=== PATIENT | male | born 1960 | race African-American/Black ===

== ENCOUNTER 2019-06-22 14:21 | Emergency (ER) | payer MEDICAID ==
[2019-06-22] MEDS ORDERED: NORMAL SALINE 1000 ML 1,000 ML IV ONE (15:27)
--- NOTE | 2019-06-22 15:35 | ER Document Report ---
ED Medical Screen (RME) <ASHLY KOCH - Last Filed: 06/22/19 15:33> <MOODY HALL - Last Filed: 06/22/19 16:50> - General Chief Complaint: Other Stated Complaint: CHILLS Time Seen by Provider: 06/22/19 14:33 Primary Care Provider: JENNIFER TEMPLE PA-C [Primary Care Provider] - Follow up as needed Notes: Patient is a 58-year-old male with a history of hepatitis C, type 2 diabetes who presents to the emergency department today with a chief complaint of chills. Patient reports he developed chills and a shaking type feeling after eating Irish food 30 minutes prior to arrival. Patient states that this is never happened before. Patient reports his blood sugars have been running in the high 200s. Patient also concerned as he states he has been passing out multiple times over the past 6 months. Patient states that last week he was walking in his home when he just fell out. Patient denies head injury but reports he did have a loss of consciousness for 1 to 2 minutes. Patient is concerned because he is not sure why he is passing out. Patient denies chest pain. Patient reports some shortness of breath. (ASHLY KOCH) - Related Data Allergies/Adverse Reactions: No Known Allergies Allergy (Unverified 06/22/19 14:23) Past Medical History - Social History Chew tobacco use (# tins/day): No Frequency of alcohol use: Occasional Drug Abuse: Marijuana - Past Medical History Cardiac Medical History: Reports: Hx Hypertension Endocrine Medical History: Reports: Hx Diabetes Mellitus Type 2 Renal/ Medical History: Denies: Hx Peritoneal Dialysis <AUGUST,ASHLY - Last Filed: 06/22/19 15:33> Physical Exam - Respiratory Respiratory status: No respiratory distress Chest status: Nontender Breath sounds: Normal Chest palpation: Normal - Cardiovascular Rhythm: Regular Heart sounds: Normal auscultation, S1 appreciated, S2 appreciated <LUIS F KOCHECCA - Last Filed: 06/22/19 15:33> - Vital signs Vitals: Temp Pulse Resp BP Pulse Ox 97.3 F 99 16 142/91 H 97 06/22/19 14:35 06/22/19 14:35 06/22/19 14:35 06/22/19 14:35 06/22/19 14:35 Course <ASHLY KOCH - Last Filed: 06/22/19 15:33> - Laboratory Result Diagrams: 06/22/19 16:11 06/22/19 16:11 <MOODY HALL - Last Filed: 06/22/19 16:50> - Re-evaluation Re-evalutation: 06/22/19 15:34 Patient was originally seen in super track at a level 4. Due to his complaint of syncope with loss of consciousness he was upgraded to the MEMO level 3, basic labs, EKG and troponin ordered. I have greeted and performed a rapid initial assessment of this patient. A comprehensive ED assessment and evaluation of the patient, analysis of test results and completion of the medical decision making process will be conducted by additional ED providers. (ASHLY KOCH) - Vital Signs Vital signs: Temp Pulse Resp BP Pulse Ox 97.3 F 99 16 142/91 H 97 06/22/19 14:35 06/22/19 14:35 06/22/19 14:35 06/22/19 14:35 06/22/19 14:35 Doctor's Discharge <ASHLY KOCH - Last Filed: 06/22/19 15:33> <MOODY HALL - Last Filed: 06/22/19 16:50> - Discharge Referrals: JENNIFER TEMPLE PA-C [Primary Care Provider] - Follow up as needed
--- NOTE | 2019-06-22 15:46 | RADIOLOGY REPORT (SQ) ---
EXAM DESCRIPTION: CHEST SINGLE VIEW COMPLETED DATE/TIME: 06/22/2019 3:36 pm REASON FOR STUDY: chest pain COMPARISON: None. NUMBER OF VIEWS: One view. TECHNIQUE: Single frontal radiographic view of the chest acquired. LIMITATIONS: None. FINDINGS: LUNGS AND PLEURA: No opacities, masses or pneumothorax. No pleural effusion. MEDIASTINUM AND HILAR STRUCTURES: No masses. Contour normal. HEART AND VASCULAR STRUCTURES: Heart normal in size. Normal vasculature. BONES: No acute findings. HARDWARE: None in the chest. OTHER: No other significant finding. IMPRESSION: NO SIGNIFICANT RADIOGRAPHIC FINDING IN THE CHEST. TECHNICAL DOCUMENTATION: JOB ID: [id number] [employer]- All Rights Reserved Reading location - IP/workstation name: [email or web address]
[2019-06-22 16:34] LABS: ABSOLUTE BASOPHILS # (AUTO) 0.1 10^3/uL (0.0-0.2); ABSOLUTE EOSINOPHILS # (AUTO) 0.1 10^3/uL (0.0-0.6); ABSOLUTE LYMPHOCYTES (AUTO) 2.3 10^3/uL (0.5-4.7); ABSOLUTE MONOCYTES (AUTO) 0.6 10^3/uL (0.1-1.4); ABSOLUTE NEUT (AUTO) 6.5 10^3/uL (1.7-8.2); BASOPHILS % (AUTO) 0.9 % (0-2); EOSINOPHILS % (AUTO) 1.4 % (0-6); HEMATOCRIT 43.5 % (37.9-51.0); HEMOGLOBIN 15.1 g/dL (13.5-17.0); LYMPHOCYTES % (AUTO) 23.9 % (13-45); MEAN CORPUSCULAR HEMOGLOBIN 31.2 pg (27.0-33.4); MEAN CORPUSCULAR HGB CONC 34.7 g/dL (32.0-36.0); MEAN CORPUSCULAR VOLUME 90 fl (80-97); MONOCYTES % (AUTO) 6.1 % (3-13); PLATELET COUNT 234 10^3/uL (150-450); RED BLOOD COUNT 4.84 10^6/uL (4.35-5.55); RED CELL DISTRIBUTION WIDTH 12.7 % (11.5-14.0); SEGMENTED NEUTROPHILS % (AUTO) 67.7 % (42-78); TOTAL CELLS COUNTED % (AUTO) 100 %; WHITE BLOOD COUNT 9.5 10^3/uL (4.0-10.5)
[2019-06-22 16:56] LABS: ALBUMIN 4.5 g/dL (3.5-5.0); ALKALINE PHOSPHATASE 60 U/L (38-126); ANION GAP 14 (5-19); ASPARTATE AMINO TRANSFERASE 35 U/L (17-59); BILIRUBIN,DIRECT 0.3 mg/dL (0.0-0.4); BILIRUBIN,TOTAL 0.8 mg/dL (0.2-1.3); BLOOD UREA NITROGEN 23 mg/dL (7-20); CALCIUM 9.6 mg/dL (8.4-10.2); CARBON DIOXIDE 24 mmol/L (22-30); CHLORIDE 98 mmol/L (98-107); CREATINE KINASE 421 U/L (55-170); GLUCOSE 89 mg/dL (75-110); POTASSIUM 3.7 mmol/L (3.6-5.0); TOTAL PROTEIN 7.8 g/dL (6.3-8.2)
--- NOTE | 2019-06-22 17:00 | ER Document Report ---
ED General - General Chief Complaint: Other Stated Complaint: CHILLS Time Seen by Provider: 06/22/19 14:33 Primary Care Provider: JENNIFER TEMPLE PA-C [Primary Care Provider] - Follow up as needed Information source: Patient - HPI Patient complains to provider of: chills and low blood sugar to 70. Onset: This morning Onset/Duration: Sudden Quality of pain: No pain Severity: Mild Pain Level: 1 Associated symptoms: Chills Exacerbated by: Denies Relieved by: Food Similar symptoms previously: Yes - Related Data Allergies/Adverse Reactions: No Known Allergies Allergy (Unverified 06/22/19 14:23) Past Medical History - Social History Smoking Status: Current Every Day Smoker Chew tobacco use (# tins/day): No Frequency of alcohol use: Occasional Drug Abuse: Marijuana Family History: None Patient has suicidal ideation: No Patient has homicidal ideation: No - Past Medical History Cardiac Medical History: Reports: Hx Hypertension Endocrine Medical History: Reports: Hx Diabetes Mellitus Type 2 Renal/ Medical History: Denies: Hx Peritoneal Dialysis Review of Systems - Review of Systems Constitutional: Chills, Malaise Cardiovascular: denies: Chest pain Respiratory: denies: Cough Gastrointestinal: denies: Abdominal pain Genitourinary: denies: Burning, Dysuria Physical Exam - Vital signs Vitals: Temp Pulse Resp BP Pulse Ox 97.3 F 99 16 142/91 H 97 06/22/19 14:35 06/22/19 14:35 06/22/19 14:35 06/22/19 14:35 06/22/19 14:35 - General General appearance: Appears well - HEENT Head: Normocephalic, Atraumatic Eyes: Normal Conjunctiva: Normal Cornea: Normal Extraocular movements intact: Yes Pupils: PERRL Mouth/Lips: Normal Pharynx: Normal Neck: Normal - Respiratory Respiratory status: No: No respiratory distress, Respiratory distress, Depressed respirations Chest status: Tender Breath sounds: Normal Chest palpation: Normal - Cardiovascular Rhythm: Regular - Abdominal Inspection: Normal Distension: No distension Bowel sounds: Normal Tenderness: Nontender - Genitourinary Inspection: Normal Tenderness: Nontender - Back Back: No: CVA tenderness - Extremities General upper extremity: Normal inspection General lower extremity: Normal inspection Shoulder: Normal Arm: Normal Elbow: Normal Forearm: Normal Wrist: Normal Hand: Normal Hip: Normal - Neurological Orientation: AAOx4 Da Coma Scale Eye Opening: Spontaneous [place] Coma Scale Verbal: Oriented Da Coma Scale Motor: Obeys Commands [place] Coma Scale Total: 15 Speech: Normal Cranial nerves: Normal Cerebellar coordination: Normal Motor strength normal: LUE, RUE, LLE, RLE - Skin Skin Temperature: Warm Skin Moisture: Dry Course - Vital Signs Vital signs: Temp Pulse Resp BP Pulse Ox 97.3 F 99 16 142/91 H 97 06/22/19 14:35 06/22/19 14:35 06/22/19 14:35 06/22/19 14:35 06/22/19 14:35 - Laboratory Result Diagrams: 06/22/19 16:11 06/22/19 16:11 Laboratory results interpreted by me: 06/22/19 06/22/19 06/22/19 16:11 16:11 16:11 Sodium 135.9 L BUN 23 H Creatinine 1.37 H Est GFR (MDRD) Non-Af 53 L Lactic Acid Creatine Kinase 421 H CK-MB (CK-2) 5.37 H Urine Protein 100 H Urine Glucose (UA) 50 H Urine Blood SMALL H Urine Urobilinogen 2.0 H 06/22/19 17:10 Sodium BUN Creatinine Est GFR (MDRD) Non-Af Lactic Acid 2.2 H Creatine Kinase CK-MB (CK-2) Urine Protein Urine Glucose (UA) Urine Blood Urine Urobilinogen - Transfer of Care Notes: 06/22/19 20:24 Note chest x-ray was read as negative. Patient received IV fluid x2 L. Blood sugar was stable lactic acid was below 2. Patient shows no signs of sepsis therefore will be discharged with diagnosis of hypoglycemia as there is no signs of infection. Discharge - Discharge Clinical Impression: Hypoglycemia, Chills (without fever) Condition: Good Disposition: HOME, SELF-CARE Instructions: Hypoglycemia ([facility]), Hypoglycemia Diet ([facility]) Additional Instructions: return if worse. Referrals: JENNIFER TEMPLE PA-C [Primary Care Provider] - Follow up as needed
[2019-06-22 17:20] LABS: APPEARANCE,URINE CLEAR; BILIRUBIN,URINE NEGATIVE (NEGATIVE); COLOR,URINE YELLOW; CREATINE KINASE MB 5.37 ng/mL (<4.55); GLUCOSE, URINE 50 mg/dL (NEGATIVE); KETONES,URINE NEGATIVE (NEGATIVE); LEUKOCYTE ESTERASE,URINE NEGATIVE (NEGATIVE); NITRITE,URINE NEGATIVE (NEGATIVE); PROTEIN,URINE 100 mg/dL (NEGATIVE); URINE SPECIFIC GRAVITY 1.012
[2019-06-22 17:29] LABS: TROPONIN I < 0.012 ng/mL
[2019-06-22] MEDS ORDERED: DEXTROSE 50%-WATER 25 GM/50 ML DISP.SYRIN IV ONE ×2 (17:49→17:57)
[2019-06-22] MEDS ORDERED: NORMAL SALINE 1000 ML 1,000 ML IV PRN (18:03)
[2019-06-22 20:54] VITALS: BP 137/91
--- NOTE | 2019-06-23 14:22 | EKG REPORT ---
SEVERITY:- ABNORMAL ECG - SINUS RHYTHM NONSPECIFIC INTRAVENTRICULAR CONDUCTION DELAY INFERIOR INFARCT, AGE INDETERMINATE LATERAL INFARCT, AGE INDETERMINATE : Confirmed by: Faviola Franco 23-Jun-2019 14:21:31
== END 2019-06-22 20:56 | disposition home or self-care (01) ==
LOC: ER 14:21
DX: E11.649 Type 2 diabetes mellitus with hypoglycemia without coma (principal); R68.83 Chills (without fever); R53.81 Other malaise; F17.200 Nicotine dependence, unspecified, uncomplicated; F12.10 Cannabis abuse, uncomplicated; I10 Essential (primary) hypertension
CPT/HCPCS: 99284; 96361; 96374; 36415; 87040; 82553; 82962; 82550; 83605 ×2; 85025; 80053; 81001; 84484; 71045; 93005; 93010; J3490; J7030

== ENCOUNTER → 2019-12-01 | Outpatient (CLI) | payer MEDICAID ==
--- NOTE | 2019-12-01 13:10 | RADIOLOGY REPORT (SQ) ---
EXAM DESCRIPTION: VENOUS UNILATERAL LOWER COMPLETED DATE/TIME: 12/01/2019 12:38 pm REASON FOR STUDY: SWELLING R22.41 LOCALIZED SWELLING, MASS AND LUMP, RIGHT LOWER LIMB COMPARISON: None. TECHNIQUE: Dynamic and static mitchell scale and color images acquired of the right leg venous system. S elected spectral images acquired with additional compression and augmentation maneuvers. The contrala teral common femoral vein and saphenofemoral junction were also imaged. Images stored on PACS. LIMITATIONS: None. FINDINGS: COMMON FEMORAL: Normal phasicity, compression and augmentation. No visualized echogenic ma terial on mitchell scale. No defects on color images. FEMORAL: Normal compression and augmentation. No visualized echogenic material on mitchell scale. No defe cts on color images. POPLITEAL: Normal compression, augmentation. No visualized echogenic material on mitchell scale. No defec ts on color images. CALF VESSELS: Normal compression, augmentation. No visualized echogenic material on mitchell scale. No de fects on color images. GSV and SSV: Normal compression, augmentation. No visualized echogenic material on mitchell scale. No def ects on color images. ANY DEEP VENOUS INSUFFICIENCY: No. ANY EVIDENCE OF POPLITEAL CYST: No. OTHER: No other significant finding. CONTRALATERAL COMMON FEMORAL VEIN AND SAPHENOFEMORAL JUNCTION: Normal phasicity, compression and augmentation. No visualized echogenic material on mitchell scale. No de fects on color images. IMPRESSION: NO EVIDENCE DVT OR SVT IN THE RIGHT LEG. TECHNICAL DOCUMENTATION: JOB ID: [id number] 2010 [employer]- All Rights Reserved Reading location - IP/workstation name: [email or web address]
== END ==
LOC: SP 11:07
PROVIDERS: ATTEND Internal Medicine
DX: R22.41 Localized swelling, mass and lump, right lower limb (principal)
CPT/HCPCS: 93971

== ENCOUNTER 2020-03-06 13:01 | Inpatient (IN) | payer MEDICAID ==
[2020-03-06] MEDS ORDERED: NORMAL SALINE 250 ML with FUROSEMIDE 250 MG IV PRN ×2 (13:18)
--- NOTE | 2020-03-06 13:19 | ER Document Report ---
HPI - HPI Time Seen by Provider: 03/06/20 13:12 Pain Level: 4 Notes: 59-year-old male patient presenting with direct admission orders. There apparently are no beds available at this time so he is being seen in the emergency department. I have entered all orders as indicated on his order sheet by Dr. Warner. Patient's complaint today is bilateral lower extremity edema. He states this has been going on for a few months with worsening over the last few days. He denies any chest pain or shortness of breath. - REPRODUCTIVE Reproductive: DENIES: : Past Medical History - General Information source: Patient - Social History Smoking Status: Unknown if Ever Smoked Frequency of alcohol use: None Drug Abuse: None Family History: None Patient has homicidal ideation: No - Past Medical History Cardiac Medical History: Reports: Hx Hypertension Endocrine Medical History: Reports: Hx Diabetes Mellitus Type 2 Renal/ Medical History: Denies: Hx Peritoneal Dialysis Vertical Provider Document - CONSTITUTIONAL Notes: PHYSICAL EXAMINATION: GENERAL: Well-appearing, well-nourished and in no acute distress. HEAD: Atraumatic, normocephalic. EYES: Pupils equal round and reactive to light, extraocular movements intact, sclera anicteric, conjunctiva are normal. ENT: Nares patent, oropharynx clear without exudates. Moist mucous membranes. NECK: Normal range of motion, supple without lymphadenopathy LUNGS: Breath sounds clear to auscultation bilaterally and equal. No wheezes rales or rhonchi. HEART: Regular rate and rhythm without murmurs ABDOMEN: Soft, nontender, nondistended abdomen. No guarding, no rebound. No masses appreciated. Musculoskeletal: Normal range of motion, 3+ pitting edema to bilateral lower extremities. No cyanosis. NEUROLOGICAL: Cranial nerves grossly intact. Normal speech, normal gait. Normal sensory, motor exams PSYCH: Normal mood, normal affect. SKIN: Warm, Dry, normal turgor, no rashes or lesions noted. - INFECTION CONTROL TRAVEL OUTSIDE OF THE [place] IN LAST 30 DAYS: No Course - Re-evaluation Re-evalutation: 03/06/20 13:21 Patient arrives with direct admit orders. All orders placed. Patient admitted to the [facility] under the service of Dr. Warner. - Vital Signs Vital signs: Temp Pulse Resp BP Pulse Ox 98.0 F 97 18 148/100 H 96 03/06/20 13:12 03/06/20 13:07 03/06/20 13:07 03/06/20 13:07 03/06/20 13:07 Discharge - Discharge Clinical Impression: History of type 2 diabetes mellitus CHF (congestive heart failure) Qualifiers: Heart failure type: unspecified Heart failure chronicity: unspecified Qualified Code(s): I50.9 - Heart failure, unspecified Condition: Stable Disposition: ADMITTED INPATIENT Admitting Provider: Marcella Unit Admitted: [facility] Referrals: BRIANDA WARNER MD [Primary Care Provider] - Follow up as needed
[2020-03-06 13:53] LABS: ABSOLUTE EOSINOPHILS # (AUTO) 0.2 10^3/uL (0.0-0.6); ABSOLUTE LYMPHOCYTES (AUTO) 1.2 10^3/uL (0.5-4.7); ABSOLUTE MONOCYTES (AUTO) 0.6 10^3/uL (0.1-1.4); ABSOLUTE NEUT (AUTO) 3.4 10^3/uL (1.7-8.2); BASOPHILS % (AUTO) 0.6 % (0-2); EOSINOPHILS % (AUTO) 4.2 % (0-6); HEMATOCRIT 40.3 % (37.9-51.0); HEMOGLOBIN 13.4 g/dL (13.5-17.0); LYMPHOCYTES % (AUTO) 21.6 % (13-45); MEAN CORPUSCULAR HEMOGLOBIN 29.2 pg (27.0-33.4); MEAN CORPUSCULAR HGB CONC 33.2 g/dL (32.0-36.0); MEAN CORPUSCULAR VOLUME 88 fl (80-97); MONOCYTES % (AUTO) 11.4 % (3-13); PLATELET COUNT 215 10^3/uL (150-450); RED BLOOD COUNT 4.57 10^6/uL (4.35-5.55); RED CELL DISTRIBUTION WIDTH 15.2 % (11.5-14.0); SEGMENTED NEUTROPHILS % (AUTO) 62.2 % (42-78); TOTAL CELLS COUNTED % (AUTO) 100 %; WHITE BLOOD COUNT 5.4 10^3/uL (4.0-10.5)
[2020-03-06 14:16] LABS: ALBUMIN 3.8 g/dL (3.5-5.0); ALKALINE PHOSPHATASE 64 U/L (38-126); ANION GAP 6 (5-19); ASPARTATE AMINO TRANSFERASE 26 U/L (17-59); BILIRUBIN,TOTAL 1.5 mg/dL (0.2-1.3); BLOOD UREA NITROGEN 23 mg/dL (7-20); CALCIUM 8.9 mg/dL (8.4-10.2); CARBON DIOXIDE 31 mmol/L (22-30); CHLORIDE 103 mmol/L (98-107); CREATINE KINASE 303 U/L (55-170); GLUCOSE 87 mg/dL (75-110); POTASSIUM 3.9 mmol/L (3.6-5.0)
[2020-03-06 14:22] LABS: URINE CREATININE 89.8 mg/dL (22-328)
[2020-03-06 14:28] LABS: CREATINE KINASE MB 7.59 ng/mL (<4.55)
[2020-03-06 14:33] LABS: FREE T4 (FREE THYROXINE) 1.34 ng/dL (0.78-2.19)
[2020-03-06 14:41] LABS: TROPONIN I 0.065 ng/mL
[2020-03-06 14:42] LABS: URINE PROTEIN 300.7 mg/dL (<12)
[2020-03-06 14:47] LABS: THYROID STIMULATING HORMONE 2.86 uIU/mL (0.47-4.68)
--- NOTE | 2020-03-06 16:26 | RADIOLOGY REPORT (SQ) ---
EXAM DESCRIPTION: CHEST 2 VIEWS IMAGES COMPLETED DATE/TIME: 03/06/2020 1:47 pm REASON FOR STUDY: eval for chf COMPARISON: None. EXAM PARAMETERS: NUMBER OF VIEWS: two views TECHNIQUE: Digital Frontal and Lateral radiographic views of the chest acquired. RADIATION DOSE: NA LIMITATIONS: none FINDINGS: 06/22/2019 LUNGS AND PLEURA: Patchy right middle lobe and basilar opacities. Elevation of the right hemidiaphra gm with small right effusion. Unremarkable left hemithorax. No pneumothorax. MEDIASTINUM AND HILAR STRUCTURES: No masses or contour abnormalities. HEART AND VASCULAR STRUCTURES: Enlarged. No overt edema. BONES: No acute findings. HARDWARE: None in the chest. OTHER: No other significant finding. IMPRESSION: Patchy right middle lobe and basilar opacities suspicious for pneumonia. Small associat ed right sided pleural effusion. Enlarged cardiac silhouette without overt edema. TECHNICAL DOCUMENTATION: JOB ID: [id number] 2010 [employer]- All Rights Reserved Reading location - IP/workstation name: [email or web address]
[2020-03-06] MEDS ORDERED: INSULIN NPH HUM SQ SCH (19:45)
[2020-03-06] MEDS ORDERED: REG INSULIN SQ SCH (19:45)
--- NOTE | 2020-03-06 19:55 | PDOC H&P ---
History of Present Illness Admission Date/PCP: 03/06/20 13:35 BRIANDA WARNER MD History of Present Illness: JUICE GRAHAM is a 59 year old male, He came to the office today for eval uation of progressive swelling of both lower extremities, in the office he was evaluated, on physical examination, there was distention of the jugular veins with positive hepatojugular reflux he also extremely distended lower extremities, he was diagnosed with acute new onset CHF, He was admitted directly from the office to the hospital but he was directed by the nursing claims adjuster supervisor to the emergency room. The chest x-ray, the B type natruretic peptide was consistent with CHF., The 2D echo demonstrated dilated left atrium, left ventricle, the ejection fraction of the left ventricle is in the low 20s. Past Medical History Cardiac Medical History: Reports: Hypertension Endocrine Medical History: Reports: Diabetes Mellitus Type 2 Social History Smoking Status: Current Some Day Smoker Family History Family History: None Parental Family History Reviewed: Yes Children Family History Reviewed: Yes Sibling(s) Family History Reviewed.: Yes Medication/Allergy Home Medications: Furosemide [Lasix 40 mg Tablet] 40 mg PO DAILY 03/06/20 Hydralazine HCl [Apresoline 50 mg Tablet] 50 mg PO Q8 03/06/20 Insulin NPH Hum/Reg Insulin Hm [Humulin 70/30 Kwikpen] 30 unit SQ DAILY 03/06/20 Lisinopril [Zestril] 40 mg PO DAILY 03/06/20 Allergies/Adverse Reactions: No Known Allergies Allergy (Verified 03/06/20 13:11) Review of Systems Constitutional: ABSENT: chills, fever(s), headache(s), weight gain, weight loss Eyes: ABSENT: visual disturbances Ears: ABSENT: hearing changes Cardiovascular: PRESENT: dyspnea on exertion, edema Respiratory: PRESENT: cough, dyspnea Gastrointestinal: ABSENT: abdominal pain, constipation, diarrhea, hematemesis, hematochezia, nausea, vomiting Genitourinary: ABSENT: dysuria, hematuria Musculoskeletal: ABSENT: joint swelling Integumentary: ABSENT: rash, wounds Neurological: ABSENT: abnormal gait, abnormal speech, confusion, dizziness, focal weakness, syncope Psychiatric: ABSENT: anxiety, depression, homidical ideation, suicidal ideation Endocrine: ABSENT: cold intolerance, heat intolerance, menstrual abnormalities, polydipsia, polyuria Hematologic/Lymphatic: ABSENT: easy bleeding, easy bruising, lymphadenopathy Physical Exam Vital Signs: Temp Pulse Resp BP Pulse Ox 97.6 F 98 20 144/99 H 97 03/06/20 19:18 03/06/20 19:18 03/06/20 19:18 03/06/20 19:18 03/06/20 19:18 Intake & Output 03/05/20 03/06/20 03/07/20 06:59 06:59 06:59 Output Total 175 Balance -175 Weight 88.4 kg General appearance: PRESENT: other - Patient is alert and oriented not in obvious distress Head exam: PRESENT: atraumatic, normocephalic Eye exam: PRESENT: PERRLA Ear exam: PRESENT: normal external ear exam Mouth exam: PRESENT: moist, tongue midline Neck exam: PRESENT: JVD Respiratory exam: PRESENT: clear to auscultation anu Cardiovascular exam: PRESENT: RRR, +S1, +S2 Vascular exam: PRESENT: normal capillary refill GI/Abdominal exam: PRESENT: normal bowel sounds, soft Rectal exam: PRESENT: deferred Neurological exam: PRESENT: alert, CN II-XII grossly intact Psychiatric exam: PRESENT: appropriate affect, normal mood Skin exam: PRESENT: dry, intact, warm. ABSENT: cyanosis, rash Results Laboratory Results: 03/06/20 13:42 03/06/20 13:42 03/06/20 03/06/20 03/06/20 13:42 13:42 13:42 WBC 5.4 RBC 4.57 Hgb 13.4 L Hct 40.3 MCV 88 MCH 29.2 MCHC 33.2 RDW 15.2 H Plt Count 215 Seg Neutrophils % 62.2 Sodium 140.2 Potassium 3.9 Chloride 103 Carbon Dioxide 31 H Anion Gap 6 BUN 23 H Creatinine 1.51 H Est GFR ( Amer) 58 L Glucose 87 Calcium 8.9 Total Bilirubin 1.5 H AST 26 Alkaline Phosphatase 64 Total Protein 7.0 Albumin 3.8 TSH 2.86 Free T4 1.34 03/06/20 03/06/20 13:42 13:42 Creatine Kinase 303 H CK-MB (CK-2) 7.59 H Troponin I 0.065 NT-Pro-B Natriuret Pep 7480 H Impressions: Chest X-Ray 03/06/20 13:17 IMPRESSION: Patchy right middle lobe and basilar opacities suspicious for pneumonia. Small associated right sided pleural effusion. Enlarged cardiac silhouette without overt edema. Assessment & Plan - Diagnosis (1) Acute systolic heart failure Is this a current diagnosis for this admission?: Yes Plan: He has new onset CHF, patient admitted to the hospital for management, start Entresto, beta-rito, consult cardiology (2) T2DM (type 2 diabetes mellitus) Qualifiers: Diabetes mellitus salvage determiner insulin use: with senior living use Diabetes mellitus complication status: with neurologic complications Diabetes mellitus complication detail: with polyneuropathy Qualified Code(s): E11.42 - Type 2 diabetes mellitus with diabetic polyneuropathy; Z79.4 - watermaster (current) use of insulin Is this a current diagnosis for this admission?: Yes
[2020-03-06 20:28] LABS: UR PRO/CREAT RATIO RESULT 2.2 mg/mg (0.0-0.2); URINE CREATININE 22.4 mg/dL (22-328)
[2020-03-06] MEDS ORDERED: CARVEDILOL 3.125 MG TABLET PO SCH (20:30)
[2020-03-06 20:45] LABS: INTERNATIONAL RATION (INR) 1.36; PARTIAL THROMBOPLASTIN TIME 33.1 SEC (23.5-35.8); PROTHROMBIN TIME 16.9 SEC (11.4-15.4)
[2020-03-06 21:06] LABS: CREATINE KINASE MB 6.09 ng/mL (<4.55); TROPONIN I 0.071 ng/mL
[2020-03-06 21:53] LABS: APPEARANCE,URINE CLEAR; BILIRUBIN,URINE NEGATIVE (NEGATIVE); COLOR,URINE STRAW; GLUCOSE, URINE NEGATIVE (NEGATIVE); KETONES,URINE NEGATIVE (NEGATIVE); LEUKOCYTE ESTERASE,URINE NEGATIVE (NEGATIVE); NITRITE,URINE NEGATIVE (NEGATIVE); PROTEIN,URINE 30 mg/dL (NEGATIVE); URINE SPECIFIC GRAVITY 1.006; UROBILINOGEN,URINE NEGATIVE mg/dL (<2.0)
--- NOTE | 2020-03-06 22:42 | RADIOLOGY REPORT (SQ) ---
EXAM DESCRIPTION: US RETROPERITONEUM LIMITED COMPLETED DATE/TME: 03/06/2020 00:00 CLINICAL HISTORY: 59 years, Male, CKD STAGE 3 COMPARISON: None. TECHNIQUE: Axial 2-D grayscale images of the retroperitoneum were acquired. Doppler was utilized. LIMITATIONS: None. FINDINGS: Right kidney measures 11.2 x 3.7 x 9.8 cm in size. There is mild dilatation of the right renal collecting system/pelvis. In addition, there is at least a small amount of fluid located within the right pleural space. Left kidney measures 10.6 x 4.7 x 6.2 cm in size. No hydronephrosis. Visualized portions of the abdominal aorta and IVC appear normal. Limited imaging of the urinary bladder reveals no suspicious finding. However, neither ureteral jet was visualized. IMPRESSION: Mild right hydronephrosis. Partially imaged right pleural effusion. copyright 2010 [email or web address]- All Rights Reserved
--- NOTE | 2020-03-06 22:56 | PDOC CONSULTATION ---
Consultation-Blank Consultation: CARDIOLOGY CONSULTATION by Dr. Norma Pena on 03/06/2020. Patient seen at 7 PM. 60-minute spent with patient more than 50% time spent direct patient care. REASON FOR CONSULTATION: Patient with shortness of breath PND orthopnea and leg edema consistent with symptoms of acute biventricular systolic heart failure CONSULT REQUESTING PHYSICIAN: Dr. Naranjo. HISTORY OF PRESENT ILLNESS: Patient is a 59-year-old -[place]i male with known history of hypertension, and diabetes mellitus and COPD who continues to smoke states that since a few weeks he has been having progressively increasing dyspnea on exertion to rest shortness of breath. This is associated with episodes of PND orthopnea and leg edema. He went to Dr. Naranjo's office for complaints of above and was found to be in heart failure and admitted for further work-up. The patient was seen by me in my office in December 2019 as a s eparate self-referral by the patiient. His echocardiogram showed dilated LV with severely reduced LV ejection fraction with pulmonary hypertension. He also had a stress test which showed inferior wall scar with minimal reversible ischemia with reduced LV ejection fraction. The patient did not follow-up and hence does not know the results. Hence the patient's admission is for acute on chronic left ventricular and right ventricular systolic heart failure.. He denies any palpitations or syncope. There is no cough or wheezing. There is no symptoms suggestive COVID19. He has no syncope. He denies any chest pain or discomfort. There is no symptoms of dizziness or syncope presyncope or syncope or sudden . There is no TIA or CVA symptoms. Past Medical History Cardiac Medical History: Reports: Hypertension Endocrine Medical History: Reports: Diabetes Mellitus Type 2 RESPIRATORY: History of COPD. Patient smokes. There is no history of sleep apnea. Social History Smoking Status: Current Some Day Smoker Family History Family History: No history of heart failure, diabetes, hypertension, coronary artery disease, or sudden . Parental Family History Reviewed: Yes Children Family History Reviewed: Yes Sibling(s) Family History Reviewed.: Yes Medication/Allergy Home Medications: Furosemide [Lasix 40 mg Tablet] 40 mg PO DAILY 03/06/20 Hydralazine HCl [Apresoline 50 mg Tablet] 50 mg PO Q8 03/06/20 Insulin NPH Hum/Reg Insulin Hm [Humulin 70/30 Kwikpen] 30 unit SQ DAILY 03/06/20 Lisinopril [Zestril] 40 mg PO DAILY 03/06/20 Allergies/Adverse Reactions: No Known Allergies Allergy (Verified 03/06/20 13:11) Current Medications Generic Name Dose Route Start Last Admin Trade Name Freq PRN Reason Stop Dose Admin Acetaminophen 650 mg 03/06/20 23:26 03/06/20 23:33 Tylenol 325 Mg Tablet PO 04/05/20 23:25 650 mg Q4HP PRN Administration PAIN Carvedilol 3.125 mg 03/06/20 20:30 03/06/20 23:32 Coreg 3.125 Mg Tablet PO 04/05/20 20:29 3.125 mg Q12 ALAN Administration Heparin Sodium (Porcine) 5,000 unit 03/06/20 20:30 03/06/20 23:36 Heparin Inj 5,000 Units/Ml 1 Ml Vial SUBCUT 04/05/20 20:29 5,000 unit Q8 ALAN Administration Hydralazine HCl 50 mg 03/06/20 20:30 03/06/20 23:32 Apresoline 50 Mg Tablet PO 04/05/20 20:29 50 mg Q8 ALAN Administration Furosemide 250 mg/ Sodium 250 mls @ 20 mls/hr 03/06/20 20:56 Chloride IV 04/05/20 20:55 CONTINUOUS PRN THIS MED IS NOT "PRN" Insulin Human Isoph/Insulin Regular 30 unit 03/07/20 10:00 Insulin Inj 70-30 (100 Unit/1 Ml) 3 Ml Vial SUBCUT 04/06/20 09:59 DAILY ALAN Sacubitril/Valsartan 1 tab 03/06/20 22:00 03/06/20 23:33 Entresto 24 Mg/26 Mg Tablet PO 04/05/20 21:59 1 tab Q12 ALAN Administration Sodium Chloride 2.5 ml 03/06/20 20:30 03/06/20 23:37 Saline Flush 2.5 Ml Monoject Prefil Syrin IV 04/05/20 20:29 Not Given Q8 ALAN Discontinued Medications Generic Name Dose Route Start Last Admin Trade Name Freq PRN Reason Stop Dose Admin Furosemide 250 mg/ Sodium 250 mls @ 20 mls/hr 03/06/20 13:18 03/06/20 16:23 Chloride IV 04/05/20 13:17 20 mg/hr CONTINUOUS PRN 20 mls/hr THIS MED IS NOT "PRN" Administration 20 MG/HR RESUSCITATION STATUS: The patient is a full code. Ms. Alessia Diaz is his surrogate healthcare decision maker. Review of Systems Constitutional: ABSENT: chills, fever(s), headache(s), weight gain, weight loss Eyes: ABSENT: visual disturbances Ears: ABSENT: hearing changes Cardiovascular: PRESENT: dyspnea on exertion, edema Respiratory: PRESENT: cough, dyspnea Gastrointestinal: ABSENT: abdominal pain, constipation, diarrhea, hematemesis, hematochezia, nausea, vomiting Genitourinary: ABSENT: dysuria, hematuria Musculoskeletal: ABSENT: joint swelling Integumentary: ABSENT: rash, wounds Neurological: ABSENT: abnormal gait, abnormal speech, confusion, dizziness, focal weakness, syncope Psychiatric: ABSENT: anxiety, depression, homidical ideation, suicidal ideation Endocrine: ABSENT: cold intolerance, heat intolerance, menstrual abnormalities, polydipsia, polyuria Hematologic/Lymphatic: ABSENT: easy bleeding, easy bruising, lymphadenopathy PHYSICAL EXAMINATION: The patient is mildly obese. At present in no acute distress but does have some degree of orthopnea. Selected Entries 03/06/20 19:18 Temperature 97.6 F Temperature Oral Source Pulse Rate [ 98 Left Finger] Respiratory 20 Rate Blood Pressure 144/99 H [Right Upper Arm] Blood Pressure 114 Mean [Right Upper Arm] Blood Pressure Supine Position [Right Upper Arm] O2 Sat by Pulse 97 Oximetry Oxygen Delivery Room Air Method ( includes room air) Head: Is atraumatic and normocephalic. EYES: Pupils are equal round regular reactive to light and accommodation. Extraocular movements are normal. There is no conjunctival pallor. There is no scleral icterus. EARS: Tympanic membranes are intact. External auditory canals are clear. NOSE: There is no deviated nasal septum. There is no inflammation of the nasal mucous membrane. MOUTH: Mucous membranes of mouth are moist. Tongue is moist. There is no ulcers. There is no bleeding from the gums. THROAT: There is no redness of the oropharynx. There is no exudates. SKIN: There is no skin rashes. There is no petechia or ecchymosis. There is no skin lesions. NECK: Supple. There is JVD present. Hepatojugular reflux is positive. There is no lymphadenopathy. Carotids are equal there is no bruits. There is no goiter. There is no accessory muscles of respiration use. Trachea is central. LUNGS: There is diminished air entry prolonged expiration. There is no rhonchi or wheezing. There is bibasilar rales of CHF. HEART S1-S2 is heard. There is no S3 gallop. There is no S4 gallop. There is systolic murmur of mitral regurgitation and tricuspid regurgitation present. There is no rub. ABDOMEN: Is obese. There is hepatomegaly. There is no splenomegaly. Bowel sounds are well heard. There is hepatojugular reflux present. There is no tender areas of masses. There is no rebound guarding or rigidity. EXTREMITIES: Femorals are diminished. Leg pulses difficult to palpate. There is 2- edema bilaterally. There is no DVT cellulitis. There is no calf tenderness. 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 PSYCHIATRIC: The patient judgment insight intact his affect is normal Labs- Entire Visit 03/06/20 03/06/20 03/06/20 13:42 13:42 13:42 WBC 5.4 RBC 4.57 Hgb 13.4 L Hct 40.3 MCV 88 MCH 29.2 MCHC 33.2 RDW 15.2 H Plt Count 215 Lymph % (Auto) 21.6 Mchenry % (Auto) 11.4 Eos % (Auto) 4.2 Baso % (Auto) 0.6 Absolute Neuts (auto) 3.4 Absolute Lymphs (auto) 1.2 Absolute Monos (auto) 0.6 Absolute Eos (auto) 0.2 Absolute Basos (auto) 0.0 Seg Neutrophils % 62.2 PT INR APTT Sodium 140.2 Potassium 3.9 Chloride 103 Carbon Dioxide 31 H Anion Gap 6 BUN 23 H Creatinine 1.51 H Est GFR ( Amer) 58 L Est GFR (MDRD) Non-Af 48 L Glucose 87 Hemoglobin A1c % Calcium 8.9 Magnesium Total Bilirubin 1.5 H Direct Bilirubin 0.0 Neonat Total Bilirubin Not Reportable Neonat Direct Bilirubin Not Reportable Neonat Indirect Bili Not Reportable AST 26 ALT 18 Alkaline Phosphatase 64 Creatine Kinase 303 H CK-MB (CK-2) 7.59 H Troponin I 0.065 NT-Pro-B Natriuret Pep 7480 H Total Protein 7.0 Albumin 3.8 TSH Free T4 Urine Color Urine Appearance Urine pH Ur Specific [place] Urine Protein Urine Glucose (UA) Urine Ketones Urine Blood Urine Nitrite Urine Bilirubin Urine Urobilinogen Ur Leukocyte Esterase Urine WBC (Auto) Urine RBC (Auto) Urine Mucus (Auto) Urine Creatinine Protein/Creatinin Ratio Urine Total Protein Urine Ascorbic Acid 03/06/20 03/06/20 03/06/20 13:42 13:42 13:42 WBC RBC Hgb Hct MCV MCH MCHC RDW Plt Count Lymph % (Auto) Mchenry % (Auto) Eos % (Auto) Baso % (Auto) Absolute Neuts (auto) Absolute Lymphs (auto) Absolute Monos (auto) Absolute Eos (auto) Absolute Basos (auto) Seg Neutrophils % PT INR APTT Sodium Potassium Chloride Carbon Dioxide Anion Gap BUN Creatinine Est GFR ( Amer) Est GFR (MDRD) Non-Af Glucose Hemoglobin A1c % 7.3 H Calcium Magnesium Total Bilirubin Direct Bilirubin Neonat Total Bilirubin Neonat Direct Bilirubin Neonat Indirect Bili AST ALT Alkaline Phosphatase Creatine Kinase CK-MB (CK-2) Troponin I NT-Pro-B Natriuret Pep Total Protein Albumin TSH 2.86 Free T4 1.34 Urine Color Urine Appearance Urine pH Ur Specific [place] Urine Protein Urine Glucose (UA) Urine Ketones Urine Blood Urine Nitrite Urine Bilirubin Urine Urobilinogen Ur Leukocyte Esterase Urine WBC (Auto) Urine RBC (Auto) Urine Mucus (Auto) Urine Creatinine 89.8 Protein/Creatinin Ratio Urine Total Protein 300.7 H Urine Ascorbic Acid 03/06/20 03/06/20 03/06/20 19:45 19:45 20:25 WBC RBC Hgb Hct MCV MCH MCHC RDW Plt Count Lymph % (Auto) Mchenry % (Auto) Eos % (Auto) Baso % (Auto) Absolute Neuts (auto) Absolute Lymphs (auto) Absolute Monos (auto) Absolute Eos (auto) Absolute Basos (auto) Seg Neutrophils % PT INR APTT Sodium Potassium Chloride Carbon Dioxide Anion Gap BUN Creatinine Est GFR ( Amer) Est GFR (MDRD) Non-Af Glucose Hemoglobin A1c % Calcium Magnesium 1.7 Total Bilirubin Direct Bilirubin Neonat Total Bilirubin Neonat Direct Bilirubin Neonat Indirect Bili AST ALT Alkaline Phosphatase Creatine Kinase 265 H CK-MB (CK-2) Troponin I NT-Pro-B Natriuret Pep Total Protein Albumin TSH Free T4 Urine Color STRAW Urine Appearance CLEAR Urine pH 6.0 Ur Specific [place] 1.006 Urine Protein 30 H Urine Glucose (UA) NEGATIVE Urine Ketones NEGATIVE Urine Blood SMALL H Urine Nitrite NEGATIVE Urine Bilirubin NEGATIVE Urine Urobilinogen NEGATIVE Ur Leukocyte Esterase NEGATIVE Urine WBC (Auto) 0 Urine RBC (Auto) 3 Urine Mucus (Auto) RARE Urine Creatinine 22.4 Protein/Creatinin Ratio 2.2 H Urine Total Protein 50.0 H Urine Ascorbic Acid NEGATIVE 03/06/20 03/06/20 20:25 20:25 WBC RBC Hgb Hct MCV MCH MCHC RDW Plt Count Lymph % (Auto) Mchenry % (Auto) Eos % (Auto) Baso % (Auto) Absolute Neuts (auto) Absolute Lymphs (auto) Absolute Monos (auto) Absolute Eos (auto) Absolute Basos (auto) Seg Neutrophils % PT 16.9 H INR 1.36 APTT 33.1 Sodium Potassium Chloride Carbon Dioxide Anion Gap BUN Creatinine Est GFR ( Amer) Est GFR (MDRD) Non-Af Glucose Hemoglobin A1c % Calcium Magnesium Total Bilirubin Direct Bilirubin Neonat Total Bilirubin Neonat Direct Bilirubin Neonat Indirect Bili AST ALT Alkaline Phosphatase Creatine Kinase CK-MB (CK-2) 6.09 H Troponin I 0.071 NT-Pro-B Natriuret Pep Total Protein Albumin TSH Free T4 Urine Color Urine Appearance Urine pH Ur Specific [place] Urine Protein Urine Glucose (UA) Urine Ketones Urine Blood Urine Nitrite Urine Bilirubin Urine Urobilinogen Ur Leukocyte Esterase Urine WBC (Auto) Urine RBC (Auto) Urine Mucus (Auto) Urine Creatinine Protein/Creatinin Ratio Urine Total Protein Urine Ascorbic Acid EKG: [SR] . SINUS RHYTHM [PLAA] . PROBABLE LEFT ATRIAL ABNORMALITY [RAD] . RIGHT AXIS DEVIATION [T0NS] . BORDERLINE T WAVE ABNORMALITIES [LQTB] . BORDERLINE PROLONGED QT INTERVAL [EKG has been personally reviewed and interpreted by me] Renal Ultrasound 03/06/20 00:00 IMPRESSION: Mild right hydronephrosis. Partially imaged right pleural effusion. copyright 2011 [employer]- All Rights Reserved Chest X-Ray 03/06/20 13:17 IMPRESSION: Patchy right middle lobe and basilar opacities suspicious for pneumonia. Small associated right sided pleural effusion. Enlarged cardiac silhouette without overt edema. ECHOCARDIOGRAM done today shows dilated ventricle with severely reduced LV ejection fraction. There is inferior wall akinesis with global severe hypokinesis. LV ejection fraction is under 20%. There is severe tricuspid regurgitation. The right ventricle systolic pressure is moderately elevated. I suspect there is under sampling of the TR velocity. There is also ascites seen. There is mild mitral regurgitation. There is no aortic stenosis or aortic regurgitation. IMPRESSION/RECOMMENDATION: 1. 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 Noted that the patient states that he is not taking lisinopril. Hence appropriate to start the patient on Entresto. Continue patient's Lasix drip continue Coreg. Would recommend substituting the Toprol-XL for Coreg in view of the patient's history of COPD and ongoing smoking. The patient may need inotropic support in the form of dobutamine. Would recommend 24-hour fluid restriction to 1500 mL per each 24-hour.. 2. Acute on chronic right ventricular systolic heart failure secondary to left heart failure and pulmonary hypertension. 3. Cardiomyopathy with severely reduced LV ejection fraction: This is a mixture of dilated and ischemic cardiomyopathy. The patient would recommend having an echo repeated in in 3 months on good anti-cardiomyopathy/anti-CHF gold standard treatments at maximal doses. If still LV ejection fraction is 35% or below then the patient will be recommended recommended to have a AICD placement refer with EP cardiology. 4. Severe tricuspid regurgitation. 5. At least moderate pulmonary hypertension. I suspect apparent pulmonary hypertension is much higher than what is recorded by calculation. This is due to my suspicions at this underestimation of the tricuspid regurgitation jet velocity. We will try to reinterrogate the tricuspid valve for this. Would add amlodipine and nitrates. 6. Hypertension: Blood pressure not optimally controlled. The patient cannot withstand the addition of beta-rito Entresto, amlodipine and nitrates. 7. 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 We will continue the patient on aspirin and add nitrates. Continue beta-rito. 8. Diabetes mellitus type 2: Continue antidiabetic treatment and Accu-Cheks as per protocol. 9. Acute renal failure: Possibly the patient has underlying chronic kidney disease. This is exacerbation patient's acute heart failure. Watch the patient's renal function on Entresto. Avoid nephrotoxic medication. 10. COPD: This seems to be stable with no acute exacerbation. 1. Ongoing tobacco abuse: Patient counseled to stop smoking and tobacco cessation counseling given. 3 minutes spent on this. 12.? Lipid status: Will cassi check lipids in the a.m. Medications reviewed. Medications added and adjusted. Medical decision making is high complexity. 60 minutes spentmore than 50% of time spent direct patient care. Discussed the case with attending physician. Will follow
[2020-03-06] MEDS: HYDRALAZINE HCL 50 MG TABLET PO SCH (23:32)
[2020-03-06] MEDS: ACETAMINOPHEN 325 MG TABLET PO PRN (23:33)
[2020-03-06] MEDS: SACUBITRIL/VALSARTAN 24 MG/26 MG TABLET PO SCH (23:33)
[2020-03-06] MEDS: HEPARIN SOD (PORCINE) 5,000 UNIT/ML 1 ML VIAL SUBCUT SCH (23:36)
[2020-03-07 02:36] LABS: CREATINE KINASE MB 5.75 ng/mL (<4.55); TROPONIN I 0.071 ng/mL
[2020-03-07] MEDS: ACETAMINOPHEN 325 MG TABLET PO PRN ×2 (05:45→23:44)
[2020-03-07] MEDS: NORMAL SALINE 250 ML with FUROSEMIDE 250 MG IV PRN ×4 (05:47→18:21)
[2020-03-07] MEDS: HYDRALAZINE HCL 50 MG TABLET PO SCH ×3 (06:57→22:12)
[2020-03-07] MEDS: HEPARIN SOD (PORCINE) 5,000 UNIT/ML 1 ML VIAL SUBCUT SCH ×3 (06:57→22:11)
[2020-03-07 07:04] LABS: ABSOLUTE BASOPHILS # (AUTO) 0.1 10^3/uL (0.0-0.2); ABSOLUTE EOSINOPHILS # (AUTO) 0.2 10^3/uL (0.0-0.6); ABSOLUTE LYMPHOCYTES (AUTO) 1.2 10^3/uL (0.5-4.7); ABSOLUTE MONOCYTES (AUTO) 0.7 10^3/uL (0.1-1.4); ABSOLUTE NEUT (AUTO) 2.7 10^3/uL (1.7-8.2); BASOPHILS % (AUTO) 1.1 % (0-2); EOSINOPHILS % (AUTO) 4.5 % (0-6); HEMATOCRIT 39.8 % (37.9-51.0); HEMOGLOBIN 13.3 g/dL (13.5-17.0); LYMPHOCYTES % (AUTO) 24.4 % (13-45); MEAN CORPUSCULAR HEMOGLOBIN 29.1 pg (27.0-33.4); MEAN CORPUSCULAR HGB CONC 33.3 g/dL (32.0-36.0); MEAN CORPUSCULAR VOLUME 87 fl (80-97); PLATELET COUNT 218 10^3/uL (150-450); RED BLOOD COUNT 4.55 10^6/uL (4.35-5.55); RED CELL DISTRIBUTION WIDTH 15.2 % (11.5-14.0); TOTAL CELLS COUNTED % (AUTO) 100 %; WHITE BLOOD COUNT 4.9 10^3/uL (4.0-10.5)
[2020-03-07 07:24] LABS: ALBUMIN 3.5 g/dL (3.5-5.0); ALKALINE PHOSPHATASE 67 U/L (38-126); ASPARTATE AMINO TRANSFERASE 22 U/L (17-59); BILIRUBIN,TOTAL 2.2 mg/dL (0.2-1.3); CHOLESTEROL 118.12 mg/dL (0-200); CREATINE KINASE 237 U/L (55-170); TOTAL PROTEIN 6.6 g/dL (6.3-8.2); TRIGLYCERIDES 79 mg/dL (<150)
[2020-03-07 07:35] LABS: DIRECT LDL 87 mg/dL (<100)
[2020-03-07 07:36] LABS: CREATINE KINASE MB 4.48 ng/mL (<4.55); TROPONIN I 0.063 ng/mL
[2020-03-07 07:42] LABS: FREE T4 (FREE THYROXINE) 1.53 ng/dL (0.78-2.19)
--- NOTE | 2020-03-07 07:49 | EKG REPORT ---
SEVERITY:- ABNORMAL ECG - SINUS RHYTHM PROBABLE LEFT ATRIAL ABNORMALITY RIGHT AXIS DEVIATION BORDERLINE T WAVE ABNORMALITIES BORDERLINE PROLONGED QT INTERVAL : Confirmed by: Norma Pena MD 07-Mar-2020 07:48:10
[2020-03-07 07:55] LABS: THYROID STIMULATING HORMONE 2.45 uIU/mL (0.47-4.68)
--- NOTE | 2020-03-07 08:17 | XCELERA REPORT ---
[address] [address] Transthoracic Echocardiogram Report Name: JUICE GRAHAM Age: 59 yrs Gender: Male : 1960 Patient Status: Inpatient Patient Location: [place] [address]^A Study Date: 03/06/2020 02:59 PM Height: 64 in Weight: 195 lb BSA: 1.9 m2 Procedure: A two-dimensional transthoracic echocardiogram with color flow and Doppler was performed. Study Quality: Good. Reason For Study: CHF History: CHF. Ordering Physician: ZULAY CHOI Performed By: Darlene Justin Interpretation Summary The left ventricle is mildly dilated. LV EF is Less than 20% There is normal left ventricular wall thickness. Left ventricular systolic function is severely reduced. Doppler measurements suggest impaired left ventricular relaxation, which is associated with grade I/IV or mild diastolic dysfunction There is akinesis of the inferior wall.Rest of the LV walker are severely hypokinetic. There is no thrombus. No ASD ,VSD , or PFO seen. The right ventricular systolic function is moderate to severely reduced. The right atrium is moderately dilated. The left atrium is moderately dilated. There is no evidence of mitral valve prolapse. There is no vegetation seen on the mitral valve. There is no mitral valve stenosis. There is a mild amount of mitral regurgitation There is no aortic valvular vegetation. There is no LVOT obstruction. No aortic regurgitation is present. There is no tricuspid stenosis. There is a severe amount of tricuspid regurgitation There is moderate pulmonary hypertension by echo RVSP is calculated at 50 mm of Hg ,with RA mean of 15.Suspect under estimation of RVSP due to undersampling of TR jet velocity. There is no pulmonic valvular stenosis. There is a mild amount of pulmonic regurgitation The aortic root is normal size. The inferior vena cava appeared normal and decreased < 50% with respiration (RAP 10-15 mmHg) There is no pericardial effusion. There is ascites. MMode/2D Measurements & Calculations RVDd: 5.1 cm LVIDd: 5.5 cm FS: 11.8 % EPSS: 1.7 cm IVSd: 1.1 cm LVIDs: 4.9 cm EDV(Teich): 149.0 ml LVPWd: 1.1 cm ESV(Teich): 111.4 ml EF(Teich): 25.3 % Ao root diam: 2.9 cm LVLd ap4: 9.2 cm SV(MOD-sp4): 34.0 ml EDV(MOD-sp4): 128.0 ml Ao root area: 6.7 cm2 LVLs ap4: 8.6 cm LA dimension: 4.5 cm ESV(MOD-sp4): 94.0 ml EF(MOD-sp4): 26.6 % Doppler Measurements & Calculations MV E max niko: MV P1/2t max niko: Ao V2 max: LV V1 max P.6 cm/sec 84.0 cm/sec 80.2 cm/sec 1.4 mmHg MV A max niko: MV P1/2t: 72.0 msec Ao max PG: LV V1 max: 32.6 cm/sec MVA(P1/2t): 3.1 cm2 2.6 mmHg 59.3 cm/sec MV E/A: 2.6 MV dec slope: LV dP/dt: 341.5 cm/sec2 826.0 mmHg/s MV dec time: 0.23 sec PA V2 max: PI end-d niko: TR max niko: MV P1/2t-pr_phl: 38.6 cm/sec 162.5 cm/sec 294.1 cm/sec 72.0 msec PA max PG: TR max P.59 mmHg 34.6 mmHg Left Ventricle The left ventricle is mildly dilated. There is normal left ventricular wall thickness. LV EF is Less than 20%. Left ventricular systolic function is severely reduced. Doppler measurements suggest impaired left ventricular relaxation, which is associated with grade I/IV or mild diastolic dysfunction. There is akinesis of the inferior wall.Rest of the LV walker are severely hypokinetic. There is no thrombus. No ASD ,VSD , or PFO seen. Right Ventricle The right ventricle is moderately dilated. The right ventricular systolic function is moderate to severely reduced. Atria The right atrium is moderately dilated. The left atrium is moderately dilated. Mitral Valve There is no evidence of mitral valve prolapse. There is no vegetation seen on the mitral valve. There is no mitral valve stenosis. There is a mild amount of mitral regurgitation. Aortic Valve There is no aortic valvular vegetation. There is no aortic valve stenosis. There is no LVOT obstruction. No aortic regurgitation is present. Tricuspid Valve There is no tricuspid stenosis. There is a severe amount of tricuspid regurgitation. There is moderate pulmonary hypertension by echo. RVSP is calculated at 50 mm of Hg ,with RA mean of 15.Suspect under estimation of RVSP due to undersampling of TR jet velocity. Pulmonic Valve There is no pulmonic valvular stenosis. There is a mild amount of pulmonic regurgitation. Great Vessels The aortic root is normal size. The inferior vena cava appeared normal and decreased < 50% with respiration (RAP 10-15 mmHg). Effusions There is no pericardial effusion. There is ascites. : ZULAY CHOI, Norma
[2020-03-07 08:34] LABS: ANION GAP 8 (5-19); BLOOD UREA NITROGEN 22 mg/dL (7-20); CALCIUM 8.7 mg/dL (8.4-10.2); CARBON DIOXIDE 29 mmol/L (22-30); CHLORIDE 101 mmol/L (98-107); GLUCOSE 175 mg/dL (75-110); POTASSIUM 3.9 mmol/L (3.6-5.0)
[2020-03-07] MEDS: ASPIRIN 81 MG TABLET, CHEWABLE PO SCH (10:01)
[2020-03-07] MEDS: AMLODIPINE BESYLATE 2.5 MG TABLET PO SCH ×2 (10:01→22:21)
[2020-03-07] MEDS: METOPROLOL SUCCINATE 25 MG TAB.SR.24H PO SCH ×2 (10:01→22:21)
[2020-03-07] MEDS: ISOSORBIDE MONONITRATE 60 MG TAB.ER.24H PO SCH (10:02)
[2020-03-07] MEDS: SACUBITRIL/VALSARTAN 24 MG/26 MG TABLET PO SCH ×2 (10:02→22:11)
[2020-03-07] MEDS: HUM INSULIN NPH/REG INSULIN HM 100 UNIT/1 ML 3 ML SUBCUT SCH (10:28)
--- NOTE | 2020-03-07 10:59 | CDI QUERY ---
CDI Query CDI Review: Dear Provider: To better reflect your patients severity of illness, morbidity, and resource utilization Please specify and document in the Progress Notes and Discharge Summary if you are monitoring / treating / evaluating any of the following conditions: Query Clinical indicators If you agree with the consultants diagnoses, please include in your Progress Notes and Discharge Summary: Dilated and Ischemic Cardiomyopathy Acute renal failure Acute on chronic renal failure Acute renal failure on CKD (please stage the CKD) Unable to determine Other CKD Staging CKD Stage I GFR > 90 CKD Stage II GFR 60-89 CKD Stage III GFR 30-59 CKD Stage IV GFR 15-29 CKD Stage V GFR < 15 Per Cardiology Consult: Cardiomyopathy with severely reduced LV ejection fraction: This is a mixture of dilated and ischemic cardiomyopathy. Acute renal failure: Possibly the patient has underlying chronic kidney disease BUN / Cr .51 Est GFR ( Amer) 58 L Est GFR (MDRD) Non-Af 48 L The terms probable, suspected, likely, possible or still to be ruled out may be used if you are unable to determine the exact nature of a condition. Thank you for your consideration, Clinical Documentation Physician Advisors BENNY Tomas RN, BSN RN [email or web address] Office [phone] Office [phone]
--- NOTE | 2020-03-07 14:48 | PDOC PROGRESS REPORT ---
Subjective Progress Note for:: 03/07/20 Subjective:: Patient seen by the bedside, he was admitted yesterday when he presented with acute on chronic combined systolic and diastolic heart failure. He has a history of underlining diabetes nephropathy with associated chronic kidney disease stage III. The 2D echo demonstrated dilated left ventricle estimated ejection fraction less than 20% with global akinesis of the left ventricle also associated with pulmonary hypertension. Ultrasound of the kidney demonstrated mild dilatation of the right renal collecting system does suggest mild hydronephrosis left kidney measured 10.6 x 4.7 x 6.2 cm there was no renal process. Reason For Visit: ACUTE SYSTOLIC AND DIASTOLIC HEART FAILURE,CHF Physical Exam Vital Signs: Temp Pulse Resp BP Pulse Ox 98.2 F 80 18 118/81 94 03/07/20 11:35 03/07/20 14:00 03/07/20 11:35 03/07/20 11:35 03/07/20 11:35 Intake & Output 03/06/20 03/07/20 03/08/20 06:59 06:59 06:59 Intake Total 750 404 Output Total 4825 1100 Balance -4075 -696 Weight 87.8 kg General appearance: PRESENT: no acute distress Eye exam: PRESENT: PERRLA Respiratory exam: PRESENT: clear to auscultation anu Cardiovascular exam: PRESENT: +S1, +S2 GI/Abdominal exam: PRESENT: soft Neurological exam: PRESENT: alert Results Laboratory Results: 03/07/20 06:46 03/07/20 06:46 03/06/20 03/06/20 03/06/20 13:42 19:45 20:25 WBC RBC Hgb Hct MCV MCH MCHC RDW Plt Count Seg Neutrophils % Sodium Potassium Chloride Carbon Dioxide Anion Gap BUN Creatinine Est GFR ( Amer) Glucose Calcium Magnesium 1.7 Total Bilirubin AST Alkaline Phosphatase Total Protein Albumin Triglycerides Cholesterol LDL Cholesterol Direct VLDL Cholesterol HDL Cholesterol TSH 2.86 Free T4 1.34 Urine Color STRAW Urine Appearance CLEAR Urine pH 6.0 Ur Specific [place] 1.006 Urine Protein 30 H Urine Glucose (UA) NEGATIVE Urine Ketones NEGATIVE Urine Blood SMALL H Urine Nitrite NEGATIVE Ur Leukocyte Esterase NEGATIVE Urine WBC (Auto) 0 Urine RBC (Auto) 3 03/07/20 03/07/20 03/07/20 06:46 06:46 06:46 WBC 4.9 RBC 4.55 Hgb 13.3 L Hct 39.8 MCV 87 MCH 29.1 MCHC 33.3 RDW 15.2 H Plt Count 218 Seg Neutrophils % 56.0 Sodium Potassium Chloride Carbon Dioxide Anion Gap BUN Creatinine Est GFR ( Amer) Glucose Calcium Magnesium Total Bilirubin 2.2 H AST 22 Alkaline Phosphatase 67 Total Protein 6.6 Albumin 3.5 Triglycerides 79 Cholesterol 118.12 LDL Cholesterol Direct 87 VLDL Cholesterol 16.0 HDL Cholesterol 26 L TSH 2.45 Free T4 1.53 Urine Color Urine Appearance Urine pH Ur Specific [place] Urine Protein Urine Glucose (UA) Urine Ketones Urine Blood Urine Nitrite Ur Leukocyte Esterase Urine WBC (Auto) Urine RBC (Auto) 03/07/20 06:46 WBC RBC Hgb Hct MCV MCH MCHC RDW Plt Count Seg Neutrophils % Sodium 137.9 Potassium 3.9 Chloride 101 Carbon Dioxide 29 Anion Gap 8 BUN 22 H Creatinine 1.44 H Est GFR ( Amer) > 60 Glucose 175 H Calcium 8.7 Magnesium Total Bilirubin AST Alkaline Phosphatase Total Protein Albumin Triglycerides Cholesterol LDL Cholesterol Direct VLDL Cholesterol HDL Cholesterol TSH Free T4 Urine Color Urine Appearance Urine pH Ur Specific [place] Urine Protein Urine Glucose (UA) Urine Ketones Urine Blood Urine Nitrite Ur Leukocyte Esterase Urine WBC (Auto) Urine RBC (Auto) 03/06/20 03/06/20 03/06/20 13:42 13:42 20:25 Creatine Kinase 303 H 265 H CK-MB (CK-2) 7.59 H Troponin I 0.065 NT-Pro-B Natriuret Pep 7480 H 03/06/20 03/07/20 03/07/20 20:25 01:51 01:51 Creatine Kinase 290 H CK-MB (CK-2) 6.09 H 5.75 H Troponin I 0.071 0.071 NT-Pro-B Natriuret Pep 03/07/20 03/07/20 06:46 06:46 Creatine Kinase 237 H CK-MB (CK-2) 4.48 Troponin I 0.063 NT-Pro-B Natriuret Pep 8060 H Impressions: Renal Ultrasound 03/06/20 00:00 IMPRESSION: Mild right hydronephrosis. Partially imaged right pleural effusion. copyright 2010 [employer]- All Rights Reserved Chest X-Ray 03/06/20 13:17 IMPRESSION: Patchy right middle lobe and basilar opacities suspicious for pneumonia. Small associated right sided pleural effusion. Enlarged cardiac silhouette without overt edema. Assessment & Plan - Diagnosis (1) Acute combined systolic (congestive) and diastolic (congestive) heart failure Is this a current diagnosis for this admission?: Yes Plan: He was admitted yesterday, treated with furosemide infusion, he diuresed since admission, over 4000 cc of urine was collected, reduce furosemide infusion rate to 5 mg/h, continue beta-rito, Entresto, he was seen by Dr. Nice, cardiology, beta-rito was changed from Coreg to metoprolol in light of his tobacco abuse with underlying COPD. 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
[2020-03-07] MEDS: DOBUTAMINE HCL/D5W 500 MG/250 ML RTUINJ IV PRN (18:13)
--- NOTE | 2020-03-07 22:02 | Progress Note ---
Provider Note Provider Note: CARDIOLOGY PROGRESS NOTE by Dr. Norma Pena on 03/07/2020. OBJECTIVE: The patient denies any chest pain or discomfort. He still complains of shortness of breath and orthopnea. His leg edema is still there in spite of good urine output. There is no arrhythmias seen on the monitor. There is no TIA or CVA symptoms. The patient denies any palpitations. There is no TIA or CVA symptoms. PHYSICAL EXAMINATION: The patient is mildly obese. In no acute distress. Selected Entries 03/07/20 03/07/20 08:05 11:35 Temperature 98.5 F 98.2 F Temperature Oral Oral Source Pulse Rate 98 83 Respiratory 20 18 Rate Blood Pressure 147/102 H 118/81 Blood Pressure 117 93 Mean BP Location Right Arm Right Arm BP Position Supine Supine O2 Sat by Pulse 94 94 Oximetry Oxygen Delivery Room Air Room Air Method Head: Is atraumatic and normocephalic. EYES: Pupils are equal round regular reactive to light and accommodation. Extraocular movements are normal. There is no conjunctival pallor. There is no scleral icterus. EARS: Tympanic membranes are intact. External auditory canals are clear. NOSE: There is no deviated nasal septum. There is no inflammation of the nasal mucous membrane. MOUTH: Mucous membranes of mouth are moist. Tongue is moist. There is no ulcers. There is no bleeding from the gums. THROAT: There is no redness of the oropharynx. There is no exudates. SKIN: There is no skin rashes. There is no petechia or ecchymosis. There is no skin lesions. NECK: Supple. There is JVD present. Hepatojugular reflux is positive. There is no lymphadenopathy. Carotids are equal there is no bruits. There is no goiter. There is no acces shefali muscles of respiration use. Trachea is central. LUNGS: There is diminished air entry prolonged expiration. There is no rhonchi or wheezing. There is bibasilar rales of CHF. HEART S1-S2 is heard. There is no S3 gallop. There is no S4 gallop. There is systolic murmur of mitral regurgitation and tricuspid regurgitation present. There is no rub. ABDOMEN: Is obese. There is hepatomegaly. There is no splenomegaly. Bowel sounds are well heard. There is hepatojugular reflux present. There is no tender areas of masses. There is no rebound guarding or rigidity. EXTREMITIES: Femorals are diminished. Leg pulses difficult to palpate. There is 2- edema bilaterally. There is no DVT cellulitis. There is no calf tenderness. 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 PSYCHIATRIC: The patient judgment insight intact his affect is normal. His 24-hour intake is 750 mL. The 24-hour output is 4825 mL Labs- All tests 24 hr 03/07/20 03/07/20 03/07/20 01:51 01:51 06:46 WBC 4.9 RBC 4.55 Hgb 13.3 L Hct 39.8 MCV 87 MCH 29.1 MCHC 33.3 RDW 15.2 H Plt Count 218 Lymph % (Auto) 24.4 [place] % (Auto) 14.0 H Eos % (Auto) 4.5 Baso % (Auto) 1.1 Absolute Neuts (auto) 2.7 Absolute Lymphs (auto) 1.2 Absolute Monos (auto) 0.7 Absolute Eos (auto) 0.2 Absolute Basos (auto) 0.1 Seg Neutrophils % 56.0 Sodium Potassium Chloride Carbon Dioxide Anion Gap BUN Creatinine Est GFR ( Amer) Est GFR (MDRD) Non-Af Glucose POC Glucose Hemoglobin A1c % Calcium Total Bilirubin Direct Bilirubin Neonat Total Bilirubin Neonat Direct Bilirubin Neonat Indirect Bili AST ALT Alkaline Phosphatase Creatine Kinase 290 H CK-MB (CK-2) 5.75 H Troponin I 0.071 NT-Pro-B Natriuret Pep Total Protein Albumin Triglycerides Cholesterol LDL Cholesterol Direct VLDL Cholesterol HDL Cholesterol TSH Free T4 03/07/20 03/07/20 03/07/20 06:46 06:46 06:46 WBC RBC Hgb Hct MCV MCH MCHC RDW Plt Count Lymph % (Auto) [place] % (Auto) Eos % (Auto) Baso % (Auto) Absolute Neuts (auto) Absolute Lymphs (auto) Absolute Monos (auto) Absolute Eos (auto) Absolute Basos (auto) Seg Neutrophils % Sodium Potassium Chloride Carbon Dioxide Anion Gap BUN Creatinine Est GFR ( Amer) Est GFR (MDRD) Non-Af Glucose POC Glucose Hemoglobin A1c % 7.1 H Calcium Total Bilirubin 2.2 H Direct Bilirubin 0.0 Neonat Total Bilirubin Not Reportable Neonat Direct Bilirubin Not Reportable Neonat Indirect Bili Not Reportable AST 22 ALT 16 Alkaline Phosphatase 67 Creatine Kinase 237 H CK-MB (CK-2) 4.48 Troponin I 0.063 NT-Pro-B Natriuret Pep 8060 H Total Protein 6.6 Albumin 3.5 Triglycerides 79 Cholesterol 118.12 LDL Cholesterol Direct 87 VLDL Cholesterol 16.0 HDL Cholesterol 26 L TSH Free T4 03/07/20 03/07/20 03/07/20 06:46 06:46 10:04 WBC RBC Hgb Hct MCV MCH MCHC RDW Plt Count Lymph % (Auto) [place] % (Auto) Eos % (Auto) Baso % (Auto) Absolute Neuts (auto) Absolute Lymphs (auto) Absolute Monos (auto) Absolute Eos (auto) Absolute Basos (auto) Seg Neutrophils % Sodium 137.9 Potassium 3.9 Chloride 101 Carbon Dioxide 29 Anion Gap 8 BUN 22 H Creatinine 1.44 H Est GFR ( Amer) > 60 Est GFR (MDRD) Non-Af 50 L Glucose 175 H POC Glucose 170 H Hemoglobin A1c % Calcium 8.7 Total Bilirubin Direct Bilirubin Neonat Total Bilirubin Neonat Direct Bilirubin Neonat Indirect Bili AST ALT Alkaline Phosphatase Creatine Kinase CK-MB (CK-2) Troponin I NT-Pro-B Natriuret Pep Total Protein Albumin Triglycerides Cholesterol LDL Cholesterol Direct VLDL Cholesterol HDL Cholesterol TSH 2.45 Free T4 1.53 03/07/20 22:07 WBC RBC Hgb Hct MCV MCH MCHC RDW Plt Count Lymph % (Auto) [place] % (Auto) Eos % (Auto) Baso % (Auto) Absolute Neuts (auto) Absolute Lymphs (auto) Absolute Monos (auto) Absolute Eos (auto) Absolute Basos (auto) Seg Neutrophils % Sodium Potassium Chloride Carbon Dioxide Anion Gap BUN Creatinine Est GFR ( Amer) Est GFR (MDRD) Non-Af Glucose POC Glucose 110 Hemoglobin A1c % Calcium Total Bilirubin Direct Bilirubin Neonat Total Bilirubin Neonat Direct Bilirubin Neonat Indirect Bili AST ALT Alkaline Phosphatase Creatine Kinase CK-MB (CK-2) Troponin I NT-Pro-B Natriuret Pep Total Protein Albumin Triglycerides Cholesterol LDL Cholesterol Direct VLDL Cholesterol HDL Cholesterol TSH Free T4 Renal Ultrasound 03/06/20 00:00 IMPRESSION: Mild right hydronephrosis. Partially imaged right pleural effusion. copyright 2010 [employer]- All Rights Reserved Chest X-Ray 03/06/20 13:17 IMPRESSION: Patchy right middle lobe and basilar opacities suspicious for pneumonia. Small associated right sided pleural effusion. Enlarged cardiac silhouette without overt edema. IMPRESSION/RECOMMENDATION: 1. 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 Noted that the patient states that he is not taking lisinopril. Hence appropriate to start the patient on Entresto. Continue patient's Lasix drip continue Coreg. Would recommend substituting the Toprol-XL for Coreg in view of the patient's history of COPD and ongoing smoking. The patient may need inotropic support in the form of dobutamine. Would recommend 24-hour fluid restriction to 1500 mL per each 24-hour.. Good urine output. The patient continues to complain of shortness of breath and orthopnea. He still has leg edema. Hence we will start the patient on dobutamine drip at 2.5 mcg/kg/min. 2. Acute on chronic right ventricular systolic heart failure secondary to left heart failure and pulmonary hypertension. 3. Cardiomyopathy with severely reduced LV ejection fraction: This is a mixture of dilated and ischemic cardiomyopathy. The patient would recommend having an echo repeated in in 3 months on good anti-cardiomyopathy/anti-CHF gold standard treatments at maximal doses. If still LV ejection fraction is 35% or below then the patient will be recommended recommended to have a AICD placement refer with EP cardiology. This plan has been discussed with the attending physician Dr. Naranjo and with the patient. The patient voices understanding. 4. Severe tricuspid regurgitation. 5. At least moderate pulmonary hypertension. I suspect apparent pulmonary hypertension is much higher than what is recorded by calculation. This is due to my suspicions at this is an underestimation of the tricuspid regurgitation jet velocity. We will try to reinterrogate the tricuspid valve for this. Would add amlodipine and nitrates. 6. Hypertension: Blood pressure not optimally controlled. The patient can withstand the addition of beta-rito Entresto, amlodipine and nitrates. 7. 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 We will continue the patient on aspirin and add nitrates. Continue beta-rito. 8. Diabetes mellitus type 2: Continue antidiabetic treatment and Accu-Cheks as per protocol. 9. Acute renal failure: Possibly the patient has underlying chronic kidney disease. This is exacerbation patient's acute heart failure. Watch the patient's renal function on Entresto. Avoid nephrotoxic medication. 10. COPD: This seems to be stable with no acute exacerbation. 1. Ongoing tobacco abuse: Patient counseled to stop smoking and tobacco cessation counseling given. 3 minutes spent on this. 12. Dyslipidemia. The patient has good LDL and triglyceride levels, but still with severely low HDL level at 26. Medications reviewed. Medications added and adjusted. Medical decision making is high complexity. 60 minutes spentmore than 50% of time spent direct patient care. Discussed the case with attending physician. Will follow
[2020-03-08] MEDS: HYDRALAZINE HCL 50 MG TABLET PO SCH ×3 (05:08→22:12)
[2020-03-08] MEDS: HEPARIN SOD (PORCINE) 5,000 UNIT/ML 1 ML VIAL SUBCUT SCH ×3 (05:08→22:12)
[2020-03-08 06:49] LABS: ABSOLUTE BASOPHILS # (AUTO) 0.1 10^3/uL (0.0-0.2); ABSOLUTE EOSINOPHILS # (AUTO) 0.2 10^3/uL (0.0-0.6); ABSOLUTE LYMPHOCYTES (AUTO) 1.4 10^3/uL (0.5-4.7); ABSOLUTE MONOCYTES (AUTO) 0.8 10^3/uL (0.1-1.4); ABSOLUTE NEUT (AUTO) 3.1 10^3/uL (1.7-8.2); EOSINOPHILS % (AUTO) 4.1 % (0-6); HEMATOCRIT 40.7 % (37.9-51.0); HEMOGLOBIN 13.5 g/dL (13.5-17.0); LYMPHOCYTES % (AUTO) 25.2 % (13-45); MEAN CORPUSCULAR HEMOGLOBIN 28.8 pg (27.0-33.4); MEAN CORPUSCULAR HGB CONC 33.3 g/dL (32.0-36.0); MEAN CORPUSCULAR VOLUME 87 fl (80-97); MONOCYTES % (AUTO) 14.3 % (3-13); PLATELET COUNT 220 10^3/uL (150-450); RED BLOOD COUNT 4.69 10^6/uL (4.35-5.55); RED CELL DISTRIBUTION WIDTH 14.9 % (11.5-14.0); SEGMENTED NEUTROPHILS % (AUTO) 55.4 % (42-78); TOTAL CELLS COUNTED % (AUTO) 100 %; WHITE BLOOD COUNT 5.7 10^3/uL (4.0-10.5)
[2020-03-08 07:24] LABS: ANION GAP 8 (5-19); BLOOD UREA NITROGEN 24 mg/dL (7-20); CALCIUM 8.7 mg/dL (8.4-10.2); CARBON DIOXIDE 33 mmol/L (22-30); CHLORIDE 97 mmol/L (98-107); GLUCOSE 115 mg/dL (75-110); POTASSIUM 3.3 mmol/L (3.6-5.0)
[2020-03-08] MEDS: SACUBITRIL/VALSARTAN 24 MG/26 MG TABLET PO SCH ×2 (09:41→22:12)
[2020-03-08] MEDS: ASPIRIN 81 MG TABLET, CHEWABLE PO SCH (09:41)
[2020-03-08] MEDS: AMLODIPINE BESYLATE 2.5 MG TABLET PO SCH ×3 (09:41→22:59)
[2020-03-08] MEDS: ACETAMINOPHEN 325 MG TABLET PO PRN ×2 (09:41→18:50)
[2020-03-08] MEDS: METOPROLOL SUCCINATE 25 MG TAB.SR.24H PO SCH ×2 (09:41→22:12)
[2020-03-08] MEDS: ISOSORBIDE MONONITRATE 60 MG TAB.ER.24H PO SCH (09:41)
[2020-03-08] MEDS: HUM INSULIN NPH/REG INSULIN HM 100 UNIT/1 ML 3 ML SUBCUT SCH (09:51)
--- NOTE | 2020-03-08 14:38 | Progress Note ---
Provider Note Provider Note: Cardiology PROGRESS NOTE by Dr. Thaddeus Jiang on 03/08/2020. OBJECTIVE: The patient feels much improved and his shortness of breath is only very minimal. He still says some degree of orthopnea but this is improved. There is no PND. His leg edema is almost resolved and there is only trace leg edema. There is no arrhythmias seen on the monitor. The patient denies any chest pain or discomfort. There is no palpitations, near-syncope or syncope. There is no TIA or CVA symptoms. I will letter I think will correct the course of PHYSICAL EXAMINATION: The patient is mildly obese. In no acute distress. He is well-groomed. Selected Entries 03/08/20 03/08/20 03/08/20 07:45 08:00 08:59 Temperature 98.1 F Pulse Rate 99 Respiratory Normal Depth Respiratory Normal Pattern Blood Pressure 152/98 H O2 Sat by Pulse 94 Oximetry Oxygen Delivery Room Air Method ( includes room air) Fraction of Inspired Oxygen (FIO2) 03/08/20 09:29 Temperature Pulse Rate Respiratory Depth Respiratory Pattern Blood Pressure Respiratory rate: Is 16/min O2 Sat by Pulse Oximetry Oxygen Delivery Method ( includes room air) Fraction of 21 Inspired Oxygen (FIO2) Head: Is atraumatic and normocephalic. EYES: Pupils are equal round regular reactive to light and accommodation. Extraocular movements are normal. There is no conjunctival pallor. There is no scleral icterus. EARS: Tympanic m embranes are intact. External auditory canals are clear. NOSE: There is no deviated nasal septum. There is no inflammation of the nasal mucous membrane. MOUTH: Mucous membranes of mouth are moist. Tongue is moist. There is no ulcers. There is no bleeding from the gums. THROAT: There is no redness of the oropharynx. There is no exudates. SKIN: There is no skin rashes. There is no petechia or ecchymosis. There is no skin lesions. NECK: Supple. There is JVD present. Hepatojugular reflux is positive. There is no lymphadenopathy. Carotids are equal there is no bruits. There is no goiter. There is no accessory muscles of respiration use. Trachea is central. LUNGS: There is diminished air entry prolonged expiration. There is no rhonchi or wheezing. There is bibasilar rales of CHF. HEART S1-S2 is heard. There is no S3 gallop. There is no S4 gallop. There is systolic murmur of mitral regurgitation and tricuspid regurgitation present. There is no rub. ABDOMEN: Is obese. There is hepatomegaly. There is no splenomegaly. Bowel sounds are well heard. There is hepatojugular reflux present. There is no tender areas of masses. There is no rebound guarding or rigidity. EXTREMITIES: Femorals are diminished. Leg pulses difficult to palpate. There is 2- edema bilaterally. There is no DVT cellulitis. There is no calf tenderness. 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 PSYCHIATRIC: The patient judgment insight intact his affect is normal. His 24-hour intake is 1196 mL. The 24-hour output is 3600 mL. Labs- All tests 24 hr 03/07/20 03/08/20 03/08/20 22:07 06:20 06:20 WBC 5.7 RBC 4.69 Hgb 13.5 Hct 40.7 MCV 87 MCH 28.8 MCHC 33.3 RDW 14.9 H Plt Count 220 Lymph % (Auto) 25.2 [place] % (Auto) 14.3 H Eos % (Auto) 4.1 Baso % (Auto) 1.0 Absolute Neuts (auto) 3.1 Absolute Lymphs (auto) 1.4 Absolute Monos (auto) 0.8 Absolute Eos (auto) 0.2 Absolute Basos (auto) 0.1 Seg Neutrophils % 55.4 Sodium 137.7 Potassium 3.3 L Chloride 97 L Carbon Dioxide 33 H Anion Gap 8 BUN 24 H Creatinine 1.45 H Est GFR ( Amer) > 60 Est GFR (MDRD) Non-Af 50 L Glucose 115 H POC Glucose 110 Calcium 8.7 Free T3 pg/mL 03/08/20 03/08/20 03/08/20 06:20 09:50 21:46 WBC RBC Hgb Hct MCV MCH MCHC RDW Plt Count Lymph % (Auto) [place] % (Auto) Eos % (Auto) Baso % (Auto) Absolute Neuts (auto) Absolute Lymphs (auto) Absolute Monos (auto) Absolute Eos (auto) Absolute Basos (auto) Seg Neutrophils % Sodium Potassium Chloride Carbon Dioxide Anion Gap BUN Creatinine Est GFR ( Amer) Est GFR (MDRD) Non-Af Glucose POC Glucose 162 H 143 H Calcium Free T3 pg/mL 3.87 Renal Ultrasound 03/06/20 00:00 IMPRESSION: Mild right hydronephrosis. Partially imaged right pleural effusion. copyright 2010 [employer]- All Rights Reserved Chest X-Ray 03/06/20 13:17 IMPRESSION: Patchy right middle lobe and basilar opacities suspicious for pneumonia. Small associated right sided pleural effusion. Enlarged cardiac silhouette without overt edema. IMPRESSION/RECOMMENDATION: 1. 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 Noted that the patient states that he is not taking lisinopril. Hence appropriate to start the patient on Entresto. Continue patient's Lasix drip continue Toprol XL. The patient's 24-hour fluid is optimal and less than 1500 mL per each 24-hour.. The patient has good urine output. The patient continues to complain of shortness of breath and orthopnea. Hence we will the patient on dobutamine drip at 2.5 mcg/kg/min.. The patient's leg edema is almost resolved and is only trace leg edema. And his symptomology is also showed improvement. And hence would tomorrow discontinue the patient's IV Lasix drip infusion and change it to p.o. Lasix. 2. Acute on chronic right ventricular systolic heart failure secondary to left heart failure and pulmonary hypertension. 3. Cardiomyopathy with severely reduced LV ejection fraction: This is a mixture of dilated and ischemic cardiomyopathy. The patient would recommend having an echo repeated in in 3 months on good anti-cardiomyopathy/anti-CHF gold standard treatments at maximal doses. If still LV ejection fraction is 35% or below then the patient will be recommended recommended to have a AICD placement refer with EP cardiology. This plan has been discussed with the attending physician Dr. Naranjo and with the patient. The patient voices understanding. 4. Severe tricuspid regurgitation. 5. At least moderate pulmonary hypertension. I suspect apparent pulmonary hypertension is much higher than what is recorded by calculation. This is due to my suspicions at this is an underestimation of the tricuspid regurgitation jet velocity. We will try to reinterrogate the tricuspid valve for this. Would increase his amlodipine and nitrate dosages.. 6. Hypertension: Blood pressure not optimally controlled. The patient can withstand the increase in dosages of amlodipine and nitrates. 7. 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 We will continue the patient on aspirin and add nitrates. Continue beta-rito. 8. Diabetes mellitus type 2: Continue antidiabetic treatment and Accu-Cheks as per protocol. 9. Acute renal failure: Possibly the patient has underlying chronic kidney disease. This is exacerbation patient's acute heart failure. Watch the patient's renal function on Entresto. Avoid nephrotoxic medication. Renal function has improved. 10. COPD: This seems to be stable with no acute exacerbation. 1. Ongoing tobacco abuse: Patient counseled to stop smoking and tobacco cessation counseling given. 3 minutes spent on this. 12. Dyslipidemia. The patient has good LDL and triglyceride levels, but still with severely low HDL level at 26. Medications reviewed. Medications added and adjusted. Medical decision making is high complexity. 4 minutes spentmore than 50% of time spent direct patient care. Discussed the case with attending physician. Will follow
--- NOTE | 2020-03-08 18:44 | PDOC PROGRESS REPORT ---
Subjective Progress Note for:: 03/08/20 Subjective:: Patient seen at the bedside, he will benefit from Farxiga unfortunately it is nonformulary in this hospital, I spoke to the pharmacist about getting the medication on board, it is FDA approved for CHF. Patient seems to be comfortable he has less leg swelling Reason For Visit: ACUTE SYSTOLIC AND DIASTOLIC HEART FAILURE,CHF Physical Exam Vital Signs: Temp Pulse Resp BP Pulse Ox 98.1 F 100 19 158/96 H 90 L 03/07/20 23:58 03/08/20 18:00 03/07/20 23:58 03/08/20 18:00 03/07/20 23:58 Intake & Output 03/07/20 03/08/20 03/09/20 06:59 06:59 06:59 Intake Total 750 1196 Output Total 4854 3220 Balance -4075 -2408 Weight 87.8 kg 83.4 kg General appearance: PRESENT: no acute distress Eye exam: PRESENT: PERRLA Respiratory exam: PRESENT: clear to auscultation anu Cardiovascular exam: PRESENT: +S1, +S2 GI/Abdominal exam: PRESENT: soft Neurological exam: PRESENT: alert, CN II-XII grossly intact Results Laboratory Results: 03/08/20 06:20 03/08/20 06:20 03/08/20 03/08/20 03/08/20 06:20 06:20 06:20 WBC 5.7 RBC 4.69 Hgb 13.5 Hct 40.7 MCV 87 MCH 28.8 MCHC 33.3 RDW 14.9 H Plt Count 220 Seg Neutrophils % 55.4 Sodium 137.7 Potassium 3.3 L Chloride 97 L Carbon Dioxide 33 H Anion Gap 8 BUN 24 H Creatinine 1.45 H Est GFR ( Amer) > 60 Glucose 115 H Calcium 8.7 Free T3 pg/mL 3.87 03/06/20 03/06/20 03/06/20 13:42 13:42 20:25 Creatine Kinase 303 H 265 H CK-MB (CK-2) 7.59 H Troponin I 0.065 NT-Pro-B Natriuret Pep 7480 H 03/06/20 03/07/20 03/07/20 20:25 01:51 01:51 Creatine Kinase 290 H CK-MB (CK-2) 6.09 H 5.75 H Troponin I 0.071 0.071 NT-Pro-B Natriuret Pep 03/07/20 03/07/20 06:46 06:46 Creatine Kinase 237 H CK-MB (CK-2) 4.48 Troponin I 0.063 NT-Pro-B Natriuret Pep 8060 H Impressions: Renal Ultrasound 03/06/20 00:00 IMPRESSION: Mild right hydronephrosis. Partially imaged right pleural effusion. copyright 2010 [employer]- All Rights Reserved Chest X-Ray 03/06/20 13:17 IMPRESSION: Patchy right middle lobe and basilar opacities suspicious for pneumonia. Small associated right sided pleural effusion. Enlarged cardiac silhouette without overt edema. 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
[2020-03-08] MEDS ORDERED: NORMAL SALINE 250 ML with FUROSEMIDE 250 MG IV PRN ×2 (22:12)
[2020-03-08] MEDS: NORMAL SALINE 250 ML with FUROSEMIDE 250 MG IV PRN ×2 (22:30)
[2020-03-08] MEDS ORDERED: AMLODIPINE BESYLATE 2.5 MG TABLET PO ONE (23:00)
[2020-03-09] MEDS: HEPARIN SOD (PORCINE) 5,000 UNIT/ML 1 ML VIAL SUBCUT SCH ×3 (05:03→22:01)
[2020-03-09] MEDS: HYDRALAZINE HCL 50 MG TABLET PO SCH ×3 (05:03→22:00)
[2020-03-09] MEDS: DOBUTAMINE HCL/D5W 500 MG/250 ML RTUINJ IV PRN (05:37)
[2020-03-09] MEDS ORDERED: ISOSORBIDE MONONITRATE 30 MG TAB.ER.24H PO SCH (10:00)
[2020-03-09] MEDS: SACUBITRIL/VALSARTAN 24 MG/26 MG TABLET PO SCH (11:10)
[2020-03-09] MEDS: HUM INSULIN NPH/REG INSULIN HM 100 UNIT/1 ML 3 ML SUBCUT SCH (11:12)
[2020-03-09] MEDS: METOPROLOL SUCCINATE 25 MG TAB.SR.24H PO SCH ×2 (11:12→22:01)
[2020-03-09] MEDS: ISOSORBIDE MONONITRATE 60 MG TAB.ER.24H PO SCH (11:12)
[2020-03-09] MEDS: AMLODIPINE BESYLATE 5 MG TABLET PO SCH ×2 (11:12→22:01)
[2020-03-09] MEDS: ASPIRIN 81 MG TABLET, CHEWABLE PO SCH (11:12)
--- NOTE | 2020-03-09 13:41 | Progress Note ---
Provider Note Provider Note: CARDIOLOGY PROGRESS NOTE by Dr. Norma Pena on 03/09/2020 Subjective: The patient denies any chest pain or discomfort. There is no shortness of breath. There is no PND orthopnea. There is no leg edema. There is no cough or sputum production. There is no arrhythmias seen on the monitor. There is no TIA CVA symptoms. PHYSICAL EXAMINATION: The patient is mildly obese in no acute distress. Selected Entries 03/09/20 12:12 Temperature 98.2 F Temperature Oral Source Pulse Rate 97 Respiratory 18 Rate Blood Pressure 131/88 H Blood Pressure 102 Mean BP Location Right Arm BP Position Supine O2 Sat by Pulse 93 Oximetry Oxygen Delivery Room Air Method Head: Is atraumatic and normocephalic. EYES: Pupils are equal round regular reactive to light and accommodation. Extraocular movements are normal. There is no conjunctival pallor. There is no scleral icterus. EARS: Tympanic membranes are intact. External auditory canals are clear. NOSE: There is no deviated nasal septum. There is no inflammation of the nasal mucous membrane. MOUTH: Mucous membranes of mouth are moist. Tongue is moist. There is no ulcers. There is no bleeding from the gums. THROAT: There is no redness of the oropharynx. There is no exudates. SKIN: There is no skin rashes. There is no petechia or ecchymosis. There is no skin lesions. NECK: Supple. There is JVD present. Hepatojugular reflux is positive. There is no lymphadenopathy. Carotids are equal there is no bruits. There is no goiter. There is no accessory muscles of respiration use. Trachea is central. LUNGS: There is diminished air entry prolonged expiration. There is no rhonchi or wheezing. There is bibasilar rales of CHF. HEART S1-S2 is heard. There is no S3 gallop. There is no S4 gallop. There is systolic murmur of mitral regurgitation and tricuspid regurgitation present. There is no rub. ABDOMEN: Is obese. There is hepatomegaly. There is no splenomegaly. Bowel sounds are well heard. There is hepatojugular reflux present. There is no tender areas of masses. There is no rebound guarding or rigidity. EXTREMITIES: Femorals are diminished. Leg pulses difficult to palpate. There is 2- edema bilaterally. There is no DVT cellulitis. There is no calf tenderness. 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 PSYCHIATRIC: The patient judgment insight intact his affect is normal. His 24-hour intake is 1808 mL. The 24-hour output is 5075 mL. Labs- All tests 24 hr 03/08/20 21:46 POC Glucose 143 H Renal Ultrasound 03/06/20 00:00 IMPRESSION: Mild right hydronephrosis. Partially imaged right pleural effusion. copyright 2010 [employer]- All Rights Reserved Chest X-Ray 03/06/20 13:17 IMPRESSION: Patchy right middle lobe and basilar opacities suspicious for pneumonia. Small associated right sided pleural effusion. Enlarged cardiac silhouette without overt edema. IMPRESSION/RECOMMENDATION: 1. 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 The patient has good urine output. The patient has no chest pain or discomfort. And there is no shortness of breath. His CHF both with respect to the right heart and left heart are well compensated. We will stop the patient's dobutamine and the patient's Lasix drip. We will switch to p.o. Lasix. Will increase the patient's nitrates and amlodipine. Continue Toprol-XL. Will check chest x-ray. 2. Acute on chronic right ventricular systolic heart failure secondary to left heart failure and pulmonary hypertension. 3. Cardiomyopathy with severely reduced LV ejection fraction: This is a mixture of dilated and ischemic cardiomyopathy. The patient would recommend having an echo repeated in in 3 months on good anti-cardiomyopathy/anti-CHF gold standard treatments at maximal doses. If still LV ejection fraction is 35% or below then the patient will be recommended recommended to have a AICD placement refer with EP cardiology. This plan has been discussed with the attending physician Dr. Naranjo and with the patient. The patient voices understanding. 4. Severe tricuspid regurgitation. 5. At least moderate pulmonary hypertension. I suspect apparent pulmonary hypertension is much higher than what is recorded by calculation. . Would increase his amlodipine and nitrate dosages.. 6. Hypertension: Blood pressure not optimally controlled. The patient can withstand the increase in dosages of amlodipine and nitrates. 7. 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 We will continue the patient on aspirin and add nitrates. Continue beta-rito. 8. Diabetes mellitus type 2: Continue antidiabetic treatment and Accu-Cheks as per protocol. 9. Acute renal failure: Possibly the patient has underlying chronic kidney disease. This is exacerbation patient's acute heart failure. Will increase the Entresto dosage watch the patient's renal function on Entresto. Avoid nephrotoxic medication. Renal function has improved. 10. COPD: This seems to be stable with no acute exacerbation. 1. Ongoing tobacco abuse: Patient counseled to stop smoking and tobacco cessation counseling given. 3 minutes spent on this. 12. Dyslipidemia. The patient has good LDL and triglyceride levels, but still with severely low HDL level at 26. Medications reviewed. Medical regimen management plan discussed with attending physician. 40-minute spent with patient more than 50% time spent direct patient care. Medical decision making is of high complexity. Discussed the case with Dr. Naranjo. Will follow.
--- NOTE | 2020-03-09 21:32 | PDOC PROGRESS REPORT ---
Subjective Progress Note for:: 03/09/20 Subjective:: Patient seen by the bedside, he continues to improve Reason For Visit: ACUTE SYSTOLIC AND DIASTOLIC HEART FAILURE,CHF Physical Exam Vital Signs: Temp Pulse Resp BP Pulse Ox 98.0 F 83 19 116/76 90 L 03/09/20 16:22 03/09/20 19:00 03/09/20 16:22 03/09/20 16:22 03/09/20 16:22 Intake & Output 03/08/20 03/09/20 03/10/20 06:59 06:59 06:59 Intake Total 1196 1808 1824 Output Total 3600 5086 525 Balance -6879 -1913 1299 Weight 83.4 kg 77.1 kg General appearance: PRESENT: no acute distress Eye exam: PRESENT: PERRLA Respiratory exam: PRESENT: clear to auscultation anu Cardiovascular exam: PRESENT: +S1, +S2 GI/Abdominal exam: PRESENT: soft Neurological exam: PRESENT: alert Results Laboratory Results: 03/08/20 06:20 03/08/20 06:20 03/06/20 19:45 Clean Catch Midstream Urine Culture - Final Mixed Urogenital Ann 03/06/20 03/06/20 03/06/20 13:42 13:42 20:25 Creatine Kinase 303 H 265 H CK-MB (CK-2) 7.59 H Troponin I 0.065 NT-Pro-B Natriuret Pep 7480 H 03/06/20 03/07/20 03/07/20 20:25 01:51 01:51 Creatine Kinase 290 H CK-MB (CK-2) 6.09 H 5.75 H Troponin I 0.071 0.071 NT-Pro-B Natriuret Pep 03/07/20 03/07/20 06:46 06:46 Creatine Kinase 237 H CK-MB (CK-2) 4.48 Troponin I 0.063 NT-Pro-B Natriuret Pep 8060 H Impressions: Renal Ultrasound 03/06/20 00:00 IMPRESSION: Mild right hydronephrosis. Partially imaged right pleural effusion. copyright 2010 [employer]- All Rights Reserved Chest X-Ray 03/06/20 13:17 IMPRESSION: Patchy right middle lobe and basilar opacities suspicious for pneumonia. Small associated right sided pleural effusion. Enlarged cardiac silhouette without overt edema. 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
[2020-03-09] MEDS: SACUBITRIL/VALSARTAN 49 MG/51 MG TABLET PO SCH (22:00)
[2020-03-09] MEDS: SPIRONOLACTONE 25 MG TABLET PO SCH (22:00)
[2020-03-09 23:50] LABS: POTASSIUM 3.9 mmol/L (3.6-5.0)
[2020-03-10] MEDS: HYDRALAZINE HCL 50 MG TABLET PO SCH ×3 (06:14→21:56)
[2020-03-10] MEDS: HEPARIN SOD (PORCINE) 5,000 UNIT/ML 1 ML VIAL SUBCUT SCH ×3 (06:15→22:00)
--- NOTE | 2020-03-10 08:46 | RADIOLOGY REPORT (SQ) ---
EXAM DESCRIPTION: CHEST SINGLE VIEW IMAGES COMPLETED DATE/TIME: 03/10/2020 7:50 am REASON FOR STUDY: CHF COMPARISON: Chest film 07/08/2020, 06/22/2019 EXAM PARAMETERS: NUMBER OF VIEWS: One view. TECHNIQUE: Single frontal radiographic view of the chest acquired. RADIATION DOSE: NA LIMITATIONS: None. FINDINGS: LUNGS AND PLEURA: Persistent right basilar airspace disease worrisome for pneumonia. Left lung clear. No gross pleural effusion or pneumothorax. MEDIASTINUM AND HILAR STRUCTURES: No masses. Contour normal. HEART AND VASCULAR STRUCTURES: Mild stable cardiomegaly BONES: No acute findings. HARDWARE: None in the chest. OTHER: No other significant finding. IMPRESSION: Persistent right basilar pneumonia TECHNICAL DOCUMENTATION: JOB ID: [id number] 2010 [email or web address]- All Rights Reserved Reading location - IP/workstation name: [email or web address]
[2020-03-10] MEDS: SPIRONOLACTONE 25 MG TABLET PO SCH ×2 (09:21→21:56)
[2020-03-10] MEDS: FUROSEMIDE 40 MG TABLET PO SCH (09:21)
[2020-03-10] MEDS: AMLODIPINE BESYLATE 5 MG TABLET PO SCH ×2 (09:21→21:56)
[2020-03-10] MEDS: ASPIRIN 81 MG TABLET, CHEWABLE PO SCH (09:21)
[2020-03-10] MEDS: HUM INSULIN NPH/REG INSULIN HM 100 UNIT/1 ML 3 ML SUBCUT SCH (09:21)
[2020-03-10] MEDS: SACUBITRIL/VALSARTAN 49 MG/51 MG TABLET PO SCH ×2 (09:21→21:56)
[2020-03-10] MEDS: METOPROLOL SUCCINATE 25 MG TAB.SR.24H PO SCH ×2 (09:21→21:56)
[2020-03-10] MEDS: ISOSORBIDE MONONITRATE 60 MG TAB.ER.24H PO SCH (09:22)
--- NOTE | 2020-03-10 15:19 | PDOC PROGRESS REPORT ---
Subjective Progress Note for:: 03/10/20 Subjective:: Patient seen by the bedside, he had episode of runs of V. tach last night he was seen by Dr. Pena, cardiology, a LifeVest is ordered for him. Chest x-ray done today suggest persistent right basilar airspace disease worrisome for pneumonia, though clinically there is no evidence of pneumonia, is probably from his CHF Reason For Visit: ACUTE SYSTOLIC AND DIASTOLIC HEART FAILURE,CHF Physical Exam Vital Signs: Temp Pulse Resp BP Pulse Ox 97.9 F 85 17 120/84 93 03/10/20 11:25 03/10/20 14:00 03/10/20 11:25 03/10/20 11:25 03/10/20 11:25 Intake & Output 03/09/20 03/10/20 03/11/20 06:59 06:59 06:59 Intake Total 1808 1824 Output Total 5004 525 Balance -3267 1299 Weight 77.1 kg 77.1 kg General appearance: PRESENT: no acute distress Eye exam: PRESENT: PERRLA Respiratory exam: PRESENT: clear to auscultation anu Cardiovascular exam: PRESENT: +S1, +S2 GI/Abdominal exam: PRESENT: soft Neurological exam: PRESENT: alert, CN II-XII grossly intact Results Laboratory Results: 03/08/20 06:20 03/09/20 23:16 03/09/20 23:16 Potassium 3.9 Magnesium 1.7 03/06/20 03/06/20 03/06/20 13:42 13:42 20:25 Creatine Kinase 303 H 265 H CK-MB (CK-2) 7.59 H Troponin I 0.065 NT-Pro-B Natriuret Pep 7480 H 03/06/20 03/07/20 03/07/20 20:25 01:51 01:51 Creatine Kinase 290 H CK-MB (CK-2) 6.09 H 5.75 H Troponin I 0.071 0.071 NT-Pro-B Natriuret Pep 03/07/20 03/07/20 06:46 06:46 Creatine Kinase 237 H CK-MB (CK-2) 4.48 Troponin I 0.063 NT-Pro-B Natriuret Pep 8060 H Impressions: Renal Ultrasound 03/06/20 00:00 IMPRESSION: Mild right hydronephrosis. Partially imaged right pleural effusion. copyright 2010 [employer]- All Rights Reserved Chest X-Ray 03/10/20 06:00 IMPRESSION: Persistent right basilar pneumonia Assessment & Plan - Diagnosis (1) Acute combined systolic (congestive) and diastolic (congestive) heart failure Is this a current diagnosis for this admission?: Yes (2) Chronic kidney disease, stage 3 (moderate) Is this a current diagnosis for this admission?: Yes (3) T2DM (type 2 diabetes mellitus) Qualifiers: Diabetes mellitus prison insulin use: with prison use Diabetes mellitus complication status: with neurologic complications Diabetes mellitus complication detail: with polyneuropathy Qualified Code(s): E11.42 - Type 2 diabetes mellitus with diabetic polyneuropathy; 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
[2020-03-10 15:52] LABS: ABSOLUTE BASOPHILS # (AUTO) 0.1 10^3/uL (0.0-0.2); ABSOLUTE EOSINOPHILS # (AUTO) 0.5 10^3/uL (0.0-0.6); ABSOLUTE LYMPHOCYTES (AUTO) 1.9 10^3/uL (0.5-4.7); ABSOLUTE MONOCYTES (AUTO) 0.8 10^3/uL (0.1-1.4); ABSOLUTE NEUT (AUTO) 3.3 10^3/uL (1.7-8.2); BASOPHILS % (AUTO) 1.2 % (0-2); EOSINOPHILS % (AUTO) 7.6 % (0-6); HEMOGLOBIN 15.1 g/dL (13.5-17.0); MEAN CORPUSCULAR HEMOGLOBIN 29.4 pg (27.0-33.4); MEAN CORPUSCULAR HGB CONC 34.4 g/dL (32.0-36.0); MEAN CORPUSCULAR VOLUME 86 fl (80-97); PLATELET COUNT 264 10^3/uL (150-450); RED BLOOD COUNT 5.14 10^6/uL (4.35-5.55); RED CELL DISTRIBUTION WIDTH 15.2 % (11.5-14.0); SEGMENTED NEUTROPHILS % (AUTO) 50.2 % (42-78); TOTAL CELLS COUNTED % (AUTO) 100 %; WHITE BLOOD COUNT 6.6 10^3/uL (4.0-10.5)
[2020-03-10 15:53] LABS: ALBUMIN 3.4 g/dL (3.5-5.0); ALKALINE PHOSPHATASE 58 U/L (38-126); ANION GAP 8 (5-19); ASPARTATE AMINO TRANSFERASE 22 U/L (17-59); BLOOD UREA NITROGEN 26 mg/dL (7-20); CALCIUM 8.6 mg/dL (8.4-10.2); CARBON DIOXIDE 31 mmol/L (22-30); CHLORIDE 97 mmol/L (98-107); GLUCOSE 115 mg/dL (75-110); TOTAL PROTEIN 6.6 g/dL (6.3-8.2)
--- NOTE | 2020-03-10 18:25 | Progress Note ---
Provider Note Provider Note: CARDIOLOGY PROGRESS NOTE by Dr. Norma Pena on 03/10/2020. SUBJECTIVE: The patient last EEG night had a 10 beat run of nonsustained ventricular tachycardia. The patient was asymptomatic. His potassium and magnesium were normal. The patient denies any chest pain or discomfort. There is no shortness of breath. There is no PND or orthopnea. The patient is not aware of any palpitations. And no further ventricular arrhythmias seen on the monitor. The patient states he has been able to walk in the room and ambulates in the hallway without any problems. There is no TIA CVA symptoms. There is no dizziness or syncope or near syncope. PHYSICAL EXAMINATION: The patient is mildly obese. In no acute distress. Selected Entries 03/10/20 11:25 Temperature 97.9 F Temperature Oral Source Pulse Rate 87 Respiratory 17 Rate Blood Pressure 120/84 Blood Pressure 96 Mean BP Location Right Arm BP Position Supine O2 Sat by Pulse 93 Oximetry Oxygen Delivery Room Air Method Head: Is atraumatic and normocephalic. EYES: Pupils are equal round regular reactive to light and accommodation. Extraocular movements are normal. There is no conjunctival pallor. There is no scleral icterus. EARS: Tympanic membranes are intact. External auditory canals are clear. NOSE: There is no deviated nasal septum. There is no inflammation of the nasal mucous membrane. MOUTH: Mucous membranes of mouth are moist. Tongue is moist. There is no ulcers. There is no bleeding from the gums. THROAT: There is no redness of the oropharynx. There is no exudates. SKIN: There is no skin rashes. There is no petechia or ecchymosis. There is no skin lesions. NECK: Supple. There is JVD present. Hepatojugular reflux is positive. There is no lymphadenopathy. Carotids are equal there is no bruits. There is no goiter. There is no accessory muscles of respiration use. Trachea is central. LUNGS: There is diminished air entry prolonged expiration. There is no rhonchi or wheezing. There is bibasilar rales of CHF. HEART S1-S2 is heard. There is no S3 gallop. There is no S4 gallop. There is systolic murmur of mitral regurgitation and tricuspid regurgitation present. There is no rub. ABDOMEN: Is obese. There is hepatomegaly. There is no splenomegaly. Bowel sounds are well heard. There is hepatojugular reflux present. There is no tender areas of masses. There is no rebound guarding or rigidity. EXTREMITIES: Femorals are diminished. Leg pulses difficult to palpate. There is 2- edema bilaterally. There is no DVT cellulitis. There is no calf tenderness. 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 PSYCHIATRIC: The patient judgment insight intact his affect is normal. His 24-hour intake is 1824 mL. The 24-hour output is 525 mL. This is probably not accurate. Labs- All tests 24 hr 03/09/20 03/09/20 03/10/20 22:16 23:16 09:20 WBC RBC Hgb Hct MCV MCH MCHC RDW Plt Count Lymph % (Auto) Nuckolls % (Auto) Eos % (Auto) Baso % (Auto) Absolute Neuts (auto) Absolute Lymphs (auto) Absolute Monos (auto) Absolute Eos (auto) Absolute Basos (auto) Seg Neutrophils % Sodium Potassium 3.9 Chloride Carbon Dioxide Anion Gap BUN Creatinine Est GFR ( Amer) Est GFR (MDRD) Non-Af Glucose POC Glucose 153 H 204 H Calcium Magnesium 1.7 Total Bilirubin Direct Bilirubin Neonat Total Bilirubin Neonat Direct Bilirubin Neonat Indirect Bili AST ALT Alkaline Phosphatase Total Protein Albumin 03/10/20 03/10/20 03/10/20 11:27 15:25 15:25 WBC 6.6 RBC 5.14 Hgb 15.1 Hct 44.0 MCV 86 MCH 29.4 MCHC 34.4 RDW 15.2 H Plt Count 264 Lymph % (Auto) 29.0 Nuckolls % (Auto) 12.0 Eos % (Auto) 7.6 H Baso % (Auto) 1.2 Absolute Neuts (auto) 3.3 Absolute Lymphs (auto) 1.9 Absolute Monos (auto) 0.8 Absolute Eos (auto) 0.5 Absolute Basos (auto) 0.1 Seg Neutrophils % 50.2 Sodium 136.1 L Potassium 4.0 Chloride 97 L Carbon Dioxide 31 H Anion Gap 8 BUN 26 H Creatinine 1.50 H Est GFR ( Amer) 58 L Est GFR (MDRD) Non-Af 48 L Glucose 115 H POC Glucose 179 H Calcium 8.6 Magnesium Total Bilirubin 1.0 Direct Bilirubin 0.0 Neonat Total Bilirubin Not Reportable Neonat Direct Bilirubin Not Reportable Neonat Indirect Bili Not Reportable AST 22 ALT 14 Alkaline Phosphatase 58 Total Protein 6.6 Albumin 3.4 L Renal Ultrasound 03/06/20 00:00 IMPRESSION: Mild right hydronephrosis. Partially imaged right pleural effusion. copyright 2010 [employer]- All Rights Reserved Chest X-Ray 03/06/20 13:17 IMPRESSION: Patchy right middle lobe and basilar opacities suspicious for pneumonia. Small associated right sided pleural effusion. Enlarged cardiac silhouette without overt edema. Chest X-Ray 03/10/20 06:00 IMPRESSION: Persistent right basilar pneumonia Although the chest x-ray is reported as right basilar pneumonia the patient clinically does not have pneumonia. IMPRESSION/RECOMMENDATION: 1. NONSUSTAINED VENTRICULAR TACHYCARDIA: 1 episode of nonsustained ventricular tachycardia. The patient was asymptomatic. His potassium and magnesium were normal. The patient in view of the patient's severely depressed LV ejection fraction is at high risk for sudden . Hence would recommend a LifeVest. The rationale and of wearing LifeVest discussed with the patient. He is agreeable. Will order for LifeVest. 2. 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 The patient has good urine output. The patient has no chest pain or discomfort. And there is no shortness of breath. His CHF both with respect to the right heart and left heaRT failure well compensated. Will increase the patient's Toprol Toprol-XL. We will continue the patient's amlodipine Lasix and nitrates. Continue aspirin. 3. Acute on chronic right ventricular systolic heart failure secondary to left heart failure and pulmonary hypertension. 4. Cardiomyopathy with severely reduced LV ejection fraction: This is a mixture of dilated and ischemic cardiomyopathy. The patient would recommend having an echo repeated in in 3 months on good anti-cardiomyopathy/anti-CHF gold standard treatments at maximal doses. If still LV ejection fraction is 35% or below then the patient will be recommended recommended to have a AICD placement refer with EP cardiology. This plan has been discussed with the attending physician Dr. Naranjo and with the patient. The patient voices understanding. 5. Severe tricuspid regurgitation. 6. At least moderate pulmonary hypertension. I suspect apparent pulmonary hypertension is much higher than what is recorded by calculation. . Would increase his amlodipine and nitrate dosages.. 7. Hypertension: Blood pressure well controlled. 8. 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 We will continue the patient on aspirin and add nitrates. Continue beta-rito. In view of the patient's young age if the patient's LV ejection fraction by echo done 3 months from now shows ejection fraction of 35% or below then would strongly recommend a cardiac catheterization to be absolutely sure that the patient has no revascularizable coronary artery disease. This has been discussed with the patient. 9. Diabetes mellitus type 2: Continue antidiabetic treatment and Accu-Cheks as per protocol. 10. Acute renal failure: Possibly the patient has underlying chronic kidney disease. This is exacerbation patient's acute heart failure. Will increase the Entresto dosage watch the patient's renal function on Entresto. Avoid nephrotoxic medication. Renal function has improved. 11. COPD: This seems to be stable with no acute exacerbation. Ongoing tobacco abuse. 12. Dyslipidemia. The patient has good LDL and triglyceride levels, but still with severely low HDL level at 26. Medications reviewed. Medical regimen management plan discussed with attending physician. 40-minute spent with patient more than 50% time spent direct patient care. Medical decision making is of high complexity. Discussed the case with Dr. Naranjo. Will follow. Form for LifeVest filled out.
[2020-03-10] MEDS: ACETAMINOPHEN 325 MG TABLET PO PRN (20:52)
[2020-03-11] MEDS: HYDRALAZINE HCL 50 MG TABLET PO SCH ×2 (05:24→14:15)
[2020-03-11] MEDS: HEPARIN SOD (PORCINE) 5,000 UNIT/ML 1 ML VIAL SUBCUT SCH ×2 (05:25→14:15)
[2020-03-11] MEDS: AMLODIPINE BESYLATE 5 MG TABLET PO SCH (09:17)
[2020-03-11] MEDS: FUROSEMIDE 40 MG TABLET PO SCH (09:17)
[2020-03-11] MEDS: ISOSORBIDE MONONITRATE 60 MG TAB.ER.24H PO SCH (09:17)
[2020-03-11] MEDS: SPIRONOLACTONE 25 MG TABLET PO SCH (09:18)
[2020-03-11] MEDS: METOPROLOL SUCCINATE 25 MG TAB.SR.24H PO SCH (09:18)
[2020-03-11] MEDS: SACUBITRIL/VALSARTAN 49 MG/51 MG TABLET PO SCH (09:18)
[2020-03-11] MEDS: ASPIRIN 81 MG TABLET, CHEWABLE PO SCH (09:18)
[2020-03-11] MEDS: HUM INSULIN NPH/REG INSULIN HM 100 UNIT/1 ML 3 ML SUBCUT SCH (09:24)
[2020-03-11] MEDS: ACETAMINOPHEN 325 MG TABLET PO PRN (10:42)
--- NOTE | 2020-03-11 12:39 | Progress Note ---
Provider Note Provider Note: Cardiology PROGRESS NOTE by Dr. Travis has been ON 03/11/2020. Subjective: The patient denies any chest pain or discomfort. There is no shortness of breath. There is no PND orthopnea. There is no recurrence of nonsustained ventricular tachycardia. There is no TIA CVA symptoms. The patient has no leg edema. The patient is awaiting placement and instructions of LifeVest. He will be discharged as soon as he gets a LifeVest. PHYSICAL EXAMINATION: The patient is mildly obese in no acute distress. Selected Entries 03/11/20 03/11/20 07:31 07:53 Temperature 98.3 F Temperature Oral Source Pulse Rate 90 Respiratory Normal Depth Respiratory Normal Effort Non-Labored Blood Pressure 131/77 H Blood Pressure 95 Mean BP Position Supine O2 Sat by Pulse 94 Oximetry Oxygen Delivery Room Air Method Head: Is atraumatic and normocephalic. EYES: Pupils are equal round regular reactive to light and accommodation. Extraocular movements are normal. There is no conjunctival pallor. There is no scleral icterus. EARS: Tympanic membranes are intact. External auditory canals are clear. NOSE: There is no deviated nasal septum. There is no inflammation of the nasal mucous membrane. MOUTH: Mucous membranes of mouth are moist. Tongue is moist. There is no ulcers. There is no bleeding from the gums. THROAT: There is no redness of the oropharynx. There is no exudates. SKIN: There is no skin rashes. There is no petechia or ecchymosis. There is no skin lesions. NECK: Supple. There is JVD present. Hepatojugular reflux is positive. There is no lymphadenopathy. Carotids are equal there is no bruits. There is no goiter. There is no accessory muscles of respiration use. Trachea is central. LUNGS: There is diminished air entry prolonged expiration. There is no rhonchi or wheezing. There is bibasilar rales of CHF. HEART S1-S2 is heard. There is no S3 gallop. There is no S4 gallop. There is systolic murmur of mitral regurgitation and tricuspid regurgitation present. There is no rub. ABDOMEN: Is obese. There is hepatomegaly. There is no splenomegaly. Bowel sounds are well heard. There is hepatojugular reflux present. There is no tender areas of masses. There is no rebound guarding or rigidity. EXTREMITIES: Femorals are diminished. Leg pulses difficult to palpate. There is 2- edema bilaterally. There is no DVT cellulitis. There is no calf tenderness. SPECIALTY TRIMMER: The patient is conscious awake alert oriented x3 with no focal deficits. PSYCHIATRIC: The patient judgment insight intact his affect is normal. His 24-hour intake is 702 mL. The 24-hour output is 625 mL. Labs- All tests 24 hr 03/10/20 03/11/20 21:28 09:21 POC Glucose 145 H 249 H Renal Ultrasound 03/06/20 00:00 IMPRESSION: Mild right hydronephrosis. Partially imaged right pleural effusion. copyright 2010 [employer]- All Rights Reserved Chest X-Ray 03/06/20 13:17 IMPRESSION: Patchy right middle lobe and basilar opacities suspicious for pneumonia. Small associated right sided pleural effusion. Enlarged cardiac silhouette without overt edema. Chest X-Ray 03/10/20 06:00 IMPRESSION: Persistent right basilar pneumonia. Clinically the patient does not have pneumonia. IMPRESSION/RECOMMENDATION: 1. NONSUSTAINED VENTRICULAR TACHYCARDIA: 1 episode of nonsustained ventricular tachycardia. No recurrence. Patient awaiting LifeVest. 2. 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 The patient has good urine output. The patient has no chest pain or discomfort. And there is no shortness of breath. His CHF both with respect to the right heart and left heaRT failure well compensated. Will increase the patient's Toprol Toprol-XL. We will continue the patient's amlodipine Lasix and nitrates. Continue aspirin. 3. Acute on chronic right ventricular systolic heart failure secondary to left heart failure and pulmonary hypertension. 4. Cardiomyopathy with severely reduced LV ejection fraction: This is a mixture of dilated and ischemic cardiomyopathy. The patient would recommend having an echo repeated in in 3 months on good anti-cardiomyopathy/anti-CHF gold standard treatments at maximal doses. If still LV ejection fraction is 35% or below then the patient will be recommended recommended to have a AICD placement refer with EP cardiology. This plan has been discussed with the attending physician Dr. Naranjo and with the patient. The patient voices understanding. 5. Severe tricuspid regurgitation. 6. At least moderate pulmonary hypertension. I suspect apparent pulmonary hypertension is much higher than what is recorded by calculation. . Would increase his amlodipine and nitrate dosages.. 7. Hypertension: Blood pressure well controlled. 8. 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 We will continue the patient on aspirin and add nitrates. Continue beta-rito. In view of the patient's young age if the patient's LV ejection fraction by echo done 3 months from now shows ejection fraction of 35% or below then would strongly recommend a cardiac catheterization to be absolutely sure that the patient has no revascularizable coronary artery disease. This has been discussed with the patient. 9. Diabetes mellitus type 2: Continue antidiabetic treatment and Accu-Cheks as per protocol. 10. Acute renal failure: Possibly the patient has underlying chronic kidney disease. This is exacerbation patient's acute heart failure. Will increase the Entresto dosage watch the patient's renal function on Entresto. Avoid nephrotoxic medication. Renal function has improved. 11. COPD: This seems to be stable with no acute exacerbation. Ongoing tobacco abuse. 12. Dyslipidemia. The patient has good LDL and triglyceride levels, but still with severely low HDL level at 26. Medications reviewed. Medical regimen management plan discussed with attending physician. 40-minute spent with patient more than 50% time spent direct patient care. Medical decision making is of moderate complexity. The patient will be discharged discharge as soon as the patient's LifeVest is available. We will sign off and follow the patient in the office. The patient has my cell phone number to call me if you should have any problems.
[2020-03-11 14:03] VITALS: BP 144/99
--- NOTE | 2020-03-11 15:49 | PDOC DISCHARGE SUMMARY ---
Impression - Admit/DC Date/PCP Admission Date/Primary Care Provider: 03/06/20 13:35 BRIANDA WARNER MD Discharge Date: 03/11/20 - Discharge Diagnosis (1) Acute combined systolic (congestive) and diastolic (congestive) heart failure Is this a current diagnosis for this admission?: Yes (2) Chronic kidney disease, stage 3 (moderate) Is this a current diagnosis for this admission?: Yes (3) T2DM (type 2 diabetes mellitus) Is this a current diagnosis for this admission?: Yes (4) Diabetes mellitus with nephropathy Is this a current diagnosis for this admission?: Yes (5) Pulmonary hypertension Is this a current diagnosis for this admission?: Yes (6) Nicotine dependence with current use Is this a current diagnosis for this admission?: Yes (7) Ventricular tachycardia, nonsustained Is this a current diagnosis for this admission?: Yes - Additional Information Discharge Diet: Cardiac, Diabetic Discharge Activity: Activity As Tolerated, Balance Activity w/Rest, Weigh Daily Referrals: BRIANDA WARNER MD [Primary Care Provider] - 03/20/20 10:30 am Prescriptions: Acetaminophen [Tylenol 325 mg Tablet] 650 mg PO Q4HP PRN #90 tablet PRN Reason: Spironolactone [Aldactone 25 mg Tablet] 25 mg PO Q12 #60 tablet Spironolactone [Aldactone 25 mg Tablet] 25 mg PO BID #60 tablet Hydralazine HCl [Apresoline 50 mg Tablet] 50 mg PO Q8 #90 Hydralazine HCl [Apresoline 50 mg Tablet] 50 mg PO Q8H #90 tablet Aspirin [Aspirin 81 mg Chewable Tablet] 81 mg PO DAILY #90 tab.chew Sacubitril/Valsartan [Entresto 49 mg/51 mg Tablet] 1 tab PO Q12 #60 tablet Sacubitril/Valsartan [Entresto 49 mg/51 mg Tablet] 1 tab PO BID #60 tablet Dapagliflozin Propanediol [Farxiga] 10 mg PO DAILY #90 tablet Dapagliflozin Propanediol [Farxiga] 10 mg PO DAILY #30 tablet Insulin NPH Hum/Reg Insulin Hm [Humulin 70/30 Kwikpen] 30 unit SQ DAILY #3 Isosorbide Mononitrate [Imdur 60 mg Tablet.er] 60 mg PO DAILY #30 tab.er.24h Isosorbide Mononitrate [Imdur 60 mg Tablet.er] 60 mg PO DAILY #30 tab.er.24h Furosemide [Lasix] 40 mg PO DAILY #30 tablet Furosemide [Lasix 40 mg Tablet] 40 mg PO DAILY #90 tablet Insulin NPH Hum/Reg Insulin Hm [Novolin 70-30 Flexpen] 100 unit SQ DAILY #1 insuln.pen Metoprolol Succinate [Toprol Xl 25 mg Tab.sr] 50 mg PO Q12 #60 tab.sr.24h Metoprolol Succinate [Toprol Xl 50 mg Tab.sr] 50 mg PO DAILY #30 tab.sr.24h Home Medications: Acetaminophen [Tylenol 325 mg Tablet] 650 mg PO Q4HP PRN #90 tablet 03/11/20 Aspirin [Aspirin 81 mg Chewable Tablet] 81 mg PO DAILY #90 tab.chew 03/11/20 Dapagliflozin Propanediol [Farxiga] 10 mg PO DAILY #30 tablet 03/11/20 Dapagliflozin Propanediol [Farxiga] 10 mg PO DAILY #90 tablet 03/11/20 Furosemide [Lasix 40 mg Tablet] 40 mg PO DAILY #90 tablet 03/11/20 Furosemide [Lasix] 40 mg PO DAILY #30 tablet 03/11/20 Hydralazine HCl [Apresoline 50 mg Tablet] 50 mg PO Q8 #90 20 Hydralazine HCl [Apresoline 50 mg Tablet] 50 mg PO Q8H #90 tablet 03/11/20 Insulin NPH Hum/Reg Insulin Hm [Humulin 70/30 Kwikpen] 30 unit SQ DAILY #3 03/11/20 Insulin NPH Hum/Reg Insulin Hm [Novolin 70-30 Flexpen] 100 unit SQ DAILY #1 insuln.pen 03/11/20 Isosorbide Mononitrate [Imdur 60 mg Tablet.er] 60 mg PO DAILY #30 tab.er.24h 20 Isosorbide Mononitrate [Imdur 60 mg Tablet.er] 60 mg PO DAILY #30 tab.er.24h 03/11/20 Metoprolol Succinate [Toprol Xl 25 mg Tab.sr] 50 mg PO Q12 #60 tab.sr.24h 2420 Metoprolol Succinate [Toprol Xl 50 mg Tab.sr] 50 mg PO DAILY #30 tab.sr.24h 03/11/20 Sacubitril/Valsartan [Entresto 49 mg/51 mg Tablet] 1 tab PO BID #60 tablet 03/11/20 Sacubitril/Valsartan [Entresto 49 mg/51 mg Tablet] 1 tab PO Q12 #60 tablet 03/11/20 Spironolactone [Aldactone 25 mg Tablet] 25 mg PO BID #60 tablet 03/11/20 Spironolactone [Aldactone 25 mg Tablet] 25 mg PO Q12 #60 tablet 03/11/20 History of Present Illiness History of Present Illness: JUICE GRAHAM is a 59 year old male, He came to the office today for evaluation of progressive swelling of both lower extremities, in the office he was evaluated, on physical examination, there was distention of the jugular veins with positive hepatojugular reflux he also extremely distended lower extremities, he was diagnosed with acute new onset CHF, He was admitted directly from the office to the hospital but he was directed by the nursing animal caretaker supervisor to the emergency room. The chest x-ray, the B type natruretic peptide was consistent with CHF., The 2D echo demonstrated dilated left atrium, left ventricle, the ejection fraction of the left ventricle is in the low 20s. Hospital Course Hospital Course: Patient was admitted for the management of acute systolic and diastolic heart failure, he was treated with furosemide infusion, beta-rito metoprolol, Entresto. On admission he had tremendous swelling of the lower extremities, bilateral crackles, he diuresed effectively. Hospital course was complicated with episode of nonsustained ventricular tachycardia. He was seen in consultation by Dr. Nice, cardiology.Transthoracic echocardiogram was done, it demonstrated ejection fraction of left, ventricle less than 20%, the left ventricle was dilated, the left atrium was dilated, the right ventricle was dila tanner , there was global hypokinesis with associated severe pulmonary hypertension. He has associated diabetic nephropathy with underlining CKD. Before this admission he was seen by the rail manager Dr. Nice couple of months ago at the time he had a Cardiolite nuclear stress test, it was negative for any reversibility that suggest ischemia Physical Exam Vital Signs: Temp Pulse Resp BP Pulse Ox 98.3 F 90 18 144/99 H 94 03/11/20 14:02 03/11/20 14:02 03/11/20 14:02 03/11/20 14:02 03/11/20 14:02 Intake & Output 03/10/20 03/11/20 03/12/20 06:59 06:59 06:59 Intake Total 1824 702 Output Total 699 641 Balance 1299 77 Weight 77.1 kg 76.7 kg General appearance: PRESENT: no acute distress Eye exam: PRESENT: PERRLA Respiratory exam: PRESENT: clear to auscultation anu Cardiovascular exam: PRESENT: +S1, +S2 GI/Abdominal exam: PRESENT: soft Extremities exam: PRESENT: other - no edema of the lower extremity Neurological exam: PRESENT: alert, CN II-XII grossly intact Results Laboratory Results: WBC 6.6 10^3/uL (4.0-10.5) 03/10/20 15:25 RBC 5.14 10^6/uL (4.35-5.55) 03/10/20 15:25 Hgb 15.1 g/dL (13.5-17.0) 03/10/20 15:25 Hct 44.0 % (37.9-51.0) 03/10/20 15:25 MCV 86 fl (80-97) 03/10/20 15:25 MCH 29.4 pg (27.0-33.4) 03/10/20 15:25 MCHC 34.4 g/dL (32.0-36.0) 03/10/20 15:25 RDW 15.2 % (11.5-14.0) H 03/10/20 15:25 Plt Count 264 10^3/uL (150-450) 03/10/20 15:25 Lymph % (Auto) 29.0 % (13-45) 03/10/20 15:25 [place] % (Auto) 12.0 % (3-13) 03/10/20 15:25 Eos % (Auto) 7.6 % (0-6) H 03/10/20 15:25 Baso % (Auto) 1.2 % (0-2) 03/10/20 15:25 Absolute Neuts (auto) 3.3 10^3/uL (1.7-8.2) 03/10/20 15:25 Absolute Lymphs (auto) 1.9 10^3/uL (0.5-4.7) 03/10/20 15:25 Absolute Monos (auto) 0.8 10^3/uL (0.1-1.4) 03/10/20 15:25 Absolute Eos (auto) 0.5 10^3/uL (0.0-0.6) 03/10/20 15:25 Absolute Basos (auto) 0.1 10^3/uL (0.0-0.2) 03/10/20 15:25 Seg Neutrophils % 50.2 % (42-78) 03/10/20 15:25 PT 16.9 SEC (11.4-15.4) H 03/06/20 20:25 INR 1.36 03/06/20 20:25 APTT 33.1 SEC (23.5-35.8) 03/06/20 20:25 Sodium 136.1 mmol/L (137-145) L 03/10/20 15:25 Potassium 4.0 mmol/L (3.6-5.0) 03/10/20 15:25 Chloride 97 mmol/L (98-107) L 03/10/20 15:25 Carbon Dioxide 31 mmol/L (22-30) H 03/10/20 15:25 Anion Gap 8 (5-19) 03/10/20 15:25 BUN 26 mg/dL (7-20) H 03/10/20 15:25 Creatinine 1.50 mg/dL (0.52-1.25) H 03/10/20 15:25 Est GFR ( Amer) 58 (>60) L 03/10/20 15:25 Est GFR (MDRD) Non-Af 48 (>60) L 03/10/20 15:25 Glucose 115 mg/dL (75-110) H 03/10/20 15:25 POC Glucose 249 mg/dL (70-110) H 03/11/20 09:21 Hemoglobin A1c % 7.1 % (4.7-6.0) H 03/07/20 06:46 Calcium 8.6 mg/dL (8.4-10.2) 03/10/20 15:25 Magnesium 1.7 mg/dL (1.6-2.3) 03/09/20 23:16 Total Bilirubin 1.0 mg/dL (0.2-1.3) 03/10/20 15:25 Direct Bilirubin 0.0 mg/dL (0.0-0.4) 03/10/20 15:25 Neonat Total Bilirubin Not Reportable 03/10/20 15:25 Neonat Direct Bilirubin Not Reportable 03/10/20 15:25 Neonat Indirect Bili Not Reportable 03/10/20 15:25 AST 22 U/L (17-59) 03/10/20 15:25 ALT 14 U/L (<50) 03/10/20 15:25 Alkaline Phosphatase 58 U/L (38-126) 03/10/20 15:25 Creatine Kinase 237 U/L (55-170) H 03/07/20 06:46 CK-MB (CK-2) 4.48 ng/mL (<4.55) 03/07/20 06:46 Troponin I 0.063 ng/mL 03/07/20 06:46 NT-Pro-B Natriuret Pep 8060 pg/mL (<125) H 03/07/20 06:46 Total Protein 6.6 g/dL (6.3-8.2) 03/10/20 15:25 Albumin 3.4 g/dL (3.5-5.0) L 03/10/20 15:25 Triglycerides 79 mg/dL (<150) 03/07/20 06:46 Cholesterol 118.12 mg/dL (0-200) 03/07/20 06:46 LDL Cholesterol Direct 87 mg/dL (<100) 03/07/20 06:46 VLDL Cholesterol 16.0 mg/dL (10-31) 03/07/20 06:46 HDL Cholesterol 26 mg/dL (>40) L 03/07/20 06:46 TSH 2.45 uIU/mL (0.47-4.68) 03/07/20 06:46 Free T4 1.53 ng/dL (0.78-2.19) 03/07/20 06:46 Free T3 pg/mL 3.87 pg/mL (2.77-5.27) 03/08/20 06:20 Urine Color STRAW 03/06/20 19:45 Urine Appearance CLEAR 03/06/20 19:45 Urine pH 6.0 (5.0-9.0) 03/06/20 19:45 Ur Specific Natalia 1.006 03/06/20 19:45 Urine Protein 30 mg/dL (NEGATIVE) H 03/06/20 19:45 Urine Glucose (UA) NEGATIVE mg/dL (NEGATIVE) 03/06/20 19:45 Urine Ketones NEGATIVE mg/dL (NEGATIVE) 03/06/20 19:45 Urine Blood SMALL (NEGATIVE) H 03/06/20 19:45 Urine Nitrite NEGATIVE (NEGATIVE) 03/06/20 19:45 Urine Bilirubin NEGATIVE (NEGATIVE) 03/06/20 19:45 Urine Urobilinogen NEGATIVE mg/dL (<2.0) 03/06/20 19:45 Ur Leukocyte Esterase NEGATIVE (NEGATIVE) 03/06/20 19:45 Urine WBC (Auto) 0 /HPF 03/06/20 19:45 Urine RBC (Auto) 3 /HPF 03/06/20 19:45 Urine Mucus (Auto) RARE /LPF 03/06/20 19:45 Urine Creatinine 22.4 mg/dL (22-328) 03/06/20 19:45 Protein/Creatinin Ratio 2.2 mg/mg (0.0-0.2) H 03/06/20 19:45 Urine Total Protein 50.0 mg/dL (<12) H 03/06/20 19:45 Urine Ascorbic Acid NEGATIVE (NEGATIVE) 03/06/20 19:45 03/06/20 03/06/20 03/07/20 13:42 20:25 01:51 CK-MB (CK-2) 7.59 H 6.09 H 5.75 H Troponin I 0.065 0.071 0.071 NT-Pro-B Natriuret Pep 7480 H 03/07/20 06:46 CK-MB (CK-2) 4.48 Troponin I 0.063 NT-Pro-B Natriuret Pep 8060 H Impressions: Renal Ultrasound 03/06/20 00:00 IMPRESSION: Mild right hydronephrosis. Partially imaged right pleural effusion. copyright 2011 [employer]- All Rights Reserved Chest X-Ray 03/06/20 13:17 IMPRESSION: Patchy right middle lobe and basilar opacities suspicious for pneumonia. Small associated right sided pleural effusion. Enlarged cardiac silhouette without overt edema. Chest X-Ray 03/10/20 06:00 IMPRESSION: Persistent right basilar pneumonia Stroke Is this a Stroke Patient?: No Acute Heart Failure - Is this a Heart Failure Patient?: No
== END 2020-03-11 14:43 | disposition home or self-care (01) | DRG 291 ==
LOC: ER 13:01 → EH 13:35 → 3S 19:00
PROVIDERS: ADMIT Internal Medicine; ATTEND Internal Medicine
DX: I13.0 Hypertensive heart and chronic kidney disease with heart failure and stage 1 through stage 4 chronic kidney disease, or unspecified chronic kidney disease (principal); I50.41 Acute combined systolic (congestive) and diastolic (congestive) heart failure; I47.2 Ventricular tachycardia; N17.9 Acute kidney failure, unspecified; N18.3 Chronic kidney disease, stage 3 (moderate); E11.22 Type 2 diabetes mellitus with diabetic chronic kidney disease; E11.21 Type 2 diabetes mellitus with diabetic nephropathy; I27.20 Pulmonary hypertension, unspecified; R06.01 Orthopnea; J44.9 Chronic obstructive pulmonary disease, unspecified; I42.0 Dilated cardiomyopathy; I25.5 Ischemic cardiomyopathy; I25.10 Atherosclerotic heart disease of native coronary artery without angina pectoris; I08.1 Rheumatic disorders of both mitral and tricuspid valves; E11.42 Type 2 diabetes mellitus with diabetic polyneuropathy; F17.210 Nicotine dependence, cigarettes, uncomplicated; E78.5 Hyperlipidemia, unspecified; B18.2 Chronic viral hepatitis C; I25.2 Old myocardial infarction; Z79.4 Long term (current) use of insulin; Z79.82 Long term (current) use of aspirin; Z79.899 Other long term (current) drug therapy; Z83.3 Family history of diabetes mellitus; Z82.49 Family history of ischemic heart disease and other diseases of the circulatory system
CPT/HCPCS: 36415; 71045; 71046; 76775; 80048; 80053; 80061; 80076; 81001; 82550; 82553; 82570; 82962; 83036; 83735; 83880; 84132; 84156; 84439; 84443; 84481; 84484; 85025; 85610; 85730; 87086; 93005; 93010; 93306; 99285; J1250; J1644; J1815; J1940; J3490; J7050

== ENCOUNTER 2020-06-02 17:16 | Inpatient (IN) | payer MEDICAID ==
--- NOTE | 2020-06-02 17:31 | ER Document Report ---
ED General - General Stated Complaint: WEAKNESS/R FOOT GOUT Time Seen by Provider: 06/02/20 17:28 TRAVEL OUTSIDE OF THE [place] IN LAST 30 DAYS: No - HPI Notes: 59-year-old male presents with leg swelling and syncope. Patient states that he has passed out 3 times today. He states that he was walking in the kitchen, suddenly blacked out and hit the floor. He states that he did not have any preceding symptoms. All 3 events were similar today, where he is standing and then dropped to the floor. He reports that his EF is 20%. He denies chest pain currently. He has some shortness of breath. He also notes that his legs are swelling, feet up to his knees, he states that he believes this is from his gout. He reports compliance with his medications. - Related Data Allergies/Adverse Reactions: No Known Allergies Allergy (Verified 06/02/20 17:25) Past Medical History - Social History Smoking Status: Unknown if Ever Smoked Family History: None - Past Medical History Cardiac Medical History: Reports: Hx Hypertension Endocrine Medical History: Reports: Hx Diabetes Mellitus Type 2 Renal/ Medical History: Denies: Hx Peritoneal Dialysis Psychiatric Medical History: Denies: Hx Depression Review of Systems - Review of Systems Constitutional: denies: Fever EENT: No symptoms reported Cardiovascular: denies: Chest pain Respiratory: Short of breath Gastrointestinal: denies: Abdominal pain Genitourinary: No symptoms reported Male Genitourinary: No symptoms reported Musculoskeletal: Leg swelling Skin: No symptoms reported Hematologic/Lymphatic: No symptoms reported Neurological/Psychological: No symptoms reported Physical Exam - Vital signs Vitals: Temp Pulse Resp BP Pulse Ox 97.3 F 67 18 124/89 H 97 06/02/20 17:24 06/02/20 17:24 06/02/20 17:24 06/02/20 17:24 06/02/20 17:24 Interpretation: Normal - General General appearance: Appears well In distress: None - HEENT Head: Normocephalic, Atraumatic Extraocular movements intact: Yes Pupils: PERRL - Respiratory Breath sounds: Rales - Cardiovascular Rhythm: Regular Murmur: Yes Normal capillary refill: Yes - Abdominal Tenderness: Nontender - Extremities General upper extremity: Normal ROM General lower extremity: Edema, Normal ROM - Neurological Neuro grossly intact: Yes Cognition: Normal Orientation: AAOx4 Speech: Normal Cranial nerves: Normal Cerebellar coordination: Normal Motor strength normal: LUE, RUE, LLE, RLE Sensory: Normal - Psychological Associated symptoms: Normal affect - Skin Skin Temperature: Warm Course - Re-evaluation Re-evalutation: 59-year-old male here with 3 syncopal events at home. Given that his EF is 20%. I am extremely concerned for cardiogenic syncope. He currently is neurologically intact, would not suspect neurological cause at this time. Additionally he is overtly fluid overloaded, he has pitting edema to his lower extremities and rails. Patient's vitals are stable. Laboratory evaluation and x-ray was congruent with volume overload. He was started on diuresis. He was admitted to his primary care for further management. - Vital Signs Vital signs: Temp Pulse Resp BP Pulse Ox 98.0 F 64 22 H 98/72 L 95 06/03/20 23:29 06/04/20 02:00 06/03/20 23:29 06/03/20 23:29 06/03/20 23:29 - Laboratory Result Diagrams: 06/03/20 04:15 06/03/20 04:15 Laboratory results interpreted by me: 06/02/20 06/02/20 06/02/20 17:47 17:47 17:47 RDW 17.8 H Sodium 136.0 L BUN 26 H Creatinine 2.12 H Est GFR ( Amer) 39 L Est GFR (MDRD) Non-Af 32 L Total Bilirubin 1.7 H NT-Pro-B Natriuret Pep 8940 H TSH 06/02/20 17:47 RDW Sodium BUN Creatinine Est GFR ( Amer) Est GFR (MDRD) Non-Af Total Bilirubin NT-Pro-B Natriuret Pep TSH 8.67 H - Diagnostic Test Radiology reviewed: Image reviewed, Reports reviewed - EKG Interpretation by Me Additional EKG results interpreted by me: 06/02/20 18:29 EKG is interpreted by me. Sinus rhythm with rate of 65. Prolonged QTC 508. No ST elevation. Discharge - Discharge Clinical Impression: Syncope and collapse, Long QT interval Acute exacerbation of CHF (congestive heart failure) Qualifiers: Heart failure type: systolic Qualified Code(s): I50.23 - Acute on chronic systolic (congestive) heart failure Disposition: ADMITTED INPATIENT Admitting Provider: [facility] Admitted: [facility]
[2020-06-02] MEDS ORDERED: FUROSEMIDE INJ/PF 20 MG/2 ML SDV IV ONE (17:53)
[2020-06-02 18:05] LABS: ABSOLUTE EOSINOPHILS # (AUTO) 0.1 10^3/uL (0.0-0.6); ABSOLUTE LYMPHOCYTES (AUTO) 1.1 10^3/uL (0.5-4.7); ABSOLUTE MONOCYTES (AUTO) 0.6 10^3/uL (0.1-1.4); ABSOLUTE NEUT (AUTO) 4.1 10^3/uL (1.7-8.2); BASOPHILS % (AUTO) 0.7 % (0-2); EOSINOPHILS % (AUTO) 1.5 % (0-6); HEMATOCRIT 42.3 % (37.9-51.0); HEMOGLOBIN 13.8 g/dL (13.5-17.0); MEAN CORPUSCULAR HEMOGLOBIN 28.5 pg (27.0-33.4); MEAN CORPUSCULAR HGB CONC 32.6 g/dL (32.0-36.0); MEAN CORPUSCULAR VOLUME 87 fl (80-97); MONOCYTES % (AUTO) 10.7 % (3-13); PLATELET COUNT 238 10^3/uL (150-450); RED BLOOD COUNT 4.85 10^6/uL (4.35-5.55); RED CELL DISTRIBUTION WIDTH 17.8 % (11.5-14.0); SEGMENTED NEUTROPHILS % (AUTO) 69.1 % (42-78); TOTAL CELLS COUNTED % (AUTO) 100 %
[2020-06-02 18:22] LABS: ALBUMIN 3.5 g/dL (3.5-5.0); ALKALINE PHOSPHATASE 77 U/L (38-126); ANION GAP 7 (5-19); ASPARTATE AMINO TRANSFERASE 28 U/L (17-59); BILIRUBIN,DIRECT 0.1 mg/dL (0.0-0.4); BILIRUBIN,TOTAL 1.7 mg/dL (0.2-1.3); BLOOD UREA NITROGEN 26 mg/dL (7-20); CALCIUM 8.9 mg/dL (8.4-10.2); CARBON DIOXIDE 29 mmol/L (22-30); CHLORIDE 100 mmol/L (98-107); GLUCOSE 97 mg/dL (75-110); POTASSIUM 4.7 mmol/L (3.6-5.0); TOTAL PROTEIN 6.9 g/dL (6.3-8.2)
--- NOTE | 2020-06-02 18:31 | RADIOLOGY REPORT (SQ) ---
EXAM DESCRIPTION: CHEST 2 VIEWS IMAGES COMPLETED DATE/TIME: 06/02/2020 6:12 pm REASON FOR STUDY: CHF COMPARISON: 03/10/2020 TECHNIQUE: Frontal and lateral radiographic views of the chest acquired. NUMBER OF VIEWS: Two view. LIMITATIONS: None. FINDINGS: LUNGS AND PLEURA: No pneumothorax. No consolidation or pleural effusion. MEDIASTINUM AND HILAR STRUCTURES: Stable. HEART AND VASCULAR STRUCTURES: Similar cardiomegaly. BONES: No acute findings. HARDWARE: None in the chest. OTHER: No other significant finding. IMPRESSION: NO ACUTE FINDINGS. TECHNICAL DOCUMENTATION: JOB ID: [id number] [id number] 2010 [employer]- All Rights Reserved Reading location - IP/workstation name: [email or web address]
[2020-06-02 18:36] LABS: TROPONIN I 0.051 ng/mL
--- NOTE | 2020-06-02 18:58 | RADIOLOGY REPORT (SQ) ---
EXAM DESCRIPTION: CT HEAD WITHOUT IMAGES COMPLETED DATE/TIME: 06/02/2020 6:46 pm REASON FOR STUDY: syncope, eval bleed COMPARISON: None. TECHNIQUE: Axial images acquired through the brain without intravenous contrast. Images reviewed wit h bone, brain and subdural windows. Images stored on PACS. All CT scanners at this facility use dose modulation, iterative reconstruction, and/or weight based d osing when appropriate to reduce radiation dose to as low as reasonably achievable (ALARA). [facility]: Dose Right [facility]: CareDose [facility]: Dose Right [facility]: Teradose 4D [facility]: Smart P2 Science RADIATION DOSE: CT Rad equipment meets quality standard of care and radiation dose reduction techniq ues were employed. CTDIvol: 53.2 mGy. DLP: 991 mGy-cm.. LIMITATIONS: None. FINDINGS: VENTRICLES: Normal size and contour. CEREBRUM: No masses. No hemorrhage. No midline shift. Age appropriate white matter. No evidence for a cute infarction. CEREBELLUM: No masses. No hemorrhage. No alteration of density. No evidence for acute infarction. EXTRA-AXIAL SPACES: No fluid collections. ORBITS AND GLOBE: No intra- or extraconal masses. Normal contour of globe without masses. CALVARIUM: No fracture. PARANASAL SINUSES: No fluid or mucosal thickening. SOFT TISSUES: No mass or hematoma. OTHER: No other significant finding. IMPRESSION: NO ACUTE INTRACRANIAL FINDINGS. EVIDENCE OF ACUTE STROKE: NO. TECHNICAL DOCUMENTATION: JOB ID: [id number] [id number] Quality ID # [id number]: Final reports with documentation of one or more dose reduction techniques (e.g., Au tomated exposure control, adjustment of the mA and/or kV according to patient size, use of iterative reconstruction technique) 2010 [employer]- All Rights Reserved Reading location - IP/workstation name: [employer]
[2020-06-02 22:01] LABS: FREE T4 (FREE THYROXINE) 1.85 ng/dL (0.78-2.19)
[2020-06-02 22:12] LABS: INTERNATIONAL RATION (INR) 1.45; PARTIAL THROMBOPLASTIN TIME 31.1 SEC (23.5-35.8); PROTHROMBIN TIME 17.8 SEC (11.4-15.4)
[2020-06-02 22:15] LABS: THYROID STIMULATING HORMONE 8.67 uIU/mL (0.47-4.68)
[2020-06-02 22:29] LABS: CREATINE KINASE MB 4.46 ng/mL (<4.55); TROPONIN I 0.056 ng/mL
--- NOTE | 2020-06-02 23:20 | EKG REPORT ---
SEVERITY:- ABNORMAL ECG - SINUS RHYTHM NONSPECIFIC T ABNORMALITIES, LATERAL LEADS PROLONGED QT INTERVAL : Confirmed by: Lokesh Glover MD 02-Jun-2020 23:19:41
[2020-06-02] MEDS: FUROSEMIDE INJ/PF 40 MG/4 ML SDV IV SCH (23:24)
[2020-06-02] MEDS: HEPARIN SOD (PORCINE) 5,000 UNIT/ML 1 ML VIAL SUBCUT SCH (23:31)
[2020-06-02] MEDS ORDERED: DEXTROSE 50%-WATER 25 GM/50 ML DISP.SYRIN IV ONE (23:59)
[2020-06-03] MEDS ORDERED: DEXTROSE 50%-WATER SYRINGE 12.5 GM/25 ML DOSE IV PRN (00:30)
[2020-06-03] MEDS ORDERED: DEXTROSE 40% GEL 15 GM TUBE PO PRN (00:30)
[2020-06-03] MEDS ORDERED: DEXTROSE 40% GEL 15 GM TUBE X 2 PO PRN (00:30)
[2020-06-03] MEDS ORDERED: DEXTROSE 50%-WATER SYRINGE 25 GM/50 ML DOSE IV PRN (00:30)
[2020-06-03] MEDS ORDERED: GLUCAGON,HUMAN RECOMB 1 MG INJ IM PRN (00:30)
[2020-06-03] MEDS ORDERED: MELATONIN 5 MG TABLET PO PRN (00:49)
[2020-06-03 03:41] LABS: APPEARANCE,URINE CLOUDY; BILIRUBIN,URINE NEGATIVE (NEGATIVE); GLUCOSE, URINE >=500 mg/dL (NEGATIVE); KETONES,URINE NEGATIVE (NEGATIVE); LEUKOCYTE ESTERASE,URINE NEGATIVE (NEGATIVE); NITRITE,URINE NEGATIVE (NEGATIVE); PROTEIN,URINE >=500 mg/dL (NEGATIVE); URINE SPECIFIC GRAVITY 1.023
[2020-06-03 03:43] LABS: COLOR,URINE DARK YELLOW
[2020-06-03] MEDS: ACETAMINOPHEN 325 MG TABLET PO PRN (04:18)
[2020-06-03] MEDS: HEPARIN SOD (PORCINE) 5,000 UNIT/ML 1 ML VIAL SUBCUT SCH ×3 (05:12→21:18)
[2020-06-03 05:20] LABS: ABSOLUTE BASOPHILS # (AUTO) 0.1 10^3/uL (0.0-0.2); ABSOLUTE LYMPHOCYTES (AUTO) 1.1 10^3/uL (0.5-4.7); ABSOLUTE MONOCYTES (AUTO) 0.7 10^3/uL (0.1-1.4); ABSOLUTE NEUT (AUTO) 5.4 10^3/uL (1.7-8.2); BASOPHILS % (AUTO) 0.9 % (0-2); EOSINOPHILS % (AUTO) 0.2 % (0-6); HEMATOCRIT 42.7 % (37.9-51.0); HEMOGLOBIN 14.1 g/dL (13.5-17.0); LYMPHOCYTES % (AUTO) 15.1 % (13-45); MEAN CORPUSCULAR HEMOGLOBIN 28.4 pg (27.0-33.4); MEAN CORPUSCULAR HGB CONC 32.9 g/dL (32.0-36.0); MEAN CORPUSCULAR VOLUME 86 fl (80-97); MONOCYTES % (AUTO) 9.9 % (3-13); PLATELET COUNT 234 10^3/uL (150-450); RED BLOOD COUNT 4.95 10^6/uL (4.35-5.55); RED CELL DISTRIBUTION WIDTH 17.2 % (11.5-14.0); SEGMENTED NEUTROPHILS % (AUTO) 73.9 % (42-78); TOTAL CELLS COUNTED % (AUTO) 100 %; WHITE BLOOD COUNT 7.3 10^3/uL (4.0-10.5)
[2020-06-03 05:36] LABS: ALBUMIN 3.5 g/dL (3.5-5.0); ALKALINE PHOSPHATASE 96 U/L (38-126); ANION GAP 9 (5-19); ASPARTATE AMINO TRANSFERASE 57 U/L (17-59); BILIRUBIN,DIRECT 0.4 mg/dL (0.0-0.4); BILIRUBIN,TOTAL 2.2 mg/dL (0.2-1.3); BLOOD UREA NITROGEN 32 mg/dL (7-20); CALCIUM 9.1 mg/dL (8.4-10.2); CARBON DIOXIDE 27 mmol/L (22-30); CHLORIDE 97 mmol/L (98-107); CHOLESTEROL 112.16 mg/dL (0-200); GLUCOSE 111 mg/dL (75-110); POTASSIUM 5.4 mmol/L (3.6-5.0); TOTAL PROTEIN 6.6 g/dL (6.3-8.2); TRIGLYCERIDES 52 mg/dL (<150)
[2020-06-03 05:46] LABS: DIRECT LDL 81 mg/dL (<100)
[2020-06-03 05:47] LABS: CREATINE KINASE MB 5.72 ng/mL (<4.55); TROPONIN I 0.089 ng/mL
--- NOTE | 2020-06-03 08:30 | EKG REPORT ---
SEVERITY:- ABNORMAL ECG - SINUS RHYTHM NONSPECIFIC T ABNORMALITIES, LATERAL LEADS PROLONGED QT INTERVAL : Confirmed by: Lokesh Glover MD 03-Jun-2020 08:30:11
[2020-06-03] MEDS: FUROSEMIDE INJ/PF 40 MG/4 ML SDV IV SCH ×2 (09:50→21:18)
[2020-06-03 10:49] LABS: CREATINE KINASE MB 6.2 ng/mL (<4.55)
[2020-06-03 10:52] LABS: TROPONIN I 0.269 ng/mL
--- NOTE | 2020-06-03 12:59 | PDOC H&P ---
History of Present Illness Admission Date/PCP: 06/02/20 19:41 BRIANDA WARNER MD History of Present Illness: JUICE GRAHAM is a 59 year old male, he has a history of chronic combined systolic and diastolic heart failure kidney disease stage III, systemic pulmonary hypertension, history of nonsustained ventricular tachycardia, he was transported to the emergency room by the ambulance because he had 3 episodes of loss of consciousness at home. The last time he was discharged from this hospital on March 06, 2020 he had episode of ventricular tachycardia, he was discharged home on LifeVest but patient is obviously poorly compliant with recommended medical regimen, he did not use the LifeVest because he said he does not like it. On discharge he was supposed to follow in the office a week post discharge but he came to the office last week for the first time since discharge on March 11, 2020 basically came to the office 3 months after discharge, he was not taking Entresto and other medication recommended post discharge, this medication was E -prescribed just few days ago, in short patient is extremely noncompliant, he probably sustained a syncope spell especially with his history of cardiomyopathy with a history of V. tach Past Medical History Cardiac Medical History: Reports: Hypertension, Other - Combined chronic systolic and diastolic heart failure Pulmonary Medical History: Reports: Other - Pulmonary hypertension Endocrine Medical History: Reports: Diabetes Mellitus Type 2 Renal/ Medical History: Reports: Other - Chronic kidney disease stage III Social History Smoking Status: Former Smoker Electronic Cigarette use?: No Number of Years Smokin Last Time Smoked: 03/03/20 Frequency of Alcohol Use: None Hx Recreational Drug Use: No Drugs: None Hx Prescription Drug Abuse: No Family History Family History: None Parental Family History Reviewed: Yes Children Family History Reviewed: Yes Sibling(s) Family History Reviewed.: Yes Medication/Allergy Home Medications: Aspirin [Aspirin 81 mg Chewable Tablet] 81 mg PO DAILY #90 tab.chew 03/11/20 Dapagliflozin Propanediol [Farxiga] 10 mg PO DAILY #30 tablet 03/11/20 Hydralazine HCl [Apresoline 50 mg Tablet] 50 mg PO Q8H #90 tablet 03/11/20 Insulin NPH Hum/Reg Insulin Hm [Humulin 70/30 Kwikpen] 30 unit SQ DAILY #3 0 03/11/20 Isosorbide Mononitrate [Imdur 60 mg Tablet.er] 60 mg PO DAILY #30 tab.er.24h 03/11/20 Metoprolol Succinate [Toprol Xl 50 mg Tab.sr] 50 mg PO DAILY #30 tab.sr.24h 03/11/20 Sacubitril/Valsartan [Entresto 49 mg/51 mg Tablet] 1 tab PO BID #60 tablet 03/11/20 Spironolactone [Aldactone 25 mg Tablet] 25 mg PO BID #60 tablet 03/11/20 Ergocalciferol (Vitamin D2) [Vitamin D2] 50,000 unit PO TH@1000 06/03/20 Furosemide [Lasix] 40 mg PO BID 06/03/20 Omeprazole 20 mg PO BID 06/03/20 Sitagliptin Phosphate [Januvia 50 mg Tablet] 100 mg PO DAILY 06/03/20 Allergies/Adverse Reactions: No Known Allergies Allergy (Verified 06/02/20 17:25) Review of Systems Constitutional: ABSENT: chills, fever(s), headache(s), weight gain, weight loss Eyes: ABSENT: visual disturbances Ears: ABSENT: hearing changes Cardiovascular: PRESENT: dyspnea on exertion, edema Respiratory: ABSENT: cough, hemoptysis Gastrointestinal: ABSENT: abdominal pain, constipation, diarrhea, hematemesis, hematochezia, nausea, vomiting Genitourinary: ABSENT: dysuria, hematuria Musculoskeletal: ABSENT: joint swelling Integumentary: ABSENT: rash, wounds Neurological: PRESENT: syncope. ABSENT: abnormal gait, abnormal speech, co nfusion, dizziness, focal weakness Psychiatric: ABSENT: anxiety, depression, homidical ideation, suicidal ideation Endocrine: ABSENT: cold intolerance, heat intolerance, menstrual abnormalities, polydipsia, polyuria Hematologic/Lymphatic: ABSENT: easy bleeding, easy bruising, lymphadenopathy Physical Exam Vital Signs: Temp Pulse Resp BP Pulse Ox 97.5 F 67 18 108/84 95 06/03/20 11:14 06/03/20 11:14 06/03/20 11:14 06/03/20 11:14 06/03/20 11:14 Intake & Output 06/02/20 06/03/20 06/04/20 06:59 06:59 06:59 Intake Total 2039 Output Total Balance 2038 Weight 83.7 kg General appearance: PRESENT: no acute distress Head exam: PRESENT: atraumatic, normocephalic Eye exam: PRESENT: PERRLA Ear exam: PRESENT: normal external ear exam Mouth exam: PRESENT: moist, tongue midline Neck exam: PRESENT: full ROM Respiratory exam: PRESENT: clear to auscultation anu Cardiovascular exam: PRESENT: RRR, +S1, +S2 Vascular exam: PRESENT: normal capillary refill GI/Abdominal exam: PRESENT: normal bowel sounds, soft Rectal exam: PRESENT: deferred Neurological exam: PRESENT: alert, CN II-XII grossly intact Psychiatric exam: PRESENT: appropriate affect, normal mood Skin exam: PRESENT: dry, intact, warm Results Laboratory Results: 06/03/20 04:15 06/03/20 04:15 06/02/20 06/02/20 06/02/20 17:47 17:47 17:47 WBC 6.0 RBC 4.85 Hgb 13.8 Hct 42.3 MCV 87 MCH 28.5 MCHC 32.6 RDW 17.8 H Plt Count 238 Seg Neutrophils % 69.1 Sodium 136.0 L Potassium 4.7 Chloride 100 Carbon Dioxide 29 Anion Gap 7 BUN 26 H Creatinine 2.12 H Est GFR ( Amer) 39 L Glucose 97 Calcium 8.9 Magnesium 2.3 Total Bilirubin 1.7 H AST 28 Alkaline Phosphatase 77 Total Protein 6.9 Albumin 3.5 Triglycerides Cholesterol LDL Cholesterol Direct VLDL Cholesterol HDL Cholesterol TSH Free T4 Urine Color Urine Appearance Urine pH Ur Specific [place] Urine Protein Urine Glucose (UA) Urine Ketones Urine Blood Urine Nitrite Ur Leukocyte Esterase Urine WBC (Auto) Urine RBC (Auto) 06/02/20 06/02/20 06/03/20 17:47 21:53 03:21 WBC RBC Hgb Hct MCV MCH MCHC RDW Plt Count Seg Neutrophils % Sodium Potassium Chloride Carbon Dioxide Anion Gap BUN Creatinine Est GFR ( Amer) Glucose Calcium Magnesium 2.4 H Total Bilirubin AST Alkaline Phosphatase Total Protein Albumin Triglycerides Cholesterol LDL Cholesterol Direct VLDL Cholesterol HDL Cholesterol TSH 8.67 H Free T4 1.85 Urine Color DARK YELLOW Urine Appearance CLOUDY Urine pH 5.0 Ur Specific [place] 1.023 Urine Protein >=500 H Urine Glucose (UA) >=500 H Urine Ketones NEGATIVE Urine Blood NEGATIVE Urine Nitrite NEGATIVE Ur Leukocyte Esterase NEGATIVE Urine WBC (Auto) 5 Urine RBC (Auto) 4 06/03/20 06/03/20 04:15 04:15 WBC 7.3 RBC 4.95 Hgb 14.1 Hct 42.7 MCV 86 MCH 28.4 MCHC 32.9 RDW 17.2 H Plt Count 234 Seg Neutrophils % 73.9 Sodium 133.2 L Potassium 5.4 H Chloride 97 L Carbon Dioxide 27 Anion Gap 9 BUN 32 H Creatinine 2.55 H Est GFR ( Amer) 31 L Glucose 111 H Calcium 9.1 Magnesium Total Bilirubin 2.2 H AST 57 Alkaline Phosphatase 96 Total Protein 6.6 Albumin 3.5 Triglycerides 52 Cholesterol 112.16 LDL Cholesterol Direct 81 VLDL Cholesterol 10.0 HDL Cholesterol 23 L TSH Free T4 Urine Color Urine Appearance Urine pH Ur Specific [place] Urine Protein Urine Glucose (UA) Urine Ketones Urine Blood Urine Nitrite Ur Leukocyte Esterase Urine WBC (Auto) Urine RBC (Auto) 06/02/20 06/02/20 06/02/20 17:47 21:53 21:53 Creatine Kinase 234 H CK-MB (CK-2) 4.46 Troponin I 0.051 0.056 NT-Pro-B Natriuret Pep 8940 H 06/03/20 06/03/20 06/03/20 04:15 04:15 09:59 Creatine Kinase 242 H 215 H CK-MB (CK-2) 5.72 H Troponin I 0.089 NT-Pro-B Natriuret Pep 06/03/20 09:59 Creatine Kinase CK-MB (CK-2) 6.20 H Troponin I 0.269 NT-Pro-B Natriuret Pep Impressions: Head CT 06/02/20 17:51 IMPRESSION: NO ACUTE INTRACRANIAL FINDINGS. EVIDENCE OF ACUTE STROKE: NO. Chest X-Ray 06/02/20 17:54 IMPRESSION: NO ACUTE FINDINGS. Assessment & Plan - Diagnosis (1) Syncope Qualifiers: Syncope type: unspecified Qualified Code(s): R55 - Syncope and collapse Is this a current diagnosis for this admission?: Yes Plan: This is most likely from cardiac etiology, history of nonsustained V. 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
--- NOTE | 2020-06-03 13:04 | PDOC PROGRESS REPORT ---
Subjective Progress Note for:: 06/03/20 Subjective:: Patient seen by the bedside, he was admitted yesterday, serum troponin elevated Reason For Visit: HEART FAILURE Physical Exam Vital Signs: Temp Pulse Resp BP Pulse Ox 97.5 F 67 18 108/84 95 06/03/20 11:14 06/03/20 11:14 06/03/20 11:14 06/03/20 11:14 06/03/20 11:14 Intake & Output 06/02/20 06/03/20 06/04/20 06:59 06:59 06:59 Intake Total 2039 Output Total Balance 2038 Weight 83.7 kg General appearance: PRESENT: no acute distress Eye exam: PRESENT: PERRLA Respiratory exam: PRESENT: clear to auscultation anu Cardiovascular exam: PRESENT: +S1, +S2 GI/Abdominal exam: PRESENT: soft Neurological exam: PRESENT: alert Results Laboratory Results: 06/03/20 04:15 06/03/20 04:15 06/02/20 06/02/20 06/02/20 17:47 17:47 17:47 WBC 6.0 RBC 4.85 Hgb 13.8 Hct 42.3 MCV 87 MCH 28.5 MCHC 32.6 RDW 17.8 H Plt Count 238 Seg Neutrophils % 69.1 Sodium 136.0 L Potassium 4.7 Chloride 100 Carbon Dioxide 29 Anion Gap 7 BUN 26 H Creatinine 2.12 H Est GFR ( Amer) 39 L Glucose 97 Calcium 8.9 Magnesium 2.3 Total Bilirubin 1.7 H AST 28 Alkaline Phosphatase 77 Total Protein 6.9 Albumin 3.5 Triglycerides Cholesterol LDL Cholesterol Direct VLDL Cholesterol HDL Cholesterol TSH Free T4 Urine Color Urine Appearance Urine pH Ur Specific [place] Urine Protein Urine Glucose (UA) Urine Ketones Urine Blood Urine Nitrite Ur Leukocyte Esterase Urine WBC (Auto) Urine RBC (Auto) 06/02/20 06/02/20 06/03/20 17:47 21:53 03:21 WBC RBC Hgb Hct MCV MCH MCHC RDW Plt Count Seg Neutrophils % Sodium Potassium Chloride Carbon Dioxide Anion Gap BUN Creatinine Est GFR ( Amer) Glucose Calcium Magnesium 2.4 H Total Bilirubin AST Alkaline Phosphatase Total Protein Albumin Triglycerides Cholesterol LDL Cholesterol Direct VLDL Cholesterol HDL Cholesterol TSH 8.67 H Free T4 1.85 Urine Color DARK YELLOW Urine Appearance CLOUDY Urine pH 5.0 Ur Specific [place] 1.023 Urine Protein >=500 H Urine Glucose (UA) >=500 H Urine Ketones NEGATIVE Urine Blood NEGATIVE Urine Nitrite NEGATIVE Ur Leukocyte Esterase NEGATIVE Urine WBC (Auto) 5 Urine RBC (Auto) 4 06/03/20 06/03/20 04:15 04:15 WBC 7.3 RBC 4.95 Hgb 14.1 Hct 42.7 MCV 86 MCH 28.4 MCHC 32.9 RDW 17.2 H Plt Count 234 Seg Neutrophils % 73.9 Sodium 133.2 L Potassium 5.4 H Chloride 97 L Carbon Dioxide 27 Anion Gap 9 BUN 32 H Creatinine 2.55 H Est GFR ( Amer) 31 L Glucose 111 H Calcium 9.1 Magnesium Total Bilirubin 2.2 H AST 57 Alkaline Phosphatase 96 Total Protein 6.6 Albumin 3.5 Triglycerides 52 Cholesterol 112.16 LDL Cholesterol Direct 81 VLDL Cholesterol 10.0 HDL Cholesterol 23 L TSH Free T4 Urine Color Urine Appearance Urine pH Ur Specific [place] Urine Protein Urine Glucose (UA) Urine Ketones Urine Blood Urine Nitrite Ur Leukocyte Esterase Urine WBC (Auto) Urine RBC (Auto) 06/02/20 06/02/20 06/02/20 17:47 21:53 21:53 Creatine Kinase 234 H CK-MB (CK-2) 4.46 Troponin I 0.051 0.056 NT-Pro-B Natriuret Pep 8940 H 06/03/20 06/03/20 06/03/20 04:15 04:15 09:59 Creatine Kinase 242 H 215 H CK-MB (CK-2) 5.72 H Troponin I 0.089 NT-Pro-B Natriuret Pep 06/03/20 09:59 Creatine Kinase CK-MB (CK-2) 6.20 H Troponin I 0.269 NT-Pro-B Natriuret Pep Impressions: Head CT 06/02/20 17:51 IMPRESSION: NO ACUTE INTRACRANIAL FINDINGS. EVIDENCE OF ACUTE STROKE: NO. Chest X-Ray 06/02/20 17:54 IMPRESSION: NO ACUTE FINDINGS. 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
[2020-06-03 13:19] LABS: IRON(TIBC) 40.6 ug/dL (49-181)
[2020-06-03 13:22] LABS: ABSOLUTE RETICS # 0.087 10^6/uL (0.028-0.122); RETICULOCYTE COUNT (AUTO) 1.75 % (0.66-2.85)
[2020-06-03] MEDS: SITAGLIPTIN PHOSPHATE 50 MG TABLET PO SCH (13:44)
[2020-06-03] MEDS: METOPROLOL SUCCINATE 50 MG TAB.SR.24H PO SCH (13:45)
[2020-06-03] MEDS: SPIRONOLACTONE 25 MG TABLET PO SCH ×2 (13:45→18:04)
[2020-06-03] MEDS: HUM INSULIN NPH/REG INSULIN HM 100 UNIT/1 ML 3 ML SUBCUT SCH (14:21)
[2020-06-03] MEDS: SACUBITRIL/VALSARTAN 49 MG/51 MG TABLET PO SCH ×2 (14:27→18:04)
[2020-06-03] MEDS ORDERED: (PENDING PHARMACY ID) (Dapagliflozin Propanediol [Farxiga] 10 MG) PO SCH (15:00)
--- NOTE | 2020-06-03 15:38 | PDOC CONSULTATION ---
Consultation-Blank Consultation: CARDIOLOGY CONSULTATION by Dr. Norma Pena on 06/03/2020. Patient seen at 3:30 PM. 60 minutes spent as patient more than 50% of time spent in direct patient care. CONSULT REQUESTING PHYSICIAN: Dr. Naranjo. REASON FOR CONSULTATION: Patient with cardiomyopathy and severely reduced LV ejection fraction admitted with syncope. HISTORY OF PRESENT ILLNESS: His echocardiogram in December 2019 showed dilated LV with severely reduced LV ejection fraction with pulmonary hypertension. He also had a stress test which showed inferior wall scar with minimal reversible ischemia with reduced LV ejection fraction. Past Medical History Cardiac Medical History: Reports: Hypertension Endocrine Medical History: Reports: Diabetes Mellitus Type 2 RESPIRATORY: History of COPD. Patient smokes. There is no history of sleep apnea. Social History Smoking Status: Current Some Day Smoker Family History Family History: No history of heart failure, diabetes, hypertension, coronary artery disease, or sudden . Parental Family History Reviewed: Yes Children Family History Reviewed: Yes Sibling(s) Family History Reviewed.: Yes Medication/Allergy Ergocalciferol (Vitamin D2) [Vitamin D2] 50,000 unit PO TH@1000 06/03/20 Furosemide [Lasix] 40 mg PO BID 06/03/20 Omeprazole 20 mg PO BID 06/03/20 Sitagliptin Phosphate [Januvia 50 mg Tablet] 100 mg PO DAILY 06/03/20 RESUSCITATION STATUS: The patient is a full code. Ms. Alessia Diaz is his surrogate healthcare decision maker. Current Medications Generic Name Dose Route Start Last Admin Trade Name Freq PRN Reason Stop Dose Admin Acetaminophen 650 mg 06/03/20 03:59 06/03/20 04:18 Tylenol 325 Mg Tablet PO 07/03/20 03:58 650 mg Q4HP PRN Administration PAIN Aspirin 81 mg 06/03/20 15:30 Aspirin 81 Mg Chewable Tablet PO 07/03/20 15:29 DAILY ALAN Dextrose 12.5 gm 06/03/20 00:30 06/03/20 00:15 Dextrose Inj 50% Syringe (25 Gm/50 Ml) IV 07/03/20 00:29 12.5 gm PRN PRN Administration FOR BG 50-69 IN ALERT PATIENT Protocol Dextrose 25 gm 06/03/20 00:30 Dextrose Inj 50% Syringe (25 Gm/50 Ml) IV 07/03/20 00:29 PRN PRN Protocol Ergocalciferol 50,000 unit 06/07/20 10:00 Drisdol 50,000 Unit (1.25mg) Capsule PO 07/07/20 09:59 TH@1000 ALAN Furosemide 40 mg 06/02/20 22:00 06/03/20 09:50 Lasix Inj/Pf 40 Mg/4 Ml Sdv IV 07/02/20 21:59 40 mg Q12 ALAN Administration Glucagon 1 mg 06/03/20 00:30 Glucagen Inj 1 Mg Vial IM 07/03/20 00:29 PRN PRN EVALUATE FOR BG < 70 Protocol Glucose 15 gm 06/03/20 00:30 Glutose 40% Gel 15 Gm Tube PO 07/03/20 00:29 PRN PRN FOR BG 50-69 IN ALERT PATIENT Protocol Glucose 30 gm 06/03/20 00:30 Glutose 40% Gel 15 Gm Tube PO 07/03/20 00:29 PRN PRN FOR BG < 50 IN ALERT PATIENT Protocol Heparin Sodium (Porcine) 5,000 unit 06/02/20 22:00 06/03/20 13:45 Heparin Inj 5,000 Units/Ml 1 Ml Vial SUBCUT 07/02/20 21:59 5,000 unit Q8 ALAN Administration Hydralazine HCl 50 mg 06/03/20 22:00 Apresoline 50 Mg Tablet PO 07/03/20 21:59 Q8 [facility] Insulin Human Isoph/Insulin Regular 30 unit 06/03/20 14:15 06/03/20 14:21 Insulin Inj 70-30 (100 Unit/1 Ml) 3 Ml Vial SUBCUT 07/03/20 14:14 Not Given DAILY [facility] Isosorbide Mononitrate 60 mg 06/03/20 15:30 Imdur 60 Mg Tablet.Er PO 07/03/20 15:29 DAILY ALAN Melatonin 5 mg 06/03/20 00:49 06/03/20 01:17 Melatonin 5 Mg Tablet PO 07/03/20 00:48 5 mg HSP PRN Administration SLEEP OR INSOMNIA Metoprolol Succinate 50 mg 06/03/20 12:45 06/03/20 13:45 Toprol Xl 50 Mg Tab.Sr PO 07/03/20 12:44 50 mg DAILY ALAN Administration Pantoprazole Sodium 20 mg 06/03/20 18:[address] Tablet PO 07/03/20 17:59 BID ALAN Patient Own Medication 10 mg 06/03/20 15:00 Dapagliflozin Propanediol [Farxiga] PO 07/03/20 14:59 DAILY ALAN Sacubitril/Valsartan 1 tab 06/03/20 14:00 06/03/20 14:27 Entresto 49 Mg/51 Mg Tablet PO 07/03/20 13:59 1 tab BID ALAN Administration Sitagliptin Phosphate 100 mg 06/03/20 12:45 06/03/20 13:44 Januvia 50 Mg Tablet PO 07/03/20 12:44 100 mg DAILY ALAN Administration Sodium Chloride 2.5 ml 06/02/20 22:00 06/03/20 13:46 Saline Flush 2.5 Ml Monoject Prefil Syrin IV 07/02/20 21:59 2.5 ml Q8 ALAN Administration Spironolactone 25 mg 06/03/20 12:45 06/03/20 13:45 Aldactone 25 Mg Tablet PO 07/03/20 12:44 25 mg BID ALAN Administration Discontinued Medications Generic Name Dose Route Start Last Admin Trade Name Seanq PRN Reason Stop Dose Admin Dextrose Confirm 06/02/20 23:59 06/03/20 03:40 Dextrose Inj 50% Syringe (25 Gm/50 Ml) Administered 06/03/20 00:00 Not Given Dose 25 gm IV .STK-MED ONE Furosemide 40 mg 06/02/20 17:53 06/02/20 18:47 Lasix Inj/Pf 20 Mg/2 Ml Sdv IV 06/02/20 17:54 40 mg NOW ONE Administration Review of Systems Constitutional: ABSENT: chills, fever(s), headache(s), weight gain, weight loss Eyes: ABSENT: visual disturbances Ears: ABSENT: hearing changes Cardiovascular: PRESENT: dyspnea on exertion, edema Respiratory: PRESENT: cough, dyspnea Gastrointestinal: ABSENT: abdominal pain, constipation, diarrhea, hematemesis, hematochezia, nausea, vomiting Genitourinary: ABSENT: dysuria, hematuria Musculoskeletal: ABSENT: joint swelling Integumentary: ABSENT: rash, wounds Neurological: ABSENT: abnormal gait, abnormal speech, confusion, dizziness, focal weakness, syncope Psychiatric: ABSENT: anxiety, depression, homidical ideation, suicidal ideation Endocrine: ABSENT: cold intolerance, heat intolerance, menstrual abnormalities, polydipsia, polyuria Hematologic/Lymphatic: ABSENT: easy bleeding, easy bruising, lymphadenopathy PHYSICAL EXAMINATION: Patient is well-built. In no acute distress. Selected Entries 06/03/20 11:14 Temperature 97.5 F Temperature Oral Source Pulse Rate 67 Respiratory 18 Rate Blood Pressure 108/84 Blood Pressure 92 Mean BP Location Left Arm BP Position Supine O2 Sat by Pulse 95 Oximetry Oxygen Flow 1.50 Rate Oxygen Delivery Nasal Cannula Method Head: Is atraumatic and normocephalic. EYES: Pupils are equal round regular reactive to light and accommodation. Extraocular movements are normal. There is no conjunctival pallor. There is no scleral icterus. EARS: Tympanic membranes are intact. External auditory canals are clear. NOSE: There is no deviated nasal septum. There is no inflammation of the nasal mucous membrane. MOUTH: Mucous membranes of mouth are moist. Tongue is moist. There is no ulcers. There is no bleeding from the gums. THROAT: There is no redness of the oropharynx. There is no exudates. SKIN: There is no skin rashes. There is no petechia or ecchymosis. There is no skin lesions. NECK: Supple. There is JVD present. Hepatojugular reflux is positive. There is no lymphadenopathy. C arotids are equal there is no bruits. There is no goiter. There is no accessory muscles of respiration use. Trachea is central. LUNGS: There is diminished air entry prolonged expiration. There is no rhonchi or wheezing. There is bibasilar rales of CHF. HEART S1-S2 is heard. There is no S3 gallop. There is no S4 gallop. There is systolic murmur of mitral regurgitation and tricuspid regurgitation present. There is no rub. ABDOMEN: Is obese. There is hepatomegaly. There is no splenomegaly. Bowel sounds are well heard. There is hepatojugular reflux present. There is no tender areas of masses. There is no rebound guarding or rigidity. EXTREMITIES: Femorals are diminished. Leg pulses difficult to palpate. There is 2- edema bilaterally. There is no DVT cellulitis. There is no calf tenderness. 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 PSYCHIATRIC: The patient judgment insight intact his affect is normal. Labs- Entire Visit 06/02/20 06/02/20 06/02/20 17:47 17:47 17:47 WBC 6.0 RBC 4.85 Hgb 13.8 Hct 42.3 MCV 87 MCH 28.5 MCHC 32.6 RDW 17.8 H Plt Count 238 Lymph % (Auto) 18.0 [place] % (Auto) 10.7 Eos % (Auto) 1.5 Baso % (Auto) 0.7 Reticulocyte # Absolute Neuts (auto) 4.1 Absolute Lymphs (auto) 1.1 Absolute Monos (auto) 0.6 Absolute Eos (auto) 0.1 Absolute Basos (auto) 0.0 Seg Neutrophils % 69.1 Retic Count (auto) PT INR APTT Sodium 136.0 L Potassium 4.7 Chloride 100 Carbon Dioxide 29 Anion Gap 7 BUN 26 H Creatinine 2.12 H Est GFR ( Amer) 39 L Est GFR (MDRD) Non-Af 32 L Glucose 97 POC Glucose Hemoglobin A1c % Calcium 8.9 Phosphorus Magnesium Iron TIBC % Saturation Ferritin Total Bilirubin 1.7 H Direct Bilirubin 0.1 Neonat Total Bilirubin Not Reportable Neonat Direct Bilirubin Not Reportable Neonat Indirect Bili Not Reportable AST 28 ALT 16 Alkaline Phosphatase 77 Creatine Kinase CK-MB (CK-2) Troponin I 0.051 NT-Pro-B Natriuret Pep 8940 H Total Protein 6.9 Albumin 3.5 Triglycerides Cholesterol LDL Cholesterol Direct VLDL Cholesterol HDL Cholesterol Vitamin B12 Folate TSH Free T4 PTH Intact Urine Color Urine Appearance Urine pH Ur Specific [place] Urine Protein Urine Glucose (UA) Urine Ketones Urine Blood Urine Nitrite Urine Bilirubin Urine Urobilinogen Ur Leukocyte Esterase Urine WBC (Auto) Urine RBC (Auto) U Hyaline Cast (Auto) Urine Bacteria (Auto) Squamous Epi Cells Auto Urine Mucus (Auto) Urine Ascorbic Acid 06/02/20 06/02/20 06/02/20 17:47 17:47 21:53 WBC RBC Hgb Hct MCV MCH MCHC RDW Plt Count Lymph % (Auto) [place] % (Auto) Eos % (Auto) Baso % (Auto) Reticulocyte # Absolute Neuts (auto) Absolute Lymphs (auto) Absolute Monos (auto) Absolute Eos (auto) Absolute Basos (auto) Seg Neutrophils % Retic Count (auto) PT 17.8 H INR 1.45 APTT 31.1 Sodium Potassium Chloride Carbon Dioxide Anion Gap BUN Creatinine Est GFR ( Amer) Est GFR (MDRD) Non-Af Glucose POC Glucose Hemoglobin A1c % Calcium Phosphorus Magnesium 2.3 Iron TIBC % Saturation Ferritin Total Bilirubin Direct Bilirubin Neonat Total Bilirubin Neonat Direct Bilirubin Neonat Indirect Bili AST ALT Alkaline Phosphatase Creatine Kinase CK-MB (CK-2) Troponin I NT-Pro-B Natriuret Pep Total Protein Albumin Triglycerides Cholesterol LDL Cholesterol Direct VLDL Cholesterol HDL Cholesterol Vitamin B12 Folate TSH 8.67 H Free T4 1.85 PTH Intact Urine Color Urine Appearance Urine pH Ur Specific [place] Urine Protein Urine Glucose (UA) Urine Ketones Urine Blood Urine Nitrite Urine Bilirubin Urine Urobilinogen Ur Leukocyte Esterase Urine WBC (Auto) Urine RBC (Auto) U Hyaline Cast (Auto) Urine Bacteria (Auto) Squamous Epi Cells Auto Urine Mucus (Auto) Urine Ascorbic Acid 06/02/20 06/02/20 06/02/20 21:53 21:53 22:56 WBC RBC Hgb Hct MCV MCH MCHC RDW Plt Count Lymph % (Auto) [place] % (Auto) Eos % (Auto) Baso % (Auto) Reticulocyte # Absolute Neuts (auto) Absolute Lymphs (auto) Absolute Monos (auto) Absolute Eos (auto) Absolute Basos (auto) Seg Neutrophils % Retic Count (auto) PT INR APTT Sodium Potassium Chloride Carbon Dioxide Anion Gap BUN Creatinine Est GFR ( Amer) Est GFR (MDRD) Non-Af Glucose POC Glucose 56 L Hemoglobin A1c % Calcium Phosphorus Magnesium 2.4 H Iron TIBC % Saturation Ferritin Total Bilirubin Direct Bilirubin Neonat Total Bilirubin Neonat Direct Bilirubin Neonat Indirect Bili AST ALT Alkaline Phosphatase Creatine Kinase 234 H CK-MB (CK-2) 4.46 Troponin I 0.056 NT-Pro-B Natriuret Pep Total Protein Albumin Triglycerides Cholesterol LDL Cholesterol Direct VLDL Cholesterol HDL Cholesterol Vitamin B12 Folate TSH Free T4 PTH Intact Urine Color Urine Appearance Urine pH Ur Specific [place] Urine Protein Urine Glucose (UA) Urine Ketones Urine Blood Urine Nitrite Urine Bilirubin Urine Urobilinogen Ur Leukocyte Esterase Urine WBC (Auto) Urine RBC (Auto) U Hyaline Cast (Auto) Urine Bacteria (Auto) Squamous Epi Cells Auto Urine Mucus (Auto) Urine Ascorbic Acid 06/02/20 06/02/20 06/03/20 23:20 23:44 00:41 WBC RBC Hgb Hct MCV MCH MCHC RDW Plt Count Lymph % (Auto) [place] % (Auto) Eos % (Auto) Baso % (Auto) Reticulocyte # Absolute Neuts (auto) Absolute Lymphs (auto) Absolute Monos (auto) Absolute Eos (auto) Absolute Basos (auto) Seg Neutrophils % Retic Count (auto) PT INR APTT Sodium Potassium Chloride Carbon Dioxide Anion Gap BUN Creatinine Est GFR ( Amer) Est GFR (MDRD) Non-Af Glucose POC Glucose 51 L 61 L 146 H Hemoglobin A1c % Calcium Phosphorus Magnesium Iron TIBC % Saturation Ferritin Total Bilirubin Direct Bilirubin Neonat Total Bilirubin Neonat Direct Bilirubin Neonat Indirect Bili AST ALT Alkaline Phosphatase Creatine Kinase CK-MB (CK-2) Troponin I NT-Pro-B Natriuret Pep Total Protein Albumin Triglycerides Cholesterol LDL Cholesterol Direct VLDL Cholesterol HDL Cholesterol Vitamin B12 Folate TSH Free T4 PTH Intact Urine Color Urine Appearance Urine pH Ur Specific [place] Urine Protein Urine Glucose (UA) Urine Ketones Urine Blood Urine Nitrite Urine Bilirubin Urine Urobilinogen Ur Leukocyte Esterase Urine WBC (Auto) Urine RBC (Auto) U Hyaline Cast (Auto) Urine Bacteria (Auto) Squamous Epi Cells Auto Urine Mucus (Auto) Urine Ascorbic Acid 06/03/20 06/03/20 06/03/20 01:14 01:43 03:21 WBC RBC Hgb Hct MCV MCH MCHC RDW Plt Count Lymph % (Auto) [place] % (Auto) Eos % (Auto) Baso % (Auto) Reticulocyte # Absolute Neuts (auto) Absolute Lymphs (auto) Absolute Monos (auto) Absolute Eos (auto) Absolute Basos (auto) Seg Neutrophils % Retic Count (auto) PT INR APTT Sodium Potassium Chloride Carbon Dioxide Anion Gap BUN Creatinine Est GFR ( Amer) Est GFR (MDRD) Non-Af Glucose POC Glucose 166 H 135 H Hemoglobin A1c % Calcium Phosphorus Magnesium Iron TIBC % Saturation Ferritin Total Bilirubin Direct Bilirubin Neonat Total Bilirubin Neonat Direct Bilirubin Neonat Indirect Bili AST ALT Alkaline Phosphatase Creatine Kinase CK-MB (CK-2) Troponin I NT-Pro-B Natriuret Pep Total Protein Albumin Triglycerides Cholesterol LDL Cholesterol Direct VLDL Cholesterol HDL Cholesterol Vitamin B12 Folate TSH Free T4 PTH Intact Urine Color DARK YELLOW Urine Appearance CLOUDY Urine pH 5.0 Ur Specific [place] 1.023 Urine Protein >=500 H Urine Glucose (UA) >=500 H Urine Ketones NEGATIVE Urine Blood NEGATIVE Urine Nitrite NEGATIVE Urine Bilirubin NEGATIVE Urine Urobilinogen 4.0 H Ur Leukocyte Esterase NEGATIVE Urine WBC (Auto) 5 Urine RBC (Auto) 4 U Hyaline Cast (Auto) 38 Urine Bacteria (Auto) TRACE Squamous Epi Cells Auto <1 Urine Mucus (Auto) OCC Urine Ascorbic Acid 40 H 06/03/20 06/03/20 06/03/20 04:15 04:15 04:15 WBC 7.3 RBC 4.95 Hgb 14.1 Hct 42.7 MCV 86 MCH 28.4 MCHC 32.9 RDW 17.2 H Plt Count 234 Lymph % (Auto) 15.1 [place] % (Auto) 9.9 Eos % (Auto) 0.2 Baso % (Auto) 0.9 Reticulocyte # Absolute Neuts (auto) 5.4 Absolute Lymphs (auto) 1.1 Absolute Monos (auto) 0.7 Absolute Eos (auto) 0.0 Absolute Basos (auto) 0.1 Seg Neutrophils % 73.9 Retic Count (auto) PT INR APTT Sodium Potassium Chloride Carbon Dioxide Anion Gap BUN Creatinine Est GFR ( Amer) Est GFR (MDRD) Non-Af Glucose POC Glucose Hemoglobin A1c % Calcium Phosphorus Magnesium Iron TIBC % Saturation Ferritin Total Bilirubin Direct Bilirubin Neonat Total Bilirubin Neonat Direct Bilirubin Neonat Indirect Bili AST ALT Alkaline Phosphatase Creatine Kinase 242 H CK-MB (CK-2) 5.72 H Troponin I 0.089 NT-Pro-B Natriuret Pep Total Protein Albumin Triglycerides Cholesterol LDL Cholesterol Direct VLDL Cholesterol HDL Cholesterol Vitamin B12 Folate TSH Free T4 PTH Intact Urine Color Urine Appearance Urine pH Ur Specific [place] Urine Protein Urine Glucose (UA) Urine Ketones Urine Blood Urine Nitrite Urine Bilirubin Urine Urobilinogen Ur Leukocyte Esterase Urine WBC (Auto) Urine RBC (Auto) U Hyaline Cast (Auto) Urine Bacteria (Auto) Squamous Epi Cells Auto Urine Mucus (Auto) Urine Ascorbic Acid 06/03/20 06/03/20 06/03/20 04:15 04:15 07:15 WBC RBC Hgb Hct MCV MCH MCHC RDW Plt Count Lymph % (Auto) [place] % (Auto) Eos % (Auto) Baso % (Auto) Reticulocyte # Absolute Neuts (auto) Absolute Lymphs (auto) Absolute Monos (auto) Absolute Eos (auto) Absolute Basos (auto) Seg Neutrophils % Retic Count (auto) PT INR APTT Sodium 133.2 L Potassium 5.4 H Chloride 97 L Carbon Dioxide 27 Anion Gap 9 BUN 32 H Creatinine 2.55 H Est GFR ( Amer) 31 L Est GFR (MDRD) Non-Af 26 L Glucose 111 H POC Glucose 87 Hemoglobin A1c % 8.1 H Calcium 9.1 Phosphorus Magnesium Iron TIBC % Saturation Ferritin Total Bilirubin 2.2 H Direct Bilirubin 0.4 Neonat Total Bilirubin Not Reportable Neonat Direct Bilirubin Not Reportable Neonat Indirect Bili Not Reportable AST 57 ALT 35 Alkaline Phosphatase 96 Creatine Kinase CK-MB (CK-2) Troponin I NT-Pro-B Natriuret Pep Total Protein 6.6 Albumin 3.5 Triglycerides 52 Cholesterol 112.16 LDL Cholesterol Direct 81 VLDL Cholesterol 10.0 HDL Cholesterol 23 L Vitamin B12 Folate TSH Free T4 PTH Intact Urine Color Urine Appearance Urine pH Ur Specific [place] Urine Protein Urine Glucose (UA) Urine Ketones Urine Blood Urine Nitrite Urine Bilirubin Urine Urobilinogen Ur Leukocyte Esterase Urine WBC (Auto) Urine RBC (Auto) U Hyaline Cast (Auto) Urine Bacteria (Auto) Squamous Epi Cells Auto Urine Mucus (Auto) Urine Ascorbic Acid 06/03/20 06/03/20 06/03/20 09:59 09:59 09:59 WBC RBC Hgb Hct MCV MCH MCHC RDW Plt Count Lymph % (Auto) [place] % (Auto) Eos % (Auto) Baso % (Auto) Reticulocyte # 0.087 Absolute Neuts (auto) Absolute Lymphs (auto) Absolute Monos (auto) Absolute Eos (auto) Absolute Basos (auto) Seg Neutrophils % Retic Count (auto) 1.75 PT INR APTT Sodium Potassium Chloride Carbon Dioxide Anion Gap BUN Creatinine Est GFR ( Amer) Est GFR (MDRD) Non-Af Glucose POC Glucose Hemoglobin A1c % Calcium Phosphorus Magnesium Iron TIBC % Saturation Ferritin Total Bilirubin Direct Bilirubin Neonat Total Bilirubin Neonat Direct Bilirubin Neonat Indirect Bili AST ALT Alkaline Phosphatase Creatine Kinase 215 H CK-MB (CK-2) 6.20 H Troponin I 0.269 NT-Pro-B Natriuret Pep Total Protein Albumin Triglycerides Cholesterol LDL Cholesterol Direct VLDL Cholesterol HDL Cholesterol Vitamin B12 Folate TSH Free T4 PTH Intact Urine Color Urine Appearance Urine pH Ur Specific [place] Urine Protein Urine Glucose (UA) Urine Ketones Urine Blood Urine Nitrite Urine Bilirubin Urine Urobilinogen Ur Leukocyte Esterase Urine WBC (Auto) Urine RBC (Auto) U Hyaline Cast (Auto) Urine Bacteria (Auto) Squamous Epi Cells Auto Urine Mucus (Auto) Urine Ascorbic Acid 06/03/20 06/03/20 06/03/20 09:59 09:59 11:16 WBC RBC Hgb Hct MCV MCH MCHC RDW Plt Count Lymph % (Auto) [place] % (Auto) Eos % (Auto) Baso % (Auto) Reticulocyte # Absolute Neuts (auto) Absolute Lymphs (auto) Absolute Monos (auto) Absolute Eos (auto) Absolute Basos (auto) Seg Neutrophils % Retic Count (auto) PT INR APTT Sodium Potassium Chloride Carbon Dioxide Anion Gap BUN Creatinine Est GFR ( Amer) Est GFR (MDRD) Non-Af Glucose POC Glucose 80 Hemoglobin A1c % Calcium Phosphorus 5.5 H Magnesium Iron 40.6 L TIBC 350 % Saturation 12 Ferritin 147.00 Total Bilirubin Direct Bilirubin Neonat Total Bilirubin Neonat Direct Bilirubin Neonat Indirect Bili AST ALT Alkaline Phosphatase Creatine Kinase CK-MB (CK-2) Troponin I NT-Pro-B Natriuret Pep Total Protein Albumin Triglycerides Cholesterol LDL Cholesterol Direct VLDL Cholesterol HDL Cholesterol Vitamin B12 476.0 Folate 12.10 TSH Free T4 PTH Intact Urine Color Urine Appearance Urine pH Ur Specific [place] Urine Protein Urine Glucose (UA) Urine Ketones Urine Blood Urine Nitrite Urine Bilirubin Urine Urobilinogen Ur Leukocyte Esterase Urine WBC (Auto) Urine RBC (Auto) U Hyaline Cast (Auto) Urine Bacteria (Auto) Squamous Epi Cells Auto Urine Mucus (Auto) Urine Ascorbic Acid 06/03/20 13:23 WBC RBC Hgb Hct MCV MCH MCHC RDW Plt Count Lymph % (Auto) [place] % (Auto) Eos % (Auto) Baso % (Auto) Reticulocyte # Absolute Neuts (auto) Absolute Lymphs (auto) Absolute Monos (auto) Absolute Eos (auto) Absolute Basos (auto) Seg Neutrophils % Retic Count (auto) PT INR APTT Sodium Potassium Chloride Carbon Dioxide Anion Gap BUN Creatinine Est GFR ( Amer) Est GFR (MDRD) Non-Af Glucose POC Glucose Hemoglobin A1c % Calcium Phosphorus Magnesium Iron TIBC % Saturation Ferritin Total Bilirubin Direct Bilirubin Neonat Total Bilirubin Neonat Direct Bilirubin Neonat Indirect Bili AST ALT Alkaline Phosphatase Creatine Kinase CK-MB (CK-2) Troponin I NT-Pro-B Natriuret Pep Total Protein Albumin Triglycerides Cholesterol LDL Cholesterol Direct VLDL Cholesterol HDL Cholesterol Vitamin B12 Folate TSH Free T4 PTH Intact 263.0 H Urine Color Urine Appearance Urine pH Ur Specific [place] Urine Protein Urine Glucose (UA) Urine Ketones Urine Blood Urine Nitrite Urine Bilirubin Urine Urobilinogen Ur Leukocyte Esterase Urine WBC (Auto) Urine RBC (Auto) U Hyaline Cast (Auto) Urine Bacteria (Auto) Squamous Epi Cells Auto Urine Mucus (Auto) Urine Ascorbic Acid Head CT 06/02/20 17:51 IMPRESSION: NO ACUTE INTRACRANIAL FINDINGS. EVIDENCE OF ACUTE STROKE: NO. Chest X-Ray 06/02/20 17:54 IMPRESSION: NO ACUTE FINDINGS. EKG #1: SINUS RHYTHM, NONSPECIFIC T ABNORMALITIES, LATERAL LEADS PROLONGED QT INTERVAL EKG #2: SINUS RHYTHM [T1LA] . NONSPECIFIC T ABNORMALITIES, LATERAL LEADS [LQT] . PROLONGED QT INTERVAL IMPRESSION/RECOMMENDATION: 1 .. 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 Patient has refused LifeVest in the past. Will recheck the patient's echocardiogram I will check with EP cardiology about an AICD placement. 2. Chronic right ventricular systolic heart failure secondary to left heart failure and pulmonary hypertension. 3. Cardiomyopathy with severely reduced LV ejection fraction: This is a mixture of dilated and ischemic cardiomyopathy. The patient would recommend having an echo repeated in in 3 months on good anti-cardiomyopathy/anti-CHF gold standard treatments at maximal doses. If still LV ejection fraction is 35% or below then the patient will be recommended recommended to have a AICD placement refer with EP cardiology. 4. Severe tricuspid regurgitation. 5. At least moderate pulmonary hypertension. I suspect apparent pulmonary hypertension is much higher than what is recorded by calculation. This is due to my suspicions at this underestimation of the tricuspid regurgitation jet velocity. We will try to reinterrogate the tricuspid valve for this. Would add amlodipine and nitrates. 6. Hypertension: Blood pressure not optimally controlled. The patient cannot withstand the addition of beta-rito Entresto, amlodipine and nitrates. 7. 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 We will continue the patient on aspirin and add nitrates. Continue beta-rito. 8. Diabetes mellitus type 2: Continue antidiabetic treatment and Accu-Cheks as per protocol. 9 . Chronic kidney disease stage III. 10. COPD: This seems to be stable with no acute exacerbation. 11. Ongoing tobacco abuse: Patient counseled to stop smoking and tobacco cessation counseling given. 3 minutes spent on this.
[2020-06-03] MEDS: ASPIRIN 81 MG TABLET, CHEWABLE PO SCH (15:45)
[2020-06-03] MEDS: ISOSORBIDE MONONITRATE 60 MG TAB.ER.24H PO SCH (15:45)
[2020-06-03] MEDS: PANTOPRAZOLE SODIUM 20 MG TABLET.DR PO SCH (18:04)
[2020-06-04] MEDS: HYDRALAZINE HCL 50 MG TABLET PO SCH ×4 (00:41→22:57)
[2020-06-04] MEDS: HEPARIN SOD (PORCINE) 5,000 UNIT/ML 1 ML VIAL SUBCUT SCH ×3 (06:39→22:58)
[2020-06-04 07:07] LABS: ABSOLUTE BASOPHILS # (AUTO) 0.1 10^3/uL (0.0-0.2); ABSOLUTE EOSINOPHILS # (AUTO) 0.2 10^3/uL (0.0-0.6); ABSOLUTE LYMPHOCYTES (AUTO) 1.9 10^3/uL (0.5-4.7); ABSOLUTE MONOCYTES (AUTO) 0.9 10^3/uL (0.1-1.4); ABSOLUTE NEUT (AUTO) 4.6 10^3/uL (1.7-8.2); BASOPHILS % (AUTO) 0.9 % (0-2); EOSINOPHILS % (AUTO) 2.7 % (0-6); HEMATOCRIT 39.9 % (37.9-51.0); HEMOGLOBIN 13.2 g/dL (13.5-17.0); LYMPHOCYTES % (AUTO) 24.5 % (13-45); MEAN CORPUSCULAR HEMOGLOBIN 28.4 pg (27.0-33.4); MEAN CORPUSCULAR HGB CONC 33.1 g/dL (32.0-36.0); MEAN CORPUSCULAR VOLUME 86 fl (80-97); MONOCYTES % (AUTO) 11.2 % (3-13); PLATELET COUNT 264 10^3/uL (150-450); RED BLOOD COUNT 4.65 10^6/uL (4.35-5.55); RED CELL DISTRIBUTION WIDTH 17.1 % (11.5-14.0); SEGMENTED NEUTROPHILS % (AUTO) 60.7 % (42-78); TOTAL CELLS COUNTED % (AUTO) 100 %; WHITE BLOOD COUNT 7.6 10^3/uL (4.0-10.5)
[2020-06-04] MEDS: METOPROLOL SUCCINATE 50 MG TAB.SR.24H PO SCH (09:18)
[2020-06-04] MEDS: ISOSORBIDE MONONITRATE 60 MG TAB.ER.24H PO SCH (09:18)
[2020-06-04] MEDS: SITAGLIPTIN PHOSPHATE 50 MG TABLET PO SCH (09:18)
[2020-06-04] MEDS: PANTOPRAZOLE SODIUM 20 MG TABLET.DR PO SCH ×2 (09:18→19:01)
[2020-06-04] MEDS: ASPIRIN 81 MG TABLET, CHEWABLE PO SCH (09:18)
[2020-06-04] MEDS: FUROSEMIDE INJ/PF 40 MG/4 ML SDV IV SCH ×2 (09:18→22:57)
[2020-06-04] MEDS: SPIRONOLACTONE 25 MG TABLET PO SCH ×2 (09:18→19:00)
[2020-06-04] MEDS: ACETAMINOPHEN 325 MG TABLET PO PRN ×2 (10:05→19:01)
[2020-06-04] MEDS: SACUBITRIL/VALSARTAN 49 MG/51 MG TABLET PO SCH ×2 (10:05→19:01)
[2020-06-04] MEDS: HUM INSULIN NPH/REG INSULIN HM 100 UNIT/1 ML 3 ML SUBCUT SCH (10:06)
--- NOTE | 2020-06-04 14:50 | Progress Note ---
Provider Note Provider Note: CARDIOLOGY PROGRESS NOTE by Dr. Norma Pena. On 06/04/2020 OBJECTIVE: No further episodes of syncope. There is no arrhythmias seen on the monitor. The patient after my discussions is now wearing his LifeVest which he had got someone to bring it from his home.. He denies any chest pain discomfort. There is no shortness of breath. There is no PND orthopnea or leg edema. There is no firing of his LifeVest. PHYSICAL EXAMINATION: The patient is mildly obese. In no acute distress. Selected Entries 06/04/20 16:25 Temperature 98.2 F Temperature Oral Source Pulse Rate 66 Respiratory 16 Rate Blood Pressure 104/71 [Left Upper Arm ] Blood Pressure 82 Mean [Left Upper Arm] Blood Pressure Supine Position [Left Upper Arm] O2 Sat by Pulse 97 Oximetry Oxygen Delivery Nasal Cannula Method ( includes room air) Oxygen Flow 1 Rate Head: Is atraumatic and normocephalic. EYES: Pupils are equal round regular reactive to light and accommodation. Extraocular movements are normal. There is no conjunctival pallor. There is no scleral icterus. EARS: Tympanic membranes are intact. External auditory canals are clear. NOSE: There is no deviated nasal septum. There is no inflammation of the nasal mucous membrane. MOUTH: Mucous membranes of mouth are moist. Tongue is moist. There is no ulcers. There is no bleeding from the gums. THROAT: There is no redness of the oropharynx. There is no exudates. SKIN: There is no skin rashes. There is no petechia or ecchymosis. There is no skin lesions. NECK: Supple. There is JVD present. Hepatojugular reflux is positive. There is no lymphadenopathy. Carotids are equal there is no bruits. There is no goiter. There is no accessory muscles of respiration use. Trachea is central. LUNGS: There is diminished air entry prolonged expiration. There is no rhonchi or wheezing. There is bibasilar rales of CHF. HEART S1-S2 is heard. There is no S3 gallop. There is no S4 gallop. There is systolic murmur of mitral regurgitation and tricuspid regurgitation present. There is no rub. ABDOMEN: Is obese. There is hepatomegaly. There is no splenomegaly. Bowel sounds are well heard. There is hepatojugular reflux present. There is no tender areas of masses. There is no rebound guarding or rigidity. EXTREMITIES: Femorals are diminished. Leg pulses difficult to palpate. There is 2- edema bilaterally. There is no DVT cellulitis. There is no calf tenderness. INTERNIST MEDICAL DOCTOR MD: The patient is conscious awake alert oriented x3 with no focal deficits. PSYCHIATRIC: The patient judgment insight intact his affect is normal. Head CT 06/02/20 17:51 IMPRESSION: NO ACUTE INTRACRANIAL FINDINGS. EVIDENCE OF ACUTE STROKE: NO. Chest X-Ray 06/02/20 17:54 IMPRESSION: NO ACUTE FINDINGS. Labs- All tests 24 hr 06/04/20 06/04/20 06/04/20 06:37 07:48 10:41 WBC 7.6 RBC 4.65 Hgb 13.2 L Hct 39.9 MCV 86 MCH 28.4 MCHC 33.1 RDW 17.1 H Plt Count 264 Lymph % (Auto) 24.5 [place] % (Auto) 11.2 Eos % (Auto) 2.7 Baso % (Auto) 0.9 Absolute Neuts (auto) 4.6 Absolute Lymphs (auto) 1.9 Absolute Monos (auto) 0.9 Absolute Eos (auto) 0.2 Absolute Basos (auto) 0.1 Seg Neutrophils % 60.7 POC Glucose 83 189 H 06/04/20 06/04/20 16:02 21:53 WBC RBC Hgb Hct MCV MCH MCHC RDW Plt Count Lymph % (Auto) [place] % (Auto) Eos % (Auto) Baso % (Auto) Absolute Neuts (auto) Absolute Lymphs (auto) Absolute Monos (auto) Absolute Eos (auto) Absolute Basos (auto) Seg Neutrophils % POC Glucose 172 H 202 H IMPRESSION/RECOMMENDATION: 1 .. Syncope: Most likely secondary ventricular . Patient has refused LifeVest in the past. Will recheck the patient's echocardiogram I will check with EP cardiology about an AICD placement. The patient now is wearing the LifeVest after my discussions with him. I have encouraged the patient to continue to wear the LifeVest until the issue of AICD need is pursued. 2. Chronic right ventricular systolic heart failure secondary to left heart failure and pulmonary hypertension. 3. 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 The patient would recommend having an echo repeated in in 3 months on good anti-cardiomyopathy/anti-CHF gold standard treatments at maximal doses. If still LV ejection fraction is 35% or below then the patient will be recommended recommended to have a AICD placement refer with EP cardiology. 4. Severe tricuspid regurgitation. 5. At least moderate pulmonary hypertension. I suspect apparent pulmonary hypertension is much higher than what is recorded by calculation. This is due to my suspicions at this underestimation of the tricuspid regurgitation jet velocity. We will try to reinterrogate the tricuspid valve for this. Would add amlodipine and nitrates. 6. Hypertension: Blood pressure not optimally controlled. The patient cannot withstand the addition of beta-rito Entresto, amlodipine and nitrates. 7. 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 We will continue the patient on aspirin and add nitrates. Continue beta-rito. 8. Diabetes mellitus type 2: Continue antidiabetic treatment and Accu-Cheks as per protocol. 9 . Chronic kidney disease stage III. 10. COPD: This seems to be stable with no acute exacerbation. 11. Ongoing tobacco abuse: Patient counseled to stop smoking and tobacco cessation counseling given. 3 minutes spent on this. Medications reviewed. Medical regimen management plan discussed with Dr. Naranjo. 50 minutes spent as patient more than 50% time spent in direct patient care. Medical decision making is of high complexity. Will follow.
--- NOTE | 2020-06-04 18:41 | PDOC PROGRESS REPORT ---
Subjective Progress Note for:: 06/04/20 Subjective:: Patient seen by the bedside, she was seen by Dr. Arlet briceno, he has a LifeVest in place, hopefully he will be compliant Reason For Visit: HEART FAILURE Physical Exam Vital Signs: Temp Pulse Resp BP Pulse Ox 98.2 F 66 16 104/71 97 06/04/20 16:25 06/04/20 16:25 06/04/20 16:25 06/04/20 16:25 06/04/20 16:25 Intake & Output 06/03/20 06/04/20 06/05/20 06:59 06:59 06:59 Intake Total 0 1050 500 Output Total 1 825 150 Balance 2039 225 350 Weight 83.7 kg 89.2 kg General appearance: PRESENT: no acute distress Head exam: PRESENT: atraumatic, normocephalic Eye exam: PRESENT: PERRLA Ear exam: PRESENT: normal external ear exam Mouth exam: PRESENT: moist, tongue midline Neck exam: PRESENT: full ROM Respiratory exam: PRESENT: clear to auscultation anu Cardiovascular exam: PRESENT: RRR, +S1, +S2 Pulses: PRESENT: normal dorsalis pedis pul, +2 pedal pulses bilateral Vascular exam: PRESENT: normal capillary refill GI/Abdominal exam: PRESENT: normal bowel sounds, soft Rectal exam: PRESENT: deferred Neurological exam: PRESENT: alert, CN II-XII grossly intact Psychiatric exam: PRESENT: appropriate affect, normal mood Skin exam: PRESENT: dry, intact, warm Results Laboratory Results: 06/04/20 06:37 06/03/20 04:15 06/04/20 06:37 WBC 7.6 RBC 4.65 Hgb 13.2 L Hct 39.9 MCV 86 MCH 28.4 MCHC 33.1 RDW 17.1 H Plt Count 264 Seg Neutrophils % 60.7 06/03/20 03:21 Clean Catch Midstream Urine Culture - Final Mixed Urogenital Ann 06/02/20 06/02/20 06/02/20 17:47 21:53 21:53 Creatine Kinase 234 H CK-MB (CK-2) 4.46 Troponin I 0.051 0.056 NT-Pro-B Natriuret Pep 8940 H 06/03/20 06/03/20 06/03/20 04:15 04:15 09:59 Creatine Kinase 242 H 215 H CK-MB (CK-2) 5.72 H Troponin I 0.089 NT-Pro-B Natriuret Pep 06/03/20 09:59 Creatine Kinase CK-MB (CK-2) 6.20 H Troponin I 0.269 NT-Pro-B Natriuret Pep Impressions: Head CT 06/02/20 17:51 IMPRESSION: NO ACUTE INTRACRANIAL FINDINGS. EVIDENCE OF ACUTE STROKE: NO. Chest X-Ray 06/02/20 17:54 IMPRESSION: NO ACUTE FINDINGS. 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
[2020-06-05] MEDS: HYDRALAZINE HCL 50 MG TABLET PO SCH ×2 (06:21→14:13)
[2020-06-05] MEDS: HEPARIN SOD (PORCINE) 5,000 UNIT/ML 1 ML VIAL SUBCUT SCH ×3 (06:22→22:48)
--- NOTE | 2020-06-05 08:35 | PDOC DISCHARGE SUMMARY ---
Impression - Admit/DC Date/PCP Admission Date/Primary Care Provider: 06/02/20 19:41 BRIANDA WARNER MD Discharge Date: 06/05/20 - Discharge Diagnosis (1) Syncope Is this a current diagnosis for this admission?: Yes (2) Acute on chronic combined systolic (congestive) and diastolic (congestive) heart failure Is this a current diagnosis for this admission?: Yes (3) Chronic kidney disease, stage 3 (moderate) Is this a current diagnosis for this admission?: Yes (4) T2DM (type 2 diabetes mellitus) Is this a current diagnosis for this admission?: Yes - Additional Information Discharge Diet: Cardiac, Diabetic Discharge Activity: Activity As Tolerated, Balance Activity w/Rest, Weigh Daily Referrals: BRIANDA WARNER MD [Primary Care Provider] - Follow up as needed Home Medications: RX: Aspirin [Aspirin 81 mg Chewable Tablet] 81 mg PO DAILY #90 tab.chew 03/11/20 RX: Dapagliflozin Propanediol [Farxiga] 10 mg PO DAILY #30 tablet 03/11/20 RX: Hydralazine HCl [Apresoline 50 mg Tablet] 50 mg PO Q8H #90 tablet 03/11/20 RX: Insulin NPH Hum/Reg Insulin Hm [Humulin 70/30 Kwikpen] 30 unit SQ DAILY #3 03/11/20 RX: Isosorbide Mononitrate [Imdur 60 mg Tablet.er] 60 mg PO DAILY #30 tab.er.24h 03/11/20 RX: Metoprolol Succinate [Toprol Xl 50 mg Tab.sr] 50 mg PO DAILY #30 tab.sr.24h 03/11/20 RX: Sacubitril/Valsartan [Entresto 49 mg/51 mg Tablet] 1 tab PO BID #60 tablet 03/11/20 RX: Spironolactone [Aldactone 25 mg Tablet] 25 mg PO BID #60 tablet 03/11/20 RX: Ergocalciferol (Vitamin D2) [Vitamin D2] 50,000 unit PO TH@1000 06/03/20 RX: Furosemide [Lasix] 40 mg PO BID 06/03/20 RX: Omeprazole 20 mg PO BID 06/03/20 RX: Sitagliptin Phosphate [Januvia 50 mg Tablet] 100 mg PO DAILY 06/03/20 History of Present Illiness History of Present Illness: JUICE SANTOS is a 59 year old male, he has a history of chronic combined systolic and diastolic heart failure kidney disease stage III, systemic pulmonary hypertension, history of nonsustained ventricular tachycardia, he was transported to the emergency room by the ambulance because he had 3 episodes of loss of consciousness at home. The last time he was discharged from this hospital on March 06, 2020 he had episode of ventricular tachycardia, he was discharged home on LifeVest but patient is obviously poorly compliant with recommended medical regimen, he did not use the LifeVest because he said he does not like it. On discharge he was supposed to follow in the office a week post discharge but he came to the office last week for the first time since discharge on March 11, 2020 basically came to the office 3 months after discharge, he was not taking Entresto and other medication recommended post discharge, this medication was E -prescribed just few days ago, in short patient is extremely noncompliant, he probably sustained a syncope spell especially with his history of cardiomyopathy with a history of V. tach Physical Exam Vital Signs: Temp Pulse Resp BP Pulse Ox 97.2 F 68 16 104/77 90 L 06/05/20 03:45 06/05/20 03:45 06/05/20 03:45 06/05/20 03:45 06/05/20 03:45 Intake & Output 06/04/20 06/05/20 06/06/20 06:59 06:59 06:59 Intake Total 1050 740 Output Total 825 600 Balance 225 140 Weight 89.2 kg 89.2 kg Results Laboratory Results: WBC 7.6 10^3/uL (4.0-10.5) 06/04/20 06:37 RBC 4.65 10^6/uL (4.35-5.55) 06/04/20 06:37 Hgb 13.2 g/dL (13.5-17.0) L 06/04/20 06:37 Hct 39.9 % (37.9-51.0) 06/04/20 06:37 MCV 86 fl (80-97) 06/04/20 06:37 MCH 28.4 pg (27.0-33.4) 06/04/20 06:37 MCHC 33.1 g/dL (32.0-36.0) 06/04/20 06:37 RDW 17.1 % (11.5-14.0) H 06/04/20 06:37 Plt Count 264 10^3/uL (150-450) 06/04/20 06:37 Lymph % (Auto) 24.5 % (13-45) 06/04/20 06:37 [place] % (Auto) 11.2 % (3-13) 06/04/20 06:37 Eos % (Auto) 2.7 % (0-6) 06/04/20 06:37 Baso % (Auto) 0.9 % (0-2) 06/04/20 06:37 Reticulocyte # 0.087 10^6/uL (0.028-0.122) 06/03/20 09:59 Absolute Neuts (auto) 4.6 10^3/uL (1.7-8.2) 06/04/20 06:37 Absolute Lymphs (auto) 1.9 10^3/uL (0.5-4.7) 06/04/20 06:37 Absolute Monos (auto) 0.9 10^3/uL (0.1-1.4) 06/04/20 06:37 Absolute Eos (auto) 0.2 10^3/uL (0.0-0.6) 06/04/20 06:37 Absolute Basos (auto) 0.1 10^3/uL (0.0-0.2) 06/04/20 06:37 Seg Neutrophils % 60.7 % (42-78) 06/04/20 06:37 Retic Count (auto) 1.75 % (0.66-2.85) 06/03/20 09:59 PT 17.8 SEC (11.4-15.4) H 06/02/20 21:53 INR 1.45 06/02/20 21:53 APTT 31.1 SEC (23.5-35.8) 06/02/20 21:53 Sodium 133.2 mmol/L (137-145) L 06/03/20 04:15 Potassium 5.4 mmol/L (3.6-5.0) H 06/03/20 04:15 Chloride 97 mmol/L (98-107) L 06/03/20 04:15 Carbon Dioxide 27 mmol/L (22-30) 06/03/20 04:15 Anion Gap 9 (5-19) 06/03/20 04:15 BUN 32 mg/dL (7-20) H 06/03/20 04:15 Creatinine 2.55 mg/dL (0.52-1.25) H 06/03/20 04:15 Est GFR ( Amer) 31 (>60) L 06/03/20 04:15 Est GFR (MDRD) Non-Af 26 (>60) L 06/03/20 04:15 Glucose 111 mg/dL (75-110) H 06/03/20 04:15 POC Glucose 198 mg/dL (70-110) H 06/05/20 06:23 Hemoglobin A1c % 8.1 % (4.7-6.0) H 06/03/20 04:15 Calcium 9.1 mg/dL (8.4-10.2) 06/03/20 04:15 Phosphorus 5.5 mg/dL (2.5-4.5) H 06/03/20 09:59 Magnesium 2.4 mg/dL (1.6-2.3) H 06/02/20 21:53 Iron 40.6 ug/dL (49-181) L 06/03/20 09:59 TIBC 350 ug/dL (250-450) 06/03/20 09:59 % Saturation 12 % 06/03/20 09:59 Ferritin 147.00 ng/mL (17.9-464.0) 06/03/20 09:59 Total Bilirubin 2.2 mg/dL (0.2-1.3) H 06/03/20 04:15 Direct Bilirubin 0.4 mg/dL (0.0-0.4) 06/03/20 04:15 Neonat Total Bilirubin Not Reportable 06/03/20 04:15 Neonat Direct Bilirubin Not Reportable 06/03/20 04:15 Neonat Indirect Bili Not Reportable 06/03/20 04:15 AST 57 U/L (17-59) 06/03/20 04:15 ALT 35 U/L (<50) 06/03/20 04:15 Alkaline Phosphatase 96 U/L (38-126) 06/03/20 04:15 Creatine Kinase 215 U/L (55-170) H 06/03/20 09:59 CK-MB (CK-2) 6.20 ng/mL (<4.55) H 06/03/20 09:59 Troponin I 0.269 ng/mL 06/03/20 09:59 NT-Pro-B Natriuret Pep 8940 pg/mL (<125) H 06/02/20 17:47 Total Protein 6.6 g/dL (6.3-8.2) 06/03/20 04:15 Albumin 3.5 g/dL (3.5-5.0) 06/03/20 04:15 Triglycerides 52 mg/dL (<150) 06/03/20 04:15 Cholesterol 112.16 mg/dL (0-200) 06/03/20 04:15 LDL Cholesterol Direct 81 mg/dL (<100) 06/03/20 04:15 VLDL Cholesterol 10.0 mg/dL (10-31) 06/03/20 04:15 HDL Cholesterol 23 mg/dL (>40) L 06/03/20 04:15 Vitamin B12 476.0 pg/mL (239-931) 06/03/20 09:59 Folate 12.10 ng/mL (>2.76) 06/03/20 09:59 TSH 8.67 uIU/mL (0.47-4.68) H 06/02/20 17:47 Free T4 1.85 ng/dL (0.78-2.19) 06/02/20 17:47 PTH Intact 263.0 pg/mL (10.0-65.0) H 06/03/20 13:23 Urine Color DARK YELLOW 06/03/20 03:21 Urine Appearance CLOUDY 06/03/20 03:21 Urine pH 5.0 (5.0-9.0) 06/03/20 03:21 Ur Specific [place] 1.023 06/03/20 03:21 Urine Protein >=500 mg/dL (NEGATIVE) H 06/03/20 03:21 Urine Glucose (UA) >=500 mg/dL (NEGATIVE) H 06/03/20 03:21 Urine Ketones NEGATIVE mg/dL (NEGATIVE) 06/03/20 03:21 Urine Blood NEGATIVE (NEGATIVE) 06/03/20 03:21 Urine Nitrite NEGATIVE (NEGATIVE) 06/03/20 03:21 Urine Bilirubin NEGATIVE (NEGATIVE) 06/03/20 03:21 Urine Urobilinogen 4.0 mg/dL (<2.0) H 06/03/20 03:21 Ur Leukocyte Esterase NEGATIVE (NEGATIVE) 06/03/20 03:21 Urine WBC (Auto) 5 /HPF 06/03/20 03:21 Urine RBC (Auto) 4 /HPF 06/03/20 03:21 U Hyaline Cast (Auto) 38 /LPF 06/03/20 03:21 Urine Bacteria (Auto) TRACE /HPF 06/03/20 03:21 Squamous Epi Cells Auto <1 /HPF 06/03/20 03:21 Urine Mucus (Auto) OCC /LPF 06/03/20 03:21 Urine Ascorbic Acid 40 (NEGATIVE) H 06/03/20 03:21 06/02/20 06/02/20 06/03/20 17:47 21:53 04:15 CK-MB (CK-2) 4.46 5.72 H Troponin I 0.051 0.056 0.089 NT-Pro-B Natriuret Pep 8940 H 06/03/20 09:59 CK-MB (CK-2) 6.20 H Troponin I 0.269 NT-Pro-B Natriuret Pep Impressions: Head CT 06/02/20 17:51 IMPRESSION: NO ACUTE INTRACRANIAL FINDINGS. EVIDENCE OF ACUTE STROKE: NO. Chest X-Ray 06/02/20 17:54 IMPRESSION: NO ACUTE FINDINGS.
[2020-06-05] MEDS: HUM INSULIN NPH/REG INSULIN HM 100 UNIT/1 ML 3 ML SUBCUT SCH (10:59)
[2020-06-05] MEDS: FUROSEMIDE INJ/PF 40 MG/4 ML SDV IV SCH ×2 (10:59→22:48)
[2020-06-05] MEDS: ISOSORBIDE MONONITRATE 60 MG TAB.ER.24H PO SCH (11:00)
[2020-06-05] MEDS: ASPIRIN 81 MG TABLET, CHEWABLE PO SCH (11:00)
[2020-06-05] MEDS: SITAGLIPTIN PHOSPHATE 50 MG TABLET PO SCH (11:00)
[2020-06-05] MEDS: SACUBITRIL/VALSARTAN 49 MG/51 MG TABLET PO SCH ×2 (11:00→17:42)
[2020-06-05] MEDS: PANTOPRAZOLE SODIUM 20 MG TABLET.DR PO SCH ×2 (11:00→17:58)
[2020-06-05] MEDS: SPIRONOLACTONE 25 MG TABLET PO SCH ×2 (11:00→17:42)
[2020-06-05] MEDS: METOPROLOL SUCCINATE 50 MG TAB.SR.24H PO SCH (11:00)
--- NOTE | 2020-06-05 19:27 | Progress Note ---
Provider Note Provider Note: CARDIOLOGY PROGRESS NOTE by Dr. Norma Pena on 06/05/2020. SUBJECTIVE: As per the nurse the patient got up to go to the bathroom this morning and had a dizzy spell and fell. There was no francisca syncope. There is no arrhythmias seen. The patient is also very scared and anxious. He states he does not feel good and does not want to go home. His blood pressures are slightly on the lower side. Hence would need to adjust the patient's medications. We will decrease the patient's isosorbide and hydralazine. There is no ventricle arrhythmia seen on the monitor. There is no TIA CVA symptoms the patient has no anginal symptoms. PHYSICAL EXAMINATION: The patient is mildly obese. In no acute distress. CARDIOLOGY PROGRESS NOTE by Dr. Norma Pena. On 06/04/2020 OBJECTIVE: No further episodes of syncope. There is no arrhythmias seen on the monitor. The patient after my discussions is now wearing his LifeVest which he had got someone to bring it from his home.. He denies any chest pain discomfort. There is no shortness of breath. There is no PND orthopnea or leg edema. There is no firing of his LifeVest. PHYSICAL EXAMINATION: The patient is mildly obese. In no acute distress. Head: Is atraumatic and normocephalic. EYES: Pupils are equal round regular reactive to light and accommodation. Extraocular movements are normal. There is no conjunctival pallor. There is no scleral icterus. EARS: Tympanic membranes are intact. External auditory canals are clear. NOSE: There is no deviated nasal septum. There is no inflammation of the nasal mucous membrane. MOUTH: Mucous membranes of mouth are moist. Tongue is moist. There is no ulcers. There is no bleeding from the gums. THROAT: There is no redness of the oropharynx. There is no exudates. SKIN: There is no skin rashes. There is no petechia or ecchymosis. There is no skin lesions. NECK: Supple. There is JVD present. Hepatojugular reflux is positive. There is no lymphadenopathy. Carotids are equal there is no bruits. There is no goiter. There is no accessory muscles of respiration use. Trachea is central. LUNGS: There is diminished air entry prolonged expiration. There is no rhonchi or wheezing. There is bibasilar rales of CHF. HEART S1-S2 is heard. There is no S3 gallop. There is no S4 gallop. There is systolic murmur of mitral regurgitation and tricuspid regurgitation present. There is no rub. ABDOMEN: Is obese. There is hepatomegaly. There is no splenomegaly. Bowel sounds are well heard. There is hepatojugular reflux present. There is no tender areas of masses. There is no rebound guarding or rigidity. EXTREMITIES: Femorals are diminished. Leg pulses difficult to palpate. There is 2- edema bilaterally. There is no DVT cellulitis. There is no calf tenderness. 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 PSYCHIATRIC: The patient judgment insight intact his affect is normal. Head CT 06/02/20 17:51 IMPRESSION: NO ACUTE INTRACRANIAL FINDINGS. EVIDENCE OF ACUTE STROKE: NO. Chest X-Ray 06/02/20 17:54 IMPRESSION: NO ACUTE FINDINGS. Labs- All tests 24 hr 06/04/20 06/05/20 06/05/20 21:53 06:23 11:13 POC Glucose 202 H 198 H 190 H 06/05/20 15:42 POC Glucose 107 IMPRESSION/RECOMMENDATION: 1 .. Syncope: The patient got up today and became dizzy although no francisca syncope. Hence the other possibility is that the syncope may be related to his blood pressure. There was no arrhythmias seen. Will lower the patient's dosages of medications. Patient is now wearing LifeVest . Will recheck the patient's echocardiogram I will check with EP cardiology about an AICD placement. The patient now is wearing the LifeVest after my discussions with him. I have encouraged the patient to continue to wear the LifeVest until the issue of AICD need is pursued. 2. Chronic right ventricular systolic heart failure secondary to left heart failure and pulmonary hypertension. 3. 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 The patient would recommend having an echo repeated in in 3 months on good anti-cardiomyopathy/anti-CHF gold standard treatments at maximal doses. If still LV ejection fraction is 35% or below then the patient will be recommended recommended to have a AICD placement refer with EP cardiology. 4. Severe tricuspid regurgitation. 5. At least moderate pulmonary hypertension. I suspect apparent pulmonary hypertension is much higher than what is recorded by calculation. This is due to my suspicions at this underestimation of the tricuspid regurgitation jet velocity. We will try to reinterrogate the tricuspid valve for this. Would add amlodipine and nitrates. 6. Hypertension: Blood pressure not optimally controlled. The patient cannot withstand the addition of beta-rito Entresto, amlodipine and nitrates. 7. 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 We will continue the patient on aspirin and add nitrates. Continue beta-rito. 8. Diabetes mellitus type 2: Continue antidiabetic treatment and Accu-Cheks as per protocol. 9 . Chronic kidney disease stage III. 10. COPD: This seems to be stable with no acute exacerbation. 11. Ongoing tobacco abuse: Patient counseled to stop smoking and tobacco cessation counseling given. 3 minutes spent on this. Medications reviewed. Medical regimen management plan discussed with Dr. Naranjo. 50 minutes spent as patient more than 50% time spent in direct patient care. Medical decision making is of high complexity. Will follow. Head: Is atraumatic and normocephalic. EYES: Pupils are equal round regular reactive to light and accommodation. Extraocular movements are normal. There is no conjunctival pallor. There is no scleral icterus. EARS: Tympanic membranes are intact. External auditory canals are clear. NOSE: There is no deviated nasal septum. There is no inflammation of the nasal mucous membrane. MOUTH: Mucous membranes of mouth are moist. Tongue is moist. There is no ulcers. There is no bleeding from the gums. THROAT: There is no redness of the oropharynx. There is no exudates. SKIN: There is no skin rashes. There is no petechia or ecchymosis. There is no skin lesions. NECK: Supple. There is JVD present. Hepatojugular reflux is positive. There is no lymphadenopathy. Carotids are equal there is no bruits. There is no goiter. There is no accessory muscles of respiration use. Trachea is central. LUNGS: There is diminished air entry prolonged expiration. There is no rhonchi or wheezing. There is bibasilar rales of CHF. HEART S1-S2 is heard. There is no S3 gallop. There is no S4 gallop. There is systolic murmur of mitral regurgitation and tricuspid regurgitation present. There is no rub. ABDOMEN: Is obese. There is hepatomegaly. There is no splenomegaly. Bowel sounds are well heard. There is hepatojugular reflux present. There is no tender areas of masses. There is no rebound guarding or rigidity. EXTREMITIES: Femorals are diminished. Leg pulses difficult to palpate. There is 2- edema bilaterally. There is no DVT cellulitis. There is no calf tenderness. 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 PSYCHIATRIC: The patient judgment insight intact his affect is normal. IMPRESSION/RECOMMENDATION: 1 .. Syncope: The patient got up today and became dizzy although no francisca syncope. Hence the other possibility is that the syncope may be related to his blood pressure. There was no arrhythmias seen. Will lower the patient's dosages of medications. Patient is now wearing LifeVest . Will recheck the patient's echocardiogram I will check with EP cardiology about an AICD placement. The patient now is wearing the LifeVest after my discussions with him. I have encouraged the patient to continue to wear the LifeVest until the issue of AICD need is pursued. 2. Chronic right ventricular systolic heart failure secondary to left heart failure and pulmonary hypertension. 3. 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 The patient would recommend having an echo repeated in in 3 months on good anti-cardiomyopathy/anti-CHF gold standard treatments at maximal doses. If still LV ejection fraction is 35% or below then the patient will be recommended recommended to have a AICD placement refer with EP cardiology. 4. Severe tricuspid regurgitation. 5. At least moderate pulmonary hypertension. I suspect apparent pulmonary hypertension is much higher than what is recorded by calculation. This is due to my suspicions at this underestimation of the tricuspid regurgitation jet velocity. We will try to reinterrogate the tricuspid valve for this. Would add amlodipine and nitrates. 6. Hypertension: Blood pressure not optimally controlled. The patient cannot withstand the addition of beta-rito Entresto, amlodipine and nitrates. 7. 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 We will continue the patient on aspirin and add nitrates. Continue beta-rito. 8. Diabetes mellitus type 2: Continue antidiabetic treatment and Accu-Cheks as per protocol. 9 . Chronic kidney disease stage III. 10. COPD: This seems to be stable with no acute exacerbation. 11. Ongoing tobacco abuse: Patient counseled to stop smoking and tobacco cessation counseling given. 3 minutes spent on this. Medications reviewed. Medical regimen management plan discussed with Dr. Niyah carmona. 50 minutes spent as patient more than 50% time spent in direct patient care. Medical decision making is of high complexity. Will follow.
--- NOTE | 2020-06-05 19:57 | PDOC PROGRESS REPORT ---
Subjective Progress Note for:: 06/05/20 Subjective:: Patient was supposed to be discharged home today but he said he does not feel good, does not want to be discharged home today Reason For Visit: HEART FAILURE Physical Exam Vital Signs: Temp Pulse Resp BP Pulse Ox 97.3 F 61 18 91/67 L 94 06/05/20 15:41 06/05/20 15:41 06/05/20 15:41 06/05/20 15:41 06/05/20 15:41 Intake & Output 06/04/20 06/05/20 06/06/20 06:59 06:59 06:59 Intake Total 1050 740 970 Output Total 825 600 200 Balance 225 140 770 Weight 89.2 kg 89.2 kg General appearance: PRESENT: no acute distress Eye exam: PRESENT: PERRLA Respiratory exam: PRESENT: clear to auscultation anu Cardiovascular exam: PRESENT: +S1, +S2 GI/Abdominal exam: PRESENT: soft Neurological exam: PRESENT: alert Results Laboratory Results: 06/04/20 06:37 06/03/20 04:15 06/02/20 06/02/20 06/02/20 17:47 21:53 21:53 Creatine Kinase 234 H CK-MB (CK-2) 4.46 Troponin I 0.051 0.056 NT-Pro-B Natriuret Pep 8940 H 06/03/20 06/03/20 06/03/20 04:15 04:15 09:59 Creatine Kinase 242 H 215 H CK-MB (CK-2) 5.72 H Troponin I 0.089 NT-Pro-B Natriuret Pep 06/03/20 09:59 Creatine Kinase CK-MB (CK-2) 6.20 H Troponin I 0.269 NT-Pro-B Natriuret Pep Impressions: Head CT 06/02/20 17:51 IMPRESSION: NO ACUTE INTRACRANIAL FINDINGS. EVIDENCE OF ACUTE STROKE: NO. Chest X-Ray 06/02/20 17:54 IMPRESSION: NO ACUTE FINDINGS. Assessment & Plan - Diagnosis (1) Syncope Qualifiers: Syncope type: unspecified Qualified Code(s): R55 - Syncope and collapse Is this a current diagnosis for this admission?: Yes (2) Acute on chronic combined systolic (congestive) and diastolic (congestive) heart failure Is this a current diagnosis for this admission?: Yes (3) Chronic kidney disease, stage 3 (moderate) Is this a current diagnosis for this admission?: Yes (4) T2DM (type 2 diabetes mellitus) Qualifiers: Diabetes mellitus manager long term care insulin use: with manager long term care use Diabetes mellitus complication status: with neurologic complications Diabetes mellitus complication detail: with polyneuropathy Qualified Code(s): E11.42 - Type 2 diabetes mellitus with diabetic polyneuropathy; Z79.4 - [facility] (current) use of insulin Is this a current diagnosis for this admission?: Yes - Time Time Spent with patient: 25-34 minutes Level of Care: IMCU Anticipated discharge: Home Anticipated DC Timeframe: within 24 hours
[2020-06-05] MEDS ORDERED: HYDRALAZINE HCL 50 MG TABLET PO SCH (22:00)
[2020-06-05] MEDS: HYDRALAZINE HCL 25 MG TABLET PO SCH (22:38)
[2020-06-06] MEDS: HYDRALAZINE HCL 25 MG TABLET PO SCH ×3 (05:47→22:55)
[2020-06-06] MEDS: HEPARIN SOD (PORCINE) 5,000 UNIT/ML 1 ML VIAL SUBCUT SCH ×3 (05:47→22:55)
[2020-06-06] MEDS ORDERED: ISOSORBIDE MONONITRATE 60 MG TAB.ER.24H PO SCH (10:00)
--- NOTE | 2020-06-06 10:18 | Progress Note ---
Provider Note Provider Note: CARDIOLOGY PROGRESS NOTE by Dr. Nomra Pena on 06/06/2020. SUBJECTIVE: No further episodes of syncope. Rehab is recommended inpatient rehab. Hence an MRI is being done to make sure that there is no intracranial lesions. He has no chest pain or discomfort. There is no shortness of breath. There is no PND orthopnea. There is no leg edema. There is no arrhythmias seen on the monitor. PHYSICAL EXAMINATION: The patient is mildly obese. In no acute distress. Selected Entries 06/05/20 06/05/20 06/06/20 08:12 18:45 10:31 Temperature 97.4 F Temperature Oral Source Pulse Rate 70 Sitting Pulse 62 Rate Standing Pulse 61 Laying Down 62 Pulse Respiratory 18 Rate Blood Pressure 113/74 Blood Pressure 87 Mean Sitting BP 98/73 L Laying Down BP 95/65 Standing BP 94/64 BP Location Right Arm BP Position Supine O2 Sat by Pulse 93 Oximetry Oxygen Delivery Room Air Method ( includes room air) Oxygen Delivery Room Air Method 06/06/20 11:37 Temperature 98.1 F Temperature Oral Source Pulse Rate 71 Sitting Pulse Rate Standing Pulse Laying Down Pulse Respiratory 20 Rate Blood Pressure 131/99 H Blood Pressure 109 Mean Sitting BP Laying Down BP Standing BP BP Location Right Arm BP Position Supine O2 Sat by Pulse 100 Oximetry Oxygen Delivery Method ( includes room air) Oxygen Delivery Method Head: Is atraumatic and normocephalic. EYES: Pupils are equal round regular reactive to light and accommodation. Extraocular movements are normal. There is no conjunctival pallor. There is no scleral icterus. EARS: Tympanic membranes are intact. External auditory canals are clear. NOSE: There is no deviated nasal septum. There is no inflammation of the nasal mucous membrane. MOUTH: Mucous membranes of mouth are moist. Tongue is moist. There is no ulcers. There is no bleeding from the gums. THROAT: There is no redness of the oropharynx. There is no exudates. SKIN: There is no skin rashes. There is no petechia or ecchymosis. There is no skin lesions. NECK: Supple. There is JVD present. Hepatojugular reflux is positive. There is no lymphadenopathy. Carotids are equal there is no bruits. There is no goiter. There is no accessory muscles of respiration use. Trachea is central. LUNGS: There is diminished air entry prolonged expiration. There is no rhonchi or wheezing. There is bibasilar rales of CHF. HEART S1-S2 is heard. There is no S3 gallop. There is no S4 gallop. There is systolic murmur of mitral regurgitation and tricuspid regurgitation present. There is no rub. ABDOMEN: Is obese. There is hepatomegaly. There is no splenomegaly. Bowel sounds are well heard. There is hepatojugular reflux present. There is no tender areas of masses. There is no rebound guarding or rigidity. EXTREMITIES: Femorals are diminished. Leg pulses difficult to palpate. There is 2- edema bilaterally. There is no DVT cellulitis. There is no calf tenderness. 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 PSYCHIATRIC: The patient judgment insight intact his affect is normal. Head CT 06/02/20 17:51 IMPRESSION: NO ACUTE INTRACRANIAL FINDINGS. EVIDENCE OF ACUTE STROKE: NO. Chest X-Ray 06/02/20 17:54 IMPRESSION: NO ACUTE FINDINGS. Labs- All tests 24 hr 06/05/20 06/06/20 06/06/20 22:43 05:41 06:27 POC Glucose 71 60 L 140 H 06/06/20 06/06/20 06/06/20 07:37 11:39 15:33 POC Glucose 117 H 298 H 46 L 06/06/20 06/06/20 06/06/20 15:50 16:25 17:00 POC Glucose 54 L 144 H 89 06/06/20 06/06/20 17:33 18:51 POC Glucose 131 H 133 H IMPRESSION/RECOMMENDATION: 1 .. Syncope: The patient got up today and became dizzy although no francisca syncope. Hence the other possibility is that the syncope may be related to his blood pressure. There was no arrhythmias seen. Will lower the patient's dosages of medications. Patient is now wearing LifeVest . Will recheck the patient's echocardiogram I will check with EP cardiology about an AICD placement. The patient now is wearing the LifeVest after my discussions with him. I have encouraged the patient to continue to wear the LifeVest until the issue of AICD need is pursued. 2. Chronic right ventricular systolic heart failure secondary to left heart failure and pulmonary hypertension. 3. 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 The patient would recommend having an echo repeated in in 3 months on good anti-cardiomyopathy/anti-CHF gold standard treatments at maximal doses. If still LV ejection fraction is 35% or below then the patient will be recommended recommended to have a AICD placement refer with EP cardiology. 4. Severe tricuspid regurgitation. 5. At least moderate pulmonary hypertension. I suspect apparent pulmonary hypertension is much higher than what is recorded by calculation. This is due to my suspicions at this underestimation of the tricuspid regurgitation jet [facility]. We will try to reinterrogate the tricuspid valve for this. Would add amlodipine and nitrates. 6. Hypertension: Blood pressure not optimally controlled. The patient cannot withstand the addition of beta-rito Entresto, amlodipine and nitrates. 7. 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 We will continue the patient on aspirin and add nitrates. Continue beta-rito. 8. Diabetes mellitus type 2: Continue antidiabetic treatment and Accu-Cheks as per protocol. 9 . Chronic ki dney disease stage III. 10. COPD: This seems to be stable with no acute exacerbation. 11. Ongoing tobacco abuse: Patient counseled to stop smoking and tobacco cessation counseling given. 3 minutes spent on this.. Medications reviewed. Medical decision making hours of moderate complexity. Medical regimen and management plan discussed with Dr. Naranjo. 40 minutes spent as patient more than 50% time spent direct patient care. Will follow.
[2020-06-06] MEDS: HUM INSULIN NPH/REG INSULIN HM 100 UNIT/1 ML 3 ML SUBCUT SCH (10:38)
[2020-06-06] MEDS: ISOSORBIDE MONONITRATE 30 MG TAB.ER.24H PO SCH (10:39)
[2020-06-06] MEDS: SACUBITRIL/VALSARTAN 49 MG/51 MG TABLET PO SCH ×2 (10:39→17:49)
[2020-06-06] MEDS: SPIRONOLACTONE 25 MG TABLET PO SCH ×2 (10:39→17:48)
[2020-06-06] MEDS: METOPROLOL SUCCINATE 50 MG TAB.SR.24H PO SCH (10:39)
[2020-06-06] MEDS: ASPIRIN 81 MG TABLET, CHEWABLE PO SCH (10:39)
[2020-06-06] MEDS: SITAGLIPTIN PHOSPHATE 50 MG TABLET PO SCH (10:39)
[2020-06-06] MEDS: PANTOPRAZOLE SODIUM 20 MG TABLET.DR PO SCH ×2 (10:39→17:49)
[2020-06-06] MEDS: FUROSEMIDE INJ/PF 40 MG/4 ML SDV IV SCH ×2 (10:40→22:55)
--- NOTE | 2020-06-06 16:07 | PDOC PROGRESS REPORT ---
Subjective Progress Note for:: 06/06/20 Subjective:: Patient seen by the bedside, he has a sitter, the nurses requested for a sitter because of repeated fall, he was seen by physical therapy, [facility] for rehab recommended. I will order MRI of the brain to rule out any intracranial lesion, he has a LifeVest he may have to come off the LifeVest for him to get the MRI, We will consult discharge planning to arrange for rehab in a [facility] home,cancel discharge Reason For Visit: HEART FAILURE Physical Exam Vital Signs: Temp Pulse Resp BP Pulse Ox 98.1 F 68 20 131/99 H 100 06/06/20 11:37 06/06/20 14:00 06/06/20 11:37 06/06/20 11:37 06/06/20 11:37 Intake & Output 06/05/20 06/06/20 06/07/20 06:59 06:59 06:59 Intake Total 740 1720 120 Output Total 581 227 9956 Balance 140 1520 -955 Weight 89.2 kg 89.6 kg General appearance: PRESENT: no acute distress Eye exam: PRESENT: PERRLA Respiratory exam: PRESENT: clear to auscultation anu Cardiovascular exam: PRESENT: +S2 Murmur grade: 3 Neurological exam: PRESENT: alert Results Laboratory Results: 06/04/20 06:37 06/03/20 04:15 06/02/20 06/02/20 06/02/20 17:47 21:53 21:53 Creatine Kinase 234 H CK-MB (CK-2) 4.46 Troponin I 0.051 0.056 NT-Pro-B Natriuret Pep 8940 H 06/03/20 06/03/20 06/03/20 04:15 04:15 09:59 Creatine Kinase 242 H 215 H CK-MB (CK-2) 5.72 H Troponin I 0.089 NT-Pro-B Natriuret Pep 06/03/20 09:59 Creatine Kinase CK-MB (CK-2) 6.20 H Troponin I 0.269 NT-Pro-B Natriuret Pep Impressions: Head CT 06/02/20 17:51 IMPRESSION: NO ACUTE INTRACRANIAL FINDINGS. EVIDENCE OF ACUTE STROKE: NO. Chest X-Ray 06/02/20 17:54 IMPRESSION: NO ACUTE FINDINGS. 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 press operator insulin use: with [facility] use Diabetes mellitus complication status: with neurologic complications Diabetes mellitus complication detail: with polyneuropathy Qualified Code(s): E11.42 - Type 2 diabetes mellitus with diabetic polyneuropathy; Z79.4 - shelter (current) use of insulin Is this a current diagnosis for this admission?: Yes (5) Repeated falls Is this a current diagnosis for this admission?: Yes Plan: Patient with repeated fall despite LifeVest in place, is requiring a sitter for safety, MRI of the brain to be ordered to rule out intracranial lesion, or stro keren, seen by PT, [facility] rehab recommended, consult discharge planning to make arrangement, DC discharge plan for now - Time Time Spent with patient: 25-34 minutes Level of Care: IMCU Anticipated discharge: SNF Anticipated DC Timeframe: when bed available
--- NOTE | 2020-06-06 22:52 | RADIOLOGY REPORT (SQ) ---
EXAM DESCRIPTION: MR BRAIN WITHOUT IV CONTRAST COMPLETED DATE/TME: 06/06/2020 00:00 CLINICAL HISTORY: 59 years, Male, ? CVA COMPARISON: CT brain 06/02/2020 TECHNIQUE: 249 Images stored on PACS. LIMITATIONS: None. FINDINGS: Sagittal midline anatomic structures show an unremarkable appearance to the pituitary and suprasellar regions. The globes are intact. The paranasal sinuses and mastoid air cells are well aerated. Normal flow void in visualized intracranial vessels. The visualized cranial nerve complex these are unremarkable. No intra or extra-axial hemorrhage. Diffusion-weighted images are normal, without evidence for acute infarct. No evidence for mass or midline shift. Mild diffuse atrophy. IMPRESSION: No acute intracranial abnormality copyright 2010 [employer]- All Rights Reserved
[2020-06-07] MEDS: ACETAMINOPHEN 325 MG TABLET PO PRN ×2 (00:46→14:50)
[2020-06-07] MEDS: HYDRALAZINE HCL 25 MG TABLET PO SCH ×3 (05:52→21:30)
[2020-06-07] MEDS: HEPARIN SOD (PORCINE) 5,000 UNIT/ML 1 ML VIAL SUBCUT SCH ×3 (05:52→21:26)
[2020-06-07 08:53] LABS: ABSOLUTE EOSINOPHILS # (AUTO) 0.2 10^3/uL (0.0-0.6); ABSOLUTE LYMPHOCYTES (AUTO) 1.2 10^3/uL (0.5-4.7); ABSOLUTE MONOCYTES (AUTO) 0.7 10^3/uL (0.1-1.4); ABSOLUTE NEUT (AUTO) 3.2 10^3/uL (1.7-8.2); BASOPHILS % (AUTO) 0.9 % (0-2); HEMATOCRIT 41.2 % (37.9-51.0); HEMOGLOBIN 13.5 g/dL (13.5-17.0); LYMPHOCYTES % (AUTO) 21.9 % (13-45); MEAN CORPUSCULAR HEMOGLOBIN 28.1 pg (27.0-33.4); MEAN CORPUSCULAR HGB CONC 32.8 g/dL (32.0-36.0); MEAN CORPUSCULAR VOLUME 86 fl (80-97); MONOCYTES % (AUTO) 12.9 % (3-13); PLATELET COUNT 243 10^3/uL (150-450); RED BLOOD COUNT 4.81 10^6/uL (4.35-5.55); RED CELL DISTRIBUTION WIDTH 17.3 % (11.5-14.0); SEGMENTED NEUTROPHILS % (AUTO) 61.3 % (42-78); TOTAL CELLS COUNTED % (AUTO) 100 %; WHITE BLOOD COUNT 5.3 10^3/uL (4.0-10.5)
[2020-06-07 09:20] LABS: ALBUMIN 3.4 g/dL (3.5-5.0); ALKALINE PHOSPHATASE 95 U/L (38-126); ANION GAP 8 (5-19); ASPARTATE AMINO TRANSFERASE 27 U/L (17-59); BILIRUBIN,DIRECT 0.1 mg/dL (0.0-0.4); BILIRUBIN,TOTAL 1.3 mg/dL (0.2-1.3); BLOOD UREA NITROGEN 43 mg/dL (7-20); CALCIUM 8.6 mg/dL (8.4-10.2); CARBON DIOXIDE 29 mmol/L (22-30); CHLORIDE 99 mmol/L (98-107); GLUCOSE 117 mg/dL (75-110); POTASSIUM 4.9 mmol/L (3.6-5.0); TOTAL PROTEIN 6.7 g/dL (6.3-8.2)
[2020-06-07] MEDS: ASPIRIN 81 MG TABLET, CHEWABLE PO SCH (09:47)
[2020-06-07] MEDS: ISOSORBIDE MONONITRATE 30 MG TAB.ER.24H PO SCH (09:47)
[2020-06-07] MEDS: SPIRONOLACTONE 25 MG TABLET PO SCH ×2 (09:47→17:44)
[2020-06-07] MEDS: SITAGLIPTIN PHOSPHATE 50 MG TABLET PO SCH (09:47)
[2020-06-07] MEDS: METOPROLOL SUCCINATE 50 MG TAB.SR.24H PO SCH (09:47)
[2020-06-07] MEDS: HUM INSULIN NPH/REG INSULIN HM 100 UNIT/1 ML 3 ML SUBCUT SCH (09:49)
[2020-06-07] MEDS: PANTOPRAZOLE SODIUM 20 MG TABLET.DR PO SCH ×2 (09:49→17:44)
[2020-06-07] MEDS: SACUBITRIL/VALSARTAN 49 MG/51 MG TABLET PO SCH ×2 (09:50→17:43)
[2020-06-07] MEDS: FUROSEMIDE INJ/PF 40 MG/4 ML SDV IV SCH ×2 (09:51→21:26)
[2020-06-07] MEDS ORDERED: ERGOCALCIFEROL (VITAMIN D2) 50000 UNIT (1.25 MG) CAPSULE PO SCH (10:00)
--- NOTE | 2020-06-07 19:47 | Progress Note ---
Provider Note Provider Note: CARDIOLOGY PROGRESS NOTE by Dr. Norma Pena on 06/07/2020. Subjective: No further syncopal episodes. There is no arrhythmias on the monitor. There is no firing of his LifeVest. The patient's gait is still unsteady and the patient being transferred to rehab center. In view of this we will get a repeat echocardiogram today to assess the patient's LV ejection fraction. This for reasons mentioned below. He denies any chest pain or discomfort. There is no PND orthopnea or shortness of breath. The patient had an MRI of his brain and this showed no acute intracranial process. PHYSICAL EXAMINATION: The patient mildly obese in no acute distress. Selected Entries 06/07/20 15:38 Temperature 97.7 F Temperature Oral Source Pulse Rate 66 Respiratory 18 Rate Blood Pressure 129/91 H Blood Pressure 103 Mean BP Location Left Arm BP Position Supine O2 Sat by Pulse 97 Oximetry Oxygen Delivery Room Air Method Head: Is atraumatic and normocephalic. EYES: Pupils are equal round regular reactive to light and accommodation. Extraocular movements are normal. There is no conjunctival pallor. There is no scleral icterus. EARS: Tympanic membranes are intact. External auditory canals are clear. NOSE: There is no deviated nasal septum. There is no inflammation of the nasal mucous membrane. MOUTH: Mucous membranes of mouth are moist. Tongue is moist. There is no ulcers. There is no bleeding from the gums. THROAT: There is no redness of the oropharynx. There is no exudates. SKIN: There is no skin rashes. There is no petechia or ecchymosis. There is no skin lesions. NECK: Supple. There is JVD present. Hepatojugular reflux is positive. There is no lymphadenopathy. Carotids are equal there is no bruits. There is no goiter. There is no accessory muscles of respiration use. Trachea is central. LUNGS: There is diminished air entry prolonged expiration. There is no rhonchi or wheezing. There is bibasilar rales of CHF. HEART S1-S2 is heard. There is no S3 gallop. There is no S4 gallop. There is systolic murmur of mitral regurgitation and tricuspid regurgitation present. There is no rub. ABDOMEN: Is obese. There is hepatomegaly. There is no splenomegaly. Bowel sounds are well heard. There is hepatojugular reflux present. There is no tender areas of masses. There is no rebound guarding or rigidity. EXTREMITIES: Femorals are diminished. Leg pulses difficult to palpate. There is 2- edema bilaterally. There is no DVT cellulitis. There is no calf tenderness. CROWN PRESSER: The patient is conscious awake alert oriented x3 with no focal deficits. PSYCHIATRIC: The patient judgment insight intact his affect is normal. Head CT 06/02/20 17:51 IMPRESSION: NO ACUTE INTRACRANIAL FINDINGS. EVIDENCE OF ACUTE STROKE: NO. Chest X-Ray 06/02/20 17:54 IMPRESSION: NO ACUTE FINDINGS. Head MRI 06/06/20 00:00 IMPRESSION: No acute intracranial abnormality copyright 2011 [employer]- All Rights Reserved Labs- All tests 24 hr 06/07/20 06/07/20 06/07/20 02:25 05:45 07:23 WBC RBC Hgb Hct MCV MCH MCHC RDW Plt Count Lymph % (Auto) [place] % (Auto) Eos % (Auto) Baso % (Auto) Absolute Neuts (auto) Absolute Lymphs (auto) Absolute Monos (auto) Absolute Eos (auto) Absolute Basos (auto) Seg Neutrophils % Sodium Potassium Chloride Carbon Dioxide Anion Gap BUN Creatinine Est GFR ( Amer) Est GFR (MDRD) Non-Af Glucose POC Glucose 109 149 H 117 H Calcium Total Bilirubin Direct Bilirubin Neonat Total Bilirubin Neonat Direct Bilirubin Neonat Indirect Bili AST ALT Alkaline Phosphatase Total Protein Albumin 06/07/20 06/07/20 06/07/20 08:41 08:41 10:51 WBC 5.3 RBC 4.81 Hgb 13.5 Hct 41.2 MCV 86 MCH 28.1 MCHC 32.8 RDW 17.3 H Plt Count 243 Lymph % (Auto) 21.9 [place] % (Auto) 12.9 Eos % (Auto) 3.0 Baso % (Auto) 0.9 Absolute Neuts (auto) 3.2 Absolute Lymphs (auto) 1.2 Absolute Monos (auto) 0.7 Absolute Eos (auto) 0.2 Absolute Basos (auto) 0.0 Seg Neutrophils % 61.3 Sodium 136.2 L Potassium 4.9 Chloride 99 Carbon Dioxide 29 Anion Gap 8 BUN 43 H Creatinine 2.33 H Est GFR ( Amer) 35 L Est GFR (MDRD) Non-Af 29 L Glucose 117 H POC Glucose 152 H Calcium 8.6 Total Bilirubin 1.3 Direct Bilirubin 0.1 Neonat Total Bilirubin Not Reportable Neonat Direct Bilirubin Not Reportable Neonat Indirect Bili Not Reportable AST 27 ALT 32 Alkaline Phosphatase 95 Total Protein 6.7 Albumin 3.4 L 06/07/20 06/07/20 15:37 21:58 WBC RBC Hgb Hct MCV MCH MCHC RDW Plt Count Lymph % (Auto) [place] % (Auto) Eos % (Auto) Baso % (Auto) Absolute Neuts (auto) Absolute Lymphs (auto) Absolute Monos (auto) Absolute Eos (auto) Absolute Basos (auto) Seg Neutrophils % Sodium Potassium Chloride Carbon Dioxide Anion Gap BUN Creatinine Est GFR ( Amer) Est GFR (MDRD) Non-Af Glucose POC Glucose 71 55 L Calcium Total Bilirubin Direct Bilirubin Neonat Total Bilirubin Neonat Direct Bilirubin Neonat Indirect Bili AST ALT Alkaline Phosphatase Total Protein Albumin IMPRESSION/RECOMMENDATION: 1 .. Syncope: The patient got up today and became dizzy although no francisca syncope. Hence the other possibility is that the syncope may be related to his blood pressure. There was no arrhythmias seen. Will lower the patient's dosages of medications. Patient is now wearing LifeVest . Will recheck the patient's echocardiogram I will check with EP cardiology about an AICD placement. The patient now is wearing the LifeVest after my discussions with him. I have encouraged the patient to continue to wear the LifeVest until the issue of AICD need is pursued. 2. Chronic right ventricular systolic heart failure secondary to left heart failure and pulmonary hypertension. 3. 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 The patient being transferred to rehab facility, will repeat the patient's echocardiogram today. If LV ejection fraction is 35% or below then the patient will be recommended recommended to have a AICD placement refer with EP cardiology. 4. Severe tricuspid regurgitation. 5. At least moderate pulmonary hypertension. I suspect apparent pulmonary hypertension is much higher than what is recorded by calculation. This is due to my suspicions at this underestimation of the tricuspid regurgitation jet velocity. We will try to reinterrogate the tricuspid valve for this. Would add amlodipine and nitrates. 6. Hypertension: Blood pressure not optimally controlled. The patient cannot withstand the addition of beta-rito Entresto, amlodipine and nitrates. 7. 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 We will continue the patient on aspirin and add nitrates. Continue beta-rito. 8. Diabetes mellitus type 2: Continue antidiabetic treatment and Accu-Cheks as per protocol. 9 . Chronic kidney disease stage III. 10. COPD: This seems to be stable with no acute exacerbation. 11. Ongoing tobacco abuse: Patient counseled to stop smoking and tobacco cessation counseling given. 3 minutes spent on this.. Medications reviewed. Medical decision making hours of moderate complexity. Medical regimen and management plan discussed with Dr. Naranjo. 40 minutes spent as patient more than 50% time spent direct patient care. Will follow.
--- NOTE | 2020-06-07 19:47 | PDOC PROGRESS REPORT ---
Subjective Progress Note for:: 06/07/20 Subjective:: Patient seen by the bedside MRI brain negative, discharge planning making arrangement for transfer to [facility] Reason For Visit: HEART FAILURE Physical Exam Vital Signs: Temp Pulse Resp BP Pulse Ox 97.7 F 66 18 129/91 H 97 06/07/20 15:38 06/07/20 15:38 06/07/20 15:38 06/07/20 15:38 06/07/20 15:38 Intake & Output 06/06/20 06/07/20 06/08/20 06:59 06:59 06:59 Intake Total 1720 880 840 Output Total 200 1525 1000 Balance 1520 -645 -160 Weight 89.6 kg 87.4 kg General appearance: PRESENT: no acute distress Eye exam: PRESENT: PERRLA Respiratory exam: PRESENT: clear to auscultation anu Cardiovascular exam: PRESENT: +S1, +S2 Murmur grade: 3 GI/Abdominal exam: PRESENT: soft Neurological exam: PRESENT: alert, CN II-XII grossly intact Results Laboratory Results: 06/07/20 08:41 06/07/20 08:41 06/07/20 06/07/20 08:41 08:41 WBC 5.3 RBC 4.81 Hgb 13.5 Hct 41.2 MCV 86 MCH 28.1 MCHC 32.8 RDW 17.3 H Plt Count 243 Seg Neutrophils % 61.3 Sodium 136.2 L Potassium 4.9 Chloride 99 Carbon Dioxide 29 Anion Gap 8 BUN 43 H Creatinine 2.33 H Est GFR ( Amer) 35 L Glucose 117 H Calcium 8.6 Total Bilirubin 1.3 AST 27 Alkaline Phosphatase 95 Total Protein 6.7 Albumin 3.4 L 06/02/20 06/02/20 06/02/20 17:47 21:53 21:53 Creatine Kinase 234 H CK-MB (CK-2) 4.46 Troponin I 0.051 0.056 NT-Pro-B Natriuret Pep 8940 H 06/03/20 06/03/20 06/03/20 04:15 04:15 09:59 Creatine Kinase 242 H 215 H CK-MB (CK-2) 5.72 H Troponin I 0.089 NT-Pro-B Natriuret Pep 06/03/20 09:59 Creatine Kinase CK-MB (CK-2) 6.20 H Troponin I 0.269 NT-Pro-B Natriuret Pep Impressions: Head CT 06/02/20 17:51 IMPRESSION: NO ACUTE INTRACRANIAL FINDINGS. EVIDENCE OF ACUTE STROKE: NO. Chest X-Ray 06/02/20 17:54 IMPRESSION: NO ACUTE FINDINGS. Head MRI 06/06/20 00:00 IMPRESSION: No acute intracranial abnormality copyright 2010 [employer]- All Rights Reserved Assessment & Plan - Diagnosis (1) Syncope Qualifiers: Syncope type: unspecified Qualified Code(s): R55 - Syncope and collapse Is this a current diagnosis for this admission?: Yes (2) Acute on chronic combined systolic (congestive) and diastolic (congestive) heart failure Is this a current diagnosis for this admission?: Yes (3) Chronic kidney disease, stage 3 (moderate) Is this a current diagnosis for this admission?: Yes (4) T2DM (type 2 diabetes mellitus) Qualifiers: Diabetes mellitus ship's pilot insulin use: with ship's pilot use Diabetes mellitus complication status: with neurologic complications Diabetes mellitus complication detail: with polyneuropathy Qualified Code(s): E11.42 - Type 2 diabetes mellitus with diabetic polyneuropathy; Z79.4 - alf (current) use of insulin Is this a current diagnosis for this admission?: Yes (5) Repeated falls Is this a current diagnosis for this admission?: Yes - Time Time Spent with patient: 15-24 minutes Level of Care: IMCU Anticipated discharge: SNF Anticipated DC Timeframe: when bed available
[2020-06-08] MEDS: HEPARIN SOD (PORCINE) 5,000 UNIT/ML 1 ML VIAL SUBCUT SCH ×3 (05:18→22:52)
[2020-06-08] MEDS: HYDRALAZINE HCL 25 MG TABLET PO SCH ×3 (05:21→22:50)
[2020-06-08] MEDS: SITAGLIPTIN PHOSPHATE 50 MG TABLET PO SCH (10:20)
[2020-06-08] MEDS: METOPROLOL SUCCINATE 50 MG TAB.SR.24H PO SCH (10:20)
[2020-06-08] MEDS: ISOSORBIDE MONONITRATE 30 MG TAB.ER.24H PO SCH (10:20)
[2020-06-08] MEDS: ASPIRIN 81 MG TABLET, CHEWABLE PO SCH (10:21)
[2020-06-08] MEDS: PANTOPRAZOLE SODIUM 20 MG TABLET.DR PO SCH ×2 (10:21→18:07)
[2020-06-08] MEDS: SPIRONOLACTONE 25 MG TABLET PO SCH ×2 (10:21→18:07)
[2020-06-08] MEDS: SACUBITRIL/VALSARTAN 49 MG/51 MG TABLET PO SCH ×2 (10:22→18:07)
--- NOTE | 2020-06-08 12:45 | XCELERA REPORT ---
[address] [address] Transthoracic Echocardiogram Report Name: JUICE GRAHAM Age: 59 yrs Gender: Male : 1960 Patient Status: Inpatient Patient Location: [address] [place] [address] Study Date: 06/08/2020 10:19 AM Height: 64 in Weight: 192 lb BSA: 1.9 m2 Procedure: A two-dimensional transthoracic echocardiogram with color flow and Doppler was performed. Study Quality: Fair. Reason For Study: Cardiomyopathy History: Cardiomyopathy. Ordering Physician: NORMA ARIAS Performed By: Benson Aj Interpretation Summary The left ventricle is moderately dilated. There is normal left ventricular wall thickness. LV EF is 15% to 20% Left ventricular systolic function is severely reduced. : By tissue doppler . There is severe global hypokinesis of the left ventricle. There is no thrombus. No ASD,VSD , or PFO seen. The right ventricle is not well visualized secondary to technical limitations Suspect mild to moderate RV enlargement. The right atrium is mildly dilated. The left atrium is mildly dilated. There is no evidence of mitral valve prolapse. There is no vegetation seen on the mitral valve. There is a mild amount of mitral regurgitation There is no aortic valvular vegetation. There is no aortic valve stenosis There is no LVOT obstruction. There is no tricuspid stenosis. There is moderate pulmonary hypertension by echo RVSP is 53 to 58 mm of Hg , with RA mean of 15 to 20. There is no pulmonic valvular stenosis. There is a trace amount of pulmonic regurgitation The aortic root is normal size. The inferior vena cava appeared dilated and decreased < 50% with respiration (RAP 15-20 mmHg) There is no pericardial effusion. MMode/2D Measurements & Calculations RVDd: 4.5 cm LVIDd: 5.3 cm FS: 9.5 % Ao root diam: 3.0 cm IVSd: 1.4 cm LVIDs: 4.8 cm EDV(Teich): Ao root area: LVPWd: 0.86 cm 136.8 ml 7.1 cm2 ESV(Teich): LA dimension: 4.4 cm 108.6 ml EF(Teich): 20.6 % LVOT diam: 1.9 cmLVLd ap4: 9.9 cm SV(MOD-sp4): LVOT area: EDV(MOD-sp4): 40.0 ml 179.0 ml 3.0 cm2 LVLs ap4: 9.3 cm ESV(MOD-sp4): 139.0 ml EF(MOD-sp4): 22.3 % Doppler Measurements & Calculations MV E max niko: MV P1/2t max niko: Ao V2 max: LV V1 max P.4 cm/sec 97.7 cm/sec 86.4 cm/sec 0.88 mmHg MV A max niko: MV P1/2t: 72.4 msec Ao max PG: LV V1 max: 57.7 cm/sec MVA(P1/2t): 3.0 cm2 3.0 mmHg 46.9 cm/sec MV E/A: 1.4 MV dec slope: KP(V,D): 1.6 cm2 LV dP/dt: 395.2 cm/sec2 909.0 mmHg/s MV dec time: 0.26 sec PA V2 max: PI end-d niko: TR max niko: MV P1/2t-pr_phl: 37.9 cm/sec 147.7 cm/sec 311.3 cm/sec 72.4 msec PA max PG: TR max P.57 mmHg 38.8 mmHg Left Ventricle The left ventricle is moderately dilated. There is normal left ventricular wall thickness. LV EF is 15% to 20%. Left ventricular systolic function is severely reduced. Doppler measurements suggest impaired left ventricular relaxation, which is associated with grade I/IV or mild diastolic dysfunction. : By tissue doppler . There is severe global hypokinesis of the left ventricle. There is no thrombus. No ASD,VSD , or PFO seen. Right Ventricle The right ventricle is not well visualized secondary to technical limitations. Suspect mild to moderate RV enlargement. Atria The right atrium is mildly dilated. The left atrium is mildly dilated. Mitral Valve There is no evidence of mitral valve prolapse. There is no vegetation seen on the mitral valve. There is no mitral valve stenosis. There is a mild amount of mitral regurgitation. Aortic Valve There is no aortic valvular vegetation. There is no aortic valve stenosis. There is no LVOT obstruction. No aortic regurgitation is present. Tricuspid Valve There is no tricuspid stenosis. There is a moderate to severe amount of tricuspid regurgitation. There is moderate pulmonary hypertension by echo. RVSP is 53 to 58 mm of Hg , with RA mean of 15 to 20. Pulmonic Valve There is no pulmonic valvular stenosis. There is a trace amount of pulmonic regurgitation. Great Vessels The aortic root is normal size. The inferior vena cava appeared dilated and decreased < 50% with respiration (RAP 15-20 mmHg). Effusions There is no pericardial effusion. : NORMA ARIAS Lakshmi
[2020-06-08] MEDS: HUM INSULIN NPH/REG INSULIN HM 100 UNIT/1 ML 3 ML SUBCUT SCH (13:03)
[2020-06-08] MEDS: FUROSEMIDE INJ/PF 40 MG/4 ML SDV IV SCH ×2 (14:08→22:52)
[2020-06-08] MEDS: ACETAMINOPHEN 325 MG TABLET PO PRN (19:38)
--- NOTE | 2020-06-08 19:43 | Progress Note ---
Provider Note Provider Note: CARDIOLOGY PROGRESS NOTE by Dr. Norma Pena on 06/08/2020. SUBJECTIVE: The patient denies any chest pain or discomfort. There is no shortness of breath. There is no recurrence of syncope. There is no arrhythmias seen on the monitor. He has no anginal symptoms. There is no leg edema. Note the patient states he was able to walk around in the room with a walker without problems. The patient's echocardiogram done today showed severely reduced LV ejection fraction with at least moderate pulmonary hypert ension. Hence the patient's LV ejection fraction is, since it has not improved, makes it necessary for the patient to be referred for AICD placement. Will discuss with EP edge trimming machine operator in [place]. Will make arrangements for the patient to be transferred to [place]. We will cancel the plan to transfer the patient to rehab. There is no firing of his "LifeVest". Physical EXAMINATION: The patient is mildly obese in no acute distress. Selected Entries 06/08/20 11:55 Temperature 98.0 F Temperature Oral Source Pulse Rate 77 Respiratory 18 Rate Blood Pressure 140/99 H Blood Pressure 112 Mean BP Location Left Arm BP Position Supine O2 Sat by Pulse 96 Oximetry Oxygen Delivery Room Air Method Head: Is atraumatic and normocephalic. EYES: Pupils are equal round regular reactive to light and accommodation. Extraocular movements are normal. There is no conjunctival pallor. There is no scleral icterus. EARS: Tympanic membranes are intact. External auditory canals are clear. NOSE: There is no deviated nasal septum. There is no inflammation of the nasal mucous membrane. MOUTH: Mucous membranes of mouth are moist. Tongue is moist. There is no ulcers. There is no bleeding from the gums. THROAT: There is no redness of the oropharynx. There is no exudates. SKIN: There is no skin rashes. There is no petechia or ecchymosis. There is no skin lesions. NECK: Supple. There is JVD present. Hepatojugular reflux is positive. There is no lymphadenopathy. Carotids are equal there is no bruits. There is no goiter. There is no accessory muscles of respiration use. Trachea is central. LUNGS: There is diminished air entry prolonged expiration. There is no rhonchi or wheezing. There is bibasilar rales of CHF. HEART S1-S2 is heard. There is no S3 gallop. There is no S4 gallop. There is systolic murmur of mitral regurgitation and tricuspid regurgitation present. There is no rub. ABDOMEN: Is obese. There is hepatomegaly. There is no splenomegaly. Bowel sounds are well heard. There is hepatojugular reflux present. There is no tender areas of masses. There is no rebound guarding or rigidity. EXTREMITIES: Femorals are diminished. Leg pulses difficult to palpate. There is 2- edema bilaterally. There is no DVT cellulitis. There is no calf tenderness. POLICY LOAN CALCULATOR: The patient is conscious awake alert oriented x3 with no focal deficits. PSYCHIATRIC: The patient judgment insight intact his affect is normal. ECHOCARDIOGRAM shows LV dilated. LV ejection fraction is severely reduced. There is moderate pulmonary hypertension. Please refer to the report. Labs- All tests 24 hr 06/08/20 06/08/20 06/08/20 01:13 01:52 03:23 POC Glucose 80 87 119 H 06/08/20 06/08/20 06/08/20 08:25 11:56 16:15 POC Glucose 113 H 138 H 229 H 06/08/20 21:13 POC Glucose [address] 06/02/20 17:51 IMPRESSION: NO ACUTE INTRACRANIAL FINDINGS. EVIDENCE OF ACUTE STROKE: NO. Chest X-Ray 06/02/20 17:54 IMPRESSION: NO ACUTE FINDINGS. Head MRI 06/06/20 00:00 IMPRESSION: No acute intracranial abnormality copyright 2011 [employer]- All Rights Reserved IMPRESSION/RECOMMENDATION: 1 .. Syncope: The patient got up today and became dizzy although no francisca syncope. Hence the other possibility is that the syncope may be related to his blood pressure. There was no arrhythmias seen. Will lower the patient's dosages of medications. Patient is now wearing LifeVest . Will recheck the patient's echocardiogram I will check with EP cardiology about an AICD placement. The patient now is wearing the LifeVest after my discussions with him. I have encouraged the patient to continue to wear the LifeVest until the issue of AICD need is pursued. 2. Chronic right ventricular systolic heart failure secondary to left heart failure and pulmonary hypertension. 3. 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 The patient's repeat echo today shows LV ejection fraction being severely reduced and has not improved. Hence patient will be referred for AICD placement. The patient requests inpatient transfer. Will wait for COVID19 test to come back and then transfer the patient to [facility] for AICD placement. Will cancel the transfer to rehab center. 4. Severe tricuspid regurgitation. 5. At least moderate pulmonary hypertension. I suspect apparent pulmonary hypertension is much higher than what is recorded by calculation. This is due to my suspicions at this underestimation of the tricuspid regurgitation jet velocity. We will try to reinterrogate the tricuspid valve for this. Would add amlodipine and nitrates. 6. Hypertension: Blood pressure not optimally controlled. The patient cannot withstand the addition of beta-rito Entresto, amlodipine and nitrates. 7. 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 We will continue the patient on aspirin and add nitrates. Continue beta-rito. 8. Diabetes mellitus type 2: Continue antidiabetic treatment and Accu-Cheks as per protocol. 9 . Chronic kidney disease stage III. 10. COPD: This seems to be stable with no acute exacerbation. 11. Ongoing tobacco abuse: Patient counseled to stop smoking . Echo findings and plan to transfer the patient to [place] for possible AICD placement discussed with the patient. He is agreeable. Medications reviewed. All current medication the patient's blood pressure remained stable. He has no further falls. Medical decision making is of high complexity. 40 minutes spent as patient more than 50% time spent in direct patient care. Will follow
--- NOTE | 2020-06-08 20:54 | PDOC PROGRESS REPORT ---
Subjective Progress Note for:: 06/08/20 Subjective:: Patient seen by the bedside, the ejection fraction of left ventricle about 15% presently have a LifeVest, the plan is to transfer to [place] for AICD once COVID TEST is negative Reason For Visit: HEART FAILURE Physical Exam Vital Signs: Temp Pulse Resp BP Pulse Ox 97.4 F 77 18 139/89 H 95 06/08/20 19:20 06/08/20 19:20 06/08/20 19:20 06/08/20 19:20 06/08/20 19:20 Intake & Output 06/07/20 06/08/20 06/09/20 06:59 06:59 06:59 Intake Total 880 1590 1202 Output Total 1525 2550 200 Balance -645 -960 1002 Weight 87.4 kg 87.4 kg General appearance: PRESENT: no acute distress Eye exam: PRESENT: PERRLA Respiratory exam: PRESENT: clear to auscultation anu Cardiovascular exam: PRESENT: +S1, +S2 Murmur grade: 3 GI/Abdominal exam: PRESENT: soft Neurological exam: PRESENT: alert, CN II-XII grossly intact Results Laboratory Results: 06/07/20 08:41 06/07/20 08:41 06/02/20 06/02/20 06/02/20 17:47 21:53 21:53 Creatine Kinase 234 H CK-MB (CK-2) 4.46 Troponin I 0.051 0.056 NT-Pro-B Natriuret Pep 8940 H 06/03/20 06/03/20 06/03/20 04:15 04:15 09:59 Creatine Kinase 242 H 215 H CK-MB (CK-2) 5.72 H Troponin I 0.089 NT-Pro-B Natriuret Pep 06/03/20 09:59 Creatine Kinase CK-MB (CK-2) 6.20 H Troponin I 0.269 NT-Pro-B Natriuret Pep Impressions: Head CT 06/02/20 17:51 IMPRESSION: NO ACUTE INTRACRANIAL FINDINGS. EVIDENCE OF ACUTE STROKE: NO. Chest X-Ray 06/02/20 17:54 IMPRESSION: NO ACUTE FINDINGS. Head MRI 06/06/20 00:00 IMPRESSION: No acute intracranial abnormality copyright 2011 [employer]- All Rights Reserved Assessment & Plan - Diagnosis (1) Syncope Qualifiers: Syncope type: unspecified Qualified Code(s): R55 - Syncope and collapse Is this a current diagnosis for this admission?: Yes (2) Acute on chronic combined systolic (congestive) and diastolic (congestive) heart failure Is this a current diagnosis for this admission?: Yes (3) Chronic kidney disease, stage 3 (moderate) Is this a current diagnosis for this admission?: Yes (4) T2DM (type 2 diabetes mellitus) Qualifiers: Diabetes mellitus residential insulin use: with long term care administrator use Diabetes mellitus complication status: with neurologic complications Diabetes mellitus complication detail: with polyneuropathy Qualified Code(s): E11.42 - Type 2 diabetes mellitus with diabetic polyneuropathy; Z79.4 - shelter (current) use of insulin Is this a current diagnosis for this admission?: Yes (5) Repeated falls Is this a current diagnosis for this admission?: Yes - Time Time Spent with patient: 25-34 minutes Level of Care: IMCU Medications reviewed and adjusted accordingly: Yes Anticipated discharge: [facility] Anticipated DC Timeframe: within 48 hours
[2020-06-09 05:05] LABS: ABSOLUTE EOSINOPHILS # (AUTO) 0.2 10^3/uL (0.0-0.6); ABSOLUTE LYMPHOCYTES (AUTO) 1.2 10^3/uL (0.5-4.7); ABSOLUTE MONOCYTES (AUTO) 0.8 10^3/uL (0.1-1.4); ABSOLUTE NEUT (AUTO) 2.8 10^3/uL (1.7-8.2); BASOPHILS % (AUTO) 0.8 % (0-2); EOSINOPHILS % (AUTO) 3.8 % (0-6); HEMATOCRIT 38.1 % (37.9-51.0); HEMOGLOBIN 12.3 g/dL (13.5-17.0); LYMPHOCYTES % (AUTO) 23.9 % (13-45); MEAN CORPUSCULAR HEMOGLOBIN 28.1 pg (27.0-33.4); MEAN CORPUSCULAR HGB CONC 32.3 g/dL (32.0-36.0); MEAN CORPUSCULAR VOLUME 87 fl (80-97); MONOCYTES % (AUTO) 15.7 % (3-13); PLATELET COUNT 216 10^3/uL (150-450); RED BLOOD COUNT 4.39 10^6/uL (4.35-5.55); RED CELL DISTRIBUTION WIDTH 17.7 % (11.5-14.0); SEGMENTED NEUTROPHILS % (AUTO) 55.8 % (42-78); TOTAL CELLS COUNTED % (AUTO) 100 %
[2020-06-09] MEDS: HYDRALAZINE HCL 25 MG TABLET PO SCH ×3 (05:23→21:44)
[2020-06-09] MEDS: HEPARIN SOD (PORCINE) 5,000 UNIT/ML 1 ML VIAL SUBCUT SCH ×3 (05:23→21:42)
[2020-06-09 05:32] LABS: ANION GAP 10 (5-19); BLOOD UREA NITROGEN 34 mg/dL (7-20); CALCIUM 8.7 mg/dL (8.4-10.2); CARBON DIOXIDE 27 mmol/L (22-30); CHLORIDE 99 mmol/L (98-107); GLUCOSE 188 mg/dL (75-110); POTASSIUM 4.8 mmol/L (3.6-5.0)
[2020-06-09] MEDS: SITAGLIPTIN PHOSPHATE 50 MG TABLET PO SCH (10:30)
[2020-06-09] MEDS: METOPROLOL SUCCINATE 50 MG TAB.SR.24H PO SCH (10:30)
[2020-06-09] MEDS: SACUBITRIL/VALSARTAN 49 MG/51 MG TABLET PO SCH ×2 (10:30→18:06)
[2020-06-09] MEDS: ISOSORBIDE MONONITRATE 30 MG TAB.ER.24H PO SCH (10:31)
[2020-06-09] MEDS: SPIRONOLACTONE 25 MG TABLET PO SCH ×2 (10:32→18:06)
[2020-06-09] MEDS: ASPIRIN 81 MG TABLET, CHEWABLE PO SCH (10:33)
[2020-06-09] MEDS: PANTOPRAZOLE SODIUM 20 MG TABLET.DR PO SCH ×2 (10:33→18:06)
[2020-06-09] MEDS: HUM INSULIN NPH/REG INSULIN HM 100 UNIT/1 ML 3 ML SUBCUT SCH (10:34)
[2020-06-09] MEDS: ACETAMINOPHEN 325 MG TABLET PO PRN ×2 (10:35→21:42)
[2020-06-09] MEDS: FUROSEMIDE INJ/PF 40 MG/4 ML SDV IV SCH ×2 (10:45→21:42)
[2020-06-09] MEDS: INSULIN LISPRO 100 UNIT/ML 3 ML VIAL SUBCUT SCH ×3 (12:29→22:27)
--- NOTE | 2020-06-09 17:28 | PDOC PROGRESS REPORT ---
Subjective Progress Note for:: 06/09/20 Subjective:: Patient denied any chest pain or difficulty with breathing. No fever or chills. No nausea, vomiting, or abdominal pain. Tolerating oral feeding. Reason For Visit: HEART FAILURE Physical Exam Vital Signs: Temp Pulse Resp BP Pulse Ox 98.0 F 79 19 110/81 98 06/09/20 07:20 06/09/20 07:20 06/09/20 07:20 06/09/20 07:20 06/09/20 07:20 Intake & Output 06/08/20 06/09/20 06/10/20 06:59 06:59 06:59 Intake Total 1590 1462 Output Total 2550 1025 Balance -960 437 Weight 87.4 kg 84.3 kg General appearance: PRESENT: no acute distress, obese Head exam: PRESENT: atraumatic, normocephalic Mouth exam: PRESENT: moist Respiratory exam: PRESENT: clear to auscultation anu Cardiovascular exam: PRESENT: RRR, +S1, +S2. ABSENT: diastolic murmur, rubs, systolic murmur Murmur grade: 3 Vascular exam: ABSENT: pallor GI/Abdominal exam: PRESENT: normal bowel sounds, soft. ABSENT: distended, guarding, mass, organolmegaly, rebound, tenderness Extremities exam: ABSENT: pedal edema Neurological exam: PRESENT: alert, awake, oriented to person, oriented to place, oriented to time, oriented to situation, CN II-XII grossly intact. ABSENT: motor sensory deficit Psychiatric exam: PRESENT: appropriate affect, normal mood. ABSENT: homicidal ideation, suicidal ideation Skin exam: PRESENT: dry, warm Results Laboratory Results: 06/09/20 04:30 06/09/20 04:45 06/09/20 06/09/20 04:30 04:45 WBC 5.0 RBC 4.39 Hgb 12.3 L Hct 38.1 MCV 87 MCH 28.1 MCHC 32.3 RDW 17.7 H Plt Count 216 Seg Neutrophils % 55.8 Sodium 136.3 L Potassium 4.8 Chloride 99 Carbon Dioxide 27 Anion Gap 10 BUN 34 H Creatinine 1.86 H Est GFR ( Amer) 45 L Glucose 188 H Calcium 8.7 06/02/20 06/02/20 06/02/20 17:47 21:53 21:53 Creatine Kinase 234 H CK-MB (CK-2) 4.46 Troponin I 0.051 0.056 NT-Pro-B Natriuret Pep 8940 H 06/03/20 06/03/20 06/03/20 04:15 04:15 09:59 Creatine Kinase 242 H 215 H CK-MB (CK-2) 5.72 H Troponin I 0.089 NT-Pro-B Natriuret Pep 06/03/20 09:59 Creatine Kinase CK-MB (CK-2) 6.20 H Troponin I 0.269 NT-Pro-B Natriuret Pep Impressions: Head CT 06/02/20 17:51 IMPRESSION: NO ACUTE INTRACRANIAL FINDINGS. EVIDENCE OF ACUTE STROKE: NO. Chest X-Ray 06/02/20 17:54 IMPRESSION: NO ACUTE FINDINGS. Head MRI 06/06/20 00:00 IMPRESSION: No acute intracranial abnormality copyright 2010 [employer]- All Rights Reserved Assessment & Plan - Diagnosis (1) Syncope and collapse Is this a current diagnosis for this admission?: Yes Plan: Continue current support therapy. (2) Acute on chronic combined systolic (congestive) and diastolic (congestive) heart failure Is this a current diagnosis for this admission?: Yes Plan: Maintain on current medication management. Awaiting transfer to [facility] for AICD placement. (3) Diabetes mellitus type 2 in obese Is this a current diagnosis for this admission?: Yes Plan: Continue current medication management. (4) Chronic kidney disease, stage 3 (moderate) Is this a current diagnosis for this admission?: Yes Plan: Maintain on current medication management. (5) Repeated falls Is this a current diagnosis for this admission?: Yes Plan: Continue current supportive management and fall preventions. - Time Time Spent with patient: 25-34 minutes Level of Care: IMCU Medications reviewed and adjusted accordingly: Yes Anticipated discharge: [facility] Anticipated DC Timeframe: within 72 hours - Inpatient Certification Based on my medical assessment, after consideration of the patient's comorbidities, presenting symptoms, or acuity I expect that the services needed warrant INPATIENT care.: Yes I certify that my determination is in accordance with my understanding of Medicare's requirements for reasonable and necessary INPATIENT services [42 CFR 412.3e].: Yes Medical Necessity: Significant Comorbidiites Make Outpatient Treatment Too Risky, Need Close Monitoring Due to Risk of Patient Decompensation, Need For Continuous Telemetry Monitoring, Risk of Complication if Not Cared For in Hospital, Risk of Diagnosis Which Will Require Inpatient Eval/Care/Monitoring Post Hospital Care: D/C or Transfer Summary - Plan Summary Plan Summary: Start on Humalog insulin sliding scale coverage achs. Continue all other current medication management.
[2020-06-10] MEDS: HEPARIN SOD (PORCINE) 5,000 UNIT/ML 1 ML VIAL SUBCUT SCH ×2 (06:27→14:37)
[2020-06-10] MEDS: HYDRALAZINE HCL 25 MG TABLET PO SCH ×2 (06:27→14:36)
[2020-06-10] MEDS: INSULIN LISPRO 100 UNIT/ML 3 ML VIAL SUBCUT SCH ×2 (08:30→12:45)
[2020-06-10] MEDS: SPIRONOLACTONE 25 MG TABLET PO SCH (09:52)
[2020-06-10] MEDS: METOPROLOL SUCCINATE 50 MG TAB.SR.24H PO SCH (09:52)
[2020-06-10] MEDS: ISOSORBIDE MONONITRATE 30 MG TAB.ER.24H PO SCH (09:52)
[2020-06-10] MEDS: ASPIRIN 81 MG TABLET, CHEWABLE PO SCH (09:52)
[2020-06-10] MEDS: SACUBITRIL/VALSARTAN 49 MG/51 MG TABLET PO SCH (09:52)
[2020-06-10] MEDS: FUROSEMIDE INJ/PF 40 MG/4 ML SDV IV SCH (09:52)
[2020-06-10] MEDS: SITAGLIPTIN PHOSPHATE 50 MG TABLET PO SCH (09:52)
[2020-06-10] MEDS: PANTOPRAZOLE SODIUM 20 MG TABLET.DR PO SCH (09:52)
[2020-06-10] MEDS: HUM INSULIN NPH/REG INSULIN HM 100 UNIT/1 ML 3 ML SUBCUT SCH (09:52)
[2020-06-10 12:46] VITALS: BP 143/93
--- NOTE | 2020-06-10 13:18 | Progress Note ---
Provider Note Provider Note: CARDIOLOGY PROGRESS NOTE by Dr. Norma Pena on 06/10/2020. SUBJECTIVE: No further episodes of syncope. There is no firing of his LifeVest. There is no atrioventricular arrhythmias seen. The patient has no chest pain or discomfort. There is no PND orthopnea or leg edema. He denies any palpitations. There is no dizziness near syncope syncope. His gait is improved. He has no anginal symptoms. PHYSICAL EXAMINATION: The patient is mildly obese. In no acute distress. Selected Entries 06/10/20 11:40 Temperature 97.9 F Temperature Oral Source Pulse Rate 82 Respiratory 15 Rate Blood Pressure 143/93 H Blood Pressure 109 Mean BP Location Right Arm BP Position Sitting O2 Sat by Pulse 96 Oximetry Oxygen Delivery Room Air Method Head: Is atraumatic and normocephalic. EYES: Pupils are equal round regular reactive to light and accommodation. Extraocular movements are normal. There is no conjunctival pallor. There is no scleral icterus. EARS: Tympanic membranes are intact. External auditory canals are clear. NOSE: There is no deviated nasal septum. There is no inflammation of the nasal mucous membrane. MOUTH: Mucous membranes of mouth are moist. Tongue is moist. There is no ulcers. There is no bleeding from the gums. THROAT: There is no redness of the oropharynx. There is no exudates. SKIN: There is no skin rashes. There is no petechia or ecchymosis. There is no skin lesions. NECK: Supple. There is JVD present. Hepatojugular reflux is positive. There is no lymphadenopathy. Carotids are equal there is no bruits. There is no goiter. There is no accessory muscles of respiration use. Trachea is central. LUNGS: There is diminished air entry prolonged expiration. There is no rhonchi or wheezing. There is bibasilar rales of CHF. HEART S1-S2 is heard. There is no S3 gallop. There is no S4 gallop. There is systolic murmur of mitral regurgitation and tricuspid regurgitation present. There is no rub. ABDOMEN: Is obese. There is hepatomegaly. There is no splenomegaly. Bowel sounds are well heard. There is hepatojugular reflux present. There is no tender areas of masses. There is no rebound guarding or rigidity. EXTREMITIES: Femorals are diminished. Leg pulses difficult to palpate. There is 2- edema bilaterally. There is no DVT cellulitis. There is no calf tenderness. ACADEMIC TUTOR: The patient is conscious awake alert oriented x3 with no focal deficits. PSYCHIATRIC: The patient judgment insight intact his affect is normal. Labs- Entire Visit 06/02/20 06/02/20 06/02/20 17:47 17:47 17:47 WBC 6.0 RBC 4.85 Hgb 13.8 Hct 42.3 MCV 87 MCH 28.5 MCHC 32.6 RDW 17.8 H Plt Count 238 Lymph % (Auto) 18.0 [place] % (Auto) 10.7 Eos % (Auto) 1.5 Baso % (Auto) 0.7 Reticulocyte # Absolute Neuts (auto) 4.1 Absolute Lymphs (auto) 1.1 Absolute Monos (auto) 0.6 Absolute Eos (auto) 0.1 Absolute Basos (auto) 0.0 Seg Neutrophils % 69.1 Retic Count (auto) PT INR APTT Sodium 136.0 L Potassium 4.7 Chloride 100 Carbon Dioxide 29 Anion Gap 7 BUN 26 H Creatinine 2.12 H Est GFR ( Amer) 39 L Est GFR (MDRD) Non-Af 32 L Glucose 97 POC Glucose Hemoglobin A1c % Calcium 8.9 Phosphorus Magnesium Iron TIBC % Saturation Ferritin Total Bilirubin 1.7 H Direct Bilirubin 0.1 Neonat Total Bilirubin Not Reportable Neonat Direct Bilirubin Not Reportable Neonat Indirect Bili Not Reportable AST 28 ALT 16 Alkaline Phosphatase 77 Creatine Kinase CK-MB (CK-2) Troponin I 0.051 NT-Pro-B Natriuret Pep 8940 H Total Protein 6.9 Albumin 3.5 Triglycerides Cholesterol LDL Cholesterol Direct VLDL Cholesterol HDL Cholesterol Vitamin B12 Folate TSH Free T4 PTH Intact Urine Color Urine Appearance Urine pH Ur Specific [place] Urine Protein Urine Glucose (UA) Urine Ketones Urine Blood Urine Nitrite Urine Bilirubin Urine Urobilinogen Ur Leukocyte Esterase Urine WBC (Auto) Urine RBC (Auto) U Hyaline Cast (Auto) Urine Bacteria (Auto) Squamous Epi Cells Auto Urine Mucus (Auto) Urine Ascorbic Acid COVID-19 Source COVID-19 (CASI) 06/02/20 06/02/20 06/02/20 17:47 17:47 21:53 WBC RBC Hgb Hct MCV MCH MCHC RDW Plt Count Lymph % (Auto) [place] % (Auto) Eos % (Auto) Baso % (Auto) Reticulocyte # Absolute Neuts (auto) Absolute Lymphs (auto) Absolute Monos (auto) Absolute Eos (auto) Absolute Basos (auto) Seg Neutrophils % Retic Count (auto) PT 17.8 H INR 1.45 APTT 31.1 Sodium Potassium Chloride Carbon Dioxide Anion Gap BUN Creatinine Est GFR ( Amer) Est GFR (MDRD) Non-Af Glucose POC Glucose Hemoglobin A1c % Calcium Phosphorus Magnesium 2.3 Iron TIBC % Saturation Ferritin Total Bilirubin Direct Bilirubin Neonat Total Bilirubin Neonat Direct Bilirubin Neonat Indirect Bili AST ALT Alkaline Phosphatase Creatine Kinase CK-MB (CK-2) Troponin I NT-Pro-B Natriuret Pep Total Protein Albumin Triglycerides Cholesterol LDL Cholesterol Direct VLDL Cholesterol HDL Cholesterol Vitamin B12 Folate TSH 8.67 H Free T4 1.85 PTH Intact Urine Color Urine Appearance Urine pH Ur Specific [place] Urine Protein Urine Glucose (UA) Urine Ketones Urine Blood Urine Nitrite Urine Bilirubin Urine Urobilinogen Ur Leukocyte Esterase Urine WBC (Auto) Urine RBC (Auto) U Hyaline Cast (Auto) Urine Bacteria (Auto) Squamous Epi Cells Auto Urine Mucus (Auto) Urine Ascorbic Acid COVID-19 Source COVID-19 (CASI) 06/02/20 06/02/20 06/02/20 21:53 21:53 22:56 WBC RBC Hgb Hct MCV MCH MCHC RDW Plt Count Lymph % (Auto) [place] % (Auto) Eos % (Auto) Baso % (Auto) Reticulocyte # Absolute Neuts (auto) Absolute Lymphs (auto) Absolute Monos (auto) Absolute Eos (auto) Absolute Basos (auto) Seg Neutrophils % Retic Count (auto) PT INR APTT Sodium Potassium Chloride Carbon Dioxide Anion Gap BUN Creatinine Est GFR ( Amer) Est GFR (MDRD) Non-Af Glucose POC Glucose 56 L Hemoglobin A1c % Calcium Phosphorus Magnesium 2.4 H Iron TIBC % Saturation Ferritin Total Bilirubin Direct Bilirubin Neonat Total Bilirubin Neonat Direct Bilirubin Neonat Indirect Bili AST ALT Alkaline Phosphatase Creatine Kinase 234 H CK-MB (CK-2) 4.46 Troponin I 0.056 NT-Pro-B Natriuret Pep Total Protein Albumin Triglycerides Cholesterol LDL Cholesterol Direct VLDL Cholesterol HDL Cholesterol Vitamin B12 Folate TSH Free T4 PTH Intact Urine Color Urine Appearance Urine pH Ur Specific [place] Urine Protein Urine Glucose (UA) Urine Ketones Urine Blood Urine Nitrite Urine Bilirubin Urine Urobilinogen Ur Leukocyte Esterase Urine WBC (Auto) Urine RBC (Auto) U Hyaline Cast (Auto) Urine Bacteria (Auto) Squamous Epi Cells Auto Urine Mucus (Auto) Urine Ascorbic Acid COVID-19 Source COVID-19 (CASI) 06/02/20 06/02/20 06/03/20 23:20 23:44 00:41 WBC RBC Hgb Hct MCV MCH MCHC RDW Plt Count Lymph % (Auto) [place] % (Auto) Eos % (Auto) Baso % (Auto) Reticulocyte # Absolute Neuts (auto) Absolute Lymphs (auto) Absolute Monos (auto) Absolute Eos (auto) Absolute Basos (auto) Seg Neutrophils % Retic Count (auto) PT INR APTT Sodium Potassium Chloride Carbon Dioxide Anion Gap BUN Creatinine Est GFR ( Amer) Est GFR (MDRD) Non-Af Glucose POC Glucose 51 L 61 L 146 H Hemoglobin A1c % Calcium Phosphorus Magnesium Iron TIBC % Saturation Ferritin Total Bilirubin Direct Bilirubin Neonat Total Bilirubin Neonat Direct Bilirubin Neonat Indirect Bili AST ALT Alkaline Phosphatase Creatine Kinase CK-MB (CK-2) Troponin I NT-Pro-B Natriuret Pep Total Protein Albumin Triglycerides Cholesterol LDL Cholesterol Direct VLDL Cholesterol HDL Cholesterol Vitamin B12 Folate TSH Free T4 PTH Intact Urine Color Urine Appearance Urine pH Ur Specific [place] Urine Protein Urine Glucose (UA) Urine Ketones Urine Blood Urine Nitrite Urine Bilirubin Urine Urobilinogen Ur Leukocyte Esterase Urine WBC (Auto) Urine RBC (Auto) U Hyaline Cast (Auto) Urine Bacteria (Auto) Squamous Epi Cells Auto Urine Mucus (Auto) Urine Ascorbic Acid COVID-19 Source COVID-19 (CASI) 06/03/20 06/03/20 06/03/20 01:14 01:43 03:21 WBC RBC Hgb Hct MCV MCH MCHC RDW Plt Count Lymph % (Auto) [place] % (Auto) Eos % (Auto) Baso % (Auto) Reticulocyte # Absolute Neuts (auto) Absolute Lymphs (auto) Absolute Monos (auto) Absolute Eos (auto) Absolute Basos (auto) Seg Neutrophils % Retic Count (auto) PT INR APTT Sodium Potassium Chloride Carbon Dioxide Anion Gap BUN Creatinine Est GFR ( Amer) Est GFR (MDRD) Non-Af Glucose POC Glucose 166 H 135 H Hemoglobin A1c % Calcium Phosphorus Magnesium Iron TIBC % Saturation Ferritin Total Bilirubin Direct Bilirubin Neonat Total Bilirubin Neonat Direct Bilirubin Neonat Indirect Bili AST ALT Alkaline Phosphatase Creatine Kinase CK-MB (CK-2) Troponin I NT-Pro-B Natriuret Pep Total Protein Albumin Triglycerides Cholesterol LDL Cholesterol Direct VLDL Cholesterol HDL Cholesterol Vitamin B12 Folate TSH Free T4 PTH Intact Urine Color DARK YELLOW Urine Appearance CLOUDY Urine pH 5.0 Ur Specific [place] 1.023 Urine Protein >=500 H Urine Glucose (UA) >=500 H Urine Ketones NEGATIVE Urine Blood NEGATIVE Urine Nitrite NEGATIVE Urine Bilirubin NEGATIVE Urine Urobilinogen 4.0 H Ur Leukocyte Esterase NEGATIVE Urine WBC (Auto) 5 Urine RBC (Auto) 4 U Hyaline Cast (Auto) 38 Urine Bacteria (Auto) TRACE Squamous Epi Cells Auto <1 Urine Mucus (Auto) OCC Urine Ascorbic Acid 40 H COVID-19 Source COVID-19 (CASI) 06/03/20 06/03/20 06/03/20 04:15 04:15 04:15 WBC 7.3 RBC 4.95 Hgb 14.1 Hct 42.7 MCV 86 MCH 28.4 MCHC 32.9 RDW 17.2 H Plt Count 234 Lymph % (Auto) 15.1 [place] % (Auto) 9.9 Eos % (Auto) 0.2 Baso % (Auto) 0.9 Reticulocyte # Absolute Neuts (auto) 5.4 Absolute Lymphs (auto) 1.1 Absolute Monos (auto) 0.7 Absolute Eos (auto) 0.0 Absolute Basos (auto) 0.1 Seg Neutrophils % 73.9 Retic Count (auto) PT INR APTT Sodium Potassium Chloride Carbon Dioxide Anion Gap BUN Creatinine Est GFR ( Amer) Est GFR (MDRD) Non-Af Glucose POC Glucose Hemoglobin A1c % Calcium Phosphorus Magnesium Iron TIBC % Saturation Ferritin Total Bilirubin Direct Bilirubin Neonat Total Bilirubin Neonat Direct Bilirubin Neonat Indirect Bili AST ALT Alkaline Phosphatase Creatine Kinase 242 H CK-MB (CK-2) 5.72 H Troponin I 0.089 NT-Pro-B Natriuret Pep Total Protein Albumin Triglycerides Cholesterol LDL Cholesterol Direct VLDL Cholesterol HDL Cholesterol Vitamin B12 Folate TSH Free T4 PTH Intact Urine Color Urine Appearance Urine pH Ur Specific [place] Urine Protein Urine Glucose (UA) Urine Ketones Urine Blood Urine Nitrite Urine Bilirubin Urine Urobilinogen Ur Leukocyte Esterase Urine WBC (Auto) Urine RBC (Auto) U Hyaline Cast (Auto) Urine Bacteria (Auto) Squamous Epi Cells Auto Urine Mucus (Auto) Urine Ascorbic Acid COVID-19 Source COVID-19 (CASI) 06/03/20 06/03/20 06/03/20 04:15 04:15 07:15 WBC RBC Hgb Hct MCV MCH MCHC RDW Plt Count Lymph % (Auto) [place] % (Auto) Eos % (Auto) Baso % (Auto) Reticulocyte # Absolute Neuts (auto) Absolute Lymphs (auto) Absolute Monos (auto) Absolute Eos (auto) Absolute Basos (auto) Seg Neutrophils % Retic Count (auto) PT INR APTT Sodium 133.2 L Potassium 5.4 H Chloride 97 L Carbon Dioxide 27 Anion Gap 9 BUN 32 H Creatinine 2.55 H Est GFR ( Amer) 31 L Est GFR (MDRD) Non-Af 26 L Glucose 111 H POC Glucose 87 Hemoglobin A1c % 8.1 H Calcium 9.1 Phosphorus Magnesium Iron TIBC % Saturation Ferritin Total Bilirubin 2.2 H Direct Bilirubin 0.4 Neonat Total Bilirubin Not Reportable Neonat Direct Bilirubin Not Reportable Neonat Indirect Bili Not Reportable AST 57 ALT 35 Alkaline Phosphatase 96 Creatine Kinase CK-MB (CK-2) Troponin I NT-Pro-B Natriuret Pep Total Protein 6.6 Albumin 3.5 Triglycerides 52 Cholesterol 112.16 LDL Cholesterol Direct 81 VLDL Cholesterol 10.0 HDL Cholesterol 23 L Vitamin B12 Folate TSH Free T4 PTH Intact Urine Color Urine Appearance Urine pH Ur Specific [place] Urine Protein Urine Glucose (UA) Urine Ketones Urine Blood Urine Nitrite Urine Bilirubin Urine Urobilinogen Ur Leukocyte Esterase Urine WBC (Auto) Urine RBC (Auto) U Hyaline Cast (Auto) Urine Bacteria (Auto) Squamous Epi Cells Auto Urine Mucus (Auto) Urine Ascorbic Acid COVID-19 Source COVID-19 (CASI) 06/03/20 06/03/20 06/03/20 09:59 09:59 09:59 WBC RBC Hgb Hct MCV MCH MCHC RDW Plt Count Lymph % (Auto) [place] % (Auto) Eos % (Auto) Baso % (Auto) Reticulocyte # 0.087 Absolute Neuts (auto) Absolute Lymphs (auto) Absolute Monos (auto) Absolute Eos (auto) Absolute Basos (auto) Seg Neutrophils % Retic Count (auto) 1.75 PT INR APTT Sodium Potassium Chloride Carbon Dioxide Anion Gap BUN Creatinine Est GFR ( Amer) Est GFR (MDRD) Non-Af Glucose POC Glucose Hemoglobin A1c % Calcium Phosphorus Magnesium Iron TIBC % Saturation Ferritin Total Bilirubin Direct Bilirubin Neonat Total Bilirubin Neonat Direct Bilirubin Neonat Indirect Bili AST ALT Alkaline Phosphatase Creatine Kinase 215 H CK-MB (CK-2) 6.20 H Troponin I 0.269 NT-Pro-B Natriuret Pep Total Protein Albumin Triglycerides Cholesterol LDL Cholesterol Direct VLDL Cholesterol HDL Cholesterol Vitamin B12 Folate TSH Free T4 PTH Intact Urine Color Urine Appearance Urine pH Ur Specific [place] Urine Protein Urine Glucose (UA) Urine Ketones Urine Blood Urine Nitrite Urine Bilirubin Urine Urobilinogen Ur Leukocyte Esterase Urine WBC (Auto) Urine RBC (Auto) U Hyaline Cast (Auto) Urine Bacteria (Auto) Squamous Epi Cells Auto Urine Mucus (Auto) Urine Ascorbic Acid COVID-19 Source COVID-19 (CASI) 06/03/20 06/03/20 06/03/20 09:59 09:59 11:16 WBC RBC Hgb Hct MCV MCH MCHC RDW Plt Count Lymph % (Auto) [place] % (Auto) Eos % (Auto) Baso % (Auto) Reticulocyte # Absolute Neuts (auto) Absolute Lymphs (auto) Absolute Monos (auto) Absolute Eos (auto) Absolute Basos (auto) Seg Neutrophils % Retic Count (auto) PT INR APTT Sodium Potassium Chloride Carbon Dioxide Anion Gap BUN Creatinine Est GFR ( Amer) Est GFR (MDRD) Non-Af Glucose POC Glucose 80 Hemoglobin A1c % Calcium Phosphorus 5.5 H Magnesium Iron 40.6 L TIBC 350 % Saturation 12 Ferritin 147.00 Total Bilirubin Direct Bilirubin Neonat Total Bilirubin Neonat Direct Bilirubin Neonat Indirect Bili AST ALT Alkaline Phosphatase Creatine Kinase CK-MB (CK-2) Troponin I NT-Pro-B Natriuret Pep Total Protein Albumin Triglycerides Cholesterol LDL Cholesterol Direct VLDL Cholesterol HDL Cholesterol Vitamin B12 476.0 Folate 12.10 TSH Free T4 PTH Intact Urine Color Urine Appearance Urine pH Ur Specific [place] Urine Protein Urine Glucose (UA) Urine Ketones Urine Blood Urine Nitrite Urine Bilirubin Urine Urobilinogen Ur Leukocyte Esterase Urine WBC (Auto) Urine RBC (Auto) U Hyaline Cast (Auto) Urine Bacteria (Auto) Squamous Epi Cells Auto Urine Mucus (Auto) Urine Ascorbic Acid COVID-19 Source COVID-19 (CASI) 06/03/20 06/03/20 06/03/20 13:23 16:01 21:24 WBC RBC Hgb Hct MCV MCH MCHC RDW Plt Count Lymph % (Auto) [place] % (Auto) Eos % (Auto) Baso % (Auto) Reticulocyte # Absolute Neuts (auto) Absolute Lymphs (auto) Absolute Monos (auto) Absolute Eos (auto) Absolute Basos (auto) Seg Neutrophils % Retic Count (auto) PT INR APTT Sodium Potassium Chloride Carbon Dioxide Anion Gap BUN Creatinine Est GFR ( Amer) Est GFR (MDRD) Non-Af Glucose POC Glucose 72 93 Hemoglobin A1c % Calcium Phosphorus Magnesium Iron TIBC % Saturation Ferritin Total Bilirubin Direct Bilirubin Neonat Total Bilirubin Neonat Direct Bilirubin Neonat Indirect Bili AST ALT Alkaline Phosphatase Creatine Kinase CK-MB (CK-2) Troponin I NT-Pro-B Natriuret Pep Total Protein Albumin Triglycerides Cholesterol LDL Cholesterol Direct VLDL Cholesterol HDL Cholesterol Vitamin B12 Folate TSH Free T4 PTH Intact 263.0 H Urine Color Urine Appearance Urine pH Ur Specific [place] Urine Protein Urine Glucose (UA) Urine Ketones Urine Blood Urine Nitrite Urine Bilirubin Urine Urobilinogen Ur Leukocyte Esterase Urine WBC (Auto) Urine RBC (Auto) U Hyaline Cast (Auto) Urine Bacteria (Auto) Squamous Epi Cells Auto Urine Mucus (Auto) Urine Ascorbic Acid COVID-19 Source COVID-19 (CASI) 06/04/20 06/04/20 06/04/20 06:37 07:48 10:41 WBC 7.6 RBC 4.65 Hgb 13.2 L Hct 39.9 MCV 86 MCH 28.4 MCHC 33.1 RDW 17.1 H Plt Count 264 Lymph % (Auto) 24.5 [place] % (Auto) 11.2 Eos % (Auto) 2.7 Baso % (Auto) 0.9 Reticulocyte # Absolute Neuts (auto) 4.6 Absolute Lymphs (auto) 1.9 Absolute Monos (auto) 0.9 Absolute Eos (auto) 0.2 Absolute Basos (auto) 0.1 Seg Neutrophils % 60.7 Retic Count (auto) PT INR APTT Sodium Potassium Chloride Carbon Dioxide Anion Gap BUN Creatinine Est GFR ( Amer) Est GFR (MDRD) Non-Af Glucose POC Glucose 83 189 H Hemoglobin A1c % Calcium Phosphorus Magnesium Iron TIBC % Saturation Ferritin Total Bilirubin Direct Bilirubin Neonat Total Bilirubin Neonat Direct Bilirubin Neonat Indirect Bili AST ALT Alkaline Phosphatase Creatine Kinase CK-MB (CK-2) Troponin I NT-Pro-B Natriuret Pep Total Protein Albumin Triglycerides Cholesterol LDL Cholesterol Direct VLDL Cholesterol HDL Cholesterol Vitamin B12 Folate TSH Free T4 PTH Intact Urine Color Urine Appearance Urine pH Ur Specific [place] Urine Protein Urine Glucose (UA) Urine Ketones Urine Blood Urine Nitrite Urine Bilirubin Urine Urobilinogen Ur Leukocyte Esterase Urine WBC (Auto) Urine RBC (Auto) U Hyaline Cast (Auto) Urine Bacteria (Auto) Squamous Epi Cells Auto Urine Mucus (Auto) Urine Ascorbic Acid COVID-19 Source COVID-19 (CASI) 06/04/20 06/04/20 06/05/20 16:02 21:53 06:23 WBC RBC Hgb Hct MCV MCH MCHC RDW Plt Count Lymph % (Auto) [place] % (Auto) Eos % (Auto) Baso % (Auto) Reticulocyte # Absolute Neuts (auto) Absolute Lymphs (auto) Absolute Monos (auto) Absolute Eos (auto) Absolute Basos (auto) Seg Neutrophils % Retic Count (auto) PT INR APTT Sodium Potassium Chloride Carbon Dioxide Anion Gap BUN Creatinine Est GFR ( Amer) Est GFR (MDRD) Non-Af Glucose POC Glucose 172 H 202 H 198 H Hemoglobin A1c % Calcium Phosphorus Magnesium Iron TIBC % Saturation Ferritin Total Bilirubin Direct Bilirubin Neonat Total Bilirubin Neonat Direct Bilirubin Neonat Indirect Bili AST ALT Alkaline Phosphatase Creatine Kinase CK-MB (CK-2) Troponin I NT-Pro-B Natriuret Pep Total Protein Albumin Triglycerides Cholesterol LDL Cholesterol Direct VLDL Cholesterol HDL Cholesterol Vitamin B12 Folate TSH Free T4 PTH Intact Urine Color Urine Appearance Urine pH Ur Specific [place] Urine Protein Urine Glucose (UA) Urine Ketones Urine Blood Urine Nitrite Urine Bilirubin Urine Urobilinogen Ur Leukocyte Esterase Urine WBC (Auto) Urine RBC (Auto) U Hyaline Cast (Auto) Urine Bacteria (Auto) Squamous Epi Cells Auto Urine Mucus (Auto) Urine Ascorbic Acid COVID-19 Source COVID-19 (CASI) 06/05/20 06/05/20 06/05/20 11:13 15:42 22:43 WBC RBC Hgb Hct MCV MCH MCHC RDW Plt Count Lymph % (Auto) [place] % (Auto) Eos % (Auto) Baso % (Auto) Reticulocyte # Absolute Neuts (auto) Absolute Lymphs (auto) Absolute Monos (auto) Absolute Eos (auto) Absolute Basos (auto) Seg Neutrophils % Retic Count (auto) PT INR APTT Sodium Potassium Chloride Carbon Dioxide Anion Gap BUN Creatinine Est GFR ( Amer) Est GFR (MDRD) Non-Af Glucose POC Glucose 190 H 107 71 Hemoglobin A1c % Calcium Phosphorus Magnesium Iron TIBC % Saturation Ferritin Total Bilirubin Direct Bilirubin Neonat Total Bilirubin Neonat Direct Bilirubin Neonat Indirect Bili AST ALT Alkaline Phosphatase Creatine Kinase CK-MB (CK-2) Troponin I NT-Pro-B Natriuret Pep Total Protein Albumin Triglycerides Cholesterol LDL Cholesterol Direct VLDL Cholesterol HDL Cholesterol Vitamin B12 Folate TSH Free T4 PTH Intact Urine Color Urine Appearance Urine pH Ur Specific [place] Urine Protein Urine Glucose (UA) Urine Ketones Urine Blood Urine Nitrite Urine Bilirubin Urine Urobilinogen Ur Leukocyte Esterase Urine WBC (Auto) Urine RBC (Auto) U Hyaline Cast (Auto) Urine Bacteria (Auto) Squamous Epi Cells Auto Urine Mucus (Auto) Urine Ascorbic Acid COVID-19 Source COVID-19 (CASI) 06/06/20 06/06/20 06/06/20 05:41 06:27 07:37 WBC RBC Hgb Hct MCV MCH MCHC RDW Plt Count Lymph % (Auto) [place] % (Auto) Eos % (Auto) Baso % (Auto) Reticulocyte # Absolute Neuts (auto) Absolute Lymphs (auto) Absolute Monos (auto) Absolute Eos (auto) Absolute Basos (auto) Seg Neutrophils % Retic Count (auto) PT INR APTT Sodium Potassium Chloride Carbon Dioxide Anion Gap BUN Creatinine Est GFR ( Amer) Est GFR (MDRD) Non-Af Glucose POC Glucose 60 L 140 H 117 H Hemoglobin A1c % Calcium Phosphorus Magnesium Iron TIBC % Saturation Ferritin Total Bilirubin Direct Bilirubin Neonat Total Bilirubin Neonat Direct Bilirubin Neonat Indirect Bili AST ALT Alkaline Phosphatase Creatine Kinase CK-MB (CK-2) Troponin I NT-Pro-B Natriuret Pep Total Protein Albumin Triglycerides Cholesterol LDL Cholesterol Direct VLDL Cholesterol HDL Cholesterol Vitamin B12 Folate TSH Free T4 PTH Intact Urine Color Urine Appearance Urine pH Ur Specific [place] Urine Protein Urine Glucose (UA) Urine Ketones Urine Blood Urine Nitrite Urine Bilirubin Urine Urobilinogen Ur Leukocyte Esterase Urine WBC (Auto) Urine RBC (Auto) U Hyaline Cast (Auto) Urine Bacteria (Auto) Squamous Epi Cells Auto Urine Mucus (Auto) Urine Ascorbic Acid COVID-19 Source COVID-19 (CASI) 06/06/20 06/06/20 06/06/20 11:39 15:33 15:50 WBC RBC Hgb Hct MCV MCH MCHC RDW Plt Count Lymph % (Auto) [place] % (Auto) Eos % (Auto) Baso % (Auto) Reticulocyte # Absolute Neuts (auto) Absolute Lymphs (auto) Absolute Monos (auto) Absolute Eos (auto) Absolute Basos (auto) Seg Neutrophils % Retic Count (auto) PT INR APTT Sodium Potassium Chloride Carbon Dioxide Anion Gap BUN Creatinine Est GFR ( Amer) Est GFR (MDRD) Non-Af Glucose POC Glucose 298 H 46 L 54 L Hemoglobin A1c % Calcium Phosphorus Magnesium Iron TIBC % Saturation Ferritin Total Bilirubin Direct Bilirubin Neonat Total Bilirubin Neonat Direct Bilirubin Neonat Indirect Bili AST ALT Alkaline Phosphatase Creatine Kinase CK-MB (CK-2) Troponin I NT-Pro-B Natriuret Pep Total Protein Albumin Triglycerides Cholesterol LDL Cholesterol Direct VLDL Cholesterol HDL Cholesterol Vitamin B12 Folate TSH Free T4 PTH Intact Urine Color Urine Appearance Urine pH Ur Specific [place] Urine Protein Urine Glucose (UA) Urine Ketones Urine Blood Urine Nitrite Urine Bilirubin Urine Urobilinogen Ur Leukocyte Esterase Urine WBC (Auto) Urine RBC (Auto) U Hyaline Cast (Auto) Urine Bacteria (Auto) Squamous Epi Cells Auto Urine Mucus (Auto) Urine Ascorbic Acid COVID-19 Source COVID-19 (CASI) 06/06/20 06/06/20 06/06/20 16:25 17:00 17:33 WBC RBC Hgb Hct MCV MCH MCHC RDW Plt Count Lymph % (Auto) [place] % (Auto) Eos % (Auto) Baso % (Auto) Reticulocyte # Absolute Neuts (auto) Absolute Lymphs (auto) Absolute Monos (auto) Absolute Eos (auto) Absolute Basos (auto) Seg Neutrophils % Retic Count (auto) PT INR APTT Sodium Potassium Chloride Carbon Dioxide Anion Gap BUN Creatinine Est GFR ( Amer) Est GFR (MDRD) Non-Af Glucose POC Glucose 144 H 89 131 H Hemoglobin A1c % Calcium Phosphorus Magnesium Iron TIBC % Saturation Ferritin Total Bilirubin Direct Bilirubin Neonat Total Bilirubin Neonat Direct Bilirubin Neonat Indirect Bili AST ALT Alkaline Phosphatase Creatine Kinase CK-MB (CK-2) Troponin I NT-Pro-B Natriuret Pep Total Protein Albumin Triglycerides Cholesterol LDL Cholesterol Direct VLDL Cholesterol HDL Cholesterol Vitamin B12 Folate TSH Free T4 PTH Intact Urine Color Urine Appearance Urine pH Ur Specific [place] Urine Protein Urine Glucose (UA) Urine Ketones Urine Blood Urine Nitrite Urine Bilirubin Urine Urobilinogen Ur Leukocyte Esterase Urine WBC (Auto) Urine RBC (Auto) U Hyaline Cast (Auto) Urine Bacteria (Auto) Squamous Epi Cells Auto Urine Mucus (Auto) Urine Ascorbic Acid COVID-19 Source COVID-19 (CASI) 06/06/20 06/06/2006/07/20 18:51 21:02 02:25 WBC RBC Hgb Hct MCV MCH MCHC RDW Plt Count Lymph % (Auto) [place] % (Auto) Eos % (Auto) Baso % (Auto) Reticulocyte # Absolute Neuts (auto) Absolute Lymphs (auto) Absolute Monos (auto) Absolute Eos (auto) Absolute Basos (auto) Seg Neutrophils % Retic Count (auto) PT INR APTT Sodium Potassium Chloride Carbon Dioxide Anion Gap BUN Creatinine Est GFR ( Amer) Est GFR (MDRD) Non-Af Glucose POC Glucose 133 H 148 H 109 Hemoglobin A1c % Calcium Phosphorus Magnesium Iron TIBC % Saturation Ferritin Total Bilirubin Direct Bilirubin Neonat Total Bilirubin Neonat Direct Bilirubin Neonat Indirect Bili AST ALT Alkaline Phosphatase Creatine Kinase CK-MB (CK-2) Troponin I NT-Pro-B Natriuret Pep Total Protein Albumin Triglycerides Cholesterol LDL Cholesterol Direct VLDL Cholesterol HDL Cholesterol Vitamin B12 Folate TSH Free T4 PTH Intact Urine Color Urine Appearance Urine pH Ur Specific [place] Urine Protein Urine Glucose (UA) Urine Ketones Urine Blood Urine Nitrite Urine Bilirubin Urine Urobilinogen Ur Leukocyte Esterase Urine WBC (Auto) Urine RBC (Auto) U Hyaline Cast (Auto) Urine Bacteria (Auto) Squamous Epi Cells Auto Urine Mucus (Auto) Urine Ascorbic Acid COVID-19 Source COVID-19 (CASI) 06/07/20 06/07/20 06/07/20 05:45 07:23 08:41 WBC 5.3 RBC 4.81 Hgb 13.5 Hct 41.2 MCV 86 MCH 28.1 MCHC 32.8 RDW 17.3 H Plt Count 243 Lymph % (Auto) 21.9 Starke % (Auto) 12.9 Eos % (Auto) 3.0 Baso % (Auto) 0.9 Reticulocyte # Absolute Neuts (auto) 3.2 Absolute Lymphs (auto) 1.2 Absolute Monos (auto) 0.7 Absolute Eos (auto) 0.2 Absolute Basos (auto) 0.0 Seg Neutrophils % 61.3 Retic Count (auto) PT INR APTT Sodium Potassium Chloride Carbon Dioxide Anion Gap BUN Creatinine Est GFR ( Amer) Est GFR (MDRD) Non-Af Glucose POC Glucose 149 H 117 H Hemoglobin A1c % Calcium Phosphorus Magnesium Iron TIBC % Saturation Ferritin Total Bilirubin Direct Bilirubin Neonat Total Bilirubin Neonat Direct Bilirubin Neonat Indirect Bili AST ALT Alkaline Phosphatase Creatine Kinase CK-MB (CK-2) Troponin I NT-Pro-B Natriuret Pep Total Protein Albumin Triglycerides Cholesterol LDL Cholesterol Direct VLDL Cholesterol HDL Cholesterol Vitamin B12 Folate TSH Free T4 PTH Intact Urine Color Urine Appearance Urine pH Ur Specific [place] Urine Protein Urine Glucose (UA) Urine Ketones Urine Blood Urine Nitrite Urine Bilirubin Urine Urobilinogen Ur Leukocyte Esterase Urine WBC (Auto) Urine RBC (Auto) U Hyaline Cast (Auto) Urine Bacteria (Auto) Squamous Epi Cells Auto Urine Mucus (Auto) Urine Ascorbic Acid COVID-19 Source COVID-19 (CASI) 06/07/20 06/07/20 06/07/20 08:41 10:51 15:37 WBC RBC Hgb Hct MCV MCH MCHC RDW Plt Count Lymph % (Auto) Starke % (Auto) Eos % (Auto) Baso % (Auto) Reticulocyte # Absolute Neuts (auto) Absolute Lymphs (auto) Absolute Monos (auto) Absolute Eos (auto) Absolute Basos (auto) Seg Neutrophils % Retic Count (auto) PT INR APTT Sodium 136.2 L Potassium 4.9 Chloride 99 Carbon Dioxide 29 Anion Gap 8 BUN 43 H Creatinine 2.33 H Est GFR ( Amer) 35 L Est GFR (MDRD) Non-Af 29 L Glucose 117 H POC Glucose 152 H 71 Hemoglobin A1c % Calcium 8.6 Phosphorus Magnesium Iron TIBC % Saturation Ferritin Total Bilirubin 1.3 Direct Bilirubin 0.1 Neonat Total Bilirubin Not Reportable Neonat Direct Bilirubin Not Reportable Neonat Indirect Bili Not Reportable AST 27 ALT 32 Alkaline Phosphatase 95 Creatine Kinase CK-MB (CK-2) Troponin I NT-Pro-B Natriuret Pep Total Protein 6.7 Albumin 3.4 L Triglycerides Cholesterol LDL Cholesterol Direct VLDL Cholesterol HDL Cholesterol Vitamin B12 Folate TSH Free T4 PTH Intact Urine Color Urine Appearance Urine pH Ur Specific [place] Urine Protein Urine Glucose (UA) Urine Ketones Urine Blood Urine Nitrite Urine Bilirubin Urine Urobilinogen Ur Leukocyte Esterase Urine WBC (Auto) Urine RBC (Auto) U Hyaline Cast (Auto) Urine Bacteria (Auto) Squamous Epi Cells Auto Urine Mucus (Auto) Urine Ascorbic Acid COVID-19 Source COVID-19 (CASI) 06/07/20 06/07/20 06/08/20 19:00 21:58 01:13 WBC RBC Hgb Hct MCV MCH MCHC RDW Plt Count Lymph % (Auto) Starke % (Auto) Eos % (Auto) Baso % (Auto) Reticulocyte # Absolute Neuts (auto) Absolute Lymphs (auto) Absolute Monos (auto) Absolute Eos (auto) Absolute Basos (auto) Seg Neutrophils % Retic Count (auto) PT INR APTT Sodium Potassium Chloride Carbon Dioxide Anion Gap BUN Creatinine Est GFR ( Amer) Est GFR (MDRD) Non-Af Glucose POC Glucose 55 L 80 Hemoglobin A1c % Calcium Phosphorus Magnesium Iron TIBC % Saturation Ferritin Total Bilirubin Direct Bilirubin Neonat Total Bilirubin Neonat Direct Bilirubin Neonat Indirect Bili AST ALT Alkaline Phosphatase Creatine Kinase CK-MB (CK-2) Troponin I NT-Pro-B Natriuret Pep Total Protein Albumin Triglycerides Cholesterol LDL Cholesterol Direct VLDL Cholesterol HDL Cholesterol Vitamin B12 Folate TSH Free T4 PTH Intact Urine Color Urine Appearance Urine pH Ur Specific [place] Urine Protein Urine Glucose (UA) Urine Ketones Urine Blood Urine Nitrite Urine Bilirubin Urine Urobilinogen Ur Leukocyte Esterase Urine WBC (Auto) Urine RBC (Auto) U Hyaline Cast (Auto) Urine Bacteria (Auto) Squamous Epi Cells Auto Urine Mucus (Auto) Urine Ascorbic Acid COVID-19 Source NASOPHARYNGEAL COVID-19 (CASI) NOT DETECTED 06/08/20 06/08/20 06/08/20 01:52 03:23 08:25 WBC RBC Hgb Hct MCV MCH MCHC RDW Plt Count Lymph % (Auto) Starke % (Auto) Eos % (Auto) Baso % (Auto) Reticulocyte # Absolute Neuts (auto) Absolute Lymphs (auto) Absolute Monos (auto) Absolute Eos (auto) Absolute Basos (auto) Seg Neutrophils % Retic Count (auto) PT INR APTT Sodium Potassium Chloride Carbon Dioxide Anion Gap BUN Creatinine Est GFR ( Amer) Est GFR (MDRD) Non-Af Glucose POC Glucose 87 119 H 113 H Hemoglobin A1c % Calcium Phosphorus Magnesium Iron TIBC % Saturation Ferritin Total Bilirubin Direct Bilirubin Neonat Total Bilirubin Neonat Direct Bilirubin Neonat Indirect Bili AST ALT Alkaline Phosphatase Creatine Kinase CK-MB (CK-2) Troponin I NT-Pro-B Natriuret Pep Total Protein Albumin Triglycerides Cholesterol LDL Cholesterol Direct VLDL Cholesterol HDL Cholesterol Vitamin B12 Folate TSH Free T4 PTH Intact Urine Color Urine Appearance Urine pH Ur Specific [place] Urine Protein Urine Glucose (UA) Urine Ketones Urine Blood Urine Nitrite Urine Bilirubin Urine Urobilinogen Ur Leukocyte Esterase Urine WBC (Auto) Urine RBC (Auto) U Hyaline Cast (Auto) Urine Bacteria (Auto) Squamous Epi Cells Auto Urine Mucus (Auto) Urine Ascorbic Acid COVID-19 Source COVID-19 (CASI) 06/08/20 06/08/20 06/08/20 11:56 16:15 21:13 WBC RBC Hgb Hct MCV MCH MCHC RDW Plt Count Lymph % (Auto) Starke % (Auto) Eos % (Auto) Baso % (Auto) Reticulocyte # Absolute Neuts (auto) Absolute Lymphs (auto) Absolute Monos (auto) Absolute Eos (auto) Absolute Basos (auto) Seg Neutrophils % Retic Count (auto) PT INR APTT Sodium Potassium Chloride Carbon Dioxide Anion Gap BUN Creatinine Est GFR ( Amer) Est GFR (MDRD) Non-Af Glucose POC Glucose 138 H 229 H 165 H Hemoglobin A1c % Calcium Phosphorus Magnesium Iron TIBC % Saturation Ferritin Total Bilirubin Direct Bilirubin Neonat Total Bilirubin Neonat Direct Bilirubin Neonat Indirect Bili AST ALT Alkaline Phosphatase Creatine Kinase CK-MB (CK-2) Troponin I NT-Pro-B Natriuret Pep Total Protein Albumin Triglycerides Cholesterol LDL Cholesterol Direct VLDL Cholesterol HDL Cholesterol Vitamin B12 Folate TSH Free T4 PTH Intact Urine Color Urine Appearance Urine pH Ur Specific [place] Urine Protein Urine Glucose (UA) Urine Ketones Urine Blood Urine Nitrite Urine Bilirubin Urine Urobilinogen Ur Leukocyte Esterase Urine WBC (Auto) Urine RBC (Auto) U Hyaline Cast (Auto) Urine Bacteria (Auto) Squamous Epi Cells Auto Urine Mucus (Auto) Urine Ascorbic Acid COVID-19 Source COVID-19 (CASI) 06/09/20 06/09/20 04:30 04:45 WBC 5.0 RBC 4.39 Hgb 12.3 L Hct 38.1 MCV 87 MCH 28.1 MCHC 32.3 RDW 17.7 H Plt Count 216 Lymph % (Auto) 23.9 Starke % (Auto) 15.7 H Eos % (Auto) 3.8 Baso % (Auto) 0.8 Reticulocyte # Absolute Neuts (auto) 2.8 Absolute Lymphs (auto) 1.2 Absolute Monos (auto) 0.8 Absolute Eos (auto) 0.2 Absolute Basos (auto) 0.0 Seg Neutrophils % 55.8 Retic Count (auto) PT INR APTT Sodium 136.3 L Potassium 4.8 Chloride 99 Carbon Dioxide 27 Anion Gap 10 BUN 34 H Creatinine 1.86 H Est GFR ( Amer) 45 L Est GFR (MDRD) Non-Af 37 L Glucose 188 H POC Glucose Hemoglobin A1c % Calcium 8.7 Phosphorus Magnesium Iron TIBC % Saturation Ferritin Total Bilirubin Direct Bilirubin Neonat Total Bilirubin Neonat Direct Bilirubin Neonat Indirect Bili AST ALT Alkaline Phosphatase Creatine Kinase CK-MB (CK-2) Troponin I NT-Pro-B Natriuret Pep Total Protein Albumin Triglycerides Cholesterol LDL Cholesterol Direct VLDL Cholesterol HDL Cholesterol Vitamin B12 Folate TSH Free T4 PTH Intact Urine Color Urine Appearance Urine pH Ur Specific [place] Urine Protein Urine Glucose (UA) Urine Ketones Urine Blood Urine Nitrite Urine Bilirubin Urine Urobilinogen Ur Leukocyte Esterase Urine WBC (Auto) Urine RBC (Auto) U Hyaline Cast (Auto) Urine Bacteria (Auto) Squamous Epi Cells Auto Urine Mucus (Auto) Urine Ascorbic Acid COVID-19 Source COVID-19 (CASI) Head CT 06/02/20 17:51 IMPRESSION: NO ACUTE INTRACRANIAL FINDINGS. EVIDENCE OF ACUTE STROKE: NO. Chest X-Ray 06/02/20 17:54 IMPRESSION: NO ACUTE FINDINGS. Head MRI 06/06/20 00:00 IMPRESSION: No acute intracranial abnormality copyright 2010 [employer]- All Rights Reserved His COVID19 test was negative IMPRESSION/RECOMMENDATION: 1 .. Syncope: The patient got up today and became dizzy although no francisca syncope. Hence the other possibility is that the syncope may be related to his blood pressure. There was no arrhythmias seen. Will lower the patient's dosages of medications. Patient is now wearing LifeVest . Will recheck the patient's echocardiogram I will check with EP cardiology about an AICD placement. The patient now is wearing the LifeVest after my discussions with him. I have encouraged the patient to continue to wear the LifeVest . I have discussed the case with EP ambulatory technologist Dr. Armstrong from [place]. He agrees in view of the patient's syncopal episodes, and patient is severely reduced LV ejection fraction on good therapy cardiomyopathy including diuretics, Entresto and Toprol-XL AICD is clearly indicated. He has accepted the patient in transfer. 2. Chronic right ventricular systolic heart failure secondary to left heart failure and pulmonary hypertension. 3. 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 The patient's repeat echo today shows LV ejection fraction being severely reduced and has not improved. Hence patient will be referred for AICD placement. The patient requests inpatient transfer. Will wait for COVID19 test to come back and then transfer the patient to [facility] for AICD placement. Will cancel the transfer to rehab center. 4. Severe tricuspid regurgitation. 5. At least moderate pulmonary hypertension. I suspect apparent pulmonary hypertension is much higher than what is recorded by calculation. This is due to my suspicions at this underestimation of the tricuspid regurgitation jet velocity. We will try to reinterrogate the tricuspid valve for this. Would add amlodipine and nitrates. 6. Hypertension: Blood pressure not optimally controlled. The patient cannot withstand the addition of beta-rito Entresto, amlodipine and nitrates. 7. 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 We will continue the patient on aspirin and add nitrates. Continue beta-rito. 8. Diabetes mellitus type 2: Continue antidiabetic treatment and Accu-Cheks as per protocol. 9 . Chronic kidney disease stage III. As mentioned earlier case discussed at length with Dr. iMchael Curiel of [place]. He has accepted the patient. Patient made aware of this. Discussed this with Dr. Summers covering Dr. Naranjo. Medical decision making is of high complexity. 40 minutes spent as patient with more than 50% time spent in direct patient care. Medications and medical regimen were discussed with both Dr. Summers and Dr. Armstrong. The patient is for transfer pending availability of a bed. The patient is aware of the benefits and risks of transfer. We will sign off and follow the patient in the office.
--- NOTE | 2020-06-10 13:40 | PDOC TRANSFER SUMMARY ---
General Admission Date/PCP: 06/02/20 19:41 BRIANDA WARNER MD Admission Date: 06/02/20 Transfer Date: 06/10/20 Accepting Facility: [facility] Accepting Physician: Dr. Michael Reeves Resuscitation Status: Full Code - Transfer Diagnosis (1) Syncope Is this a current diagnosis for this admission?: Yes Diagnosis Summary: The patient has his syncopal episode which brought him to the hospital. Unf ortunately the patient did not wear a LifeVest as recommended, and hence although ventricle arrhythmia is a cause for his syncope is not definite, it has to be presumed that this is due to ventricular arrhythmia due to the patient'S is severely reduced LV ejection fraction. The patient is on LifeVest at present. The patient being transferred to [facility], under Dr. Michael Curiel, , egg separator for AICD placement. (2) Ischemic dilated cardiomyopathy Is this a current diagnosis for this admission?: Yes Diagnosis Summary: The patient is on nitrates, beta-rito, diuretics, and Entresto. At present he is asymptomatic (4) Ambulatory dysfunction Is this a current diagnosis for this admission?: Yes (5) Acute combined systolic (congestive) and diastolic (congestive) heart failure Is this a current diagnosis for this admission?: Yes Diagnosis Summary: This is improved. Patient may require outpatient home rehab therapy. (6) Diabetes mellitus with nephropathy Is this a current diagnosis for this admission?: Yes Diagnosis Summary: Continue his antidiabetic medication. His renal failure is stable. (7) History of type 2 diabetes mellitus Is this a current diagnosis for this admission?: Yes Diagnosis Summary: Continue his antidiabetic therapy and monitor blood sugars. (8) Hypertension Is this a current diagnosis for this admission?: Yes Diagnosis Summary: The patient earlier had hypotension especially when he had postural changes, this is resolved and the patient is f now controlled on reduction of his antihypertensives. (9) Chronic obstructive lung disease Is this a current diagnosis for this admission?: Yes Diagnosis Summary: This is stable without any symptoms or signs of acute exacerbation. (10) Nicotine dependence with current use Is this a current diagnosis for this admission?: Yes Diagnosis Summary: Tobacco cessation counseling has been given to the patient. Ill effects of smoking has been discussed in detail. - Transfer Medications Home Medications: Ergocalciferol (Vitamin D2) [Vitamin D2] 50,000 unit PO TH@1000 06/03/20 Furosemide [Lasix] 40 mg PO BID 06/03/20 Omeprazole 20 mg PO BID 06/03/20 Sitagliptin Phosphate [Januvia 50 mg Tablet] 100 mg PO DAILY 06/03/20 Transfer Medications: Current Medications Acetaminophen (Tylenol 325 Mg Tablet) 650 mg PO Q4HP PRN PRN Reason: PAIN Stop: 07/03/20 03:58 Last Admin: 06/09/20 21:42 Dose: 650 mg Documented by: Aspirin (Aspirin 81 Mg Chewable Tablet) 81 mg PO DAILY [facility] Stop: 07/03/20 15:29 Last Admin: 06/10/20 09:52 Dose: 81 mg Documented by: Dextrose (Dextrose Inj 50% Syringe (25 Gm/50 Ml)) 12.5 gm IV PRN PRN; Protocol PRN Reason: FOR BG 50-69 IN ALERT PATIENT Stop: 07/03/20 00:29 Last Admin: 06/03/20 00:15 Dose: 12.5 gm Documented by: Dextrose (Dextrose Inj 50% Syringe (25 Gm/50 Ml)) 25 gm IV PRN PRN; Protocol Stop: 07/03/20 00:29 Last Admin: 06/06/20 15:54 Dose: 25 gm Documented by: Ergocalciferol (Drisdol 50,000 Unit (1.25mg) Capsule) 50,000 unit PO TH@1000 [facility] Stop: 07/07/20 09:59 Last Admin: 06/07/20 09:50 Dose: 50,000 unit Documented by: Furosemide (Lasix 40 Mg Tablet) 40 mg PO DAILY [facility] Stop: 07/11/20 09:59 Glucagon (Glucagen Inj 1 Mg Vial) 1 mg IM PRN PRN; Protocol PRN Reason: EVALUATE FOR BG < 70 Stop: 07/03/20 00:29 Glucose (Glutose 40% Gel 15 Gm Tube) 15 gm PO PRN PRN; Protocol PRN Reason: FOR BG 50-69 IN ALERT PATIENT Stop: 07/03/20 00:29 Last Admin: 06/06/20 05:46 Dose: 15 gm Documented by: Glucose (Glutose 40% Gel 15 Gm Tube) 30 gm PO PRN PRN; Protocol PRN Reason: FOR BG < 50 IN ALERT PATIENT Stop: 07/03/20 00:29 Heparin Sodium (Porcine) (Heparin Inj 5,000 Units/Ml 1 Ml Vial) 5,000 unit SUBCUT Q8 [facility] Stop: 07/02/20 21:59 Last Admin: 06/10/20 06:27 Dose: 5,000 unit Documented by: Hydralazine HCl (Apresoline 25 Mg Tablet) 25 mg PO Q8 [facility] Stop: 07/05/20 21:59 Last Admin: 06/10/20 06:27 Dose: 25 mg Documented by: Insulin Human Isoph/Insulin Regular (Insulin Inj 70-30 (100 Unit/1 Ml) 3 Ml Vial) 15 unit SUBCUT DAILY [facility] Stop: 07/03/20 14:14 Last Admin: 06/10/20 09:52 Dose: 15 unit Documented by: Insulin Human Lispro (Humalog Insulin 100 Unit/1 Ml 3 Ml Vial) 0 - 12 unit SUBCUT ACHS [facility]; Protocol Stop: 07/09/20 10:59 Last Admin: 06/10/20 12:45 Dose: 2 unit Documented by: Isosorbide Mononitrate (Imdur 30 Mg Tablet.Er) 30 mg PO DAILY [facility] Stop: 07/06/20 09:59 Last Admin: 06/10/20 09:52 Dose: 30 mg Documented by: Melatonin (Melatonin 5 Mg Tablet) 5 mg PO HSP PRN PRN Reason: SLEEP OR INSOMNIA Stop: 07/03/20 00:48 Last Admin: 06/03/20 01:17 Dose: 5 mg Documented by: Metoprolol Succinate (Toprol Xl 50 Mg Tab.Sr) 50 mg PO DAILY [facility] Stop: 07/03/20 12:44 Last Admin: 06/10/20 09:52 Dose: 50 mg Documented by: Pantoprazole Sodium (Protonix [address] Tablet) 20 mg PO BID [facility] Stop: 07/03/20 17:59 Last Admin: 06/10/20 09:52 Dose: 20 mg Documented by: Patient Own Medication (Dapagliflozin Propanediol [Farxiga]) 10 mg PO DAILY [facility] Stop: 07/03/20 14:59 Sacubitril/Valsartan (Entresto 49 Mg/51 Mg Tablet) 1 tab PO BID [facility] Stop: 07/03/20 13:59 Last Admin: 06/10/20 09:52 Dose: 1 tab Documented by: Sitagliptin Phosphate (Januvia 50 Mg Tablet) 100 mg PO DAILY [facility] Stop: 07/03/20 12:44 Last Admin: 06/10/20 09:52 Dose: 100 mg Documented by: Sodium Chloride (Saline Flush 2.5 Ml Monoject Prefil Syrin) 2.5 ml IV Q8 ALAN Stop: 07/02/20 21:59 Last Admin: 06/10/20 06:26 Dose: 2.5 ml Documented by: Spironolactone (Aldactone 25 Mg Tablet) 25 mg PO BID [facility] Stop: 07/03/20 12:44 Last Admin: 06/10/20 09:52 Dose: 25 mg Documented by: - Allergies Allergies/Adverse Reactions: No Known Allergies Allergy (Verified 06/02/20 17:25) - Diet/Activity Discharge Diet: Cardiac, Diabetic Discharge Activity: Bedrest Hospital Course Hospital Course: Please see my progress note of 06/10/2020. The patient was admitted with syncope. The patient had a very good historian and is not able to say whether he had palpitations. He has had a few episodes of syncope especially on walking. Unfortunately the patient did not follow medical advice and did not want the LifeVest. Hence if the syncope was due to arrhythmia could not be definitely a statin. The patient had no arrhythmias on the monitoring here. He also had falls due to ambulatory dysfunction. a couple of occasions. His hydralazine was decreased. But his diuretics and his Entresto and Toprol-XL were continued. The patient's blood pressure stabilized and there was no problems with the dizziness on standing up. He had some gait imbalance. A recommendation by physical therapy to transfer the patient pain have been rehabilitation was made and hence the patient had a COVID19 test which came back negative. He also had a MRI of the brain which showed no acute process. But in the meantime a repeat echo showed severely reduced LV ejection fraction on good anti-cardiomyopathy treatment. Hence the patient is being transferred to [facility] for AICD placement. This was done after discussing the case entirely with Dr. Michael Curiel. His systolic 8 of heart failure due to his ischemic and dilated cardiomyopathy was compensated on correct current treatment. His echo did show moderate pulmonary hypertension. The patient has no sleep apnea or. The patient does have a history of COPD and continues to smoke. Smoking cessation advice and counseling were given. Physical Exam Vital Signs: Temp Pulse Resp BP Pulse Ox 97.9 F 82 15 143/93 H 96 06/10/20 11:40 06/10/20 11:40 06/10/20 11:40 06/10/20 11:40 06/10/20 11:40 Intake & Output 06/09/20 06/10/20 06/11/20 06:59 06:59 06:59 Intake Total 1462 825 Output Total 1025 400 355 Balance 437 425 -355 Weight 84.3 kg 79.7 kg General appearance: PRESENT: no acute distress Head exam: PRESENT: atraumatic, normocephalic Eye exam: PRESENT: EOMI, PERRLA Ear exam: PRESENT: normal external ear exam, TM's normal bilaterally Mouth exam: PRESENT: moist, neck supple, tongue midline Teeth exam: PRESENT: other - There is no exudates in the throat. There is no redness of the oropharynx. Neck exam: PRESENT: other - Neck is supple. There is no JVD. Carotids are equal without any bruits. There is no lymphadenopathy. There is no goiter. There is no accessory muscle respiration use. Trachea central. Respiratory exam: PRESENT: other - Lungs show diminished air entry prolonged expiration without any rhonchi rales or wheezing. Cardiovascular exam: PRESENT: other - S1-S2 is heard. There is no S3 gallop. There is no S4 gallop. Systolic murmur in the left sternal border and the apex there is no rub. Vascular exam: PRESENT: other - Femorals are diminished.. There is no femoral bruits. Leg pulses difficult to palpate. There is no pedal edema. There is no DVT or cellulitis. Capillary refill is normal. There is no cyanosis or clubbing. Rectal exam: PRESENT: deferred Extremities exam: PRESENT: other - There is no pedal edema. There is no DVT or cellulitis. Neurological exam: PRESENT: other - The patient walks with a walker. He is conscious awake alert oriented x3 with no focal deficits. Focused psych exam: PRESENT: other - The patient judgment and insight are intact his affect is normal. Skin exam: PRESENT: other - There is no skin lesions. There is no skin rashes. There is no petechia or ecchymosis. Results Laboratory Results: 06/09/20 04:30 06/09/20 04:45 06/02/20 06/02/20 06/02/20 17:47 21:53 21:53 Creatine Kinase 234 H CK-MB (CK-2) 4.46 Troponin I 0.051 0.056 NT-Pro-B Natriuret Pep 8940 H 06/03/20 06/03/20 06/03/20 04:15 04:15 09:59 Creatine Kinase 242 H 215 H CK-MB (CK-2) 5.72 H Troponin I 0.089 NT-Pro-B Natriuret Pep 06/03/20 09:59 Creatine Kinase CK-MB (CK-2) 6.20 H Troponin I 0.269 NT-Pro-B Natriuret Pep EKG Comments: Sinus rhythm. Nonspecific T changes lateral leads. Prolonged QT interval. ECHOCARDIOGRAM shows dilated left ventricle with severely reduced LV ejection fraction. There is moderate pulmonary hypertension. Please see report attached. Impressions: Head CT 06/02/20 17:51 IMPRESSION: NO ACUTE INTRACRANIAL FINDINGS. EVIDENCE OF ACUTE STROKE: NO. Chest X-Ray 06/02/20 17:54 IMPRESSION: NO ACUTE FINDINGS. Head MRI 06/06/20 00:00 IMPRESSION: No acute intracranial abnormality copyright 2011 [employer]- All Rights Reserved Status: Image reviewed by me Plan Discharge Plan: The patient status stable. The plan is to transfer the patient with ALS ambulance to [facility] for AICD placement Time Spent: Greater than 30 Minutes - Please see my progress notes also of 06/10/2020.
[2020-06-11] MEDS ORDERED: FUROSEMIDE 40 MG TABLET PO SCH (10:00)
== END 2020-06-10 15:15 | disposition short-term general hospital (02) | DRG 291 ==
LOC: ER 17:16 → EH 19:41 → 5 21:10
PROVIDERS: ADMIT Internal Medicine; ATTEND Internal Medicine
DX: I13.0 Hypertensive heart and chronic kidney disease with heart failure and stage 1 through stage 4 chronic kidney disease, or unspecified chronic kidney disease (principal); I50.43 Acute on chronic combined systolic (congestive) and diastolic (congestive) heart failure; Z95.811 Presence of heart assist device; I47.2 Ventricular tachycardia; I42.0 Dilated cardiomyopathy; I25.5 Ischemic cardiomyopathy; R55 Syncope and collapse; I07.1 Rheumatic tricuspid insufficiency; N18.3 Chronic kidney disease, stage 3 (moderate); E11.42 Type 2 diabetes mellitus with diabetic polyneuropathy; E11.22 Type 2 diabetes mellitus with diabetic chronic kidney disease; F17.200 Nicotine dependence, unspecified, uncomplicated; R29.6 Repeated falls; I27.20 Pulmonary hypertension, unspecified; Z91.19 Patient's noncompliance with other medical treatment and regimen; T46.5X6A Underdosing of other antihypertensive drugs, initial encounter; Z91.128 Patient's intentional underdosing of medication regimen for other reason; Z79.82 Long term (current) use of aspirin; Z79.4 Long term (current) use of insulin; Z79.899 Other long term (current) drug therapy; Z03.818 Encounter for observation for suspected exposure to other biological agents ruled out; Z71.6 Tobacco abuse counseling
CPT/HCPCS: 36415; 70450; 70551; 71046; 80048; 80053; 80061; 80076; 81001; 82550; 82553; 82607; 82728; 82746; 82962; 83036; 83540; 83550; 83735; 83880; 83970; 84100; 84439; 84443; 84484; 85025; 85045; 85610; 85730; 87086; 87635; 93005; 93010; 93306; 96374; 99285; C9803; J1644; J1815; J1940; J3490

== ENCOUNTER 2020-07-04 14:25 | Inpatient (IN) | payer MEDICAID ==
--- NOTE | 2020-07-04 15:44 | RADIOLOGY REPORT (SQ) ---
EXAM DESCRIPTION: CHEST SINGLE VIEW IMAGES COMPLETED DATE/TIME: 07/04/2020 3:35 pm REASON FOR STUDY: chf COMPARISON: 06/02/2020 EXAM PARAMETERS: NUMBER OF VIEWS: One view. TECHNIQUE: Single frontal radiographic view of the chest acquired. RADIATION DOSE: NA LIMITATIONS: None. FINDINGS: LUNGS AND PLEURA: No opacities, masses or pneumothorax. No pleural effusion. MEDIASTINUM AND HILAR STRUCTURES: No masses. Contour normal. HEART AND VASCULAR STRUCTURES: Heart is enlarged. No failure. BONES: No acute findings. HARDWARE: Battery pack and lead are in place. OTHER: No other significant finding. IMPRESSION: Cardiomegaly. No evidence of acute failure. TECHNICAL DOCUMENTATION: JOB ID: [id number] 2010 [employer] All Rights Reserved Reading location - IP/workstation name: [email or web address]
[2020-07-04 16:42] LABS: ABSOLUTE BASOPHILS # (AUTO) 0.1 10^3/uL (0.0-0.2); ABSOLUTE EOSINOPHILS # (AUTO) 0.3 10^3/uL (0.0-0.6); ABSOLUTE LYMPHOCYTES (AUTO) 1.1 10^3/uL (0.5-4.7); ABSOLUTE MONOCYTES (AUTO) 0.8 10^3/uL (0.1-1.4); ABSOLUTE NEUT (AUTO) 3.2 10^3/uL (1.7-8.2); EOSINOPHILS % (AUTO) 5.1 % (0-6); HEMATOCRIT 36.6 % (37.9-51.0); LYMPHOCYTES % (AUTO) 20.2 % (13-45); MEAN CORPUSCULAR HEMOGLOBIN 28.5 pg (27.0-33.4); MEAN CORPUSCULAR HGB CONC 32.8 g/dL (32.0-36.0); MEAN CORPUSCULAR VOLUME 87 fl (80-97); MONOCYTES % (AUTO) 15.1 % (3-13); PLATELET COUNT 260 10^3/uL (150-450); RED BLOOD COUNT 4.21 10^6/uL (4.35-5.55); RED CELL DISTRIBUTION WIDTH 18.8 % (11.5-14.0); SEGMENTED NEUTROPHILS % (AUTO) 58.6 % (42-78); TOTAL CELLS COUNTED % (AUTO) 100 %; WHITE BLOOD COUNT 5.4 10^3/uL (4.0-10.5)
[2020-07-04 16:55] LABS: PARTIAL THROMBOPLASTIN TIME 36.3 SEC (23.5-35.8); PROTHROMBIN TIME 16.4 SEC (11.4-15.4)
[2020-07-04 16:58] LABS: ALBUMIN 3.9 g/dL (3.5-5.0); ALKALINE PHOSPHATASE 82 U/L (38-126); ANION GAP 9 (5-19); ASPARTATE AMINO TRANSFERASE 26 U/L (17-59); BILIRUBIN,DIRECT 0.4 mg/dL (0.0-0.4); BILIRUBIN,TOTAL 1.8 mg/dL (0.2-1.3); BLOOD UREA NITROGEN 25 mg/dL (7-20); CALCIUM 9.2 mg/dL (8.4-10.2); CARBON DIOXIDE 32 mmol/L (22-30); CHLORIDE 104 mmol/L (98-107); GLUCOSE 101 mg/dL (75-110); POTASSIUM 3.8 mmol/L (3.6-5.0); TOTAL PROTEIN 7.3 g/dL (6.3-8.2)
[2020-07-04 16:59] LABS: DIGOXIN < 0.40 ng/mL (0.8-2.0)
[2020-07-04 17:09] LABS: CREATINE KINASE MB 5.53 ng/mL (<4.55); TROPONIN I 0.059 ng/mL
[2020-07-04 17:12] LABS: FREE T4 (FREE THYROXINE) 1.3 ng/dL (0.78-2.19)
[2020-07-04 17:27] LABS: THYROID STIMULATING HORMONE 2.53 uIU/mL (0.47-4.68)
--- NOTE | 2020-07-04 18:18 | PDOC H&P ---
History of Present Illness Admission Date/PCP: 07/04/20 14:25 BRIANDA WARNER MD History of Present Illness: JUICE GRAHAM is a 59 year old male, He has a history of chronic systolic heart failure, diabetes nephropathy, he was admitted from outpatient to the hospital for evaluation of decompensated chronic systolic heart failure. He saw Dr. Nice today in the office, he was found to be in CHF so he was admitted directly from the office into the hospital for evaluation and management of his heart failure. The last time he was admitted he was transferred to [facility] where he had AICD placement. Past Medical History Cardiac Medical History: Reports: Congestive Heart Failure, Hypertension Endocrine Medical History: Reports: Diabetes Mellitus Type 2 Psychiatric Medical History: Denies: Depression Past Surgical History Past Surgical History: Reports: None Social History Smoking Status: Former Smoker Frequency of Alcohol Use: None Hx Recreational Drug Use: No Drugs: None Hx Prescription Drug Abuse: No Family History Family History: None Parental Family History Reviewed: Yes Children Family History Reviewed: Yes Sibling(s) Family History Reviewed.: Yes Medication/Allergy Home Medications: Aspirin [Aspirin 81 mg Chewable Tablet] 81 mg PO DAILY #90 tab.chew 03/11/20 Dapagliflozin Propanediol [Farxiga] 10 mg PO DAILY #30 tablet 03/11/20 Metoprolol Succinate [Toprol Xl 50 mg Tab.sr] 50 mg PO DAILY #30 tab.sr.24h 03/11/20 Sacubitril/Valsartan [Entresto 49 mg/51 mg Tablet] 1 tab PO BID #60 tablet 03/11/20 Ergocalciferol (Vitamin D2) [Vitamin D2] 50,000 unit PO TH@1000 06/03/20 Furosemide [Lasix] 40 mg PO BID 06/03/20 Sitagliptin Phosphate [Januvia 50 mg Tablet] 100 mg PO DAILY 06/03/20 Atorvastatin Calcium [Lipitor 40 mg Tablet] 40 mg PO QHS 07/04/20 Spironolactone [Aldactone 25 mg Tablet] 25 mg PO DAILY 07/04/20 Allergies/Adverse Reactions: No Known Allergies Allergy (Verified 06/02/20 17:25) Review of Systems Constitutional: PRESENT: weakness Eyes: ABSENT: visual disturbances Ears: ABSENT: hearing changes Cardiovascular: PRESENT: edema, orthropnea Respiratory: ABSENT: cough, hemoptysis Gastrointestinal: ABSENT: abdominal pain, constipation, diarrhea, hematemesis, hematochezia, nausea, vomiting Genitourinary: ABSENT: dysuria, hematuria Musculoskeletal: ABSENT: joint swelling Integumentary: ABSENT: rash, wounds Neurological: ABSENT: abnormal gait, abnormal speech, confusion, dizziness, focal weakness, syncope Psychiatric: ABSENT: anxiety, depression, homidical ideation, suicidal ideation Endocrine: ABSENT: cold intolerance, heat intolerance, menstrual abnormalities, polydipsia, polyuria Hematologic/Lymphatic: ABSENT: easy bleeding, easy bruising, lymphadenopathy Physical Exam Vital Signs: Temp Pulse Resp BP Pulse Ox 97.9 F 99 18 136/90 H 98 07/04/20 16:20 07/04/20 16:20 07/04/20 16:20 07/04/20 16:20 07/04/20 16:20 Intake & Output 07/03/20 07/04/20 07/05/20 06:59 06:59 06:59 Weight 76.1 kg General appearance: PRESENT: no acute distress Head exam: PRESENT: atraumatic, normocephalic Eye exam: PRESENT: PERRLA Ear exam: PRESENT: normal external ear exam Mouth exam: PRESENT: moist, tongue midline Neck exam: PRESENT: full ROM Respiratory exam: PRESENT: clear to auscultation anu Cardiovascular exam: PRESENT: RRR, +S1, +S2 Vascular exam: PRESENT: normal capillary refill GI/Abdominal exam: PRESENT: normal bowel sounds, soft Rectal exam: PRESENT: deferred Extremities exam: PRESENT: pedal edema Neurological exam: PRESENT: alert, CN II-XII grossly intact Skin exam: PRESENT: dry, intact, warm Results Laboratory Results: 07/04/20 16:15 07/04/20 16:15 07/04/20 07/04/20 07/04/20 16:15 16:15 16:15 WBC 5.4 RBC 4.21 L Hgb 12.0 L Hct 36.6 L MCV 87 MCH 28.5 MCHC 32.8 RDW 18.8 H Plt Count 260 Seg Neutrophils % 58.6 Sodium 145.4 H Potassium 3.8 Chloride 104 Carbon Dioxide 32 H Anion Gap 9 BUN 25 H Creatinine 1.55 H Est GFR ( Amer) 56 L Glucose 101 Calcium 9.2 Magnesium 1.7 Total Bilirubin 1.8 H AST 26 Alkaline Phosphatase 82 Total Protein 7.3 Albumin 3.9 TSH 2.53 Free T4 1.30 07/04/20 07/04/20 07/04/20 16:15 16:15 16:15 Creatine Kinase 251 H CK-MB (CK-2) 5.53 H Troponin I 0.059 NT-Pro-B Natriuret Pep 00067 H Impressions: Chest X-Ray 07/04/20 15:01 IMPRESSION: Cardiomegaly. No evidence of acute failure. Assessment & Plan - Diagnosis (1) Acute on chronic systolic (congestive) heart failure Is this a current diagnosis for this admission?: Yes Plan: Patient is admitted to the hospital continue ARNI, beta-rito, start Lasix infusion (2) Type 2 diabetes mellitus with diabetic chronic kidney disease Qualifiers: Diabetes mellitus halfway insulin use: with terminal gauger use Chronic kidney disease stage: stage 3 (moderate) Qualified Code(s): E11.22 - Type 2 diabetes mellitus with diabetic chronic kidney disease; N18.3 - Chronic kidney disease, stage 3 (moderate); Z79.4 - correction (current) use of insulin Is this a current diagnosis for this admission?: Yes Plan: Continue Farxiga and other treatment (3) Presence of automatic cardioverter/defibrillator (AICD) Is this a current diagnosis for this admission?: Yes - Time Time Spent: Greater than 70 Minutes Medications reviewed and adjusted accordingly: Yes Anticipated Discharge Disposition: Senior Living Facility Anticipated Discharge Timeframe: within 72 hours
[2020-07-04] MEDS ORDERED: (PENDING PHARMACY ID) (Dapagliflozin Propanediol [Farxiga] 10 MG) PO SCH (18:30)
[2020-07-04] MEDS: SITAGLIPTIN PHOSPHATE 50 MG TABLET PO SCH (19:17)
[2020-07-04] MEDS: METOPROLOL SUCCINATE 50 MG TAB.SR.24H PO SCH (19:17)
[2020-07-04] MEDS: SPIRONOLACTONE 25 MG TABLET PO SCH (19:18)
[2020-07-04] MEDS: NORMAL SALINE 250 ML with FUROSEMIDE 250 MG IV PRN ×2 (19:18)
[2020-07-04] MEDS: ASPIRIN 81 MG TABLET, CHEWABLE PO SCH (19:18)
[2020-07-04] MEDS: ENOXAPARIN SODIUM INJ 40 MG/0.4 ML DISP.SYRIN SUBCUT SCH (19:18)
[2020-07-04] MEDS: SACUBITRIL/VALSARTAN 49 MG/51 MG TABLET PO SCH (21:31)
[2020-07-04] MEDS: ATORVASTATIN CALCIUM 40 MG TABLET PO SCH (21:31)
[2020-07-04 22:34] LABS: CREATINE KINASE MB 4.8 ng/mL (<4.55); TROPONIN I 0.06 ng/mL
[2020-07-04 22:49] LABS: APPEARANCE,URINE CLEAR; BILIRUBIN,URINE NEGATIVE (NEGATIVE); COLOR,URINE YELLOW; GLUCOSE, URINE NEGATIVE (NEGATIVE); KETONES,URINE NEGATIVE (NEGATIVE); LEUKOCYTE ESTERASE,URINE NEGATIVE (NEGATIVE); NITRITE,URINE NEGATIVE (NEGATIVE); PROTEIN,URINE 100 mg/dL (NEGATIVE)
[2020-07-05 06:15] LABS: ALBUMIN 3.5 g/dL (3.5-5.0); ALKALINE PHOSPHATASE 76 U/L (38-126); ASPARTATE AMINO TRANSFERASE 25 U/L (17-59); BILIRUBIN,DIRECT 0.4 mg/dL (0.0-0.4); BILIRUBIN,TOTAL 1.6 mg/dL (0.2-1.3); CHOLESTEROL 87.87 mg/dL (0-200); CREATINE KINASE MB 4.38 ng/mL (<4.55); TOTAL PROTEIN 6.5 g/dL (6.3-8.2); TRIGLYCERIDES 71 mg/dL (<150); TROPONIN I 0.052 ng/mL
[2020-07-05 06:26] LABS: DIRECT LDL 45 mg/dL (<100)
[2020-07-05] MEDS: ACETAMINOPHEN 325 MG TABLET PO PRN ×2 (08:49→15:35)
[2020-07-05] MEDS: SITAGLIPTIN PHOSPHATE 50 MG TABLET PO SCH (09:44)
[2020-07-05] MEDS: SACUBITRIL/VALSARTAN 49 MG/51 MG TABLET PO SCH ×2 (09:44→21:56)
[2020-07-05] MEDS: ASPIRIN 81 MG TABLET, CHEWABLE PO SCH (09:44)
[2020-07-05] MEDS: ENOXAPARIN SODIUM INJ 40 MG/0.4 ML DISP.SYRIN SUBCUT SCH (09:45)
[2020-07-05] MEDS: METOPROLOL SUCCINATE 50 MG TAB.SR.24H PO SCH (09:45)
[2020-07-05] MEDS: SPIRONOLACTONE 25 MG TABLET PO SCH (09:45)
[2020-07-05] MEDS ORDERED: ERGOCALCIFEROL (VITAMIN D2) 50000 UNIT (1.25 MG) CAPSULE PO SCH (10:00)
[2020-07-05] MEDS ORDERED: PHARMACY COMMUNICATION ORDER MC SCH (18:00)
--- NOTE | 2020-07-05 18:22 | PDOC CONSULTATION ---
Consultation-Blank Consultation: CARDIOLOGY CONSULTATION BY Dr. Norma Pena on 07/05/2020. Patient seen at 2:30 PM. 60 minutes spent with patient more than 50% time spent in direct patient care. CONSULT REQUESTING PHYSICIAN: Dr. Naranjo. Also patient follows up with me in the office regularly for his cardiology condition. REASON FOR CONSULTATION: Acute on chronic heart failure. HISTORY of PRESENT ILLNESS: Patient is a 59-year-old -[place] male with known history of dilated and ischemic cardiomyopathy, s/p recent AICD, call me about 2 days ago stating that he had increasing leg edema and some excoriation of the skin of his legs. I have asked him to increase the patient's Lasix to 80 mg p.o. twice daily. But when I saw him yesterday in the office there is on 06 July the patient was not heart failure. Hence a asked the patient to go to the hospital and after discussions with Dr. Pop he was made a direct admit yesterday and was placed on Lasix drip since the patient has been on Lasix drip if he is much improved. He still has some degree of orthopnea but this is improved. There is no firing of his AICD. The patient has no chest pain discomfort. There is no syncope. His lady leg edema is only partially less. He has no fever chills or Reiger's. He has a history of COPD but there is no symptoms of acute exacerbation. He also has a history of hypertension but in the recent past his blood pressure has been low. He has history of diabetes mellitus, coronary artery disease history of old [place] by stress testing. He has no anginal symptoms. He also has chronic kidney disease stage III. The patient has a history of smoking in the past and has quit. There is no history of TIA CVA symptoms. There is no history of sleep apnea or headaches migraines or seizures. Past Medical History Cardiac Medical History: Reports: Congestive Heart Failure, Hypertension. History of coronary artery disease old [place] by stress testing. History of pulmonary hypertension. Endocrine Medical History: Reports: Diabetes Mellitus Type 2 Psychiatric Medical History: Denies: Depression/ Lungs. History of COPD. No cough or symptoms of acute exacerbation COPD. RENAL: Patient history of chronic kidney disease stage III. Past Surgical History: Recent AICD placement. Social History Smoking Status: Former Smoker Frequency of Alcohol Use: None Hx Recreational Drug Use: No Drugs: None Hx Prescription Drug Abuse: No Family History Family History: None Parental Family History Reviewed: Yes Children Family History Reviewed: Yes Sibling(s) Family History Reviewed.: Yes Medication/Allergy Home Medications: Aspirin [Aspirin 81 mg Chewable Tablet] 81 mg PO DAILY #90 tab.chew 03/11/20 Dapagliflozin Propanediol [Farxiga] 10 mg PO DAILY #30 tablet 03/11/20 Metoprolol Succinate [Toprol Xl 50 mg Tab.sr] 50 mg PO DAILY #30 tab.sr.24h 03/11/20 Sacubitril/Valsartan [Entresto 49 mg/51 mg Tablet] 1 tab PO BID #60 tablet 03/11/20 Ergocalciferol (Vitamin D2) [Vitamin D2] 50,000 unit PO TH@1000 06/03/20 Furosemide [Lasix] 40 mg PO BID 06/03/20 Sitagliptin Phosphate [Januvia 50 mg Tablet] 100 mg PO DAILY 06/03/20 Atorvastatin Calcium [Lipitor 40 mg Tablet] 40 mg PO QHS 07/04/20 Spironolactone [Aldactone 25 mg Tablet] 25 mg PO DAILY 07/04/20 Allergies/Adverse Reactions: No Known Allergies Allergy (Verified 06/02/20 17:25) Current Medications Generic Name Dose Route Start Last Admin Trade Name Freq PRN Reason Stop Dose Admin Acetaminophen 650 mg 07/05/20 07:59 07/05/20 15:35 Tylenol 325 Mg Tablet PO 08/04/20 07:58 650 mg Q4HP PRN Administration FOR PAIN Aspirin 81 mg 07/04/20 18:30 07/05/20 09:44 Aspirin 81 Mg Chewable Tablet PO 08/03/20 18:29 81 mg DAILY ALAN Administration Atorvastatin Calcium 40 mg 07/04/20 22:00 07/05/20 21:56 Lipitor 40 Mg Tablet PO 08/03/20 21:59 40 mg QHS ALAN Administration Enoxaparin Sodium 40 mg 07/04/20 18:30 07/05/20 09:45 Lovenox Inj 40 Mg/0.4 Ml Disp.Syrin SUBCUT 08/03/20 18:29 40 mg DAILY ALAN Administration Ergocalciferol 50,000 unit 07/05/20 10:00 07/05/20 09:44 Drisdol 50,000 Unit (1.25mg) Capsule PO 08/04/20 09:59 50,000 unit TH@1000 ALAN Administration Furosemide 250 mg/ Sodium 250 mls @ 5 mls/hr 07/04/20 15:02 07/05/20 18:37 Chloride IV 08/03/20 15:01 5 mg/hr CONTINUOUS PRN 5 mls/hr THIS MED IS NOT "PRN" Administration 5 MG/HR Metoprolol Succinate 50 mg 07/04/20 18:30 07/05/20 09:45 Toprol Xl 50 Mg Tab.Sr PO 08/03/20 18:29 50 mg DAILY ALAN Administration Patient Own Medication 10 mg 07/04/20 18:30 Dapagliflozin Propanediol [Farxiga] PO 08/03/20 18:29 .DAILY [facility] Pharmacy Profile Note 1 each 07/05/20 18:00 07/05/20 19:04 Medication Communication Order 08/04/20 17:59 Not Given QPM ALAN Sacubitril/Valsartan 1 tab 07/04/20 22:00 07/05/20 21:56 Entresto 49 Mg/51 Mg Tablet PO 08/03/20 21:59 1 tab Q12 ALAN Administration Sitagliptin Phosphate 100 mg 07/04/20 18:30 07/05/20 09:44 Januvia 50 Mg Tablet PO 08/03/20 18:29 100 mg DAILY ALAN Administration Sodium Chloride 2.5 ml 07/04/20 15:00 07/05/20 21:56 Saline Flush 2.5 Ml Monoject Prefil Syrin IV 08/03/20 14:59 Not Given Q8 ALAN Spironolactone 25 mg 07/04/20 18:30 07/05/20 09:45 Aldactone 25 Mg Tablet PO 08/03/20 18:29 25 mg DAILY ALAN Administration Review of Systems Constitutional: PRESENT: weakness Eyes: ABSENT: visual disturbances Ears: ABSENT: hearing changes Cardiovascular: PRESENT: edema, orthropnea Respiratory: ABSENT: cough, hemoptysis Gastrointestinal: ABSENT: abdominal pain, constipation, diarrhea, hematemesis, hematochezia, nausea, vomiting Genitourinary: ABSENT: dysuria, hematuria Musculoskeletal: ABSENT: joint swelling Integumentary: ABSENT: rash, wounds Neurological: ABSENT: abnormal gait, abnormal speech, confusion, dizziness, focal weakness, syncope Psychiatric: ABSENT: anxiety, depression, homidical ideation, suicidal ideation Endocrine: ABSENT: cold intolerance, heat intolerance, menstrual abnormalities, polydipsia, polyuria Hematologic/Lymphatic: ABSENT: easy bleeding, easy bruising, lymphadenopathy PHYSICAL EXAMINATION: The patient is well-built and appears to be slightly obese. In no acute distress at present. Selected Entries 07/05/20 07/05/20 12:07 15:20 Temperature 97.7 F Temperature Oral Source Pulse Rate 80 79 Respiratory 18 Rate Blood Pressure 127/92 H 129/94 H Blood Pressure 103 105 Mean BP Location Left Arm Right Arm BP Position Sitting O2 Sat by Pulse 95 97 Oximetry Oxygen Delivery Room Air Method Head: Is atraumatic and normocephalic. EYES: Pupils are equal round regular reactive to light and accommodation. Extraocular movements are normal. There is no conjunctival pallor. There is no scleral icterus. EARS: Tympanic membranes are intact. External auditory canals are clear. NOSE: There is no deviated nasal septum. There is no inflammation of the nasal mucous membrane. MOUTH: Mucous membranes of mouth are moist. Tongue is moist. There is no ulcers. There is no bleeding from the gums. THROAT: There is no redness of the oropharynx. There is no exudates. SKIN: There is no skin rashes. There is no petechia or ecchymosis. There is no skin lesions. NECK: Supple. There is JVD present. Hepatojugular reflux is positive. There is no lymphadenopathy. Carotids are equal there is no bruits. There is no goiter. There is no accessory muscles of respiration use. Trachea is central. LUNGS: There is diminished air entry prolonged expiration. There is no rhonchi or wheezing. There is bibasilar rales of CHF. HEART S1-S2 is heard. There is no S3 gallop. There is no S4 gallop. There is systolic murmur of mitral regurgitation and tricuspid regurgitation present. There is no rub. ABDOMEN: Is obese. There is hepatomegaly. There is no splenomegaly. Bowel sounds are well heard. There is hepatojugular reflux present. There is no tender areas of masses. There is no rebound guarding or rigidity. EXTREMITIES: Femorals are diminished. Leg pulses difficult to palpate. There is 2-+ edema bilaterally. There is also several areas of skin abrasion with reddish colored base without evidence of infection or surrounding cellulitis. This is stasis dermatitis changes. There is no DVT cellulitis. There is no calf tenderness. [employer]: The patient is conscious awake alert oriented x3 with no focal deficits. PSYCHIATRIC: The patient judgment insight intact his affect is normal. Labs- Entire Visit 07/04/20 07/04/20 07/04/20 16:15 16:15 16:15 WBC 5.4 RBC 4.21 L Hgb 12.0 L Hct 36.6 L MCV 87 MCH 28.5 MCHC 32.8 RDW 18.8 H Plt Count 260 Lymph % (Auto) 20.2 [place] % (Auto) 15.1 H Eos % (Auto) 5.1 Baso % (Auto) 1.0 Absolute Neuts (auto) 3.2 Absolute Lymphs (auto) 1.1 Absolute Monos (auto) 0.8 Absolute Eos (auto) 0.3 Absolute Basos (auto) 0.1 Seg Neutrophils % 58.6 PT INR APTT Sodium Potassium Chloride Carbon Dioxide Anion Gap BUN Creatinine Est GFR ( Amer) Est GFR (MDRD) Non-Af Glucose POC Glucose Hemoglobin A1c % Calcium Magnesium Total Bilirubin Direct Bilirubin Neonat Total Bilirubin Neonat Direct Bilirubin Neonat Indirect Bili AST ALT Alkaline Phosphatase Creatine Kinase 251 H CK-MB (CK-2) 5.53 H Troponin I 0.059 NT-Pro-B Natriuret Pep Total Protein Albumin Triglycerides Cholesterol LDL Cholesterol Direct VLDL Cholesterol HDL Cholesterol TSH Free T4 Urine Color Urine Appearance Urine pH Ur Specific [place] Urine Protein Urine Glucose (UA) Urine Ketones Urine Blood Urine Nitrite Urine Bilirubin Urine Urobilinogen Ur Leukocyte Esterase Urine RBC (Auto) U Hyaline Cast (Auto) Urine Creatinine Protein/Creatinin Ratio Urine Total Protein Urine Ascorbic Acid Digoxin 07/04/20 07/04/20 07/04/20 16:15 16:15 16:15 WBC RBC Hgb Hct MCV MCH MCHC RDW Plt Count Lymph % (Auto) Meade % (Auto) Eos % (Auto) Baso % (Auto) Absolute Neuts (auto) Absolute Lymphs (auto) Absolute Monos (auto) Absolute Eos (auto) Absolute Basos (auto) Seg Neutrophils % PT 16.4 H INR 1.30 APTT 36.3 H Sodium 145.4 H Potassium 3.8 Chloride 104 Carbon Dioxide 32 H Anion Gap 9 BUN 25 H Creatinine 1.55 H Est GFR ( Amer) 56 L Est GFR (MDRD) Non-Af 46 L Glucose 101 POC Glucose Hemoglobin A1c % Calcium 9.2 Magnesium 1.7 Total Bilirubin 1.8 H Direct Bilirubin 0.4 Neonat Total Bilirubin Not Reportable Neonat Direct Bilirubin Not Reportable Neonat Indirect Bili Not Reportable AST 26 ALT 13 Alkaline Phosphatase 82 Creatine Kinase CK-MB (CK-2) Troponin I NT-Pro-B Natriuret Pep 70970 H Total Protein 7.3 Albumin 3.9 Triglycerides Cholesterol LDL Cholesterol Direct VLDL Cholesterol HDL Cholesterol TSH Free T4 Urine Color Urine Appearance Urine pH Ur Specific [place] Urine Protein Urine Glucose (UA) Urine Ketones Urine Blood Urine Nitrite Urine Bilirubin Urine Urobilinogen Ur Leukocyte Esterase Urine RBC (Auto) U Hyaline Cast (Auto) Urine Creatinine Protein/Creatinin Ratio Urine Total Protein Urine Ascorbic Acid Digoxin < 0.40 L 07/04/20 07/04/20 07/04/20 16:15 16:19 21:50 WBC RBC Hgb Hct MCV MCH MCHC RDW Plt Count Lymph % (Auto) Me[place] % (Auto) Eos % (Auto) Baso % (Auto) Absolute Neuts (auto) Absolute Lymphs (auto) Absolute Monos (auto) Absolute Eos (auto) Absolute Basos (auto) Seg Neutrophils % PT INR APTT Sodium Potassium Chloride Carbon Dioxide Anion Gap BUN Creatinine Est GFR ( Amer) Est GFR (MDRD) Non-Af Glucose POC Glucose 106 Hemoglobin A1c % Calcium Magnesium Total Bilirubin Direct Bilirubin Neonat Total Bilirubin Neonat Direct Bilirubin Neonat Indirect Bili AST ALT Alkaline Phosphatase Creatine Kinase 212 H CK-MB (CK-2) Troponin I NT-Pro-B Natriuret Pep Total Protein Albumin Triglycerides Cholesterol LDL Cholesterol Direct VLDL Cholesterol HDL Cholesterol TSH 2.53 Free T4 1.30 Urine Color Urine Appearance Urine pH Ur Specific [place] Urine Protein Urine Glucose (UA) Urine Ketones Urine Blood Urine Nitrite Urine Bilirubin Urine Urobilinogen Ur Leukocyte Esterase Urine RBC (Auto) U Hyaline Cast (Auto) Urine Creatinine Protein/Creatinin Ratio Urine Total Protein Urine Ascorbic Acid Digoxin 07/04/20 07/04/20 07/04/20 21:50 21:53 22:24 WBC RBC Hgb Hct MCV MCH MCHC RDW Plt Count Lymph % (Auto) [place] % (Auto) Eos % (Auto) Baso % (Auto) Absolute Neuts (auto) Absolute Lymphs (auto) Absolute Monos (auto) Absolute Eos (auto) Absolute Basos (auto) Seg Neutrophils % PT INR APTT Sodium Potassium Chloride Carbon Dioxide Anion Gap BUN Creatinine Est GFR ( Amer) Est GFR (MDRD) Non-Af Glucose POC Glucose 196 H Hemoglobin A1c % Calcium Magnesium Total Bilirubin Direct Bilirubin Neonat Total Bilirubin Neonat Direct Bilirubin Neonat Indirect Bili AST ALT Alkaline Phosphatase Creatine Kinase CK-MB (CK-2) 4.80 H Troponin I 0.060 NT-Pro-B Natriuret Pep Total Protein Albumin Triglycerides Cholesterol LDL Cholesterol Direct VLDL Cholesterol HDL Cholesterol TSH Free T4 Urine Color YELLOW Urine Appearance CLEAR Urine pH 6.0 Ur Specific [place] 1.010 Urine Protein 100 H Urine Glucose (UA) NEGATIVE Urine Ketones NEGATIVE Urine Blood SMALL H Urine Nitrite NEGATIVE Urine Bilirubin NEGATIVE Urine Urobilinogen 2.0 H Ur Leukocyte Esterase NEGATIVE Urine RBC (Auto) 4 U Hyaline Cast (Auto) 1 Urine Creatinine Protein/Creatinin Ratio Urine Total Protein Urine Ascorbic Acid NEGATIVE Digoxin 07/05/20 07/05/20 07/05/20 04:44 04:44 04:44 WBC RBC Hgb Hct MCV MCH MCHC RDW Plt Count Lymph % (Auto) [place] % (Auto) Eos % (Auto) Baso % (Auto) Absolute Neuts (auto) Absolute Lymphs (auto) Absolute Monos (auto) Absolute Eos (auto) Absolute Basos (auto) Seg Neutrophils % PT INR APTT Sodium Potassium Chloride Carbon Dioxide Anion Gap BUN Creatinine Est GFR ( Amer) Est GFR (MDRD) Non-Af Glucose POC Glucose Hemoglobin A1c % Calcium Magnesium Total Bilirubin 1.6 H Direct Bilirubin 0.4 Neonat Total Bilirubin Not Reportable Neonat Direct Bilirubin Not Reportable Neonat Indirect Bili Not Reportable AST 25 ALT 13 Alkaline Phosphatase 76 Creatine Kinase 228 H CK-MB (CK-2) 4.38 Troponin I 0.052 NT-Pro-B Natriuret Pep Total Protein 6.5 Albumin 3.5 Triglycerides 71 Cholesterol 87.87 LDL Cholesterol Direct 45 VLDL Cholesterol 14.0 HDL Cholesterol 30 L TSH Free T4 Urine Color Urine Appearance Urine pH Ur Specific [place] Urine Protein Urine Glucose (UA) Urine Ketones Urine Blood Urine Nitrite Urine Bilirubin Urine Urobilinogen Ur Leukocyte Esterase Urine RBC (Auto) U Hyaline Cast (Auto) Urine Creatinine Protein/Creatinin Ratio Urine Total Protein Urine Ascorbic Acid Digoxin 07/05/20 07/05/2020 04:44 07:57 12:08 WBC RBC Hgb Hct MCV MCH MCHC RDW Plt Count Lymph % (Auto) Meade % (Auto) Eos % (Auto) Baso % (Auto) Absolute Neuts (auto) Absolute Lymphs (auto) Absolute Monos (auto) Absolute Eos (auto) Absolute Basos (auto) Seg Neutrophils % PT INR APTT Sodium Potassium Chloride Carbon Dioxide Anion Gap BUN Creatinine Est GFR ( Amer) Est GFR (MDRD) Non-Af Glucose POC Glucose 146 H 188 H Hemoglobin A1c % 7.5 H Calcium Magnesium Total Bilirubin Direct Bilirubin Neonat Total Bilirubin Neonat Direct Bilirubin Neonat Indirect Bili AST ALT Alkaline Phosphatase Creatine Kinase CK-MB (CK-2) Troponin I NT-Pro-B Natriuret Pep Total Protein Albumin Triglycerides Cholesterol LDL Cholesterol Direct VLDL Cholesterol HDL Cholesterol TSH Free T4 Urine Color Urine Appearance Urine pH Ur Specific [place] Urine Protein Urine Glucose (UA) Urine Ketones Urine Blood Urine Nitrite Urine Bilirubin Urine Urobilinogen Ur Leukocyte Esterase Urine RBC (Auto) U Hyaline Cast (Auto) Urine Creatinine Protein/Creatinin Ratio Urine Total Protein Urine Ascorbic Acid Digoxin Chest X-Ray 07/04/20 15:01 IMPRESSION: Cardiomegaly. No evidence of acute failure. IMPRESSION/RECOMMENDATION: 1. 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 The patient is got a good response to IV Lasix drip and would continue this. Would increase the patient's Entresto and beta-rito. 2. HISTORY of AICD placement. No firing of the AICD. 3. Cardiomyopathy with severely reduced LV ejection fraction: This is a mixture of dilated and ischemic cardiomyopathy. Would recommend increasing the patient beta-rito and Entresto. 4. At least moderate pulmonary hypertension. I expect this to improve with the treatment of left heart failure. 5. Hypertension: Blood pressure is good. We will increase the patient's beta- rito and also his Entresto sequentially. 6. 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 We will continue the patient on aspirin and add nitrates. Continue beta-rito. 7. Diabetes mellitus type 2: Continue antidiabetic treatment and Accu-Cheks as per protocol. 8 . Chronic kidney disease stage III. 9. COPD: This seems to be stable with no acute exacerbation. Medications reviewed. Medical regimen and management plan discussed with Dr. Naranjo. Medications adjusted dose is increased. Medical decision making is of high complexity. 6060 minutes spent as patient with more than 50% time spent in direct patient care.
[2020-07-05] MEDS: NORMAL SALINE 250 ML with FUROSEMIDE 250 MG IV PRN ×2 (18:37)
--- NOTE | 2020-07-05 21:10 | PDOC PROGRESS REPORT ---
Subjective Progress Note for:: 07/05/20 Subjective:: Patient seen by the bedside, he was admitted yesterday for the management of acute CHF, He is suggesting going to rehab on discharge Reason For Visit: HEART FAILURE,T2DM Physical Exam Vital Signs: Temp Pulse Resp BP Pulse Ox 97.7 F 79 18 129/94 H 97 07/05/20 17:20 07/05/20 17:20 07/05/20 12:07 07/05/20 17:20 07/05/20 17:20 Intake & Output 07/04/20 07/05/20 07/06/20 06:59 06:59 06:59 Intake Total 822 717 Output Total 400 500 Balance 422 217 Weight 76.1 kg General appearance: PRESENT: no acute distress Eye exam: PRESENT: PERRLA Respiratory exam: PRESENT: clear to auscultation anu Cardiovascular exam: PRESENT: +S1, +S2 GI/Abdominal exam: PRESENT: soft Neurological exam: PRESENT: alert Results Laboratory Results: 07/04/20 16:15 07/04/20 16:15 07/04/20 07/05/20 22:24 04:44 Total Bilirubin 1.6 H AST 25 Alkaline Phosphatase 76 Total Protein 6.5 Albumin 3.5 Triglycerides 71 Cholesterol 87.87 LDL Cholesterol Direct 45 VLDL Cholesterol 14.0 HDL Cholesterol 30 L Urine Color YELLOW Urine Appearance CLEAR Urine pH 6.0 Ur Specific [place] 1.010 Urine Protein 100 H Urine Glucose (UA) NEGATIVE Urine Ketones NEGATIVE Urine Blood SMALL H Urine Nitrite NEGATIVE Ur Leukocyte Esterase NEGATIVE Urine RBC (Auto) 4 07/04/20 07/04/20 07/04/20 16:15 16:15 16:15 Creatine Kinase 251 H CK-MB (CK-2) 5.53 H Troponin I 0.059 NT-Pro-B Natriuret Pep 40010 H 07/04/20 07/04/20 07/05/20 21:50 21:50 04:44 Creatine Kinase 212 H 228 H CK-MB (CK-2) 4.80 H Troponin I 0.060 NT-Pro-B Natriuret Pep 07/05/20 04:44 Creatine Kinase CK-MB (CK-2) 4.38 Troponin I 0.052 NT-Pro-B Natriuret Pep Impressions: Chest X-Ray 07/04/20 15:01 IMPRESSION: Cardiomegaly. No evidence of acute failure. Assessment & Plan - Diagnosis (1) Acute on chronic systolic (congestive) heart failure Is this a current diagnosis for this admission?: Yes Plan: Continue Lasix infusion, ARNI, beta-rito (2) Type 2 diabetes mellitus with diabetic chronic kidney disease Qualifiers: Diabetes mellitus intermediate teacher insulin use: with senior care use Chronic kidney disease stage: stage 3 (moderate) Qualified Code(s): E11.22 - Type 2 diabetes mellitus with diabetic chronic kidney disease; N18.3 - Chronic kidney disease, stage 3 (moderate); Z79.4 - manager terminal (current) use of insulin Is this a current diagnosis for this admission?: Yes (3) Presence of automatic cardioverter/defibrillator (AICD) Is this a current diagnosis for this admission?: Yes - Time Time Spent with patient: 25-34 minutes Level of Care: IMCU Medications reviewed and adjusted accordingly: Yes Anticipated discharge: Home Anticipated DC Timeframe: within 72 hours
[2020-07-05] MEDS: ATORVASTATIN CALCIUM 40 MG TABLET PO SCH (21:56)
[2020-07-05 22:34] LABS: URINE CREATININE 87.3 mg/dL (22-328)
[2020-07-05 22:45] LABS: UR PRO/CREAT RATIO RESULT 2.7 mg/mg (0.0-0.2); URINE PROTEIN 237.6 mg/dL (<12)
[2020-07-06 05:48] LABS: ANION GAP 12 (5-19); BLOOD UREA NITROGEN 28 mg/dL (7-20); CALCIUM 9.3 mg/dL (8.4-10.2); CARBON DIOXIDE 29 mmol/L (22-30); CHLORIDE 100 mmol/L (98-107); GLUCOSE 149 mg/dL (75-110); POTASSIUM 4.2 mmol/L (3.6-5.0)
[2020-07-06] MEDS: ACETAMINOPHEN 325 MG TABLET PO PRN (07:52)
[2020-07-06] MEDS: SITAGLIPTIN PHOSPHATE 50 MG TABLET PO SCH (09:58)
[2020-07-06] MEDS: METOPROLOL SUCCINATE 50 MG TAB.SR.24H PO SCH (09:58)
[2020-07-06] MEDS: SACUBITRIL/VALSARTAN 97 MG/103 MG TABLET PO SCH ×2 (09:58→17:02)
[2020-07-06] MEDS: ENOXAPARIN SODIUM INJ 40 MG/0.4 ML DISP.SYRIN SUBCUT SCH (09:59)
[2020-07-06] MEDS: ASPIRIN 81 MG TABLET, CHEWABLE PO SCH (09:59)
[2020-07-06] MEDS: SPIRONOLACTONE 25 MG TABLET PO SCH (09:59)
--- NOTE | 2020-07-06 14:19 | Progress Note ---
Provider Note Provider Note: CARDIOLOGY PROGRESS NOTE by Dr. Norma Gunter on 07/06/2020. SUBJECTIVE: The patient states he feels much better. His leg edema is much improved and there is only trace edema. There is no firing of his AICD. There is no atrial events arrhythmias seen on the monitor. Patient denies any chest pain discomfort. There is no shortness of breath there is no PND orthopnea. The patient's GFR slightly reduced. Hence we will stop the patient's IV Lasix infusion and change to IV Lasix 40 mg every 12 hours. The patient is tolerating the increased dose of Entresto. Later we will increase the patient's beta- rito. The patient had been counseled and educated by the nurse educator. He seems to have a slightly little more better insight into his multiple medical illnesses. But he need more teaching. PHYSICAL EXAMINATION: The patient is well-built and well-nourished at present in no acute distress. Selected Entries 07/06/20 10:51 Temperature 97.7 F Temperature Oral Source Pulse Rate 78 Respiratory 18 Rate Blood Pressure 129/80 H Blood Pressure 96 Mean BP Location Right Arm BP Position Supine O2 Sat by Pulse 98 Oximetry Oxygen Delivery Room Air Method Head: Is atraumatic and normocephalic. EYES: Pupils are equal round regular reactive to light and accommodation. Extraocular movements are normal. There is no conjunctival pallor. There is no scleral icterus. EARS: Tympanic membranes are intact. External auditory canals are clear. NOSE: There is no deviated nasal septum. There is no inflammation of the nasal mucous membrane. MOUTH: Mucous membranes of mouth are moist. Tongue is moist. There is no ulcers. There is no bleeding from the gums. THROAT: There is no redness of the oropharynx. There is no exudates. SKIN: There is no skin rashes. There is no petechia or ecchymosis. There is no skin lesions. NECK: Supple. There is JVD present. Hepatojugular reflux is positive. There is no lymphadenopathy. Carotids are equal there is no bruits. There is no goiter. There is no accessory muscles of respiration use. Trachea is central. LUNGS: There is diminished air entry prolonged expiration. There is no rhonchi or wheezing. There is bibasilar rales of CHF. HEART S1-S2 is heard. There is no S3 gallop. There is no S4 gallop. There is systolic murmur of mitral regurgitation and tricuspid regurgitation present. There is no rub. ABDOMEN: Is obese. There is hepatomegaly. There is no splenomegaly. Bowel sounds are well heard. There is hepatojugular reflux present. There is no tender areas of masses. There is no rebound guarding or rigidity. EXTREMITIES: Femorals are diminished. Leg pulses difficult to palpate. There is trace edema bilaterally. There is also several areas of skin abrasion with reddish colored base without evidence of infection or surrounding cellulitis. This is improving. This is stasis dermatitis changes. There is no DVT cellulitis. There is no calf tenderness. VICE PRESIDENT RISK MANAGEMENT: The patient is conscious awake alert oriented x3 with no focal deficits. PSYCHIATRIC: The patient judgment insight intact his affect is normal. The patient's 24-hour intake is 1105 mL. 24-hour output is 700 mL. Labs- All tests 24 hr 07/06/20 07/06/20 07/06/20 04:54 08:41 11:10 Sodium 140.8 Potassium 4.2 Chloride 100 Carbon Dioxide 29 Anion Gap 12 BUN 28 H Creatinine 1.63 H Est GFR ( Amer) 53 L Est GFR (MDRD) Non-Af 44 L Glucose 149 H POC Glucose 218 H 200 H Calcium 9.3 07/06/20 07/06/20 16:21 21:09 Sodium Potassium Chloride Carbon Dioxide Anion Gap BUN Creatinine Est GFR ( Amer) Est GFR (MDRD) Non-Af Glucose POC Glucose 144 H 185 H Calcium Chest X-Ray 07/04/20 15:01 IMPRESSION: Cardiomegaly. No evidence of acute failure. IMPRESSION/RECOMMENDATION: 1. 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 The patient is got a good response to IV Lasix drip and since the patient's renal function is slightly compromised we will stop the Lasix drip and convert to IV Lasix 40 mg every 12 hours. The patient is tolerating the increased dose of Entresto and later will increase beta-rito. 2. HISTORY of AICD placement. No firing of the AICD. 3. Cardiomyopathy with severely reduced LV ejection fraction: This is a mixture of dilated and ischemic cardiomyopathy. Would recommend increasing the patient beta-rito and Entresto. 4. At least moderate pulmonary hypertension. I expect this to improve with the treatment of left heart failure. 5. Hypertension: Blood pressure is good. We will increase the patient's beta- rito and also his Entresto sequentially. 6. Coronary artery disease by stress testing which shows old myocardial infar ction of the inferior wall with some minimal reversibility. We will continue the patient on aspirin and add nitrates. Continue beta-rito. 7. Diabetes mellitus type 2: Continue antidiabetic treatment and Accu-Cheks as per protocol. 8 . Chronic kidney disease stage III. 9. COPD: This seems to be stable with no acute exacerbation. Medications reviewed. Medications adjusted. Medical regimen and management plan discussed with attending provider Dr. Naranjo. 40 minutes spent as patient more than 50% time spent in direct patient care. Medical decision making is of high complexity. Will follow
--- NOTE | 2020-07-06 21:12 | PDOC PROGRESS REPORT ---
Subjective Progress Note for:: 07/06/20 Subjective:: Patient seen by the bedside, he was admitted for the management of acute CHF, He is suggesting going to rehab on discharge Reason For Visit: HEART FAILURE,T2DM Physical Exam Vital Signs: Temp Pulse Resp BP Pulse Ox 98.0 F 77 16 128/95 H 94 07/06/20 20:22 07/06/20 20:22 07/06/20 20:22 07/06/20 20:22 07/06/20 20:22 Intake & Output 07/05/20 07/06/20 07/07/20 06:59 06:59 06:59 Intake Total 930 964 0934 Output Total 400 1275 770 Balance 422 -558 235 Weight 76.1 kg 78.9 kg General appearance: PRESENT: no acute distress Eye exam: PRESENT: PERRLA Respiratory exam: PRESENT: clear to auscultation anu Cardiovascular exam: PRESENT: +S1, +S2 GI/Abdominal exam: PRESENT: soft Neurological exam: PRESENT: alert, CN II-XII grossly intact Results Laboratory Results: 07/04/20 16:15 07/06/20 04:54 07/06/20 04:54 Sodium 140.8 Potassium 4.2 Chloride 100 Carbon Dioxide 29 Anion Gap 12 BUN 28 H Creatinine 1.63 H Est GFR ( Amer) 53 L Glucose 149 H Calcium 9.3 07/04/20 22:24 Clean Catch Midstream Urine Culture - Final NO GROWTH 2 DAYS 07/04/20 07/04/20 07/04/20 16:15 16:15 16:15 Creatine Kinase 251 H CK-MB (CK-2) 5.53 H Troponin I 0.059 NT-Pro-B Natriuret Pep 51020 H 07/04/20 07/04/20 07/05/20 21:50 21:50 04:44 Creatine Kinase 212 H 228 H CK-MB (CK-2) 4.80 H Troponin I 0.060 NT-Pro-B Natriuret Pep 07/05/20 04:44 Creatine Kinase CK-MB (CK-2) 4.38 Troponin I 0.052 NT-Pro-B Natriuret Pep Impressions: Chest X-Ray 07/04/20 15:01 IMPRESSION: Cardiomegaly. No evidence of acute failure. Assessment & Plan - Diagnosis (1) Acute on chronic systolic (congestive) heart failure Is this a current diagnosis for this admission?: Yes Plan: Continue Lasix infusion, ARNI, beta-rito (2) Type 2 diabetes mellitus with diabetic chronic kidney disease Qualifiers: Diabetes mellitus terminologist insulin use: with terminologist use Chronic kidney disease stage: stage 3 (moderate) Qualified Code(s): E11.22 - Type 2 diabetes mellitus with diabetic chronic kidney disease; N18.3 - Chronic kidney disease, stage 3 (moderate); Z79.4 - ad terminal makeup operator (current) use of insulin Is this a current diagnosis for this admission?: Yes (3) Presence of automatic cardioverter/defibrillator (AICD) Is this a current diagnosis for this admission?: Yes - Time Time Spent with patient: 25-34 minutes Level of Care: IMCU Medications reviewed and adjusted accordingly: Yes Anticipated discharge: Acute Rehab Anticipated DC Timeframe: within 72 hours - Inpatient Certification Based on my medical assessment, after consideration of the patient's comorbidities, presenting symptoms, or acuity I expect that the services needed warrant INPATIENT care.: No I certify that my determination is in accordance with my understanding of Medicare's requirements for reasonable and necessary INPATIENT services [42 CFR 412.3e].: No
[2020-07-06] MEDS: ATORVASTATIN CALCIUM 40 MG TABLET PO SCH (22:08)
[2020-07-06] MEDS: FUROSEMIDE INJ/PF 40 MG/4 ML SDV IV SCH (22:08)
[2020-07-07] MEDS: SITAGLIPTIN PHOSPHATE 50 MG TABLET PO SCH (09:07)
[2020-07-07] MEDS: SPIRONOLACTONE 25 MG TABLET PO SCH (09:07)
[2020-07-07] MEDS: FUROSEMIDE INJ/PF 40 MG/4 ML SDV IV SCH ×2 (09:08→22:00)
[2020-07-07] MEDS: ENOXAPARIN SODIUM INJ 40 MG/0.4 ML DISP.SYRIN SUBCUT SCH (09:08)
[2020-07-07] MEDS: SACUBITRIL/VALSARTAN 97 MG/103 MG TABLET PO SCH ×2 (09:08→17:41)
[2020-07-07] MEDS: METOPROLOL SUCCINATE 50 MG TAB.SR.24H PO SCH (09:08)
[2020-07-07] MEDS: ASPIRIN 81 MG TABLET, CHEWABLE PO SCH (09:08)
--- NOTE | 2020-07-07 10:18 | PDOC PROGRESS REPORT ---
Subjective Progress Note for:: 07/07/20 Subjective:: Patient is currently doing well Patient's denied any chest pain no short of breath Patient admitted for the acute congestive heart failure currently follow-up with the Dr. Pena Reason For Visit: HEART FAILURE,T2DM Physical Exam Vital Signs: Temp Pulse Resp BP Pulse Ox 97.8 F 80 16 140/95 H 98 07/07/20 09:20 07/07/20 07:55 07/07/20 07:55 07/07/20 07:55 07/07/20 07:55 Intake & Output 07/06/20 07/07/20 07/08/20 06:59 06:59 06:59 Intake Total 717 1005 Output Total 1275 1245 Balance -558 -240 Weight 78.9 kg General appearance: PRESENT: no acute distress, well-developed, well-nourished Head exam: PRESENT: atraumatic, normocephalic Eye exam: PRESENT: conjunctiva pink, EOMI, PERRLA. ABSENT: scleral icterus Ear exam: PRESENT: normal external ear exam Mouth exam: PRESENT: moist, tongue midline Neck exam: PRESENT: full ROM. ABSENT: carotid bruit, JVD, lymphadenopathy, thyromegaly Respiratory exam: PRESENT: clear to auscultation anu Cardiovascular exam: PRESENT: RRR. ABSENT: diastolic murmur, rubs, systolic murmur Vascular exam: PRESENT: normal capillary refill GI/Abdominal exam: PRESENT: normal bowel sounds, soft. ABSENT: distended, guarding, mass, organolmegaly, rebound, tenderness Rectal exam: PRESENT: deferred Extremities exam: PRESENT: pedal edema Neurological exam: PRESENT: alert, awake, oriented to person, oriented to place, oriented to time, oriented to situation, CN II-XII grossly intact. ABSENT: motor sensory deficit Psychiatric exam: PRESENT: appropriate affect, normal mood. ABSENT: homicidal ideation, suicidal ideation Skin exam: PRESENT: dry, intact, warm. ABSENT: cyanosis, rash Results Laboratory Results: 07/04/20 16:15 07/06/20 04:54 07/04/20 22:24 Clean Catch Midstream Urine Culture - Final NO GROWTH 2 DAYS 07/04/20 07/04/20 07/04/20 16:15 16:15 16:15 Creatine Kinase 251 H CK-MB (CK-2) 5.53 H Troponin I 0.059 NT-Pro-B Natriuret Pep 84803 H 07/04/20 07/04/20 07/05/20 21:50 21:50 04:44 Creatine Kinase 212 H 228 H CK-MB (CK-2) 4.80 H Troponin I 0.060 NT-Pro-B Natriuret Pep 07/05/20 04:44 Creatine Kinase CK-MB (CK-2) 4.38 Troponin I 0.052 NT-Pro-B Natriuret Pep Impressions: Chest X-Ray 07/04/20 15:01 IMPRESSION: Cardiomegaly. No evidence of acute failure. Assessment & Plan - Diagnosis (1) Acute on chronic systolic (congestive) heart failure Is this a current diagnosis for this admission?: Yes (2) Presence of automatic cardioverter/defibrillator (AICD) Is this a current diagnosis for this admission?: Yes (3) Type 2 diabetes mellitus with diabetic chronic kidney disease Qualifiers: Diabetes mellitus mcfp insulin use: with intermodal customer service use Chronic kidney disease stage: stage 3 (moderate) Qualified Code(s): E11.22 - Type 2 diabetes mellitus with diabetic chronic kidney disease; N18.3 - Chronic kidney disease, stage 3 (moderate); Z79.4 - skilled nursing (current) use of insulin Is this a current diagnosis for this admission?: Yes - Time Time Spent with patient: 15-24 minutes Level of Care: IMCU Medications reviewed and adjusted accordingly: Yes Anticipated discharge: Other Anticipated DC Timeframe: Other - Plan Summary Plan Summary: Continues to current medications
[2020-07-07] MEDS ORDERED: ONDANSETRON HCL INJ/PF 4 MG/2 ML SDV IV PRN (19:40)
[2020-07-07] MEDS: ATORVASTATIN CALCIUM 40 MG TABLET PO SCH (22:00)
--- NOTE | 2020-07-07 22:43 | Progress Note ---
Provider Note Provider Note: CARDIOLOGY PROGRESS NOTE by Dr. Norma Pena on 07/07/2020. SUBJECTIVE: The patient states he feels much better. His leg edema is much improved and there is only trace edema. There is no firing of his AICD. There is no atrial events arrhythmias seen on the monitor. Patient denies any chest pain discomfort. There is no shortness of breath there is no PND orthopnea. PHYSICAL EXAMINATION: The patient is well-built and well-nourished in no acute distress. Selected Entries 07/07/20 11:41 Temperature 97.8 F Temperature Oral Source Pulse Rate 73 Respiratory 16 Rate Blood Pressure 104/70 Blood Pressure 81 Mean BP Location Left Arm BP Position Sitting O2 Sat by Pulse 99 Oximetry Oxygen Delivery Room Air Method Head: Is atraumatic and normocephalic. EYES: Pupils are equal round regular reactive to light and accommodation. Extraocular movements are normal. There is no conjunctival pallor. There is no scleral icterus. EARS: Tympanic membranes are intact. External auditory canals are clear. NOSE: There is no deviated nasal septum. There is no inflammation of the nasal mucous membrane. MOUTH: Mucous membranes of mouth are moist. Tongue is moist. There is no ulcers. There is no bleeding from the gums. THROAT: There is no redness of the oropharynx. There is no exudates. SKIN: There is no skin rashes. There is no petechia or ecchymosis. There is no skin lesions. NECK: Supple. There is JVD present. Hepatojugular reflux is positive. There is no lymphadenopathy. Carotids are equal there is no bruits. There is no goiter. There is no accessory muscles of respiration use. Trachea is central. LUNGS: There is diminished air entry prolonged expiration. There is no rhonchi or wheezing. There is bibasilar rales of CHF. HEART S1-S2 is heard. There is no S3 gallop. There is no S4 gallop. There is systolic murmur of mitral regurgitation and tricuspid regurgitation present. There is no rub. ABDOMEN: Is obese. There is hepatomegaly. There is no splenomegaly. Bowel sounds are well heard. There is hepatojugular reflux present. There is no tender areas of masses. There is no rebound guarding or rigidity. EXTREMITIES: Femorals are diminished. Leg pulses difficult to palpate. There is trace edema bilaterally. There is also several areas of skin abrasion with reddish colored base without evidence of infection or surrounding cellulitis. This is improving. This is stasis dermatitis changes. There is no DVT cellulitis. There is no calf tenderness. OFFICE ANALYST: The patient is conscious awake alert oriented x3 with no focal deficits. PSYCHIATRIC: The patient judgment insight intact his affect is normal. The patient's 24-hour intake is 1005 mL. 24-hour output is 1245 mL. Labs- All tests 24 hr 07/07/20 11:42 Sodium Potassium Chloride Carbon Dioxide Anion Gap BUN Creatinine Est GFR ( Amer) Est GFR (MDRD) Non-Af Glucose POC Glucose 154 H Calcium Chest X-Ray 07/04/20 15:01 IMPRESSION: Cardiomegaly. No evidence of acute failure. IMPRESSION/RECOMMENDATION: 1. 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 The patient is got a good response to IV Lasix drip and since the patient's renal function is slightly compromised we will stop the Lasix drip and convert to IV Lasix 40 mg every 12 hours. The patient is tolerating the increased dose of Entresto and later will increase beta-rito. 2. HISTORY of AICD placement. No firing of the AICD. 3. Cardiomyopathy with severely reduced LV ejection fraction: This is a mixture of dilated and ischemic cardiomyopathy. Would recommend increasing the patient beta-rito and Entresto. 4. At least moderate pulmonary hypertension. I expect this to improve with the treatment of left heart failure. 5. Hypertension: Blood pressure is good. We will increase the patient's beta- rito and also his Entresto sequentially. 6. 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 We will continue the patient on aspirin and add nitrates. Continue beta-rito. 7. Diabetes mellitus type 2: Continue antidiabetic treatment and Accu-Cheks as per protocol. 8 . Chronic kidney disease stage III. 9. COPD: This seems to be stable with no acute exacerbation. Medications reviewed. Medications adjusted. Medical regimen and management plan discussed with attending provider Dr. Naranjo. 40 minutes spent as patient more than 50% time spent in direct patient care. Medical decision making is of moderate complexity. Will follow
[2020-07-08] MEDS: ACETAMINOPHEN 325 MG TABLET PO PRN (02:34)
[2020-07-08 06:16] LABS: ANION GAP 10 (5-19); BLOOD UREA NITROGEN 34 mg/dL (7-20); CALCIUM 8.5 mg/dL (8.4-10.2); CARBON DIOXIDE 29 mmol/L (22-30); CHLORIDE 97 mmol/L (98-107); GLUCOSE 171 mg/dL (75-110); POTASSIUM 4.5 mmol/L (3.6-5.0)
[2020-07-08] MEDS: SACUBITRIL/VALSARTAN 97 MG/103 MG TABLET PO SCH ×2 (09:29→17:20)
[2020-07-08] MEDS: SPIRONOLACTONE 25 MG TABLET PO SCH (09:29)
[2020-07-08] MEDS: FUROSEMIDE INJ/PF 40 MG/4 ML SDV IV SCH ×2 (09:30→21:32)
[2020-07-08] MEDS: ASPIRIN 81 MG TABLET, CHEWABLE PO SCH (09:30)
[2020-07-08] MEDS: METOPROLOL SUCCINATE 50 MG TAB.SR.24H PO SCH (09:30)
[2020-07-08] MEDS: ENOXAPARIN SODIUM INJ 40 MG/0.4 ML DISP.SYRIN SUBCUT SCH (09:30)
[2020-07-08] MEDS: SITAGLIPTIN PHOSPHATE 50 MG TABLET PO SCH (09:30)
--- NOTE | 2020-07-08 09:34 | PDOC PROGRESS REPORT ---
Subjective Progress Note for:: 07/08/20 Subjective:: Patient is currently doing well Patient's denied any chest pain no short of breath Patient admitted for the acute congestive heart failure currently follow-up with the Dr. Pena Reason For Visit: HEART FAILURE,T2DM Physical Exam Vital Signs: Temp Pulse Resp BP Pulse Ox 97.4 F 78 18 128/91 H 96 07/08/20 07:36 07/08/20 07:36 07/08/20 07:36 07/08/20 07:36 07/08/20 07:36 Intake & Output 07/07/20 07/08/20 07/09/20 06:59 06:59 06:59 Intake Total 1005 1002 Output Total 1245 475 Balance -240 527 Weight 78.9 kg General appearance: PRESENT: no acute distress, well-developed, well-nourished Head exam: PRESENT: atraumatic, normocephalic Eye exam: PRESENT: conjunctiva pink, EOMI, PERRLA. ABSENT: scleral icterus Ear exam: PRESENT: normal external ear exam Mouth exam: PRESENT: moist, tongue midline Neck exam: PRESENT: full ROM. ABSENT: carotid bruit, JVD, lymphadenopathy, thyromegaly Respiratory exam: PRESENT: clear to auscultation anu Cardiovascular exam: PRESENT: RRR. ABSENT: diastolic murmur, rubs, systolic murmur Pulses: PRESENT: normal dorsalis pedis pul, +2 pedal pulses bilateral Vascular exam: PRESENT: normal capillary refill GI/Abdominal exam: PRESENT: normal bowel sounds, soft. ABSENT: distended, guarding, mass, organolmegaly, rebound, tenderness Rectal exam: PRESENT: deferred Neurological exam: PRESENT: alert, awake, oriented to person, oriented to place, oriented to time, oriented to situation, CN II-XII grossly intact. ABSENT: motor sensory deficit Psychiatric exam: PRESENT: appropriate affect, normal mood. ABSENT: homicidal ideation, suicidal ideation Skin exam: PRESENT: dry, intact, warm. ABSENT: cyanosis, rash Results Laboratory Results: 07/04/20 16:15 07/08/20 05:23 07/08/20 05:23 Sodium 135.5 L Potassium 4.5 Chloride 97 L Carbon Dioxide 29 Anion Gap 10 BUN 34 H Creatinine 1.83 H Est GFR ( Amer) 46 L Glucose 171 H Calcium 8.5 07/04/20 07/04/20 07/04/20 16:15 16:15 16:15 Creatine Kinase 251 H CK-MB (CK-2) 5.53 H Troponin I 0.059 NT-Pro-B Natriuret Pep 11189 H 07/04/20 07/04/20 07/05/20 21:50 21:50 04:44 Creatine Kinase 212 H 228 H CK-MB (CK-2) 4.80 H Troponin I 0.060 NT-Pro-B Natriuret Pep 07/05/20 04:44 Creatine Kinase CK-MB (CK-2) 4.38 Troponin I 0.052 NT-Pro-B Natriuret Pep Impressions: Chest X-Ray 07/04/20 15:01 IMPRESSION: Cardiomegaly. No evidence of acute failure. 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
--- NOTE | 2020-07-08 20:34 | Progress Note ---
Provider Note Provider Note: CARDIOLOGY PROGRESS NOTE by Dr. Norma Pena on 07/07/2020. SUBJECTIVE: The patient states he feels much better. His leg edema is much improved and there is only trace edema. There is no firing of his AICD. There is no atrial events arrhythmias seen on the monitor. Patient denies any chest pain discomfort. There is no shortness of breath there is no PND orthopnea. Would recommend outpatient cardiac rehab. This was discussed with the patient. PHYSICAL EXAMINATION: The patient is well-built and well-nourished in no acute distress. Selected Entries 07/08/20 11:53 Temperature 97.9 F Temperature Oral Source Pulse Rate 75 Respiratory 16 Rate Blood Pressure 129/91 H Blood Pressure 103 Mean BP Location Right Arm BP Position Supine O2 Sat by Pulse 95 Oximetry Oxygen Delivery Room Air Method Head: Is atraumatic and normocephalic. EYES: Pupils are equal round regular reactive to light and accommodation. Extraocular movements are normal. There is no conjunctival pallor. There is no scleral icterus. EARS: Tympanic m embranes are intact. External auditory canals are clear. NOSE: There is no deviated nasal septum. There is no inflammation of the nasal mucous membrane. MOUTH: Mucous membranes of mouth are moist. Tongue is moist. There is no ulcers. There is no bleeding from the gums. THROAT: There is no redness of the oropharynx. There is no exudates. SKIN: There is no skin rashes. There is no petechia or ecchymosis. There is no skin lesions. NECK: Supple. There is JVD present. Hepatojugular reflux is positive. There is no lymphadenopathy. Carotids are equal there is no bruits. There is no goiter. There is no accessory muscles of respiration use. Trachea is central. LUNGS: There is diminished air entry prolonged expiration. There is no rhonchi or wheezing. There is bibasilar rales of CHF. HEART S1-S2 is heard. There is no S3 gallop. There is no S4 gallop. There is systolic murmur of mitral regurgitation and tricuspid regurgitation present. There is no rub. ABDOMEN: Is obese. There is hepatomegaly. There is no splenomegaly. Bowel sounds are well heard. There is hepatojugular reflux present. There is no tender areas of masses. There is no rebound guarding or rigidity. EXTREMITIES: Femorals are diminished. Leg pulses difficult to palpate. There is trace edema bilaterally. There is also several areas of skin abrasion with reddish colored base without evidence of infection or surrounding cellulitis. This is improving. This is stasis dermatitis changes. There is no DVT cellulitis. There is no calf tenderness. 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 PSYCHIATRIC: The patient judgment insight intact his affect is normal. The patient's 24-hour intake is 1002 mL. 24-hour output is 470 mL. Labs- All tests 24 hr 07/08/20 07/08/20 07/08/20 05:23 07:37 11:54 Sodium 135.5 L Potassium 4.5 Chloride 97 L Carbon Dioxide 29 Anion Gap 10 BUN 34 H Creatinine 1.83 H Est GFR ( Amer) 46 L Est GFR (MDRD) Non-Af 38 L Glucose 171 H POC Glucose 171 H 185 H Calcium 8.5 07/08/20 07/08/20 15:46 21:06 Sodium Potassium Chloride Carbon Dioxide Anion Gap BUN Creatinine Est GFR ( Amer) Est GFR (MDRD) Non-Af Glucose POC Glucose 190 H 294 H Calcium Chest X-Ray 07/04/20 15:01 IMPRESSION: Cardiomegaly. No evidence of acute failure. IMPRESSION/RECOMMENDATION: 1. 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 With the will change the patient's IV Lasix to p.o. Lasix. Will increase the patient's beta-rito. 2. HISTORY of AICD placement. No firing of the AICD. 3. Cardiomyopathy with severely reduced LV ejection fraction: This is a mixture of dilated and ischemic cardiomyopathy. Would recommend increasing the patient beta-rito and Entresto. 4. At least moderate pulmonary hypertension. I expect this to improve with the treatment of left heart failure. 5. Hypertension: Blood pressure is good. We will increase the patient's beta- rito and also his Entresto sequentially. 6. 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 We will continue the patient on aspirin and add nitrates. Continue beta-rito. 7. Diabetes mellitus type 2: Continue antidiabetic treatment and Accu-Cheks as per protocol. 8 . Chronic kidney disease stage III. 9. COPD: This seems to be stable with no acute exacerbation. Medications reviewed. Medications adjusted. Medical regimen and management plan discussed with attending provider Dr. Naranjo. 40 minutes spent as patient more than 50% time spent in direct patient care. Medical decision making is of moderate complexity. Will follow
[2020-07-08] MEDS: ATORVASTATIN CALCIUM 40 MG TABLET PO SCH (21:32)
--- NOTE | 2020-07-08 23:53 | PDOC CONSULTATION ---
Consultation Consult Date: 07/06/20 Provider Consulted: Tyler GUTIERREZ Consult reason:: DONALDO on CKD 3 History of Present Illness Admission Date/PCP: 07/04/20 14:25 BRIANDA WARNER MD History of Present Illness: JUICE GRAHAM is a 59 year old male with a past medical history of CKD stage III in the background of hypertension/ischemic cardiomyopathy was admitted directly from Dr. Pena's/cardiology office because of complains of progressive shortness of breath on exertion as well as pedal edema. His evaluations revealed that he was in progressive combined heart failure and was admitted for IV diuresis. Presently I am seeing him and he is on IV Lasix infusion. He has already started to feel better since his admission overnight. He denies any history of NSAIDs. He says he is watching his diet. Labs and medications were reviewed. Past Medical History Cardiac Medical History: Reports: CHF-Systolic, Hypertension-primary, Pulmonary Hypertension Endocrine Medical History: Reports: Diabetes Mellitus Type 2 Renal/ Medical History: Reports: Chronic Kidney Disease Stage III Psychiatric Medical History: Denies: Depression Past Surgical History Past Surgical History: Reports: None Social History Smoking Status: Former Smoker Frequency of Alcohol Use: None Hx Recreational Drug Use: No Drugs: None Hx Prescription Drug Abuse: No Family History Parental Family History Reviewed: Yes - Denies any history of ESRD Children Family History Reviewed: No Sibling(s) Family History Reviewed.: No Medication/Allergy Home Medications: Aspirin [Aspirin 81 mg Chewable Tablet] 81 mg PO DAILY #90 tab.chew 03/11/20 Dapagliflozin Propanediol [Farxiga] 10 mg PO DAILY #30 tablet 03/11/20 Metoprolol Succinate [Toprol Xl 50 mg Tab.sr] 50 mg PO DAILY #30 tab.sr.24h 03/11/20 Sacubitril/Valsartan [Entresto 49 mg/51 mg Tablet] 1 tab PO BID #60 tablet 03/11/20 Ergocalciferol (Vitamin D2) [Vitamin D2] 50,000 unit PO TH@1000 06/03/20 Furosemide [Lasix] 40 mg PO BID 06/03/20 Sitagliptin Phosphate [Januvia 50 mg Tablet] 100 mg PO DAILY 06/03/20 Atorvastatin Calcium [Lipitor 40 mg Tablet] 40 mg PO QHS 07/04/20 Spironolactone [Aldactone 25 mg Tablet] 25 mg PO DAILY 07/04/20 Allergies/Adverse Reactions: No Known Allergies Allergy (Verified 06/02/20 17:25) Review of Systems Constitutional: PRESENT: weakness. ABSENT: anorexia, fatigue, fever(s), headache(s), night sweats Nose, Mouth, and Throat: ABSENT: mouth pain, sore throat Cardiovascular: PRESENT: dyspnea on exertion, edema. ABSENT: chest pain, orthropnea Respiratory: PRESENT: dyspnea. ABSENT: cough, hemoptysis Gastrointestinal: ABSENT: abdominal pain, coffee ground emesis, diarrhea, dysphagia, heartburn, hematemesis, nausea, vomiting Genitourinary: ABSENT: dysuria, hematuria Musculoskeletal: ABSENT: deformity, joint swelling Integumentary: ABSENT: diaphoresis, erythema Neurological: ABSENT: abnormal movements, abnormal speech, confusion, focal weakness, frequent falls Hematologic/Lymphatic: ABSENT: easy bleeding, easy bruising, lymphadenopathy Physical Exam Vital Signs: Temp Pulse Resp BP Pulse Ox 98.2 F 76 16 114/82 97 07/08/20 19:56 07/08/20 19:56 07/08/20 19:56 07/08/20 19:56 07/08/20 19:56 Intake & Output 07/07/20 07/08/20 07/09/20 06:59 06:59 06:59 Intake Total 1005 1002 700 Output Total 1245 475 Balance -240 527 700 Weight 78.9 kg General appearance: PRESENT: no acute distress Eye exam: PRESENT: EOMI Ear exam: PRESENT: normal external ear exam Mouth exam: PRESENT: moist, neck supple Teeth exam: PRESENT: poor dentation Neck exam: ABSENT: lymphadenopathy, meningismus, tenderness, thyromegaly, tracheal deviation Respiratory exam: PRESENT: clear to auscultation anu, decreased breath sounds. ABSENT: crackles Cardiovascular exam: PRESENT: +S1, +S2 GI/Abdominal exam: PRESENT: normal bowel sounds, soft. ABSENT: organomegaly, te nderness Extremities exam: PRESENT: +1 edema Neurological exam: PRESENT: alert, awake, oriented to person, oriented to place, oriented to time Psychiatric exam: PRESENT: anxious Skin exam: ABSENT: abrasion, mottled, rash Results Laboratory Results: 07/04/20 16:15 07/08/20 05:23 07/08/20 05:23 Sodium 135.5 L Potassium 4.5 Chloride 97 L Carbon Dioxide 29 Anion Gap 10 BUN 34 H Creatinine 1.83 H Est GFR ( Amer) 46 L Glucose 171 H Calcium 8.5 07/04/20 07/04/20 07/04/20 16:15 16:15 16:15 Creatine Kinase 251 H CK-MB (CK-2) 5.53 H Troponin I 0.059 NT-Pro-B Natriuret Pep 60454 H 07/04/20 07/04/20 07/05/20 21:50 21:50 04:44 Creatine Kinase 212 H 228 H CK-MB (CK-2) 4.80 H Troponin I 0.060 NT-Pro-B Natriuret Pep 07/05/20 04:44 Creatine Kinase CK-MB (CK-2) 4.38 Troponin I 0.052 NT-Pro-B Natriuret Pep Impressions: Chest X-Ray 07/04/20 15:01 IMPRESSION: Cardiomegaly. No evidence of acute failure. Assessment & Plan - Diagnosis (1) Acute combined systolic (congestive) and diastolic (congestive) heart failure Plan: Currently on IV diuresis and responding very well and symptomatically better. Further management as per cardiology/PCP. (2) DONALDO (acute kidney injury) Plan: Acute on chronic kidney disease stage III. Etiology is prerenal ischemic cardiomyopathy with decompensated heart failure. See response to IV diuresis. (3) Chronic kidney disease, stage 3 (moderate) Plan: Acute on chronic kidney disease stage III secondary to prerenal decompensation of heart failure. See response to IV diuresis. No indications for renal replacements. Reassured patient. (4) Dilated cardiomyopathy and ischemic card Is this a current diagnosis for this admission?: Yes Plan: In decompensation. Presently responding to IV diuresis. Monitor. (5) Pulmonary hypertension Plan: Follow-up on echo. 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 Advised the need for better blood sugar control. (7) Proteinuria Plan: UPC is 2.7. Advised the need for tight blood sugar control.
[2020-07-09 05:40] LABS: ANION GAP 8 (5-19); BLOOD UREA NITROGEN 38 mg/dL (7-20); CALCIUM 8.5 mg/dL (8.4-10.2); CARBON DIOXIDE 30 mmol/L (22-30); CHLORIDE 99 mmol/L (98-107); GLUCOSE 201 mg/dL (75-110); POTASSIUM 4.5 mmol/L (3.6-5.0)
[2020-07-09] MEDS: ACETAMINOPHEN 325 MG TABLET PO PRN ×2 (07:54→19:10)
[2020-07-09] MEDS: SPIRONOLACTONE 25 MG TABLET PO SCH (09:33)
[2020-07-09] MEDS: FUROSEMIDE 80 MG TABLET PO SCH (09:34)
[2020-07-09] MEDS: SITAGLIPTIN PHOSPHATE 50 MG TABLET PO SCH (09:35)
[2020-07-09] MEDS: ASPIRIN 81 MG TABLET, CHEWABLE PO SCH (09:35)
[2020-07-09] MEDS: SACUBITRIL/VALSARTAN 97 MG/103 MG TABLET PO SCH ×2 (09:35→18:03)
[2020-07-09] MEDS: ENOXAPARIN SODIUM INJ 40 MG/0.4 ML DISP.SYRIN SUBCUT SCH (09:36)
[2020-07-09] MEDS: METOPROLOL SUCCINATE 50 MG TAB.SR.24H PO SCH ×2 (09:36→21:35)
--- NOTE | 2020-07-09 10:51 | PDOC PROGRESS REPORT ---
Subjective Progress Note for:: 07/09/20 Reason For Visit: Patient seen today. He is doing well. Breathing is a whole lot better. 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 Labs and medications reviewed show stable creatinine. Physical Exam Vital Signs: Temp Pulse Resp BP Pulse Ox 97.8 F 71 19 110/69 97 07/09/20 09:44 07/09/20 07:09 07/09/20 07:09 07/09/20 07:09 07/09/20 07:09 Intake & Output 07/08/20 07/09/20 07/10/20 06:59 06:59 06:59 Intake Total 1002 1542 Output Total 475 Balance 527 1542 Weight 78.9 kg 76.1 kg General appearance: PRESENT: no acute distress Respiratory exam: PRESENT: clear to auscultation anu, decreased breath sounds. ABSENT: crackles Cardiovascular exam: PRESENT: +S1, +S2 GI/Abdominal exam: PRESENT: normal bowel sounds, soft. ABSENT: organomegaly, tenderness Extremities exam: PRESENT: pedal edema - Trace+ Neurological exam: PRESENT: alert, awake, oriented to person, oriented to place Psychiatric exam: PRESENT: anxious Results Laboratory Results: 07/04/20 16:15 07/09/20 04:07 07/09/20 04:07 Sodium 137.1 Potassium 4.5 Chloride 99 Carbon Dioxide 30 Anion Gap 8 BUN 38 H Creatinine 1.89 H Est GFR ( Amer) 44 L Glucose 201 H Calcium 8.5 07/04/20 07/04/20 07/04/20 16:15 16:15 16:15 Creatine Kinase 251 H CK-MB (CK-2) 5.53 H Troponin I 0.059 NT-Pro-B Natriuret Pep [id number] H 07/04/20 07/04/20 07/05/20 21:50 21:50 04:44 Creatine Kinase 212 H 228 H CK-MB (CK-2) 4.80 H Troponin I 0.060 NT-Pro-B Natriuret Pep 07/05/20 04:44 Creatine Kinase CK-MB (CK-2) 4.38 Troponin I 0.052 NT-Pro-B Natriuret Pep Impressions: Chest X-Ray 07/04/20 15:01 IMPRESSION: Cardiomegaly. No evidence of acute failure. Assessment & Plan - Diagnosis (1) Acute combined systolic (congestive) and diastolic (congestive) heart failure Plan: Currently on po diuresis and responding very well and symptomatically better. Further management as per cardiology/PCP. (2) DONALDO (acute kidney injury) Plan: Acute on chronic kidney disease stage III. Etiology is prerenal ischemic cardiomyopathy with decompensated heart failure. Improving heart failure with current medical management .Renal numbers are stable and no changes forseen. (3) Chronic kidney disease, stage 3 (moderate) Plan: Acute on chronic kidney disease stage III secondary to prerenal decompensation of heart failure. See response to IV diuresis. No indications for renal replacements. Reassured patient. (4) Dilated cardiomyopathy and ischemic card Is this a current diagnosis for this admission?: Yes Plan: Improved decompensation. Presently responding to initial IV and now po diuresis. Monitor. (5) Pulmonary hypertension Plan: Follow-up on echo. (6) T2DM (type 2 diabetes mellitus) Qualifiers: Diabetes mellitus exterminator helper insulin use: with exterminator helper use Diabetes me llitus complication status: with neurologic complications Diabetes mellitus complication detail: with polyneuropathy Qualified Code(s): E11.42 - Type 2 diabetes mellitus with diabetic polyneuropathy; Z79.4 - adjunct faculty for medical terminology (current) use of insulin Plan: A1c 7.5. Advised the need for better blood sugar control. (7) Proteinuria Plan: UPC is 2.7. Advised the need for tight blood sugar control.
--- NOTE | 2020-07-09 18:32 | Progress Note ---
Provider Note Provider Note: CARDIOLOGY PROGRESS NOTE by Dr. Norma Pena on 07/09/2020. OBJECTIVE: The patient has some vague complaints of networking specialist orthopnea lasting just a few minutes. At present he denies any chest pain or discomfort. There is no shortness of breath. There is no PND orthopnea. The patient is ambulating without problems. There is no atrial ventricular arrhythmias seen. PHYSICAL EXAMINATION: The patient is well-built in no acute distress is appears to be well-nourished. Selected Entries 07/09/20 11:11 Temperature 97.9 F Temperature Oral Source Pulse Rate 71 Respiratory 18 Rate Blood Pressure 118/87 H Blood Pressure 97 Mean BP Location Left Arm BP Position Sitting O2 Sat by Pulse 95 Oximetry Oxygen Delivery Room Air Method Head: Is atraumatic and normocephalic. EYES: Pupils are equal round regular reactive to light and accommodation. Extraocular movements are normal. There is no conjunctival pallor. There is no scleral icterus. EARS: Tympanic membranes are intact. External auditory canals are clear. NOSE: There is no deviated nasal septum. There is no inflammation of the nasal mucous membrane. MOUTH: Mucous membranes of mouth are moist. Tongue is moist. There is no ulcers. There is no bleeding from the gums. THROAT: There is no redness of the oropharynx. There is no exudates. SKIN: There is no skin rashes. There is no petechia or ecchymosis. There is no skin lesions. NECK: Supple. There is JVD present. Hepatojugular reflux is positive. There is no lymphadenopathy. Carotids are equal there is no bruits. There is no goiter. There is no accessory muscles of respiration use. Trachea is central. LUNGS: There is diminished air entry prolonged expiration. There is no rhonchi or wheezing. There is bibasilar rales of CHF. HEART S1-S2 is heard. There is no S3 gallop. There is no S4 gallop. There is systolic murmur of mitral regurgitation and tricuspid regurgitation present. There is no rub. ABDOMEN: Is obese. There is hepatomegaly. There is no splenomegaly. Bowel sounds are well heard. There is hepatojugular reflux present. There is no tender areas of masses. There is no rebound guarding or rigidity. EXTREMITIES: Femorals are diminished. Leg pulses difficult to palpate. There is trace edema bilaterally. There is no cellulitis. This is stasis dermatitis changes. There is no DVT cellulitis. There is no calf tenderness. 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 PSYCHIATRIC: The patient judgment insight intact his affect is normal. The patient is accurate intake and output has not been recorded for the last 24 hours. Labs- All tests 24 hr 07/08/20 07/09/20 07/09/20 21:06 04:07 07:09 Sodium 137.1 Potassium 4.5 Chloride 99 Carbon Dioxide 30 Anion Gap 8 BUN 38 H Creatinine 1.89 H Est GFR ( Amer) 44 L Est GFR (MDRD) Non-Af 37 L Glucose 201 H POC Glucose 294 H 179 H Calcium 8.5 07/09/20 07/09/20 11:11 15:59 Sodium Potassium Chloride Carbon Dioxide Anion Gap BUN Creatinine Est GFR ( Amer) Est GFR (MDRD) Non-Af Glucose POC Glucose 159 H 171 H Calcium Chest X-Ray 07/04/20 15:01 IMPRESSION: Cardiomegaly. No evidence of acute failure. IMPRESSION/RECOMMENDATION: 1. 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 With the will change the patient's IV Lasix to p.o. Lasix. Will increase the patient's beta-rito. 2. HISTORY of AICD placement. No firing of the AICD. 3. Cardiomyopathy with severely reduced LV ejection fraction: This is a mixture of dilated and ischemic cardiomyopathy. Would recommend increasing the patient beta-rito and Entresto. 4. At least moderate pulmonary hypertension. I expect this to improve with the treatment of left heart failure. 5. Hypertension: Blood pressure is good. We will increase the patient's beta- rito and also his Entresto sequentially. 6. 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 We will continue the patient on aspirin and add nitrates. Continue beta-rito. 7. Diabetes mellitus type 2: Continue antidiabetic treatment and Accu-Cheks as per protocol. 8 . Chronic kidney disease stage III. Patient's creatinine and GFR are stable. 9. COPD: This seems to be stable with no acute exacerbation. Medications reviewed. Medications adjusted. Medical regimen and management plan discussed with attending provider Dr. Naranjo. 40 minutes spent as patient more than 50% time spent in direct patient care. Medical decision making is of moderate complexity. Will follow
--- NOTE | 2020-07-09 20:33 | PDOC PROGRESS REPORT ---
Subjective Progress Note for:: 07/09/20 Subjective:: Patient seen by the bedside, is improving ready for discharge tomorrow Reason For Visit: HEART FAILURE,T2DM Physical Exam Vital Signs: Temp Pulse Resp BP Pulse Ox 97.5 F 78 21 H 137/104 H 97 07/09/20 15:59 07/09/20 15:59 07/09/20 15:59 07/09/20 15:59 07/09/20 15:59 Intake & Output 07/08/20 07/09/20 07/10/20 06:59 06:59 06:59 Intake Total 1002 1542 942 Output Total 475 Balance 527 1542 942 Weight 78.9 kg 76.1 kg General appearance: PRESENT: no acute distress Eye exam: PRESENT: PERRLA Respiratory exam: PRESENT: clear to auscultation anu Cardiovascular exam: PRESENT: +S1, +S2 GI/Abdominal exam: PRESENT: soft Neurological exam: PRESENT: alert Results Laboratory Results: 07/04/20 16:15 07/09/20 04:07 07/09/20 04:07 Sodium 137.1 Potassium 4.5 Chloride 99 Carbon Dioxide 30 Anion Gap 8 BUN 38 H Creatinine 1.89 H Est GFR ( Amer) 44 L Glucose 201 H Calcium 8.5 07/04/20 07/04/20 07/04/20 16:15 16:15 16:15 Creatine Kinase 251 H CK-MB (CK-2) 5.53 H Troponin I 0.059 NT-Pro-B Natriuret Pep [id number] H 07/04/20 07/04/20 07/05/20 21:50 21:50 04:44 Creatine Kinase 212 H 228 H CK-MB (CK-2) 4.80 H Troponin I 0.060 NT-Pro-B Natriuret Pep 07/05/20 04:44 Creatine Kinase CK-MB (CK-2) 4.38 Troponin I 0.052 NT-Pro-B Natriuret Pep Impressions: Chest X-Ray 07/04/20 15:01 IMPRESSION: Cardiomegaly. No evidence of acute failure. 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 insulin use: with nursing home use Chronic kidney disease stage: stage 3 (moderate) Qualified Code(s): E11.22 - Type 2 diabetes mellitus with diabetic chronic kidney disease; N18.3 - Chronic kidney disease, stage 3 (moderate); Z79.4 - long-term (current) use of insulin Is this a current diagnosis for this admission?: Yes (3) Presence of automatic cardioverter/defibrillator (AICD) Is this a current diagnosis for this admission?: Yes - Time Time Spent with patient: 25-34 minutes Level of Care: IMCU Medications reviewed and adjusted accordingly: Yes Anticipated discharge: Home - Inpatient Certification Based on my medical assessment, after consideration of the patient's comorbidities, presenting symptoms, or acuity I expect that the services needed warrant INPATIENT care.: No I certify that my determination is in accordance with my understanding of Medicare's requirements for reasonable and necessary INPATIENT services [42 CFR 412.3e].: No
--- NOTE | 2020-07-09 20:34 | PDOC DISCHARGE SUMMARY ---
Impression - Admit/DC Date/PCP Admission Date/Primary Care Provider: 07/04/20 14:25 BRIANDA WARNER MD Discharge Date: 07/10/20 - Discharge Diagnosis (1) Acute on chronic systolic (congestive) heart failure Is this a current diagnosis for this admission?: Yes (2) Type 2 diabetes mellitus with diabetic chronic kidney disease Is this a current diagnosis for this admission?: Yes (3) Presence of automatic cardioverter/defibrillator (AICD) Is this a current diagnosis for this admission?: Yes - Additional Information Discharge Diet: Cardiac, Diabetic Discharge Activity: Activity As Tolerated, Balance Activity w/Rest, Weigh Daily Referrals: JACOBO ARIAS MD [ACTIVE STAFF] - BRIANDA WARNER MD [Primary Care Provider] - 07/16/20 1:30 pm Prescriptions: Sacubitril/Valsartan [Entresto 97 mg/103 mg Tablet] 1 tab PO BID #60 tablet Home Medications: Aspirin [Aspirin 81 mg Chewable Tablet] 81 mg PO DAILY #90 tab.chew 03/11/20 Dapagliflozin Propanediol [Farxiga] 10 mg PO DAILY #30 tablet 03/11/20 Metoprolol Succinate [Toprol Xl 50 mg Tab.sr] 50 mg PO DAILY #30 tab.sr.24h 03/11/20 Ergocalciferol (Vitamin D2) [Vitamin D2] 50,000 unit PO TH@1000 06/03/20 Furosemide [Lasix] 40 mg PO BID 06/03/20 Sitagliptin Phosphate [Januvia 50 mg Tablet] 100 mg PO DAILY 06/03/20 Atorvastatin Calcium [Lipitor 40 mg Tablet] 40 mg PO QHS 07/04/20 Spironolactone [Aldactone 25 mg Tablet] 25 mg PO DAILY 07/04/20 Sacubitril/Valsartan [Entresto 97 mg/103 mg Tablet] 1 tab PO BID #60 tablet 07/10/20 History of Present Illiness History of Present Illness: JUICE GRAHAM is a 59 year old male, He has a history of chronic systolic heart failure, diabetes nephropathy, he was admitted from outpatient to the hospital for evaluation of decompensated chronic systolic heart failure. He saw Dr. Nice today in the office, he was found to be in CHF so he was admitted directly from the office into the hospital for evaluation and management of his heart failure. The last time he was admitted he was transferred to [place] where he had AICD placement. Hospital Course Hospital Course: Patient was admitted for the management of decompensated chronic systolic heart failure, chronic kidney disease, he was treated with furosemide infusion the dose of Entresto was escalated to the maximum dose allowed.Patient improved, he was seen consultation by Dr. Nice, cardiology, Dr.George Suazo nephrology Physical Exam Vital Signs: Temp Pulse Resp BP Pulse Ox 97.5 F 78 21 H 137/104 H 97 07/09/20 15:59 07/09/20 15:59 07/09/20 15:59 07/09/20 15:59 07/09/20 15:59 Intake & Output 07/08/20 07/09/20 07/10/20 06:59 06:59 06:59 Intake Total 1002 1542 942 Output Total 475 Balance 527 1542 942 Weight 78.9 kg 76.1 kg General appearance: PRESENT: no acute distress Eye exam: PRESENT: PERRLA Respiratory exam: PRESENT: clear to auscultation anu Cardiovascular exam: PRESENT: +S1, +S2 GI/Abdominal exam: PRESENT: soft Neurological exam: PRESENT: alert Results Laboratory Results: WBC 5.4 10^3/uL (4.0-10.5) 07/04/20 16:15 RBC 4.21 10^6/uL (4.35-5.55) L 07/04/20 16:15 Hgb 12.0 g/dL (13.5-17.0) L 07/04/20 16:15 Hct 36.6 % (37.9-51.0) L 07/04/20 16:15 MCV 87 fl (80-97) 07/04/20 16:15 MCH 28.5 pg (27.0-33.4) 07/04/20 16:15 MCHC 32.8 g/dL (32.0-36.0) 07/04/20 16:15 RDW 18.8 % (11.5-14.0) H 07/04/20 16:15 Plt Count 260 10^3/uL (150-450) 07/04/20 16:15 Lymph % (Auto) 20.2 % (13-45) 07/04/20 16:15 [place] % (Auto) 15.1 % (3-13) H 07/04/20 16:15 Eos % (Auto) 5.1 % (0-6) 07/04/20 16:15 Baso % (Auto) 1.0 % (0-2) 07/04/20 16:15 Absolute Neuts (auto) 3.2 10^3/uL (1.7-8.2) 07/04/20 16:15 Absolute Lymphs (auto) 1.1 10^3/uL (0.5-4.7) 07/04/20 16:15 Absolute Monos (auto) 0.8 10^3/uL (0.1-1.4) 07/04/20 16:15 Absolute Eos (auto) 0.3 10^3/uL (0.0-0.6) 07/04/20 16:15 Absolute Basos (auto) 0.1 10^3/uL (0.0-0.2) 07/04/20 16:15 Seg Neutrophils % 58.6 % (42-78) 07/04/20 16:15 PT 16.4 SEC (11.4-15.4) H 07/04/20 16:15 INR 1.30 07/04/20 16:15 APTT 36.3 SEC (23.5-35.8) H 07/04/20 16:15 Sodium 137.1 mmol/L (137-145) 07/09/20 04:07 Potassium 4.5 mmol/L (3.6-5.0) 07/09/20 04:07 Chloride 99 mmol/L (98-107) 07/09/20 04:07 Carbon Dioxide 30 mmol/L (22-30) 07/09/20 04:07 Anion Gap 8 (5-19) 07/09/20 04:07 BUN 38 mg/dL (7-20) H 07/09/20 04:07 Creatinine 1.89 mg/dL (0.52-1.25) H 07/09/20 04:07 Est GFR ( Amer) 44 (>60) L 07/09/20 04:07 Est GFR (MDRD) Non-Af 37 (>60) L 07/09/20 04:07 Glucose 201 mg/dL (75-110) H 07/09/20 04:07 POC Glucose 171 mg/dL (70-110) H 07/09/20 15:59 Hemoglobin A1c % 7.5 % (4.7-6.0) H 07/05/20 04:44 Calcium 8.5 mg/dL (8.4-10.2) 07/09/20 04:07 Magnesium 1.7 mg/dL (1.6-2.3) 07/04/20 16:15 Total Bilirubin 1.6 mg/dL (0.2-1.3) H 07/05/20 04:44 Direct Bilirubin 0.4 mg/dL (0.0-0.4) 07/05/20 04:44 Neonat Total Bilirubin Not Reportable 07/05/20 04:44 Neonat Direct Bilirubin Not Reportable 07/05/20 04:44 Neonat Indirect Bili Not Reportable 07/05/20 04:44 AST 25 U/L (17-59) 07/05/20 04:44 ALT 13 U/L (<50) 07/05/20 04:44 Alkaline Phosphatase 76 U/L (38-126) 07/05/20 04:44 Creatine Kinase 228 U/L (55-170) H 07/05/20 04:44 CK-MB (CK-2) 4.38 ng/mL (<4.55) 07/05/20 04:44 Troponin I 0.052 ng/mL 07/05/20 04:44 NT-Pro-B Natriuret Pep 80046 pg/mL (<125) H 07/04/20 16:15 Total Protein 6.5 g/dL (6.3-8.2) 07/05/20 04:44 Albumin 3.5 g/dL (3.5-5.0) 07/05/20 04:44 Triglycerides 71 mg/dL (<150) 07/05/20 04:44 Cholesterol 87.87 mg/dL (0-200) 07/05/20 04:44 LDL Cholesterol Direct 45 mg/dL (<100) 07/05/20 04:44 VLDL Cholesterol 14.0 mg/dL (10-31) 07/05/20 04:44 HDL Cholesterol 30 mg/dL (>40) L 07/05/20 04:44 TSH 2.53 uIU/mL (0.47-4.68) 07/04/20 16:15 Free T4 1.30 ng/dL (0.78-2.19) 07/04/20 16:15 Urine Color YELLOW 07/04/20 22:24 Urine Appearance CLEAR 07/04/20 22:24 Urine pH 6.0 (5.0-9.0) 07/04/20 22:24 Ur Specific Roberta 1.010 07/04/20 22:24 Urine Protein 100 mg/dL (NEGATIVE) H 07/04/20 22:24 Urine Glucose (UA) NEGATIVE mg/dL (NEGATIVE) 07/04/20 22:24 Urine Ketones NEGATIVE mg/dL (NEGATIVE) 07/04/20 22:24 Urine Blood SMALL (NEGATIVE) H 07/04/20 22:24 Urine Nitrite NEGATIVE (NEGATIVE) 07/04/20 22:24 Urine Bilirubin NEGATIVE (NEGATIVE) 07/04/20 22:24 Urine Urobilinogen 2.0 mg/dL (<2.0) H 07/04/20 22:24 Ur Leukocyte Esterase NEGATIVE (NEGATIVE) 07/04/20 22:24 Urine RBC (Auto) 4 /HPF 07/04/20 22:24 U Hyaline Cast (Auto) 1 /LPF 07/04/20 22:24 Urine Creatinine 87.3 mg/dL (22-328) 07/05/20 21:50 Protein/Creatinin Ratio 2.7 mg/mg (0.0-0.2) H 07/05/20 21:50 Urine Total Protein 237.6 mg/dL (<12) H 07/05/20 21:50 Urine Ascorbic Acid NEGATIVE (NEGATIVE) 07/04/20 22:24 Digoxin < 0.40 ng/mL (0.8-2.0) L 07/04/20 16:15 07/04/20 07/04/20 07/04/20 16:15 16:15 21:50 CK-MB (CK-2) 5.53 H 4.80 H Troponin I 0.059 0.060 NT-Pro-B Natriuret Pep 86859 H 07/05/20 04:44 CK-MB (CK-2) 4.38 Troponin I 0.052 NT-Pro-B Natriuret Pep Impressions: Chest X-Ray 07/04/20 15:01 IMPRESSION: Cardiomegaly. No evidence of acute failure. Stroke Is this a Stroke Patient?: No Acute Heart Failure Is this a Heart Failure Patient?: No
[2020-07-09] MEDS: ATORVASTATIN CALCIUM 40 MG TABLET PO SCH (21:35)
[2020-07-10 06:40] LABS: ANION GAP 8 (5-19); BLOOD UREA NITROGEN 40 mg/dL (7-20); CALCIUM 8.6 mg/dL (8.4-10.2); CARBON DIOXIDE 27 mmol/L (22-30); CHLORIDE 100 mmol/L (98-107); GLUCOSE 198 mg/dL (75-110); POTASSIUM 4.1 mmol/L (3.6-5.0)
[2020-07-10] MEDS: ASPIRIN 81 MG TABLET, CHEWABLE PO SCH (09:13)
[2020-07-10] MEDS: SACUBITRIL/VALSARTAN 97 MG/103 MG TABLET PO SCH (09:13)
[2020-07-10] MEDS: SPIRONOLACTONE 25 MG TABLET PO SCH (09:13)
[2020-07-10] MEDS: SITAGLIPTIN PHOSPHATE 50 MG TABLET PO SCH (09:13)
[2020-07-10] MEDS: ENOXAPARIN SODIUM INJ 40 MG/0.4 ML DISP.SYRIN SUBCUT SCH (09:14)
[2020-07-10] MEDS: FUROSEMIDE 80 MG TABLET PO SCH (09:14)
[2020-07-10] MEDS: METOPROLOL SUCCINATE 50 MG TAB.SR.24H PO SCH (09:14)
[2020-07-10 10:27] VITALS: BP 134/66
== END 2020-07-10 10:46 | disposition home or self-care (01) | DRG 291 ==
LOC: 3W 14:25
PROVIDERS: ADMIT Internal Medicine; ATTEND Internal Medicine
DX: I13.0 Hypertensive heart and chronic kidney disease with heart failure and stage 1 through stage 4 chronic kidney disease, or unspecified chronic kidney disease (principal); I50.23 Acute on chronic systolic (congestive) heart failure; N18.3 Chronic kidney disease, stage 3 (moderate); E11.22 Type 2 diabetes mellitus with diabetic chronic kidney disease; I42.9 Cardiomyopathy, unspecified; I27.20 Pulmonary hypertension, unspecified; J44.9 Chronic obstructive pulmonary disease, unspecified; E11.21 Type 2 diabetes mellitus with diabetic nephropathy; I87.2 Venous insufficiency (chronic) (peripheral); Z79.4 Long term (current) use of insulin; Z95.810 Presence of automatic (implantable) cardiac defibrillator; Z87.891 Personal history of nicotine dependence; Z79.82 Long term (current) use of aspirin; Z79.899 Other long term (current) drug therapy
CPT/HCPCS: 36415; 71045; 80048; 80061; 80076; 80162; 81001; 82550; 82553; 82570; 82962; 83036; 83735; 83880; 84156; 84439; 84443; 84484; 85025; 85610; 85730; 87086; J1650; J1940; J2405; J3490; J7050